=== PATIENT | female | born 1950 | race Caucasian/White ===

== ENCOUNTER 2022-02-21 13:25 | Emergency (ER) | payer MEDICARE, SELFPAY ==
--- NOTE | 2022-02-21 13:37 | ED.FEMALEGU ---
HPI - Female Genitourinary General Chief complaint: Urogenital-Female Stated complaint: poss uti Time Seen by Provider: 02/21/22 13:37 Source: patient and RN notes reviewed History of Present Illness HPI Narrative: Patient is 71-year-old female presents to urgent care with complaints of possible UTI. Patient states that last night she noticed her urine was dark and had some urinary frequency. Patient did just stop amoxicillin from the sinus infection on Wednesday. Patient denies any nausea, vomiting, fever or abdominal pain. No other acute complaints. No acute distress noted. Patient aware of the plan of care. Some parts of this dictation were generated by voice recognition software and may contain typographical and/or grammatical inaccuracies. Related Data Home Medications Medication Instructions Recorded Confirmed Fish Oil 02/21/22 allopurinol 300 mg tablet 300 mg PO DAILY 02/21/22 02/21/22 apixaban 5 mg tablet (Eliquis) 5 mg PO BID 02/21/22 02/21/22 atorvastatin 40 mg tablet 40 mg PO DAILY 02/21/22 02/21/22 budesonide-formoterol HFA 160 2 puff inhalation Q12H 02/21/22 02/21/22 mcg-4.5 mcg/actuation aerosol inhaler (Symbicort) famotidine 40 mg tablet 40 mg PO DAILY 02/21/22 02/21/22 fexofenadine 180 mg tablet 180 mg PO DAILY 02/21/22 02/21/22 montelukast 10 mg tablet 10 mg PO DAILY 02/21/22 02/21/22 niacin 02/21/22 sotalol 160 mg tablet 160 mg PO BID 02/21/22 02/21/22 valsartan 320 1 tablet PO DAILY 02/21/22 02/21/22 mg-hydrochlorothiazide 12.5 mg tablet Allergies Allergy/AdvReac Type Severity Reaction Status Date / Time fentanyl Allergy Other Verified 02/21/22 13:56 Sulfa (Sulfonamide Allergy Other Verified 02/21/22 13:55 Antibiotics) Review of Systems Review of Systems: CONSTITUTIONAL: Denies fever, chills, or sweats. EYES: Denies visual changes, redness, or discharge. ENT: Denies rhinorrhea, congestion, sore throat, or otalgia. CARDIOVASCULAR: Denies chest pain, palpitations, or edema. RESPIRATORY: Denies cough or dyspnea. GASTROINTESTINAL: Denies abdominal pain, nausea, vomiting, or diarrhea. GENITOURINARY: Reports of dark urine frequency SKIN: Denies rash or itching. MUSCULOSKELETAL: Denies back pain, joint pain, or myalgia. NEUROLOGIC: Denies headache, numbness, or weakness. All other systems reviewed are negative, except as documented in HPI. PMFSH Comments At the time of my signature, I reviewed and agree with the nursing past medical, surgical, social, and family history. There is no relevant family history pertinent to the patient complaint. Exam Narrative: GENERAL: This is a well-nourished, well-developed patient, in no apparent distress. HEAD: normocephalic, atraumatic. EYES: PERRL. Sclera clear/white. Vision is grossly intact. EARS: External ears normal NOSE: External nose normal with no obvious nasal discharge, nares without redness, no rhinorrhea. THROAT: Mucous membranes moist NECK: Neck supple RESPIRATORY: Clear to auscultation. Breath sounds equal bilaterally. No wheezes, rales, or rhonchi. GASTROINTESTINAL: Abdomen soft, non-tender, nondistended. Bowel sounds are active. SKIN: warm, intact with no suspicious lesions or rash, good texture and turgor. NEURO: awake, alert, and oriented to person, place and time. There were no obvious focal neurologic abnormalities. EXTREMITIES: No clubbing, cyanosis, or edema. BACK:No flank tenderness. Course Course Level of Care: Express Care Visit Vital Signs Vital signs: Vital Signs Temperature 98.1 F 02/21/22 13:38 Pulse Rate 71 02/21/22 13:38 Respiratory Rate 16 02/21/22 13:38 Blood Pressure 131/79 02/21/22 13:38 Pulse Oximetry 99 02/21/22 13:38 Oxygen Delivery Room Air 02/21/22 13:38 Temperature 98.1 F 02/21/22 13:38 Pulse Rate 71 02/21/22 13:38 Respiratory Rate 16 02/21/22 13:38 Blood Pressure 131/79 02/21/22 13:38 Pulse Oximetry 99 02/21/22 13:38 Oxygen Delivery Room
[2022-02-21 13:38] VITALS: BP 131/79; PULSE 71; RESP 16; TEMP 36.7; O2SAT 99
== END 2022-02-21 14:02 | disposition home or self-care (01) ==
PROVIDERS: Emergency Provider Nurse Practitioner Family; PCP Internal Medicine
DX: N39.0 Urinary tract infection, site not specified (principal); Z79.01 Long term (current) use of anticoagulants
CPT/HCPCS: 81003; 87077; 87086; 87186; 99213; G0463

== ENCOUNTER 2023-04-24 13:35 | Emergency (ER) | payer MEDICARE, SELFPAY ==
[2023-04-24 13:42] VITALS: BP 135/75; PULSE 88; RESP 20; TEMP 36.6; O2SAT 100
--- NOTE | 2023-04-24 14:01 | ED.URI ---
HPI - URI/Sore Throat General Chief Complaint: Upper Respiratory Infection Stated Complaint: cough/right side face congestion Time Seen by Provider: 04/24/23 14:00 Source: patient, RN notes reviewed and old records reviewed Mode of arrival: ambulatory Limitations: no limitations History of Present Illness HPI Narrative: 2 week duration of right sided facial pressure with drainage,some headache discomfort AND COUGH. Patient reports that she saw her ENT doctor at the start of her symptom and was started on Azelastine nasal spray and did seemed to get a little better till about 3 days ago. Patient reports that she has had some sore throat starting last night and she has had increased fatigue for the past 48 hours along with cough. Patient reports that she has had COVID vaccination,Flu shot and also RSV immunization this year. Patient reports no recent fevers. MD elicited complaint: cough and sore throat Pertinent past history: other (SINUS PROBLEMS) Onset (ago): week(s) (2) Severity: mild Description of mucous: other (white thick mucous) Able to tolerate fluids by mouth: Yes Treatments prior to arrival: other (nasal spray) Related Data Home Medications Medication Instructions Recorded Confirmed allopurinol 300 mg tablet 300 mg PO DAILY 02/21/22 04/24/23 apixaban 5 mg tablet (Eliquis) 5 mg PO BID 02/21/22 04/24/23 atorvastatin 40 mg tablet 40 mg PO DAILY 02/21/22 04/24/23 budesonide-formoterol HFA 160 2 puff inhalation Q12H 02/21/22 04/24/23 mcg-4.5 mcg/actuation aerosol inhaler (Symbicort) famotidine 40 mg tablet 40 mg PO DAILY 02/21/22 04/24/23 fexofenadine 180 mg tablet 180 mg PO DAILY 02/21/22 04/24/23 montelukast 10 mg tablet 10 mg PO DAILY 02/21/22 04/24/23 sotalol 160 mg tablet 160 mg PO BID 02/21/22 04/24/23 valsartan 320 1 tablet PO DAILY 02/21/22 04/24/23 mg-hydrochlorothiazide 12.5 mg tablet azelastine 137 mcg (0.1 %) nasal See Rx Instructions .Route .COMPLEX 04/24/23 04/24/23 spray aerosol docosahexaenoic acid (dha)-epa 120 1 cap PO DAILY 04/24/23 04/24/23 mg-180 mg capsule (Fish Oil) niacin 50 mg tablet 50 mg PO DAILY 04/24/23 04/24/23 Allergies Allergy/AdvReac Type Severity Reaction Status Date / Time fentanyl Allergy Other Verified 04/24/23 13:40 Sulfa (Sulfonamide Allergy Other Verified 04/24/23 13:40 Antibiotics) Review of Systems Review of Systems: CONSTITUTIONAL: Denies malaise, chills, sweats, or fever. EYES: Denies visual changes, redness, or discharge. ENT: Reports rhinorrhea, congestion,right sided sinus pain, no otalgia and positive for some sore throat. CARDIOVASCULAR: Denies chest pain, palpitations, or edema. RESPIRATORY: Reports cough.? Denies dyspnea. GASTROINTESTINAL: Denies abdominal pain, nausea, vomiting, diarrhea SKIN: Denies rash or itching. MUSCULOSKELETAL: Denies myalgia. NEUROLOGIC: frontal headache . 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 at [facility] Breast cancer, left lumpectomy and radiation Elevated cholesterol History of sinus problem Pacemaker SVT (supraventricular tachycardia) Surgical History Surgical History (Updated 04/24/23 @ 14:57 by Rosalia Melendrez NP) H/O hernia repair History of appendectomy History of cardiac radiofrequency ablation History of hysterectomy History of left hip replacement Total knee replacement status Social History Social History (Updated 04/24/23 @ 14:51 by Rosalia Melendrez NP) Smoking status: Former smoker Additional smoking assessment comments: QUIT OVER 25 YEARS AGO PRIOR TO THAT WAS OCCASIONAL SMOKER Alcohol intake: current Alcohol use details: RARE Substance use type: does not use Living arrangements: alone Occupation/Education: retired Gender identity (if verbalized by the p
== END 2023-04-24 14:30 | disposition home or self-care (01) ==
PROVIDERS: Emergency Provider Registered Nurse; PCP Internal Medicine
DX: J01.40 Acute pansinusitis, unspecified (principal); Z20.822 Contact with and (suspected) exposure to COVID-19; Z87.891 Personal history of nicotine dependence; I48.91 Unspecified atrial fibrillation; E78.00 Pure hypercholesterolemia, unspecified; Z95.0 Presence of cardiac pacemaker; Z96.642 Presence of left artificial hip joint; Z85.3 Personal history of malignant neoplasm of breast; Z90.12 Acquired absence of left breast and nipple; Z79.01 Long term (current) use of anticoagulants
CPT/HCPCS: 87081; 87426; 87804; 87880; 99213; G0463

== ENCOUNTER 2023-05-13 14:05 | Emergency (ER) | payer MEDICARE, SELFPAY ==
--- NOTE | 2023-05-13 14:09 | ED.GENADULT ---
HPI - General Adult General Chief complaint: Urogenital-Female Stated complaint: Poss UTI Source: patient, RN notes reviewed and old records reviewed Mode of arrival: ambulatory Limitations: no limitations History of Present Illness HPI narrative: 73-year-old female presents to [facility] with complaints of burning with urination, urinary frequency, and constant urge to pee then barely going when she goes to the bathroom. Patient states symptoms started over the weekend but has worsened yesterday. Related Data Home Medications Medication Instructions Recorded Confirmed allopurinol 300 mg tablet 300 mg PO DAILY 02/21/22 05/13/23 apixaban 5 mg tablet (Eliquis) 5 mg PO BID 02/21/22 05/13/23 famotidine 40 mg tablet 40 mg PO DAILY 02/21/22 05/13/23 sotalol 160 mg tablet 160 mg PO BID 02/21/22 05/13/23 valsartan 320 1 tablet PO DAILY 02/21/22 05/13/23 mg-hydrochlorothiazide 12.5 mg tablet azelastine 137 mcg (0.1 %) nasal See Rx Instructions .Route .COMPLEX 04/24/23 05/13/23 spray aerosol atorvastatin 80 mg tablet 80 mg PO DAILY 05/13/23 05/13/23 Allergies Allergy/AdvReac Type Severity Reaction Status Date / Time fentanyl AdvReac Unknown Nausea and Verified 05/13/23 14:26 Vomiting Sulfa (Sulfonamide AdvReac Unknown Nausea and Verified 05/13/23 14:26 Antibiotics) Vomiting Review of Systems Constitutional: Constitutional: Reports no additional constitutional complaints, Denies body ache(s), Denies chills, Denies fatigue, Denies fever(s) and Denies headache(s) Eyes: Eyes: Reports no additional eye complaints and Denies blurry vision ENT: Reports system reviewed and no additional complaints, except as documented, Denies vertigo, Denies dizziness, Denies ear discharge, Denies otalgia, Denies facial pain, Denies headache(s), Denies nasal congestion, Denies nasal discharge, Denies sinus pain, Denies sinus pressure and Denies sore throat Cardiovascular: Cardiovascular: Reports no additional cardiovascular complaints, Denies chest pain, Denies chest pain at rest, Denies rapid heart rate and Denies dyspnea Respiratory: Respiratory: Reports no additional respiratory complaints, Denies chest congestion, Denies cough, Denies pain on inspiration, Denies pain with cough and Denies dyspnea Gastrointestinal: Gastrointestinal: Denies abdominal pain, Denies diarrhea, Denies nausea and Denies vomiting Genitourinary: Genitourinary: Reports nocturia, Reports dysuria and Reports urinary urgency Integumentary/Breasts: Skin/Breast: Denies rash Neurologic: Reports system reviewed and no additional complaints, except as documented, Denies vertigo, Denies dizziness and Denies headache(s) Endocrine: Endocrine: Denies fatigue [facility] Past Medical History Medical History Atrial fibrillation Brain tumor 40 years ago removed at [facility] Breast cancer, left lumpectomy and radiation Elevated cholesterol History of sinus problem Pacemaker SVT (supraventricular tachycardia) Surgical History Surgical History H/O hernia repair History of appendectomy History of cardiac radiofrequency ablation History of hysterectomy History of left hip replacement Total knee replacement status Social History Social History Smoking status: Former smoker Additional smoking assessment comments: QUIT OVER 25 YEARS AGO PRIOR TO THAT WAS OCCASIONAL SMOKER Alcohol intake: current Alcohol use details: RARE Substance use type: does not use Living arrangements: alone Occupation/Education: retired Gender identity (if verbalized by the patient): Female Comments At the time of my signature, I reviewed and agree with the nursing past medical, surgical, social, and family history. There is no relevant family history pertinent to the patient complaint. Exam Const:
[2023-05-13 14:12] VITALS: BP 149/80; PULSE 66; RESP 20; TEMP 36.6; O2SAT 99
== END 2023-05-13 14:37 | disposition home or self-care (01) ==
PROVIDERS: Emergency Provider Registered Nurse; PCP Internal Medicine
DX: N30.01 Acute cystitis with hematuria (principal); B96.20 Unspecified Escherichia coli [E. coli] as the cause of diseases classified elsewhere; Z87.891 Personal history of nicotine dependence; I48.91 Unspecified atrial fibrillation; E78.00 Pure hypercholesterolemia, unspecified; Z85.3 Personal history of malignant neoplasm of breast; Z90.12 Acquired absence of left breast and nipple; Z96.642 Presence of left artificial hip joint; Z95.0 Presence of cardiac pacemaker; Z79.01 Long term (current) use of anticoagulants
CPT/HCPCS: 81003; 87077; 87086; 87088; 87186; 99213; G0463

== ENCOUNTER 2024-03-04 10:03 | Emergency (ER) | payer MEDICARE, SELFPAY ==
[2024-03-04 10:12] VITALS: BP 128/64; PULSE 69; RESP 20; TEMP 37.2; O2SAT 99
--- NOTE | 2024-03-04 10:13 | ED.URI ---
HPI - URI/Sore Throat General Chief Complaint: Upper Respiratory Infection Stated Complaint: SINUS CONGESTION/SCRATCHY THROAT Time Seen by Provider: 03/04/24 10:16 Source: patient, RN notes reviewed and old records reviewed Mode of arrival: ambulatory Limitations: no limitations History of Present Illness HPI Narrative: 73-year-old female presents to the [facility] with a 4-5 day history of sinus congestion, sore throat, rhinorrhea, postnasal drainage. Has taken Flonase, Delsyn and Coricidin Onset (ago): day(s) (4-5) Related Data Home Medications ?Medication ?Instructions ?Recorded ?Confirmed ?Last Taken ?Type allopurinol 300 mg tablet 300 mg PO DAILY 02/21/22 03/04/24 Unknown History apixaban 5 mg tablet (Eliquis) 5 mg PO BID 02/21/22 03/04/24 Unknown History famotidine 40 mg tablet 40 mg PO DAILY 02/21/22 03/04/24 Unknown History sotalol 160 mg tablet 160 mg PO BID 02/21/22 03/04/24 Unknown History valsartan 320 1 tablet PO DAILY 02/21/22 03/04/24 Unknown History mg-hydrochlorothiazide 12.5 mg tablet azelastine 137 mcg (0.1 %) nasal See Rx Instructions .Route .COMPLEX 04/24/23 03/04/24 Unknown History spray atorvastatin 80 mg tablet 80 mg PO DAILY 05/13/23 03/04/24 Unknown History Jo Ann 03/04/24 Unknown History Fish Oil 03/04/24 Unknown History Vitamin C 03/04/24 Unknown History albuterol sulfate 90 mcg/actuation inhalation 03/04/24 Unknown History aerosol inhaler amlodipine 2.5 mg tablet mg 03/04/24 Unknown History budesonide-formoterol HFA 160 inhalation 03/04/24 Unknown History mcg-4.5 mcg/actuation aerosol inhaler (Breyna) calcium 03/04/24 Unknown History ezetimibe 10 mg tablet mg 03/04/24 Unknown History montelukast 10 mg tablet mg 03/04/24 Unknown History multivitamin 03/04/24 Unknown History niacin 100 mg tablet See Rx Instructions PO DAILY 03/04/24 03/04/24 Unknown History vitamin d3 03/04/24 Unknown History zinc 03/04/24 Unknown History Allergies Allergy/AdvReac Type Severity Reaction Status Date / Time fentanyl AdvReac Unknown Nausea and Verified 03/04/24 10:07 Vomiting Sulfa (Sulfonamide AdvReac Unknown Nausea and Verified 03/04/24 10:07 Antibiotics) Vomiting Review of Systems Review of Systems: All systems reviewed & are unremarkable except as noted in HPI and below Constitutional: Constitutional: Reports no additional constitutional complaints ENT: Reports as per HPI, Reports sinus pressure and Reports sore throat Cardiovascular: Cardiovascular: Reports no additional cardiovascular complaints, Denies chest pain and Denies dyspnea Respiratory: Respiratory: Reports no additional respiratory complaints, Denies chest congestion, Denies cough and Denies dyspnea Musculoskeletal: Musculoskeletal: Reports no additional musculoskeletal complaints Integumentary/Breasts: Skin/Breast: Reports system reviewed and no additional complaints, except as docu PMFSH Past Medical History Medical History Elevated cholesterol Pacemaker Atrial fibrillation SVT (supraventricular tachycardia) History of sinus problem Brain tumor 40 years ago removed at [facility] Breast cancer, left lumpectomy and radiation Surgical History Surgical History H/O hernia repair History of cardiac radiofrequency ablation History of appendectomy History of hysterectomy History of left hip replacement Total knee replacement status Social History Social History Smoking status: Former smoker Additional smoking assessment comments: QUIT OVER 25 YEARS AGO PRIOR TO THAT WAS OCCASIONAL SMOKER Alcohol intake: current Alcohol use details: RARE Substance use type: does not use Living arrangements: alone Occupation/Education: retired Gender identity (if verbalized by the patient): Female Comments At the time of my signature, I reviewed and agree with the nursing past medical, surgical, social, and family history. There is no relevant family history pertinent to the patient complaint. Exam Const: General: cooperative, healthy appearing, comfortable, no acute distress, well developed, alert and well nourished Nutritional Appearance: well nourished and obese Orientation/consciousness: patient oriented x3 Limitations: no limitations HENMT: Head: normal to inspection Ears: hearing grossly normal bilaterally, external ears normal and TM abnormal with fluid behind the TM bilateral Throat: posterior oropharynx normal, uvula midline, postnasal drainage and no uvular edema Eyes: General: appearance normal, both eyes and all related structures Alignment and Position: alignment normal Neck: Neck: normal visual inspection, full ROM, no lymphadenopathy and no meningeal signs Chest: Chest palpation & inspection: normal inspection of the chest Resp: Effort & Inspection: normal respiratory effort and able to speak in complete sentences Auscultation: clear to auscultation bilaterally, no crackles, no rales, no rhonchi and no wheezes Cardio: Rate: regular rate Skin: General skin exam: normal color and no rashes or lesions noted Neuro: General: patient oriented x3, gait normal, moves all extremities and no meningeal signs Cognition (Neuro): normal cognition Speech: normal speech Gait exam (Neuro): Normal gait present Extrem: General: normal to inspection, full ROM, capillary refill normal and normal gait Psych: Appearance: grossly normal and well kempt Mental Status: mental status grossly normal Speech and movement: Normal speech and movement present and Clear speech present Affect: normal affect Attitude: cooperative Course Course Level of Care: Express Care Visit Vital Signs Vital signs: Vital Signs Temperature 98.9 F 03/04/24 10:12 Pulse Rate 69 03/04/24 10:12 Respiratory Rate 20 03/04/24 10:12 Blood Pressure 128/64 03/04/24 10:12 Pulse Oximetry 99 03/04/24 10:12 Oxygen Delivery Room Air 03/04/24 10:12 Temperature 98.9 F 03/04/24 10:12 Pulse Rate 69 03/04/24 10:12 Respiratory Rate 20 03/04/24 10:12 Blood Pressure 128/64 03/04/24 10:12 Pulse Oximetry 99 03/04/24 10:12 Oxygen Delivery Room Air 03/04/24 10:12 Reviewed MDM - URI/Sore Throat MDM Narrative Medical decision making narrative: Patient sitting in exam. Nontoxic vitals stable. Patient in no acute distress. Patient presents with 4 day history of sinus congestion, sore throat, postnasal drainage. Patient has been using [id number] products. Flu and COVID negative. Patient appropriate outpatient treatment of sinusitis with close follow-up Discharge instructions reviewed with patient, as well as provided in writing per nursing staff. The instructions also include specific and strict return/GO TO THE ER as well as f/u information. All questions have been answered, and the patient deny any further questions with discharge and discharge plan. Some parts of this dictation were generated by voice recognition software and may contain typographical and/or grammatical inaccuracies. Differential Diagnosis Differential diagnosis: Likely upper respiratory infection, otitis media, sinusitis, viral infection and influenza Lab Data Labs: Lab Results 03/04/24 Range/Units 10:41 POC Influenza A Ag Negative (Negative) POC Influenza B Ag Negative (Negative) POC SARS CoV-2 Ag Negative (Negative) Reviewed Critical Care Time Critical Care Time Critical Care Time: No Discharge Plan Discharge Clinical Impression: PND (post-nasal drip) Sinusitis Qualifiers: Sinusitis location: unspecified location Chronicity: acute Recurrence: not specified as recurrent Qualified Code(s): J01.90 - Acute sinusitis, unspecified Patient Disposition: Home, Self-Care Condition: Stable Instructions: Antibiotic Form, Sinusitis (ED), Postnasal Drip (DC) Additional Instructions: Your rapid COVID test were negative Your rapid flu test was negative Your symptoms are likely due to a viral illness, which is not treated with antibiotics. Typically viral infections last 7-10 days, can linger for couple of weeks. It is very important to treat your symptoms. Drink plenty of water, Gatorade, Pedialyte, ice pops or Jell-O. -Alternate Tylenol and Motrin per package directions for fever or pain. You can alternate every 4 hours -Antihistamine medication such as Zyrtec/Claritin/Jo Ann during the day can help improve symptoms. -doing daily nasal irrigations can help relieve pressure your sinuses. Things like a Neti pot -Use Flonase twice a day for 5 days then daily to help reduce the inflammation and dry up your sinuses. -You can also use Coricidin HBP, Mucinex. Be sure to drink plenty of water with this medication at least 8 ounces with every dose and it is important to drink 8 to 10 glasses of water per day. Water is a natural decongestant -Eat and drink things that are easy to swallow, like tea or soup, or popsicles. -Oral rinses such as: Salt water gargles and/or may use topical anesthetic (eg. Chloraseptic spray) or lozenges to relieve dryness or throat pain). -Frequent hand washing or hand preparation department supervisor is one of the best ways to prevent spread of infection. -Using a vaporizer or humidifier at night will also help thin secretions and help with coughing up phlegm. -Follow up with primary care provider in 7-10 days if condition is not improving - For new or worsening symptoms go directly to the nearest ER Patient Language: Eritrean Prescriptions: New methylprednisolone [Medrol (Oziel)] 4 mg tablets,dose pack See Rx Instructions PO .COMPLEX Qty: 21 0RF Rx Instructions: orally per package directions No Action sotalol 160 mg Tablet 160 mg PO BID famotidine 40 mg Tablet 40 mg PO DAILY allopurinol 300 mg Tablet 300 mg PO DAILY valsartan-hydrochlorothiazide 320-12.5 mg Tablet 1 tablet PO DAILY Eliquis 5 mg Tablet 5 mg PO BID azelastine 137 mcg (0.1 %) aerosol,spray See Rx Instructions .ROUTE .COMPLEX Rx Instructions: as prescribed atorvastatin 80 mg tablet 80 mg PO DAILY nitrofurantoin monohyd/m-cryst [Macrobid] 100 mg capsule 100 mg PO Q12H 7 Days Qty: 14 0RF Rx Instructions: must administer with a meal/food amlodipine 2.5 mg tablet montelukast 10 mg tablet ezetimibe 10 mg tablet budesonide-formoterol [Breyna] 160-4.5 mcg/actuation HFA aerosol inhaler INHALATION albuterol sulfate 90 mcg/actuation HFA aerosol inhaler INHALATION Jo Ann Vitamin C multivitamin niacin 100 mg tablet See Rx Instructions PO DAILY Rx Instructions: orally daily; Fish Oil vitamin d3 zinc calcium Follow-up/Referrals: Kunal,Moo Slater MD [Primary Care Provider] - 1 Week (express care follow up ) Time of Disposition: 10:50
[2024-03-04 10:42] LABS: EDCOVIDSCREEN Negative (Negative); EDINFLUASCREEN Negative (Negative); EDINFLUBSCREEN Negative (Negative)
--- OUTSIDE RECORDS SUMMARY | 2024-03-11 12:45 | XMS_ITS ---
Author Organization Unknown ALLERGIES AND ADVERSE REACTIONS No information ASSESSMENT No information CHIEF COMPLAINT No information MEDICATIONS No information OBJECTIVE DATA No information PHYSICAL EXAMINATION No information TREATMENT PLAN Planned Care Start Date Provider Encounter for Check-up [id number] [facility] - Dr. Enrique Syed PROBLEMS No information RESULTS No information REVIEW OF SYSTEMS No information SUBJECTIVE DATA No information VITAL SIGNS No information
--- OUTSIDE RECORDS SUMMARY | 2024-03-11 12:45 | XMS_ITS | Clinical Summary ---
Author Organization Unknown Care Team Providers Care Planting Material Carrier Name Role Phone ZITA MALIN, DELMA Unavailable Unavailable ALYSSA PT, GUSTAVO Unavailable Unavailabl e Payers Payer Name Policy Type Policy Number Effective Date Expira tion Date MEDICARE - [place] - PDGM [id number] Problems Condition Name Condition Details Condition Category Status Onset Date Resolution Date Last Treatment Date Treating Clinician Comments AFTERCARE FOLLOWING JOINT REPLACEMENT SURGERY Active 03-01 00:00: 00 UNSPECIFIED ATRIAL FIBRILLATION Active 03-01 00:00: 00 ATHSCL HEART DISEASE OF [place] CORONARY ARTERY W/O ANG PCTRS Active 03-01 00:00: 00 GASTRO-ESOPH AGEAL REFLUX DISEASE WITHOUT ESOPHAGITIS Active 03-01 00:00: 00 ESSENTIAL (PRIMARY) HYPERTENSION Active 03-01 00:00: 00 UNILATERAL PRIMARY OSTEOARTHRIT IS, RIGHT KNEE Active 03-01 00:00: 00 PRESENCE OF LEFT ARTIFICIAL HIP JOINT Active 03-01 00:00: 00 HISTORY OF FALLING Active 03-01 00:00: 00 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 Ordering Clinician Indication Dosage Frequency Signature (SIG) Comments Components ondansetron 4 mg disintegrat ing tablet 2022-03 00:00: 00 Yes [id number] 1 tablet DAILY 1 tablet DAILY (route: oral) Med Classific ation: Gastroint estinal Therapy Agents oxycodone-a cetaminophe n 5 mg-325 mg tablet 2022-03 00:00: 00 Yes [id number] 2 tablet EVERY 4 HOURS 2 tablet EVERY 4 HOURS (route: oral) Med Classific ation: Analgesic , Anti-infl ammatory or Antipyret ic valsartan 320 mg-hydrochl orothiazide 12.5 mg tablet 2022-03 00:00: 00 Yes [id number] 1 tablet DAILY 1 tablet DAILY (route: oral) Med Classific ation: Cardiovas cular Therapy Agents allopurinol 300 mg tablet 2022-03 00:00: 00 Yes [id number] 1 tablet DAILY 1 tablet DAILY (route: oral) Med Classific ation: Gout and Hyperuric emia Therapy atorvastati n 80 mg tablet 2022-03 00:00: 00 Yes [id number] 1 tablet BEDTIME 1 tablet BEDTIME (route: oral) Med Classific ation: Cardiovas cular Therapy Agents sotalol 160 mg tablet 2022-03 00:00: 00 Yes [id number] 1 tablet 2 TIMES DAILY 1 tablet 2 TIMES DAILY (route: oral) Med Classific ation: Cardiovas cular Therapy Agents montelukast 10 mg tablet 2022-03 00:00: 00 Yes [id number] 1 tablet BEDTIME 1 tablet BEDTIME (route: oral) Med Classific ation: Respirato ry Therapy Agents Acetaminoph en Extra Strength 500 mg tablet 2022-03 00:00: 00 Yes [id number] 2 tablet EVERY 8 HOURS 2 tablet EVERY 8 HOURS (route: oral) Med Classific ation: Analgesic , Anti-infl ammatory or Antipyret ic albuterol sulfate HFA 90 mcg/actuati on aerosol inhaler 2022-03 00:00: 00 Yes [id number] 2 puff EVERY 6 HOURS 2 puff EVERY 6 HOURS (route: inhalation ) Med Classific ation: Respirato ry Therapy Agents azelastine 137 mcg (0.1 %) nasal spray aerosol 2022-03 00:00: 00 Yes [id number] 2 spray 2 TIMES DAILY 2 spray 2 TIMES DAILY (route: nasal) Med Classific ation: Respirato ry Therapy Agents Eliquis 5 mg tablet 2022-03 00:00: 00 Yes [id number] 1 tablet 2 TIMES DAILY 1 tablet 2 TIMES DAILY (route: oral) Med Classific ation: Hematolog ical Agents famotidine 40 mg tablet 2022-03 00:00: 00 Yes [id number] 1 tablet BEDTIME 1 tablet BEDTIME (route: oral) Med Classific ation: Gastroint estinal Therapy Agents ferrous sulfate 325 mg (65 mg iron) tablet 2022-03 00:00: 00 Yes [id number] 1 tablet DAILY 1 tablet DAILY (route: oral) Med Classific ation: Electroly te Balance-N utritiona l Products Narcan 4 mg/actuatio n nasal spray 2022-03 00:00: 00 Yes [id number] 1 spray NEEDED 1 spray A S NEEDED (route: nasal) Med Classific ation: Antidotes and other Reversal Agents Senna-S 8.6 mg-50 mg tablet 2022-03 00:00: 00 Yes [id number] 2 tablet 2 TIMES DAILY 2 tablet 2 TIMES DAILY (route: oral) Med Classific ation: Gastroint estinal Therapy Agents Vital Signs Vital Name Observation Time Observation Value Commen ts Temperature 2023-03-02 10:39:00.000 98.1 [degF] Temperature 2023-02-24 09:24:00.000 97.5 [degF] Temperature 2023-02-15 09:23:00.000 98.1 [degF] Temperature 2023-02-10 08:35:00.000 96.7 [degF] Temperature 2023-02-01 10:16:00.000 97.3 [degF] Temperature 2023-01-27 12:03:00.000 99.1 [degF] Temperature 2023-01-20 12:28:00.000 98.2 [degF] Temperature 2023-01-18 11:58:00.000 97.6 [degF] BMI (%) 2023-01-18 11:58:00.000 41 kg/m2 Height 2023-01-18 11:58:00.000 59 [in_us] Pulse 2023-03-02 10:39:00.000 88 /min Pulse 2023-02-24 09:24:00.000 88 /min Pulse 2023-02-15 09:23:00.000 76 /min Pulse 2023-02-10 08:35:00.000 66 /min Pulse 2023-02-01 10:16:00.000 80 /min Pulse 2023-01-27 12:03:00.000 72 /min Pulse 2023-01-20 12:28:00.000 77 /min Pulse 2023-01-18 11:58:00.000 68 /min O2 Saturation (%) 2023-03-02 10:39:00.000 99 % O2 Saturation (%) 2023-02-24 09:24:00.000 99 % O2 Saturation (%) 2023-02-15 09:23:00.000 100 % O2 Saturation (%) 2023-02-10 08:39:00.000 98 % O2 Saturation (%) 2023-02-01 10:16:00.000 99 % O2 Saturation (%) 2023-01-27 12:03:00.000 97 % Respirations 2023-03-02 10:39:00.000 18 /min Respirations 2023-02-24 09:24:00.000 18 /min Respirations 2023-02-15 09:23:00.000 18 /min Respirations 2023-02-10 08:35:00.000 18 /min Respirations 2023-02-01 10:16:00.000 18 /min Respirations 2023-01-27 12:03:00.000 18 /min Respirations 2023-01-20 12:28:00.000 18 /min Respirations 2023-01-18 11:58:00.000 18 /min Weight (lbs) 2023-01-18 11:58:00.000 206 [lb_av] Systolic Blood Pressure 2023-03-02 10:39:00.000 138 mm [Hg] Systolic Blood Pressure 2023-02-24 09:24:00.000 138 mm [Hg] Systolic Blood Pressure 2023-02-15 09:23:00.000 132 mm [Hg] Systolic Blood Pressure 2023-02-10 08:35:00.000 144 mm [Hg] Systolic Blood Pressure 2023-02-01 10:16:00.000 142 mm [Hg] Systolic Blood Pressure 2023-01-27 12:03:00.000 138 mm [Hg] Systolic Blood Pressure 2023-01-20 12:28:00.000 132 mm [Hg] Systolic Blood Pressure 2023-01-18 11:58:00.000 100 mm [Hg] Diastolic Blood Pressure 2023-03-02 10:39:00.000 80 mm [Hg] Diastolic Blood Pressure 2023-02-24 09:24:00.000 82 mm [Hg] Diastolic Blood Pressure 2023-02-15 09:23:00.000 70 mm [Hg] Diastolic Blood Pressure 2023-02-10 08:35:00.000 86 mm [Hg] Diastolic Blood Pressure 2023-02-01 10:16:00.000 83 mm [Hg] Diastolic Blood Pressure 2023-01-27 12:03:00.000 52 mm [Hg] Diastolic Blood Pressure 2023-01-20 12:28:00.000 68 mm [Hg] Diastolic Blood Pressure 2023-01-18 11:58:00.000 60 mm [Hg] Plan of Treatment Planned Activity Planned Date Details Comments Future Scheduled Test PHYSICAL T HERAPIST TO EVALUATE PATIENT SECONDARY TO FUNCTIONAL DEFICITS/SAFETY CONCERNS. [code = PHYSICAL THERAPIST TO EVALUATE PATIENT SECONDARY TO FUNCTIONAL DEFICITS/SAFETY CONCERNS.] Future Scheduled Test OCCUPATION AL THERAPIST TO EVALUATE PATIENT SECONDARY TO DEFICITS/CONCERNS FOUND DURING EVALUATION INCLUDING DIFFICULTY WITH SELF CARE [code = OCCUPATIONAL THERAPIST TO EVALUATE PATIENT SECONDARY TO DEFICITS/CONCERNS FOUND DURING EVALUATION INCLUDING DIFFICULTY WITH SELF CARE] Future Scheduled Test PHYSICAL T HERAPIST TO ASSESS BEST PRACTICE INTERVENTIONS TO ASSIST PATIENTS TO IMPROVE OR STABILIZE MEDICAL STATUS AND PREVENT RE-HOSPITALIZATION. MEASURES INCLUDING REVIEW AND IDENTIFICATION OF CONCERNS FOR THE FOLLOWING AREAS: DRUG REGIMEN, ENVIRONMENTAL SAFETY ISSUES AND FALLS, PRESSURE ULCERS, PAIN, AND DISEASE MANAGEMENT. [code = PHYSICAL THERAPIST TO ASSESS BEST PRACTICE INTERVENTIONS TO ASSIST PATIENTS TO IMPROVE OR STABILIZE MEDICAL STATUS AND PREVENT RE-HOSPITALIZATION. MEASURES INCLUDING REVIEW AND IDENTIFICATION OF CONCERNS FOR THE FOLLOWING AREAS: DRUG REGIMEN, ENVIRONMENTAL SAFETY ISSUES AND FALLS, PRESSURE ULCERS, PAIN, AND DISEASE MANAGEMENT.] Future Scheduled Test PHYSICAL T HERAPY TO ESTABLISH /UPGRADE/DOWNGRADE THERAPEUTIC EXERCISE PROGRAM AND INSTRUCT PATIENT/CAREGIVER ON EXERCISE PRECAUTIONS WITH WRITTEN HOME PROGRAM. MAY INCLUDE PROM, AAROM, AROM, RROM APPROPRIATE TO IMPROVE FUNCTIONAL STRENGTH AND RANGE OF MOTION. [code = PHYSICAL THERAPY TO ESTABLISH /UPGRADE/DOWNGRADE THERAPEUTIC EXERCISE PROGRAM AND INSTRUCT PATIENT/CAREGIVER ON EXERCISE PRECAUTIONS WITH WRITTEN HOME PROGRAM. MAY INCLUDE PROM, AAROM, AROM, RROM APPROPRIATE TO IMPROVE FUNCTIONAL STRENGTH AND RANGE OF MOTION.] Future Scheduled Test PHYSICAL T HERAPY TO INSTRUCT PATIENT/CAREGIVER ON BED MOBILITY TECHNIQUES TO IMPROVE PATIENT MOBILITY AND POSITIONING TECHNIQUES IN ORDER TO INCREASE PATIENTS COMFORT AND DECREASE RISK OF SKIN BREAKDOWN. [code = PHYSICAL THERAPY TO INSTRUCT PATIENT/CAREGIVER ON BED MOBILITY TECHNIQUES TO IMPROVE PATIENT MOBILITY AND POSITIONING TECHNIQUES IN ORDER TO INCREASE PATIENTS COMFORT AND DECREASE RISK OF SKIN BREAKDOWN.] Future Scheduled Test PHYSICAL T HERAPY TO ASSESS AND RECOMMEND HOME SAFETY ADAPTATIONS AND EDUCATE PATIENT /CAREGIVER ON FALL PREVENTION STRATEGIES. [code = PHYSICAL THERAPY TO ASSESS AND RECOMMEND HOME SAFETY ADAPTATIONS AND EDUCATE PATIENT /CAREGIVER ON FALL PREVENTION STRATEGIES.] Future Scheduled Test PHYSICAL T HERAPY TO INSTRUCT PATIENT/CAREGIVER ON BALANCE AND BALANCE STRATEGIES TO IMPROVE SAFE MOBILITY AND REDUCE RISK FOR FALL AND INJURY. [code = PHYSICAL THERAPY TO INSTRUCT PATIENT/CAREGIVER ON BALANCE AND BALANCE STRATEGIES TO IMPROVE SAFE MOBILITY AND REDUCE RISK FOR FALL AND INJURY.] Future Scheduled Test OCCUPATION AL THERAPY TO EVALUATE AND TREAT. OCCUPATIONAL THERAPY EVALUATION COMPLETED. NO ADDITIONAL VISITS RECOMMENDED AT THIS TIME. [code = OCCUPATIONAL THERAPY TO EVALUATE AND TREAT. OCCUPATIONAL THERAPY EVALUATION COMPLETED. NO ADDITIONAL VISITS RECOMMENDED AT THIS TIME.] Goal 2023-03-02 Patient Goal - P ATIENT WANTS TO GET BACK TO DAILY ROUTINE Goal Provider Goal - PHYSICAL THERAPY EVALUATION TO BE COMPLETED WITH RECOMMENDATIONS AND/OR WRITTEN TREATMENT PLAN OF CARE ESTABLISHED FOR THE PHYSICIANS SIGNATURE Goal Provider Goal - OCCUPATIONAL THERAPY EVALUATION TO BE COMPLETED WITH RECOMMENDATIONS AND/OR WRITTEN TREATMENT PLAN OF CARE ESTABLISHED FOR THE PHYSICIANS SIGNATURE. Goal Provider Goal - PATIENT/CAREGIVER VERBALIZES UNDERSTANDING OF THE INITIAL BEST PRACTICE RECOMMENDATIONS. PHYSICIAN TO BE NOTIFIED APPROPRIATE FOR ANY CHANGES OR COMPLICATIONS THROUGHOUT THE CERTIFICATION PERIOD. Goal Provider Goal - PATIENT/CAREGIVER WILL PERFORM THERAPEUTIC EXERCISE/S AND DEMONSTRATE PARTICIPATION IN A HOME PROGRAM TO IMPROVE FUNCTION OF TRANSFERS. Goal Provider Goal - PATIENT/CAREGIVER WILL DEMONSTRATE IMPROVED BED MOBILITY TECHNIQUES TO IMPROVE FUNCTION OF BED MOBILITY. Goal Provider Goal - PATIENT/CAREGIVER WILL DEMONSTRATE/VERBALIZE UNDERSTANDING OF RECOMMENDATIONS TO INCREASE SAFETY IN THE HOME AND FALL PREVENTION TO IMPROVE FUNCTION OF AMBULATION USING ROLLING WALKER. Goal Provider Goal - PATIENT/CAREGIVER WILL DEMONSTRATE IMPROVED BALANCE AND REDUCE THE RISK OF FALLS AND INJURY TO IMPROVE FUNCTION OF TRANSFERS AND AMBULATION USING ROLLING WALKER. Goal Provider Goal - NONE Reason for Visit INDEPENDENT IN THE HOME Encounters Start Date/Time End Date/Time Encounter Type Admission Type Attending Clinicians Care Facility Care Department Encounter ID Discharge Date Discharge Status Discharge Condition Discharge Reason Percent Goals Met 2023-01-18 00:00:00 2023-03-02 00:00:00 Outpatient NEW ADMISSION GUSTAVO SHAH [facility] [id number] 2023-03-02 00:00:00 DISCHARGE TO HOME OR SELF CARE INDEPENDEN T IN THE HOME GOALS MET ( ONLY) 100.00
--- OUTSIDE RECORDS SUMMARY | 2024-03-11 12:46 | XMS_ITS | Encounter Summary ---
Author Organization [facility] Address [address] [place] [address] Phone Care Team Providers Care Mold Maker Apprentice Name Role Phone Enrique Syed MD Primary Care Provider [phone] Clementina Logan MD Unavailable [phone] Reason for Referral * Radiology Services (Routine) - Closed Specialty Diagnoses / Procedures Referred By Rosalind estevez Referred To Contact Radiology Diagnoses Kidney stone Procedures US RENAL COMPLETE Clementina Logan MD [address], [address] [address] Phone: tel: fax: Referral ID Status Reason Start Date Expiration Date Visits Re quested Visits Authorized [id number] Closed 10/01/2023 1 1 Reason for Visit * Radiology Services (Routine) - Closed Specialty Diagnoses / Procedures Referred By Rosalind estevez Referred To Contact Radiology Diagnoses Kidney stone Procedures US RENAL COMPLETE Clementina Logan MD [address] [facility] [address] [place] [address] Phone: tel: fax: Referral ID Status Reason Start Date Expiration Date Visits Re quested Visits Authorized [id number] Closed 10/01/2023 1 1 Encounter Details Date Type Department Care Team (Latest Contact Info) Description 11/15/2023 8:59 AM CDT - 11/15/2023 11:59 PM CDT Hospital Encounter [facility] Ultrasound [address] [place] [address] Clementina Logan MD [address], [place] [address] [place] [address] Discharge Disposition: Discharged to home or Selfcare Social History Tobacco Use Types Packs/Day Years Used Date Smoking Tobacco: Former Cigarettes Q uit: 1999 Smokeless Tobacco: Never Alcohol Use Standard Drinks/Week Comments Not Currently 0 (1 standard drink = 0.6 oz pur e alcohol) [facility] Utilities Answer Date Recorded In the past 12 months has e electric, gas, oil, or water company threatened to shut off services in your home? Patient declined 09/18/2023 Social Connection and Isolation Panel [NHANES] A nswer Date Recorded In a typical week, how many times do you talk on the phone with family, friends, or neighbors? Patient declined 09/18/2023 How often do you get togethe r with friends or relatives? Patient declined 09/18/2023 How often do you attend adventism or adventist serv ices? Patient declined 09/18/2023 Do you belong to any clubs o r organizations such as adventism groups, unions, fraternal or athletic groups, or school groups? Patient declined 09/18/2023 How often do you attend meet ings of the clubs or organizations you belong to? Patient declined 09/18/2023 Are you , , di vorced, , never , or living with a partner? Patient declined 09/18/2023 AUDIT-C Answer Date Recorded Q1: How often do you have a drink containing alc ohol? Patient declined 09/18/2023 Q2: How many drinks containi ng alcohol do you have on a typical day when you are drinking? Patient declined 09/18/2023 Q3: How often do you have si x or more drinks on one occasion? Patient declined 09/18/2023 Overall Financial Resource Strain (CARDIA) Answe r Date Recorded How hard is it for you to pa y for the very basics like food, housing, medical care, and heating? Patient declined 09/18/2023 [facility] Occupat ional Health - Occupational Stress Questionnaire Answer Date Recorded Do you feel stress - tense, restless, nervous, or anxious, or unable to sleep at night because your mind is troubled all the time - these days? Patient declined 09/18/2023 Exercise Vital Sign Answer Date Recorde d On average, how many days pe r week do you engage in moderate to strenuous exercise (like a brisk walk)? Patient declined On average, how many minutes do you engage in exercise at this level? Patient declined 09/18/2023 Hunger Vital Sign Answer Date Recorded Within the past 12 months, y ou worried that your food would run out before you got the money to buy more. Patient declined Within the past 12 months, t he food you bought just didn't last and you didn't have money to get more. Patient declined PRAPARE - Transportation Answer Date Re corded In the past 12 months, has l ack of transportation kept you from medical appointments or from getting medications? Patient declined 09/18/2023 In the past 12 months, has l ack of transportation kept you from meetings, work, or from getting things needed for daily living? Patient declined 09/18/2023 Housing Stability Vital Sign Answer Chay e Recorded In the last 12 months, was t here a time when you were not able to pay the mortgage or rent on time? Patient declined 09/18/19 24 In the past 12 months, how m any times have you moved where you were living? 1 09/18/2023 At [facility] time in the [facility] were you homeless or living in a care home (including now)? Patient declined 09/18/2023 Sexually Active Control Partners Comments Not Currently Comments No Sex and Gender Information Value Date Recorded Sex Assigned at Not on file Legal Sex Female 10:10 PM CDT Gender Identity Not on file Sexual Orientation Not on file documented as of this encounter Medications at Time of Discharge albuterol 108 (90 Base) MCG/ACT Aerosol Solution take 2 Puffs by inhalation every 4 hours as needed. 06/11/2021 allopurinol (ZYLOPRIM) 300 MG Tablet 300 mg. 06/09/2010 apixaban (ELIQUIS) 5 MG Tablet Take 5 mg by mouth 2 times daily. 08/02/2013 Ascorbic Acid 500 MG Capsule CR 500 mg. 06/18/2015 atorvastatin (LIPITOR) 40 MG Tablet 80 mg every evening. 12/25/2015 azelastine (ASTELIN) 0.1 % Solution 08/19/2016 budesonide-formo terol fumarate (SYMBICORT) 160-4.5 MCG/ACT Aerosol inhale 2 puff by inhalation route 2 times every day in the morning and evening 05/16/2013 docusate sodium (Colace) 100 MG Capsule Take 1 Capsule by mouth 2 times daily. 60 Capsule 05/26/2022 famotidine (PEPCID) 10 MG Tablet Take 10 mg by mouth. fexofenadine (SOMMER) 60 MG Tablet Take by mouth. 08/19/2016 fluticasone (FLONASE) 50 MCG/ACT Suspension 02/18/2010 HYDROcodone-acet aminophen (NORCO) 5-325 MG TabletIndication s:Kidney stone Take 1 Tablet by mouth every 6 hours as needed for Severe pain. 15 Tablet 09/17/2023 montelukast (SINGULAIR) 10 MG Tablet 10 mg. 07/30/2016 Multiple Vitamin (MULTIVITAMIN ADULT PO) 09/17/2014 niacin CR 250 MG Capsule CR Take 800 mg by mouth nightly. 08/19/2016 [place]-3 1400 MG Capsule Take by mouth. oxybutynin (DITROPAN-XL) 10 MG TABLET SR 24 HR Take 1 Tablet by mouth daily. 30 Tablet 3 05/26/2022 Semaglutide-Weig ht Management (CAITY [place]) by Subcutaneous route. sotalol (BETAPACE) 160 MG Tablet Take 160 mg by mouth 2 times daily. 01/09/2022 traMADol (ULTRAM) 50 MG TabletIndication s:Left ureteral stone,Urinary tract infection Take 1 Tablet by mouth every 8 hours as needed for Moderate or more severe pain. 20 Tablet 09/04/2023 valsartan-hydroC HLOROthiazide (DIOVAN-HCT) 320-12.5 MG Tablet Take 1 Tablet by mouth daily. 02/19/2022 Zinc 50 MG Capsule Take by mouth. documented as of this encounter Progress Notes * Clementina Logan MD - 11/15/2023 9:00 AM CDT Can you please let the patient know the degree of swelling in her left kidney has a improve which is good news however, given that there still is some persistence I do recommend proceeding with a CT scan with contrast. If she was amenable I can go ahead and order.. Thank you, Clementina Logan * Maritza Schneider - 11/15/2023 9:00 AM CDT Pt made aware of results and agrees to Ct scan. She has appointment on 11-26-23; Should we r/s office until after ct scan? documented in this encounter Plan of Treatment Upcoming Encounters Date Type Department Care Team (Late st Contact Info) Description 12/29/2024 9:00 AM CDT Office Visit [facility] [address] [place] [address] Clementina Logan MD [address] [address] documented as of this encounter Procedures Procedure Name Priority Date/Time Associated Diagnosis Comments US RENAL COMPLETE Routine 11/15/2023 9:4 7 AM CDT Kidney stone documented in this encounter Results * US RENAL COMPLETE (11/15/2023 9:47 AM CDT) Anatomical Region Laterality Modality , Abdomen N/A Ultrasound 11/16/2023 12:1 1 PM CDT Impressions 11/16/2023 12:13 PM CDT IMPRESSION: 1. ?? Left hydronephrosis, decreased compared to the most recent CT study. 2. ?? Fullness of the right renal pelvis, similar to the prior ultrasound from May 2023. Narrative 11/16/2023 12:13 PM CDT EXAM DESCRIPTION: US RENAL COMPLETE REASON FOR STUDY: Evaluation for hydronephrosis. ??Left stent placed 09/17/2023 and removed on 10/01/2023. ??Follow-up. TECHNIQUE: Ultrasound of the kidneys and urinary bladder was performed with grayscale imaging. COMPARISON: CT examinations dated 09/04/2023, 08/10/2023 and ultrasound 06/26/2023. FINDINGS: RIGHT KIDNEY: The right kidney measures 13.0 x 6.0 x 6.1 cm. ?? Corticomedullary differentiation is maintained. ??There is mild dilation of the right renal pelvis, measuring 1.2 cm on transverse image, similar in appearance compared to the prior ultrasound. ?? There is no focal mass. ??There are a few echogenic foci noted, presumably representing the nonobstructing calculi demonstrated on prior CT. LEFT KIDNEY: The left kidney measures ??11.6 x 5.3 x 5.8 cm. ?? There is left-sided hydronephrosis. ??This appears slightly diminished compared to the prior CT study on 09/04/2023. ??There is a tiny cyst along the inferior pole of the left kidney measuring 8 x 7 x 7 mm. URINARY BLADDER: ?? The urinary bladder is incompletely distended. ?? Both ureteral jets are demonstrated. ??No appreciable mass. OTHER: ?? No other additional findings. THIS IS AN ELECTRONICALLY VERIFIED FINAL REPORT 11/16/2023 12:11 PM - Electronically signed by ??Shae Gerardo M.D. TW: PATRICK D: ??11/16/2023 12:11 PM T: ??11/16/2023 12:11 PM Report ID: [id number] Reading Location: ??[id number] Procedure Note Shae Gerardo MD - 11/16/2023 EXAM DESCRIPTION: US RENAL COMPLETE REASON FOR STUDY: Evaluation for hydronephrosis. Left stent placed 09/17/2023 and removed on 10/01/2023. Follow-up. TECHNIQUE: Ultrasound of the kidneys and urinary bladder was performed with grayscale imaging. COMPARISON: CT examinations dated 09/04/2023, 08/10/2023 and ultrasound 06/26/2023. FINDINGS: RIGHT KIDNEY: The right kidney measures 13.0 x 6.0 x 6.1 cm. Corticomedullary differentiation is maintained. There is mild dilation of the right renal pelvis, measuring 1.2 cm on transverse image, similar in appearance compared to the prior ultrasound. There is no focal mass. There are a few echogenic foci noted, presumably representing the nonobstructing calculi demonstrated on prior CT. LEFT KIDNEY: The left kidney measures 11.6 x 5.3 x 5.8 cm. There is left-sided hydronephrosis. This appears slightly diminished compared to the prior CT study on 09/04/2023. There is a tiny cyst along the inferior pole of the left kidney measuring 8 x 7 x 7 mm. URINARY BLADDER: The urinary bladder is incompletely distended. Both ureteral jets are demonstrated. No appreciable mass. OTHER: No other additional findings. THIS IS AN ELECTRONICALLY VERIFIED FINAL REPORT 11/16/2023 12:11 PM - Electronically signed by Shae Gerardo M.D. TW: TW Report ID: [id number] Reading Location: [place] [address] IMPRESSION: 1. Left hydronephrosis, decreased compared to the most recent CT study. 2. Fullness of the right renal pelvis, similar to the prior ultrasound from May 2023. Celmentina Mauricio MD [facility] US ORDERABLES Final Result documented in this encounter Visit Diagnoses Diagnosis Kidney stone Calculus of kidney documented in this encounter Care Teams Mold Maker Apprentice Relationship Specialty Start Date End Date Enrique Syed MD [facility] [place] [address] PCP - General Internal Medicine 08/11/22 Clementina Logan MD [address] [address] Consulting Physician Urology 03/17/22 documented as of this encounter
--- OUTSIDE RECORDS SUMMARY | 2024-03-11 12:46 | XMS_ITS | Encounter Summary ---
Author Organization [facility] Address [address] [place] [address] Phone Care Team Providers Care Employee Communications Manager Name Role Phone Enrique Syed MD Primary Care Provider [phone] Clementina Logan MD Unavailable [phone] Reason for Visit * Reason Comments Urinary Frequency Encounter Details Date Type Department Care Team (Latest Contact Info) Description 12/31/2023 1:00 PM CDT Clinical Support [facility] [address] [place] [id number] NurseReginaldo Urology UTI symptoms (Primary Dx) Discharge Disposition: Discharged to home or Selfcare Social History Tobacco Use Types Packs/Day Years Used Date Smoking Tobacco: Former Cigarettes Q uit: 2000 Smokeless Tobacco: Never Alcohol Use Standard Drinks/Week Comments Not Currently 0 (1 standard drink = 0.6 oz pur e alcohol) [facility] Utilities Answer Date Recorded In the past 12 months has [employer], gas, oil, or water [employer] threatened to shut off services in your home? Patient declined 09/18/2023 Social Connection and Isolation Panel [NHANES] A nswer Date Recorded In a typical week, how many times do you talk on the phone with family, friends, or neighbors? Patient declined 09/18/2023 How often do you get togethe r with friends or relatives? Patient declined 09/18/2023 How often do you attend sikh or druze serv ices? Patient declined 09/18/2023 Do you belong to any clubs o r organizations such as sikh groups, unions, fraternal or athletic groups, or [...] medical care, and heating? Patient declined 09/18/2023 [facility] - Occupational Stress Questionnaire Answer Date Recorded [...] any time in the past 12 m [facility], were you homeless or living in a care home (including now)? Patient declined 09/18/2023 Sexually Active Control Partners Comments Not Currently Comments No Sex and Gender Information Value Date Recorded Sex Assigned at Not on file Legal Sex Female 10:10 PM CDT Gender Identity Not on file Sexual Orientation Not on file documented as of this encounter Progress Notes * Kahlil Dyer RN - 12/31/2023 1:00 PM CDT Adri presents today with complaints of burning with urination, hesitancy for 2 days. Notify provider of any positive findings: Fever > 101 F: No Taking antibiotic > 24 hours for UTI and fever persists: No Taking antibiotic > 3 days for UTI and painful urination not improved: No Side (flank) or lower back pain: No Greater than 2 UTIs in the last year: No Unable to urinate (or a few drops) and bladder feels full: No Severe pain with urination: No Change in vaginal discharge: No Possible exposure to sexually transmitted disease (STD): No Gross hematuria: No History of renal disease, pyelonephritis, kidney stones: No History of weak immune system: No Artificial heart valve or joint: No Is patient currently being managed by urologist? No Exam: There were no vitals taken for this visit. No LMP recorded. Patient has had a hysterectomy. Notify the provider if the patient is or . 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 documented in this encounter Miscellaneous Notes * Addendum Note - Kahlil Dyer RN - 12/31/2023 1:00 PM CDTAddended by: KAHLIL DYER on: 01/04/2024 09:13 AM Modules accepted: Orders CELL BATTERY ASSEMBLER documented in this encounter Plan of Treatment Upcoming Encounters Date Type Department Care Team (Late st Contact Info) Description 12/29/2024 9:00 AM CDT Office Visit [facility] [address] [place] [id number] Clementina Logan MD [address], [facility] [address] [place] [address] documented as of this encounter Procedures Procedure Name Priority Date/Time Associated Diagnosis Comments CULTURE, URINE Routine 12/31/2023 1:08 PM CDT UTI symptoms POCT UA AUTOMATED W/O MICRO Routine 12/31/2023 1:07 PM CDT UTI symptoms documented in this encounter Results * CULTURE, URINE (12/31/2023 1:08 PM CDT) CULTURE RESULTS ESCHERICHIA COLI 01/02/2024 4:41 PM DRY CELL BATTERY ASSEMBLER [facility] Culture URINE SPECIMEN COLLECTION, CLEAN CATCH / Unknown Non-Phlebotomy Collection / Unknown 12/31/2023 1:08 PM CDT 12/31/2023 1:08 PM CDT Narrative Organism Antibiotic Method Susceptibility Escherichia coli Ampicillin [facility] VITEK IIB >=32 mcg/ml: Resistant Escherichia coli Ampicillin/sulbactam [facility] IIB >=32 mcg/ml: Resistant Escherichia coli Cefazolin [facility] IIB <=4 mcg/ml: Susceptible Escherichia coli Cefepime [facility] IIB <=1 mcg/ml: Susceptible Escherichia coli Ceftriaxone [facility] IIB <=1 mcg/ml: Susceptible Escherichia coli Gentamicin [facility] IIB <=1 mcg/ml: Susceptible Escherichia coli Levofloxacin [facility] IIB >=8 mcg/ml: Resistant Escherichia coli Meropenem [facility] IIB <=0.25 mcg/ml: Susceptible Escherichia coli Nitrofurantoin [facility] IIB <=16 mcg/ml: Susceptible Escherichia coli Piperacillin/Tazobactam [facility] II B 16 mcg/ml: Intermediate Escherichia coli Tobramycin [facility] IIB >=16 mcg/ml: Resistant Escherichia coli Trimeth/Sulfamethoxazole [facility] VITEK I IB <=20 mcg/ml: Susceptible Clementina Mauricio MD MICROBIOLOGY - GENERAL ORDERAB LES Final Result [facility] [address] [place] [address], [place] * (ABNORMAL) POCT UA AUTOMATED W/O MICRO (12/31/2023 1:07 PM CDT) POC UA SPECIFIC GRAVITY 1.020 URINE PH 5.0 5.0 - 9.0 POC URINE LEUKOCYTES 500 /uL(A) Negative Kalie/uL POC URINE NITRITE Negative Negative POC URINE PROTEIN Negative Negative mg/dL POC URINE GLUCOSE Norm Negative, Norm mg/dL POC URINE KETONE Negative Negative mg/dL POC URINE UROBILINOGEN Norm Norm, 0.2 E.U./dL (mg/dL), 1 E.U./dL (mg/dL) POC URINE BILIRUBIN Negative Negative mg/dL POC URINE BLOOD INSTRUMENT 50 Homer/uL(A) Negative Homer/uL POC URINE COLOR Yellow POC URINE CLARITY Slightly Cloudy Urine 12/31/2023 1:07 PM CDT Clementina Mauricio MD POINT OF CARE TESTING (MANUAL) Final Result documented in this encounter Visit Diagnoses Diagnosis UTI symptoms- Primary documented in this encounter Care Teams Employee Communications Manager Relationship Specialty Start Date End Date Enrique Syed MD [address] [place] [address] PCP - General Internal Medicine 08/11/22 Clementina Logan MD [address] [address] Consulting Physician Urology 03/17/22 documented as of this encounter
--- OUTSIDE RECORDS SUMMARY | 2024-03-11 12:46 | XMS_ITS | Encounter Summary ---
Author Organization [facility] Address [address] [place] [address] Phone Care Team Providers Care Grounds Crew Supervisor Name Role Phone Enrique Syed MD Primary Care Provider [phone] Clementina Logan MD Unavailable [phone] Reason for Referral * Radiology Services (Routine) - Closed Specialty Diagnoses / Procedures Referred By Rosalind estevez Referred To Contact Radiology Diagnoses Hydronephrosis with ureteropelvic junction (UPJ) obstruction Procedures CT UROGRAPHY WO/W CONTRAST Clementina Logan MD [address] [address] Phone: tel: fax: Referral ID Status Reason Start Date Expiration Date Visits Re quested Visits Authorized [id number] Closed 11/21/2023 1 1 Encounter Details Date Type Department Care Team (Late st Contact Info) Description 11/21/2023 Telephone [facility] [address] [place] [address] Clementina Logan MD [address] [address] Social History Tobacco Use Types Packs/Day Years Used Date Smoking Tobacco: Former Cigarettes Q uit: 1999 Smokeless Tobacco: Never Alcohol Use Standard Drinks/Week Comments Not Currently 0 (1 standard drink = 0.6 oz pur e alcohol) [facility] Utilities Answer Date Recorded In the past 12 months has th e electric, gas, oil, or water company [...] declined 09/18/2023 How often do you attend lutheran or taoist serv ices? Patient declined 09/18/2023 Do you belong to any clubs o r organizations such as lutheran groups, unions, fraternal or athletic groups, or [...] medical care, and heating? Patient declined 09/18/2023 [facility] - Occupational Stress [...] any time in the past 12 m [facility], were you homeless or living in a penitentiary (including now)? Patient declined 09/18/2023 Sexually Active Control Partners Comments Not Currently Comments No Sex and Gender Information Value Date Recorded Sex Assigned at Not on file Legal Sex Female 10:10 PM CDT Gender Identity Not on file Sexual Orientation Not on file documented as of this encounter Miscellaneous Notes * Telephone Encounter - Maritza Schneider - 11/25/2023 11:07 AM CDT Pt made aware * Telephone Encounter - Maritza Schneider - 11/22/2023 2:42 PM CDT Pt requesting something to take for her CT; She states she gets sick to her stomach with the contrast. Please advise. documented in this encounter Plan of Treatment Upcoming Encounters Date Type Department Care Team (Late st Contact Info) Description 12/29/2024 9:00 AM CDT Office Visit [facility] [address] [place] [address] Clementina Logan MD [address], [facility] [address] [place] [address] documented as of this encounter Results * CT UROGRAPHY WO/W CONTRAST (12/16/2023 10:11 AM CDT) Anatomical Region Laterality Modality , Abdomen N/A Computed Tomogra phy 12/20/2023 9:40 AM CDT Impressions 12/20/2023 9:42 AM CDT IMPRESSION: No evidence of an acute abnormality of the abdomen and pelvis. Small right renal calculi. Postsurgical changes of the anterior abdominal wall with mesh. Recurrent fat containing periumbilical hernia. Postsurgical changes of bilateral hip arthroplasties. Small sliding hiatal hernia. Mild colonic diverticulosis. Low-density splenic lesion 1.4 cm nonspecific but commonly related to a benign etiology such as a cyst. Narrative 12/20/2023 9:42 AM CDT EXAM DESCRIPTION: ?? CT UROGRAPHY WO/W CONTRAST REASON FOR STUDY: ?? Hydronephrosis noted on renal US 11/15/23. Hx of left stent, HTN, and gout ?? TECHNIQUE: Precontrast images of the abdomen. ??Abdomen and pelvis images with intravenous and ?? without ??oral contrast using helical scanning technique with dynamic intravenous contrast injection. Corticomedullary, nephrographic, excretory phase images were acquired. Reconstructed coronal and sagittal MPR images reviewed. All images stored on PACS. ?? Automated exposure control was used as a dose optimization technique for this examination. CONTRAST TYPE/DOSE: ?? 100mL of IOPAMIDOL 76 % IV SOLN ??injected via ?? Intravenous COMPARISON: 09/04/2023. REFERENCE: Per ACR white paper recommendations, unless otherwise specified no follow-up imaging is recommended for incidental renal and adrenal lesions per consensus recommendations based on imaging criteria. Further lab evaluation could be pursued based on clinical findings. FINDINGS: LOWER CHEST: ?? Lung bases are predominantly clear. ??There is no pleural effusion. LIVER: ?? Liver size and contour normal. ??No focal hepatic lesion. GALLBLADDER: ?? No gallstones or overt inflammatory change. BILE DUCTS: ?? No biliary ductal dilation. SPLEEN: ?? Spleen size normal. ??There is a low-density lesion in the spleen, this is 1.4 this is nonspecific but commonly related to a benign etiology such as a cyst. PANCREAS: ?? No pancreatic mass or inflammatory change. ADRENALS: ?? Normal KIDNEYS/URETERS/URINARY BLADDER: ??Small right renal calculi 0.3 and 0.2 cm. ??Tiny renal hypodensities likely cysts. ??Excretion of contrast from the kidneys bilaterally. ??The distal half of the right ureter not fully opacified. ??Short-segment nonopacification left ureter. ??There is contrast in the urinary bladder. ??No urinary bladder mass or calculus is seen. ??There is some limited assessment of the bladder due to streak artifact from hip arthroplasties. GI: ?? No evidence of bowel obstruction. ??Mild colonic diverticulosis. ??The terminal ileum is normal. ??The appendix is not specifically seen. ??Small sliding hiatal hernia. ??Stomach and duodenal normal. ??No pneumatosis. PERITONEUM: ?? No ascites or free air. ??No mesenteric mass or lymphadenopathy. ?? Postsurgical changes of the anterior abdominal wall with mesh. ??There is fat containing hernia along the left aspect of the hernia mesh evidence of recurrent hernia. ??This appears to be periumbilical. RETROPERITONEUM: ?? No retroperitoneal mass or lymphadenopathy. REPRODUCTIVE: ?? No significant abnormalities. VASCULATURE: ??Abdominal aorta is nonaneurysmal. MUSCULOSKELETAL: ?? Bone windows demonstrate no acute or aggressive osseous abnormality. ?? Postsurgical changes of bilateral hip arthroplasties. OTHER: ?? There is vacuum disc phenomena in the lumbar spine. ?? Degenerative changes with moderate osseous spinal and neuroforaminal stenosis. THIS IS AN ELECTRONICALLY VERIFIED FINAL REPORT 12/20/2023 9:40 AM - Electronically signed by ??Yg Downs M.D. CH: YESSENIA D: ??12/20/2023 9:40 AM T: ??12/20/2023 9:40 AM Report ID: [id number] Reading Location: ??[id number] Procedure Note Yg Downs Jr., MD - 12/20/2023 EXAM DESCRIPTION: CT UROGRAPHY WO/W CONTRAST REASON FOR STUDY: Hydronephrosis noted on renal US 11/15/23. Hx of left stent, HTN, and gout TECHNIQUE: Precontrast images of the abdomen. Abdomen and pelvis images with intravenous and without oral contrast using helical scanning technique with dynamic intravenous contrast injection. Corticomedullary, nephrographic, excretory phase images were acquired. Reconstructed coronal and sagittal MPR images reviewed. All images stored on PACS. Automated exposure control was used as a dose optimization technique for this examination. CONTRAST TYPE/DOSE: 100mL of IOPAMIDOL 76 % IV SOLN injected via Intravenous COMPARISON: 09/04/2023. REFERENCE: Per ACR white paper recommendations, unless otherwise specified no follow-up imaging is recommended for incidental renal and adrenal lesions per consensus recommendations based on imaging criteria. Further lab evaluation could be pursued based on clinical findings. FINDINGS: LOWER CHEST: Lung bases are predominantly clear. There is no pleural effusion. LIVER: Liver size and contour normal. No focal hepatic lesion. GALLBLADDER: No gallstones or overt inflammatory change. BILE DUCTS: No biliary ductal dilation. SPLEEN: Spleen size normal. There is a low-density lesion in the spleen, this is 1.4 this is nonspecific but commonly related to a benign etiology such as a cyst. PANCREAS: No pancreatic mass or inflammatory change. ADRENALS: Normal KIDNEYS/URETERS/URINARY BLADDER: Small right renal calculi 0.3 and 0.2 cm. Tiny renal hypodensities likely cysts. Excretion of contrast from the kidneys bilaterally. The distal half of the right ureter not fully opacified. Short-segment nonopacification left ureter. There is contrast in the urinary bladder. No urinary bladder mass or calculus is seen. There is some limited assessment of the bladder due to streak artifact from hip arthroplasties. GI: No evidence of bowel obstruction. Mild colonic diverticulosis. The terminal ileum is normal. The appendix is not specifically seen. Small sliding hiatal hernia. Stomach and duodenal normal. No pneumatosis. PERITONEUM: No ascites or free air. No mesenteric mass or lymphadenopathy. Postsurgical changes of the anterior abdominal wall with mesh. There is fat containing hernia along the left aspect of the hernia mesh evidence of recurrent hernia. This appears to be periumbilical. RETROPERITONEUM: No retroperitoneal mass or lymphadenopathy. REPRODUCTIVE: No significant abnormalities. VASCULATURE: Abdominal aorta is nonaneurysmal. MUSCULOSKELETAL: Bone windows demonstrate no acute or aggressive osseous abnormality. Postsurgical changes of bilateral hip arthroplasties. OTHER: There is vacuum disc phenomena in the lumbar spine. Degenerative changes with moderate osseous spinal and neuroforaminal stenosis. THIS IS AN ELECTRONICALLY VERIFIED FINAL REPORT 12/20/2023 9:40 AM - Electronically signed by Yg Downs M.D. CH: YESSENIA Report ID: [id number] Reading Location: [id number] IMPRESSION: No evidence of an acute abnormality of the abdomen and pelvis. Small right renal calculi. Postsurgical changes of the anterior abdominal wall with mesh. Recurrent fat containing periumbilical hernia. Postsurgical changes of bilateral hip arthroplasties. Small sliding hiatal hernia. Mild colonic diverticulosis. Low-density splenic lesion 1.4 cm nonspecific but commonly related to a benign etiology such as a cyst. Clementina Mauricio MD IMG CT ORDERABLES Final Result documented in this encounter Visit Diagnoses Diagnosis Hydronephrosis with ureteropelvic junction (UPJ) obstruction- Primary Hydronephrosis with ureteropelvic junction (UPJ) obstruction documented in this encounter Care Teams Grounds Crew Supervisor Relationship Specialty Start Date End Date Enrique Syed MD [address] [place] [address] PCP - General Internal Medicine 08/11/22 Clementina Logan MD [address] [facility] [address] [place] [address] Consulting Physician Urology 03/17/22 documented as of this encounter
--- OUTSIDE RECORDS SUMMARY | 2024-03-11 12:46 | XMS_ITS | Encounter Summary ---
Author Organization [facility] Care Team Providers Care Drier Operator Helper Name Role Phone Enrique Syed MD Primary Care Provider [phone] Clementina Logan MD Unavailable [phone] Encounter Details Date Type Department Care Team (Latest Contact Info) Description 12/31/2023 Travel Social History Tobacco Use Types Packs/Day Years Used Date Smoking Tobacco: Former Cigarettes Q uit: 1999 Smokeless Tobacco: Never Alcohol Use Standard Drinks/Week Comments Not Currently 0 (1 standard drink = 0.6 oz pur e alcohol) [facility] Utilities Answer Date Recorded In the past 12 months has [employer] electric, gas, oil, or water company threatened [...] declined 09/18/2023 How often do you attend tenriism or adventism serv ices? Patient declined 09/18/2023 Do you belong to any clubs o r organizations such as tenriism groups, unions, fraternal or athletic groups, or [...] medical care, and heating? Patient declined 09/18/2023 [facility] - [facility]ational Stress Questionnaire Answer Date Recorded [...] any time in the past 12 m [facility], were you homeless or living in a fpc (including now)? Patient declined 09/18/2023 Sexually Active Control Partners Comments Not Currently Comments No Sex and Gender Information Value Date Recorded Sex Assigned at Not on file Legal Sex Female 10:10 PM CDT Gender Identity Not on file Sexual Orientation Not on file documented as of this encounter Plan of Treatment Upcoming Encounters Date Type Department Care Team (Late st Contact Info) Description 12/29/2024 9:00 AM CDT [facility] [address] [place] [address] Clementina Logan MD [address] [address] documented as of this encounter Visit Diagnoses Not on filedocumented in this encounter Care Teams Drier Operator Helper Relationship Specialty Start Date End Date Enrique Syed MD [address] [place] [address] PCP - General Internal Medicine 08/11/22 Clementina Logan MD [address] [address] Consulting Physician Urology 03/17/22 documented as of this encounter
--- OUTSIDE RECORDS SUMMARY | 2024-03-11 12:46 | XMS_ITS | Encounter Summary ---
Author Organization [facility] Care Team Providers Care Electronic Tester Name Role Phone Enrique Syed MD Primary Care Provider [phone] Clementina Logan MD Unavailable [phone] Encounter Details Date Type Department Care Team (Latest Contact Info) Description 12/16/2023 Travel Social History Tobacco Use Types Packs/Day Years Used Date Smoking Tobacco: Former Cigarettes Q uit: 1999 Smokeless Tobacco: Never Alcohol Use Standard Drinks/Week Comments Not Currently 0 (1 standard drink = 0.6 oz pur e alcohol) [facility] Utilities Answer Date Recorded In the past 12 months has [employer] electric, gas, oil, or water company threatened [...] declined 09/18/2023 How often do you attend gnosticism or anabaptism serv ices? Patient declined 09/18/2023 Do you belong to any clubs o r organizations such as gnosticism groups, unions, fraternal or athletic groups, or [...] medical care, and heating? Patient declined 09/18/2023 [facility] - Occupational Stress Questionnaire Answer Date Recorded [...] any time in the past 12 m [facility], were you homeless or living in a usp (including now)? Patient declined 09/18/2023 Sexually Active [...] [facility] [address] [place] [address] Clementina Logan MD [address] [address] documented as of this encounter Visit Diagnoses Not on filedocumented in this encounter Care Teams Electronic Tester Relationship Specialty Start Date End Date Enrique Syed MD [address] [place] [address] PCP - General Internal Medicine 08/11/22 Clementina Logan MD [address] [address] Consulting Physician Urology 03/17/22 documented as of this encounter
--- OUTSIDE RECORDS SUMMARY | 2024-03-11 12:46 | XMS_ITS | Encounter Summary ---
Author Organization [facility] Address [address] [place] [address] Care Team Providers Care Case Packer Name Role Phone Enrique Syed MD Primary Care Provider [phone] Encounter Details Date Type Department Care Team (Late st Contact Info) Description 03/31/2022 Lab Requisition [facility] Care DermPath Lab [address] [facility] [place] [id number] Lux Navarro MD [address] [place] [address] Social History Tobacco Use Types Packs/Day Years Used Date Smoking Tobacco: Former Smokeless Tobacco: Never Alcohol Use Standard Drinks/Week Comments No 0 (1 standard drink = 0.6 oz pur e alcohol) Sex and Gender Information Value Date Recorded Sex Assigned at Not on file Gender Identity Not on file Sexual Orientation Not on file documented as of this encounter Plan of Treatment Not on file documented as of this encounter Procedures Procedure Name Priority Date/Time Associated Diagnosis Comments DERMATOPATHOLOGY Routine 03/30/2022 12:0 0 AM MAIL CARRIERS SUPERVISOR documented in this encounter Results * DERMATOPATHOLOGY (03/30/2022 12:00 AM MAIL CARRIERS SUPERVISOR) Case Report Dermatopathology Report ? Case: [id number] ? Authorizing Provider: ??Lux Navarro MD ?Collected: ? 03/30/2022 12:00 AM ? Ordering Location: ? [facility] DermPath Lab ?Received: ?03/31/2022 01:20 PM ? Pathologist: ? Amparo Peralta MD ? Specimens: ?? A) - Skin, right foehead ? B) - Skin, right superior forehead ? 3 1:37 PM [facility] DERMATOPATHOLOGY LABORATORY Final Diagnosis Specimen A. SKIN, right foehead: ACTINIC KERATOSIS (L57.0) ROSACEACHANGES (L71.9) (see microscopic description) Specimen B. 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 The specimen consists of a shave biopsy measuring 7x6x1 mm. Jar 0. Specimen B: Received is one formalin filled container labeled with the patient's name and designated right superior forehead. The specimen consists of a shave biopsy measuring 7x5x1 mm. Jar 0. 3 1:37 PM [facility] DERMATOPATHOLOGY LABORATORY Microscopic Description Specimen A. SKIN, right foehead: There is focal parakeratosis. The lower half of the epidermis shows disorderly maturation of keratinocytes with nuclear pleomorphism. A mild perivascular and perifollicular inflammatory infiltrate composed predominantly of lymphocytes is noted in the upper and mid dermis. Demodex mites are seen within follicular infundibula. Dilated thin-walled superficial dermal blood vessels are observed. Solar elastosis is present. Specimen B. SKIN, right superior forehead: Neutrophils, histiocytes, and multinucleated giant cells are present within the dermis. A mild perivascular and perifollicular inflammatory infiltrate composed predominantly of lymphocytes is noted in the upper and mid dermis. Demodex mites are seen within follicular infundibula. Dilated thin-walled superficial dermal blood vessels are observed. Solar elastosis is present. 3 1:37 PM [facility] DERMATOPATHOLOGY LABORATORY Disclaimer An external and internal positive and negative controls are appropriate for the histochemical, immunohistochemical and immunofluorescence stain(s) in this case (if any), except where stated explicitly. The performance characteristics of the stain(s) cited in this report were developed and its performance characteristic determined by the Dermatopathology Laboratory at [facility], directed by Dr. Denny Barrientos. These tests need not be, and therefore are not, approved by the [place] Food and Drug Administration. The tests are used for clinical purposes. Billing Codes Specimen Charges Stain Charges 27756 66780 1 1 3 1:37 PM [facility] DERMATOPATHOLOGY LABORATORY Embedded Images 3 1:37 PM [facility] DERMATOPATHOLOGY LABORATORY Pathology/Cytology TISSUE SPECIMEN FROM SKIN / Unknown 03/30/2022 03/31/2022 1:20 PM MAIL CARRIERS SUPERVISOR Miscellaneous samples (specimen) TISSUE SPECIMEN FROM SKIN / Unknown 03/30/2022 03/31/2022 1:20 PM MAIL CARRIERS SUPERVISOR Lux Navarro MD LAB - PATHOLOGY/CYTO LOGY ORDERABLES DERMATOPATHOLOGY LABORATORY [facility] - Department of Dermatology [facility] Specialized Medicine [address] [place] [address], [address] [phone] documented in this encounter Visit Diagnoses Not on filedocumented in this encounter Care Teams Case Packer Relationship Specialty Start Date End Date Enrique Syed MD PCP - General 07/29/16 documented as of this encounter
--- OUTSIDE RECORDS SUMMARY | 2024-03-11 12:46 | XMS_ITS | Encounter Summary ---
Author Organization [facility] Address [address] [place] [address] Phone Care Team Providers Care Bow Machine Operator Name Role Phone Enrique Syed MD Primary Care Provider [phone] Clementina Logan MD Unavailable [phone] Reason for Referral * Consult, Test & Initiate Treatment (Routine) - Closed Specialty Diagnoses / Procedures Referred By Contmattie t Referred To Contact Diagnoses Other specified abdominal hernia without obstruction or gangrene Clementina Logan MD #2 [facility] [address] [place] [address] Phone: tel: fax: Josue Howard MD #4 [facility] [place] [place] [address] Phone: tel: fax: Referral ID Status Reason Start Date Expiration Date Visits Re quested Visits Authorized [id number] Closed 12/31/2023 1 1 Scheduling Instructions Adri is being referred to Dr. Sagastume at [facility] or other specialist in patient's insurance network for hernia. See below for Adri's current medications, allergies and problem list. CURRENT MEDS: Current Outpatient Medications: albuterol 108 (90 Base) MCG/ACT Aerosol Solution, take 2 Puffs by inhalation every 4 hours as needed., Disp: , Rfl: allopurinol (ZYLOPRIM) 300 MG Tablet, 300 mg., Disp: , Rfl: apixaban (ELIQUIS) 5 MG Tablet, Take 5 mg by mouth 2 times daily., Disp: , Rfl: Ascorbic Acid 500 MG Capsule CR, 500 mg., Disp: , Rfl: atorvastatin (LIPITOR) 40 MG Tablet, 80 mg every evening., Disp: , Rfl: azelastine (ASTELIN) 0.1 % Solution, , Disp: , Rfl: budesonide-formoterol fumarate (SYMBICORT) 160-4.5 MCG/ACT Aerosol, inhale 2 puff by inhalation route 2 times every day in the morning and evening, Disp: , Rfl: docusate sodium (Colace) 100 MG Capsule, Take 1 Capsule by mouth 2 times daily. (Patient taking differently: Take 100 mg by mouth 2 times daily as needed.), Disp: 60 Capsule, Rfl: 0 famotidine (PEPCID) 10 MG Tablet, Take 10 mg by mouth., Disp: , Rfl: fexofenadine (SOMMER) 60 MG Tablet, Take by mouth., Disp: , Rfl: fluticasone (FLONASE) 50 MCG/ACT Suspension, , Disp: , Rfl: HYDROcodone-acetaminophen (NORCO) 5-325 MG Tablet, Take 1 Tablet by mouth every 6 hours as needed for Severe pain., Disp: 15 Tablet, Rfl: 0 montelukast (SINGULAIR) 10 MG Tablet, 10 mg., Disp: , Rfl: Multiple Vitamin (MULTIVITAMIN ADULT PO), , Disp: , Rfl: niacin CR 250 MG Capsule CR, Take 800 mg by mouth nightly., Disp: , Rfl: Brandon-3 1400 MG Capsule, Take by mouth., Disp: , Rfl: oxybutynin (DITROPAN-XL) 10 MG TABLET SR 24 HR, Take 1 Tablet by mouth daily., Disp: 30 Tablet, Rfl: 3 Semaglutide-Weight Management (WEGOVY SC), by Subcutaneous route., Disp: , Rfl: sotalol (BETAPACE) 160 MG Tablet, Take 160 mg by mouth 2 times daily., Disp: , Rfl: traMADol (ULTRAM) 50 MG Tablet, Take 1 Tablet by mouth every 8 hours as needed for Moderate or more severe pain., Disp: 20 Tablet, Rfl: 0 valsartan-hydroCHLOROthiazide (DIOVAN-HCT) 320-12.5 MG Tablet, Take 1 Tablet by mouth daily., Disp: , Rfl: Zinc 50 MG Capsule, Take by mouth., Disp: , Rfl: No current facility-administered medications for this visit. ALLERGIES: -- Nitrofurantoin -- Diarrhea and Nausea -- Christopher Inhibitors -- Other (see Comments) and Unknown -- Erythromycin -- Unknown -- unsure what type of reaction -- Sulfa Antibiotics -- Vomiting PROBLEM LIST: Patient Active Problem List: Pacemaker GUY on CPAP Hypertension High cholesterol Gout Carcinoma (HCC) Asthma Arthritis Acid reflux A-fib (HCC) A-fib (HCC) Arrhythmia * Radiology Services (Routine) - Authorized Specialty Diagnoses / Procedures Referred By Contac t Referred To Contact Radiology Diagnoses Kidney stone Procedures XR ABDOMEN KUB FLAT PLATE Clementina Logan MD #[address] [address] Phone: tel: fax: Referral ID Status Reason Start Date Expiration Date V isits Requested Visits Authorized [id number] Authorized 12/24/2023 1 1 Reason for Visit * Reason Comments Follow-up Encounter Details Date Type Department Care Team ([facility] Contact Info) Description 12/24/2023 10:00 AM CDT Office Visit [facility] [address] [place] [address] Clementina Logan MD #[address] [address] UTI symptoms (Primary Dx); Kidney stone; Other specified abdominal hernia without obstruction or gangrene Discharge Disposition: Discharged to home or Selfcare Social History Tobacco Use Types Packs/Day Years Used Date Smoking Tobacco: Former Cigarettes Q uit: 1999 Smokeless Tobacco: Never Tobacco Cessation:Counseling Given: Not Answered Alcohol Use Standard Drinks/Week Comments Not Currently 0 (1 standard drink = 0.6 oz pur e alcohol) [facility] Utilities Answer Date Recorded In the past 12 months has [employer] gas, oil, or water company threatened to [...] declined 09/18/2023 How often do you attend sabianist or yarsanism serv ices? Patient declined 09/18/2023 Do you belong to any clubs o r organizations such as sabianist groups, unions, fraternal or athletic groups, or [...] medical care, and heating? Patient declined [facility] - Occupational Stress Questionnaire Answer Date [...] any time in the past 12 m [place], were you homeless or living in a group home (including now)? Patient declined 09/18/2023 Sexually Active Control Partners Comments Not Currently Comments No Sex and Gender Information Value Date Recorded Sex Assigned at Not on file Legal Sex Female 10:10 PM CDT Gender Identity Not on file Sexual Orientation Not on file documented as of this encounter Last Filed Vital Signs Vital Sign Reading Time Taken Comments Blood Pressure 125/80 12/24/2023 9:52 AM CDT Pulse 106 12/24/2023 9:52 AM CDT Temperature - - Respiratory Rate 18 12/24/2023 9:52 AM CDT Oxygen Saturation 100% 12/24/2023 9:52 AM CDT Inhaled Oxygen Concentration - - Weight 104.3 kg (230 lb) 12/24/2023 9:52 AM CDT Height 149.9 cm (4' 11 ) 12/24/2023 9:52 AM CDT Body Mass Index 46.45 12/24/2023 9:52 AM CDT documented in this encounter Progress Notes * Clementina Logan MD - 12/24/2023 10:00 AM CDT Reason for Visit: Nephrolithiasis, hernia Assessment/Plan: This is a 73 y.o. female with several issues. We did extensively discuss kidney stone prevention. We discussed risk factors for developing kidney stones. These include dehydration and dietary aspects. Additionally, medical comorbidities such as GI illnesses, the metabolic syndrome,and family history also play a role. We discussed dietary interventions due diminish the risk of stone formation. This includes: -increasing fluid intake to titrate urine volume to about 2-2.5L/day. I usually recommentd at least1.5-2.5L of fluid intake. Drinks with citric acid (lemonade or Squirt) may be beneficial to decrease the risk of stone formation -moderating dietary sodium intake to less than 2300 mg/day (both with added salt and food rich in salt) -moderating foods with oxalate intake -moderating and spacing out animal protein -continue to consume the recommended amount of calcium - 1200mg/day Per imaging overall looks reassuring. We will plan for a follow up with a KUB in about [address] a referral to nutrition to help her with dietary modifications both for stones and weightloss. Finally I will place a referral to her general surgeon to discuss her hernia findings. Interval History: Adri Tristan is a 73 y.o. female is here today for the ongoing management of nephrolithiasis and hernia. The patient was doing well after her surgery. She has no significant pain, nohematuria. She did have a CT scan done which basically shows no hydronephrosis. There are concerns for a recurrent umbilical hernia. She also has a sliding hiatal hernia.. The complete REVIEW OF SYSTEMS, MEDICATION LIST and DRUG ALLERGIES, PAST MEDICAL HISTORY, FAMILY MEDICAL HISTORY and SOCIAL HISTORY are documented in detail were reviewed. The patient was asked to review all abnormal responses not pertinent to today's visit with their primary care physician. Physical Exam: Constitutional: General appearance: Well nourished, well developed, in no acute distress. Appears stated age, conversant Eyes: EOMI, no scleral icterus, no lid lag or proptosis Neurologic: Normal mood and affect, cranial nerves II-XII grossly intact. Respiratory: Normal respiratory effort. No use of accessory muscles Cardiovascular: No lower extremity edema or cyanosis. Ears, Nose, Throat, Mouth: midline trachea, no thryomegaly. Soft, supple appearing. Skin: Warm and dry. Gastrointestinal: Non-protrubrant Musculoskeletal: Moving all extremities, no distal cyanosis Psychiatry: Normal mood, alert and oriented. A&O x3. Interactive affect Total time spent on this encounter on this date of service, including pre-visit review of separately obtained history, [id number] interaction performing medically appropriate physical exam, patientcounseling/education, interpretation of diagnostic results, care coordination and documentation was31 minutes. documented in this encounter Plan of Treatment Upcoming Encounters Date Type Department Care Team (Late st Contact Info) Description 12/29/2024 9:00 AM CDT Office Visit [facility] [place] [address] Clementina Logan MD #[address] [address] Scheduled Orders Name Type Priority Associated Diagnoses Orde r Schedule XR ABDOMEN KUB FLAT PLATE Imaging Routine Kidney stone Expected: 12/23/2024, Expires: 06/23/2025 Scheduled Referrals Name Type Priority Associated Diagnoses Orde r Schedule EXTERNAL GEN SURGICAL REFERRAL Outpatient Referral Routine Other specified abdominal hernia without obstruction or gangrene Expected: 12/31/2023, Expires: 12/30/2024 documented as of this encounter Procedures Procedure Name Priority Date/Time Associated Diagnosis Comments POCT UA AUTOMATED W/O MICRO Routine 12/24/2023 9:58 AM CDT UTI symptoms documented in this encounter Results * (ABNORMAL) POCT UA AUTOMATED W/O MICRO (12/24/2023 9:58 AM CDT) POC UA SPECIFIC GRAVITY 1.025 URINE PH 5.0 5.0 - 9.0 POC URINE LEUKOCYTES 500 /uL(A) Negative Kalie/uL POC URINE NITRITE Negative Negative POC URINE PROTEIN Negative Negative mg/dL POC URINE GLUCOSE Norm Negative, Norm mg/dL POC URINE KETONE Negative Negative mg/dL POC URINE UROBILINOGEN Norm Norm, 0.2 E.U./dL (mg/dL), 1 E.U./dL (mg/dL) POC URINE BILIRUBIN Negative Negative mg/dL POC URINE BLOOD INSTRUMENT Negative Negative Homer/uL POC URINE COLOR Yellow POC URINE CLARITY Clear Urine 12/24/2023 9:58 AM CDT Clementina Mauricio MD POINT OF CARE TESTING (MANUAL) Final Result documented in this encounter Visit Diagnoses Diagnosis UTI symptoms- Primary Kidney stone Calculus of kidney Other specified abdominal hernia without obstruction or gangrene documented in this encounter Care Teams Bow Machine Operator Relationship Specialty Start Date End Date Enrique Syed MD [address] [place] [address] PCP - General Internal Medicine 08/11/22 Clementina Logan MD #[address] [address] Consulting Physician Urology 03/17/22 documented as of this encounter
--- OUTSIDE RECORDS SUMMARY | 2024-03-11 12:46 | XMS_ITS | Encounter Summary ---
Author Organization [employer] Care Team Providers Care Dietary Services Manager Name Role Phone Enrique Syed MD Primary Care Provider [phone] Clementina Logan MD Unavailable [phone] Encounter Details Date Type Department Care Team (Latest Contact Info) Description 10/01/2023 Travel Social History Tobacco Use Types Packs/Day Years Used Date Smoking Tobacco: Former Cigarettes Q uit: 1999 Smokeless Tobacco: Never Alcohol Use Standard Drinks/Week Comments Not Currently 0 (1 standard drink = 0.6 oz pur e alcohol) [facility] Utilities Answer Date Recorded In the past 12 months has [employer], gas, oil, or water company threatened [...] declined 09/18/2023 How often do you attend anglican or mosque serv ices? Patient declined 09/18/2023 Do you belong to any clubs o r organizations such as anglican groups, unions, fraternal or athletic groups, or [...] medical care, and heating? Patient declined 09/18/2023 [facility] - Occupational Stress Questionnaire Answer Date [...] any time in the past 12 m [facility], were you homeless or living in a senior care (including now)? Patient declined 09/18/2023 Sexually Active [...] [facility] [place] [address] Clementina Logan MD [address] [address] documented as of this encounter Visit Diagnoses Not on filedocumented in this encounter Care Teams Dietary Services Manager Relationship Specialty Start Date End Date Enrique Syed MD [address] [place] [address] PCP - General Internal Medicine 08/11/22 Clementina Logan MD [address] [address] Consulting Physician Urology 03/17/22 documented as of this encounter
--- OUTSIDE RECORDS SUMMARY | 2024-03-11 12:46 | XMS_ITS | Encounter Summary ---
Author Organization [facility] Address [address] [place] [address] Phone Care Team Providers Care Machinist Bench Name Role Phone Enrique Syed MD Primary Care Provider [phone] Clementina Logan MD Unavailable [phone] Reason for Referral * Consult, Test & Initiate Treatment (Less Than 2 Weeks) - Closed Specialty Diagnoses / Procedures Referred By Rosalind t Referred To Contact Diagnoses Umbilical hernia without obstruction and without gangrene Clementina Logan MD #2 [facility] [address] [place] [address] Phone: tel: fax: [facility] GENERAL SURGERY [address] [place] [address] Phone: tel: fax: Referral ID Status Reason Start Date Expiration Date Visits Re quested Visits Authorized [id number] Closed 12/30/2023 1 1 Scheduling Instructions Adri is being referred to Dr. Howard or other specialist in patient's insurance network for Diagnosis: Umbilical hernia without obstruction and without gangrene . See below for Adri's current medications, allergies [...] mg by mouth nightly., Disp: , Rfl: [place]-3 1400 MG Capsule, Take by mouth., Disp: [...] reflux A-fib (HCC) A-fib (HCC) Arrhythmia * Consult, Test & Initiate Treatment (Routine) - Closed Specialty Diagnoses / Procedures Referred By Rosalind estevez Referred To Contact Diagnoses Umbilical hernia without obstruction and without gangrene Clementina Logan MD #2 [facility] [address] [place] [address] Phone: tel: fax: [place] [address] Phone: tel: fax: Referral ID Status Reason Start Date Expiration Date Visits Re quested Visits Authorized [id number] Closed 12/28/2023 1 1 Scheduling Instructions Adri is being referred to nutrition or other specialist in patient's insurance network for dietary teaching for weight loss. See below for Adri's current medications, allergies [...] mg by mouth nightly., Disp: , Rfl: [place]-3 1400 MG Capsule, Take by mouth., Disp: [...] reflux A-fib (HCC) A-fib (HCC) Arrhythmia * Consult, Test & Initiate Treatment (Routine) - Canceled Specialty Diagnoses / Procedures Referred By Contmattie t Referred To Contact General Surgery Diagnoses Umbilical hernia without obstruction and without gangrene Clementina Logan MD #2 [facility] [address] [place] [address] Phone: tel: fax: [facility] - General Surgery - [place] #2 [facility] [address] [place] [address] Phone: tel: fax: Referral ID Status Reason Start Date Expiration Date V isits Requested Visits Authorized [id number] Canceled 12/28/2023 1 1 Scheduling Instructions Adri is being referred for surgery for ventral hernia. Please contact patient for scheduling questions or concerns. Encounter Details Date Type Department Care Team (Late Contact Info) Description 12/28/[address] [facility] UR[facility]Y #[address] [place] [address] Clementina Logan MD #2 [facility] [address] [place] [address] Social History Tobacco Use Types Packs/Day Years Used Date Smoking Tobacco: Former Cigarettes Q uit: 1999 Smokeless Tobacco: Never Alcohol Use Standard Drinks/Week Comments Not Currently 0 (1 standard drink = 0.6 oz pur e alcohol) [facility] Utilities Answer Date Recorded In the past 12 months has e [employer], gas, oil, or water makerSQR threatened to shut off services in your home? Patient declined 09/18/2023 Social Connection and Isolation Panel [NHANES] A nswer Date Recorded In a typical week, how many times do you talk on the phone with family, friends, or neighbors? Patient declined 09/18/2023 How often do you get togethe r with friends or relatives? Patient declined 09/18/2023 How often do you attend jainism or jewish serv ices? Patient declined 09/18/2023 Do you belong to any clubs o r organizations such as jainism groups, unions, fraternal or athletic groups, or [...] medical care, and heating? Patient declined 09/18/2023 [facility] - Occupational Stress [...] any time in the past 12 m [facility], were you homeless or living in a alf (including now)? Patient declined 09/18/2023 Sexually Active Control Partners Comments Not Currently Comments No Sex and Gender Information Value Date Recorded Sex Assigned at Not on file Legal Sex Female 10:10 PM CDT Gender Identity Not on file Sexual Orientation Not on file documented as of this encounter Miscellaneous Notes * Telephone Encounter - Maritza Schneider - 01/04/2024 8:57 AM CST Pt made aware and was giving the number to external referral. RIVETER * Telephone Encounter - Maritza Schneider - 12/31/2023 2:04 PM CDT Left message for pt to call back. * Telephone Encounter - Maritza Schneider - 12/30/2023 1:00 PM CDT Pt requesting external gen surg referral to [facility] gen surg for Dr. Roldan. She states you talked about this during her OV * Telephone Encounter - Maritza Schneider - 12/28/2023 10:55 AM CDT Pt calling to ask if you can place a referral for her hernia. She states she hasn't been to her pcpin a while so they will not put a referral in. Please advise. documented in this encounter Plan of Treatment Upcoming Encounters Date Type Department Care Team (Late st Contact Info) Description 12/29/2024 9:00 AM CDT Office Visit [facility] [address] [place] [address] Clementina Logan MD [address] [address] Scheduled Referrals Name Type Priority Associated Diagnoses Order Schedule GEN SURGICAL REFERRAL Outpatient Referral Routine Umbilical hernia without obstruction and without gangrene Expected: 12/28/2023, Expires: 02/26/2024 EXTERNAL CLINICAL NUTRITION REFERRAL Outpatient Referral Routine Umbilical hernia without obstruction and without gangrene Expected: 12/28/2023, Expires: 03/29/2024 EXTERNAL GEN SURGICAL REFERRAL Outpatient Referral Less Than 2 weeks Umbilical hernia without obstruction and without gangrene Expected: 12/30/2023, Expires: 12/29/2024 documented as of this encounter Visit Diagnoses Diagnosis Umbilical hernia without obstruction and without gangrene- Primary documented in this encounter Care Teams Machinist Bench Relationship Specialty Start Date End Date Enrique Syed MD [address] [place] [address] PCP - General Internal Medicine 08/11/22 Clementina Logan MD #[address] [address] [address] Consulting Physician Urology 03/17/22 documented as of this encounter
--- OUTSIDE RECORDS SUMMARY | 2024-03-11 12:46 | XMS_ITS | Encounter Summary ---
Author Organization [facility] Address [address] [place] [address] Care Team Providers Care Executive Business Coach Name Role Phone Enrique Syed MD Primary Care Provider [phone] Encounter Details Date Type Department Care Team (Late st Contact Info) Description 01/08/2021 Lab Requisition [facility] Care DermPath Lab [address] [facility] [address] [facility] [place] [id number] Lux Navarro MD [address] [place] [address] Social History Tobacco Use Types Packs/Day Years [...] Priority Date/Time Associated Diagnosis Comments DERMATOPATHOLOGY Routine 01/07/2021 12:0 0 AM C[facility] HAND documented in this encounter Results * DERMATOPATHOLOGY (01/07/2021 12:00 AM CRAY FISHING HAND) Case Report Dermatopathology Report ? Case: [id number] ? Authorizing Provider: ??Lux Navarro MD ?Collected: ? 01/07/2021 12:00 AM ? Ordering Location: ? [facility] DermPath Lab ?Received: ?01/08/2021 11:53 AM ? Pathologist: ? Ana Baltazar MD ? Specimen: ?Skin, left med post mid calf ? 12:22 PM [facility] DERMATOPATHOLOGY LABORATORY Final Diagnosis Specimen A. SKIN, left med post mid calf: EPIDERMAL NECROSIS SUGGESTIVE OF EXCORIATION IN ASSOCIATION WITH HEALING SKIN CHANGES (L90.5) STASIS DERMATITIS (L30.8) (see microscopic description and comment) 12:22 PM [facility] DERMATOPATHOLOGY LABORATORY Clinical History R/O ISK, BCC, SCC. 12:22 PM [facility] DERMATOPATHOLOGY LABORATORY Gross Description Specimen A: Received is one formalin filled container labeled with the patient's name and designated left med post mid calf. The specimen consists of a shave biopsy measuring [id number]. Jar 0. 12:22 PM [facility] DERMATOPATHOLOGY LABORATORY Microscopic Description Specimen A. SKIN, left med post mid calf: The epidermis is focally necrotic and covered with a scale-crust. There is fibrin at the base. There is epidermal hyperplasia beneath which there are vascular proliferation, fibroblasts, and an edematous stroma. There is focal spongiosis. The dermis shows a sparse, perivascular lymphocytic infiltrate surrounding dilated, thick-walled vessels, which are increased in number. There is no evidence of definitive epithelial dysplasia or malignancy in the sections examined. COMMENT: The overall histologic features are nonspecific. Clinical correlation is recommended. 1 12:22 PM [facility] DERMATOPATHOLOGY LABORATORY Disclaimer An external and internal positive and negative controls are appropriate for the histochemical, immunohistochemical and immunofluorescence stain(s) in this case (if any), except where stated explicitly. The performance characteristics of the stain(s) cited in this report were developed and its performance characteristic determined by the Dermatopathology Laboratory at [facility], directed by Dr. Denny Barrientos. These tests need not be, and therefore are not, approved by the [place] Food and Drug Administration. The tests are used for clinical purposes. Billing Codes Specimen Charges Stain Charges 53065 1 1 12:22 PM [facility] DERMATOPATHOLOGY LABORATORY Embedded Images 12:22 PM [facility] DERMATOPATHOLOGY LABORATORY Pathology/Cytolog y TISSUE SPECIMEN FROM SKIN / Unknown 01/07/2021 01/08/2021 11:53 AM [facility] Lux Navarro MD LAB - PATHOLOGY/CYTO LOGY ORDERABLES DERMATOPATHOLOGY LABORATORY [facility] - Department of Dermatology [address], [address] [phone] documented in this encounter Visit Diagnoses Not on filedocumented in this encounter Care Teams Executive Business Coach Relationship Specialty Start Date End Date Enrique Syed MD PCP - General 07/29/16 documented as of this encounter
--- OUTSIDE RECORDS SUMMARY | 2024-03-11 12:46 | XMS_ITS | Clinical Summary ---
Author Organization [facility] Address [address] [place] [address] Care Team Providers Care Forest Pathology Associate Professor Name Role Phone Enrique Syed MD Primary Care Provider [phone] Source Comments [facility],non-owned Affiliates and Associated Physician Practices is amultiple site organization consisting of ambulatory clinics and hospital sitesin [place], [place], [place] and [place]. This disclosure is being madepursuant to the Care Everywhere program and may not contain all information available regarding this patient. Last updated 17.[facility] Allergies Active Allergy Reactions Criticality Noted Date Comments Fentanyl Nausea and/or Vomiting Low 08/19/2016 Sulfa Drugs Nausea and/or Vomiting Low 08/19/2016 Medications * Be aware that medications may not be up to date on this document. Alwaysverify current medications with the patient. Medication Sig Dispensed Refills Start Date End Date Status cefUROXime (CEFTIN) 500 MG tablet Take 500 mg by mouth BID. 09/23/2016 Active allopurinol (ZYLOPRIM) 300 MG tablet 300 mg. 06/09/2010 Active atorvastatin (LIPITOR) 40 MG tablet 40 mg. 12/25/2015 Active irbesartan-hydroCHLOR Othiazide (AVALIDE) 150-12.5 MG tablet Take 1 tablet by mouth DAILY. 08/19/2016 Active cephalexin (KEFLEX) 500 MG capsule 4 capsule 0 08/19/2016 Active apixaban (ELIQUIS) 5 MG tablet 5 mg. 08/02/2013 Active azelastine (ASTELIN) 0.1 % nasal spray 08/19/2016 Active sotalol, AF, 160 MG tablet 160 mg. 08/02/2013 Active omeprazole (PRILOSEC) 10 MG capsule 10 mg. 09/17/2014 Active fluticasone propionate (FLONASE) 50 MCG/ACT nasal spray 02/18/2010 Active niacin CR 250 MG capsule Take by mouth. 08/19/2016 Active [place]-3 Fatty Acids (FISH OIL) 500 MG capsule Take by mouth. 08/19/2016 Active fexofenadine (SOMMER) 60 MG tablet Take by mouth. 08/19/2016 Active montelukast (SINGULAIR) 10 MG tablet 10 mg. 07/30/2016 Active calcium carbonate - vitamin D (CALTRATE 600+D) 600-800 MG-UNIT tablet 11/15/2013 Active Family History Medical History Relation Name Comments Cancer - Skin, Non Melanoma Father Cancer - Skin, Non Melanoma Mother Relation Name Status Comments Father Mother Social History Tobacco Use Types Packs/Day Years Used Date Smoking Tobacco: Former Smokeless Tobacco: Never Alcohol Use Standard Drinks/Week Comments No 0 (1 standard drink = 0.6 oz pur e alcohol) Sex and Gender Information Value Date Recorded Sex Assigned at Not on file Gender Identity Not on file Sexual Orientation Not on file Last Filed Vital Signs Vital Sign Reading Time Taken Comments Blood Pressure 137/90 09/02/2016 9:41 AM CDT Pulse 60 09/02/2016 9:41 AM CDT Temperature - - Respiratory Rate - - Oxygen Saturation 97% 09/02/2016 9:41 AM CDT Inhaled Oxygen Concentration - - Weight 98 kg (216 lb) 09/02/2016 7:12 AM CDT Height 152.4 cm (5') 09/02/2016 7:12 AM CDT Body Mass Index 42.18 09/02/2016 7:12 AM CDT Plan of Treatment Health Maintenance Due Date Last Done Comments BONE DENSITY TESTING 1950 COLOGUARD (AGES 45-75) - COL ON CA SCREENING 1950 COLON MONITORING 1952 COLONOSCOPY - COLON CA SCREENING 1952 CT COLONOGRAPHY - COLON CA SCREENING 1950 Colorectal Cancer Screening 1950 FIT - COLON CA SCREENING 1952 FLEX SIG - COLON CA SCREENING 1950 MAMMOGRAM 1950 MEDICARE AWV ? 12 MONTHS 1950 HEPATITIS C SCREENING 03/21/1970 DTAP/TDAP/TD VACCINES (1 - Tdap) 1971 ZOSTER VACCINE (1 of 2) 2002 Respiratory Syncytial Virus (RSV) Vaccine Pt: or over 60 yrs (1 - Risk 60-74 years 1-dose series) 2012 PNEUMOCOCCAL VACCINE 50+ (1 of 1 - PCV) 2017 DEPRESSION SCREENING 03/01/2023 COVID-19 VACCINE (1 - 2023-2 5 season) 2023 INFLUENZA VACCINE (#1) 2023 HEPATITIS B VACCINE Aged Out No longe r eligible based on patient's age to complete this topic HIB VACCINE Aged Out No longer eligi ble based on patient's age to complete this topic HPV VACCINE Aged Out No longer eligi ble based on patient's age to complete this topic MENINGOCOCCAL VACCINE Aged Out No radha kathleen eligible based on patient's age to complete this topic Care Teams Forest Pathology Associate Professor Relationship Specialty Start Date End Date Enrique Syed MD PCP - General 07/29/16
--- OUTSIDE RECORDS SUMMARY | 2024-03-11 12:46 | XMS_ITS | Encounter Summary ---
Author Organization [facility] Care Team Providers Care Auxiliary Plant Operator Name Role Phone Enrique Syed MD Primary Care Provider [phone] Clementina Logan MD Unavailable [phone] Encounter Details Date Type Department Care Team (Latest Contact Info) Description 12/24/2023 Travel Social History Tobacco Use Types Packs/Day Years Used Date Smoking Tobacco: Former Cigarettes Q uit: 1999 Smokeless Tobacco: Never Alcohol Use Standard Drinks/Week Comments Not Currently 0 (1 standard drink = 0.6 oz pur e alcohol) [facility] Utilities Answer Date Recorded In the past 12 months has [employer], gas, oil, or water company threatened [...] declined 09/18/2023 How often do you attend islam or orthodoxy serv ices? Patient declined 09/18/2023 Do you belong to any clubs o r organizations such as islam groups, unions, fraternal or athletic groups, or [...] medical care, and heating? Patient declined 09/18/2023 [facility] - Occupational Stress Questionnaire Answer Date [...] any time in the past 12 m [facility], were you homeless or living in a [...] [facility] #[address] [place] [address] Clementina Logan MD [address] [address] documented as of this encounter Visit Diagnoses Not on filedocumented in this encounter Care Teams Auxiliary Plant Operator Relationship Specialty Start Date End Date Enrique Syed MD [address] [place] [address] PCP - General Internal Medicine 08/11/22 Clementina Logan MD [address] [address] Consulting Physician Urology 03/17/22 documented as of this encounter
--- OUTSIDE RECORDS SUMMARY | 2024-03-11 12:46 | XMS_ITS | Patient Health Summary ---
Author Organization [facility] Address [address] [place] [address] Care Team Providers Care Private Detective Name Role Phone Enrique Syed MD Primary Care Provider [phone] Note from [facility],non-owned Affiliates and Associated Physician Practices is amultiple site organization consisting of ambulatory clinics and hospital sitesin [place], [place] and [place]. This disclosure is being madepursuant to the Care Everywhere program and may not contain all information available regarding this patient. Last updated 17.[facility] Allergies * Fentanyl(Nausea and/or Vomiting) -Low Criticality * Sulfa Drugs(Nausea and/or Vomiting) -Low Criticality Medications * Be aware that medications may not be up to date on this document. Alwaysverify current medications with the patient. * cefUROXime (CEFTIN) 500 MG tablet(Started 09/23/2016) Take 500 mg by mouth BID. * allopurinol (ZYLOPRIM) 300 MG tablet(Started 06/09/2010) 300 mg. * atorvastatin (LIPITOR) 40 MG tablet(Started 12/25/2015) 40 mg. * irbesartan-hydroCHLOROthiazide (AVALIDE) 150-12.5 MG tablet(Started 08/19/2016) Take 1 tablet by mouth DAILY. * cephalexin (KEFLEX) 500 MG capsule(Started 08/19/2016) * apixaban (ELIQUIS) 5 MG tablet(Started 08/02/2013) 5 mg. * azelastine (ASTELIN) 0.1 % nasal spray(Started 08/19/2016) * sotalol, AF, 160 MG tablet(Started 08/02/2013) 160 mg. * omeprazole (PRILOSEC) 10 MG capsule(Started 09/17/2014) 10 mg. * fluticasone propionate (FLONASE) 50 MCG/ACT nasal spray(Started 02/18/2010) * niacin CR 250 MG capsule(Started 08/19/2016) Take by mouth. * [place]-3 Fatty Acids (FISH OIL) 500 MG capsule(Started 08/19/2016) Take by mouth. * fexofenadine (SOMMER) 60 MG tablet(Started 08/19/2016) Take by mouth. * montelukast (SINGULAIR) 10 MG tablet(Started 07/30/2016) 10 mg. * calcium carbonate - vitamin D (CALTRATE 600+D) 600-800 MG-UNIT tablet(Started 11/15/2013) Social History Tobacco Use Types Packs/Day Years [...] Mass Index 42.18 09/02/2016 7:12 AM CDT Procedures * DERMATOPATHOLOGY(Performed 03/30/2022) * DERMATOPATHOLOGY(Performed 01/07/2021) * DERMATOPATHOLOGY(Performed 11/21/2019) * DERMATOPATHOLOGY(Performed 07/21/2016) * DERMATOPATHOLOGY(Performed 06/07/2013) Results * DERMATOPATHOLOGY (03/30/2022 12:00 AM FUNDING ANALYST) Only the most recent of5 resultswithin the time period is included. Case Report Dermatopathology Report ? Case: [id number] ? Authorizing Provider: ??Lux Navarro MD ?Collected: ? 03/30/2022 12:00 AM ? Ordering Location: ? [facility] DermPath Lab ?Received: ?03/31/2022 01:20 PM ? Pathologist: ? Amparo Peralta MD ? Specimens: ?? A) - Skin, right foehead ? B) - Skin, right superior forehead ? 3 1:37 PM [facility] DERMATOPATHOLOGY LABORATORY Final Diagnosis Specimen A. SKIN, right foehead: ACTINIC KERATOSIS (L57.0) ROSACEACHANGES (L71.9) (see microscopic description) Specimen B. 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 Jar 0. 3 1:37 PM [facility] DERMATOPATHOLOGY LABORATORY Microscopic Description Specimen A. SKIN, [...] Solar elastosis is present. 3 1:37 PM [facility] DERMATOPATHOLOGY LABORATORY Disclaimer An external and internal positive and negative controls are appropriate for the histochemical, immunohistochemical and immunofluorescence stain(s) in this case (if any), except where stated explicitly. The performance characteristics of the stain(s) cited in this report were developed and its performance characteristic determined by the Dermatopathology Laboratory at [facility], directed by Dr. Denny Barrientos. These tests need not be, and therefore are not, approved by the [place] Food and Drug Administration. The tests are used for clinical purposes. Billing Codes Specimen Charges Stain Charges 14143 69164 1 1 3 1:37 PM [facility] DERMATOPATHOLOGY LABORATORY Embedded Images 3 1:37 PM [facility] DERMATOPATHOLOGY LABORATORY Pathology/Cytology TISSUE SPECIMEN FROM SKIN / Unknown 03/30/2022 03/31/2022 1:20 PM FUNDING ANALYST Miscellaneous samples (specimen) TISSUE SPECIMEN FROM SKIN / Unknown 03/30/2022 03/31/2022 1:20 PM FUNDING ANALYST Lux Navarro MD LAB - PATHOLOGY/CYTO LOGY ORDERABLES DERMATOPATHOLOGY LABORATORY [facility] - Department of Dermatology [facility] [address] [place] [address], [address] [phone] Care Teams Private Detective Relationship Specialty Start Date End Date Enrique Syed MD PCP - General 07/29/16
--- OUTSIDE RECORDS SUMMARY | 2024-03-11 12:46 | XMS_ITS | Clinical Summary ---
Author Organization [facility] Address [address] [address] Phone Care Team Providers Care Star Route Mail Driver Name Role Phone Enrique Syed MD Primary Care Provider [phone] Clementina Logan MD Unavailable [phone] Allergies Active Allergy Reactions Criticality Noted Date Comments Christopher Inhibitors Other (see Comments),Unknown Low 03/17/2022 Erythromycin Unknown Low 03/17/2022 unsure what type of reaction Nitrofurantoin Diarrhea,Nausea Medium 03/17/2022 Sulfa Antibiotics Vomiting Low 08/19/2016 Medications Multiple Vitamin (MULTIVITAMIN ADULT PO) 5 Active albuterol 108 (90 Base) MCG/ACT Aerosol Solution take 2 Puffs by inhalation every 4 hours as needed. 2 Active allopurinol (ZYLOPRIM) 300 MG Tablet 300 mg. 1 Active apixaban (ELIQUIS) 5 MG Tablet Take 5 mg by mouth 2 times daily. 4 Active Ascorbic Acid 500 MG Capsule CR 500 mg. 6 Active atorvastatin (LIPITOR) 40 MG Tablet 80 mg every evening. 6 Active budesonide-form oterol fumarate (SYMBICORT) 160-4.5 MCG/ACT Aerosol inhale 2 puff by inhalation route 2 times every day in the morning and evening 4 Active azelastine (ASTELIN) 0.1 % Solution 7 Active famotidine (PEPCID) 10 MG Tablet Take 10 mg by mouth. Active fexofenadine (SOMMER) 60 MG Tablet Take by mouth. 7 Active fluticasone (FLONASE) 50 MCG/ACT Suspension 0 Active montelukast (SINGULAIR) 10 MG Tablet 10 mg. 7 Active niacin CR 250 MG Capsule CR Take 800 mg by mouth nightly. 7 Active [place]-3 1400 MG Capsule Take by mouth. Activ e sotalol (BETAPACE) 160 MG Tablet Take 160 mg by mouth 2 times daily. 2 Active valsartan-hydro CHLOROthiazide (DIOVAN-HCT) 320-12.5 MG Tablet Take 1 Tablet by mouth daily. 2 Active Zinc 50 MG Capsule Take by mouth. Activ e docusate sodium (Colace) 100 MG Capsule Take 1 Capsule by mouth 2 times daily. 60 Capsule 3 Active Additional Information Patient taking differently:100 mg Oral2 TIMES DAILY PRN, Reported on 09/08/2023 oxybutynin (DITROPAN-XL) 10 MG TABLET SR 24 HR Take 1 Tablet by mouth daily. 30 Tablet 3 3 Active Semaglutide-Ulises ght Management (CAITY ME) by Subcutaneous route. Active traMADol (ULTRAM) 50 MG TabletIndicatio ns:Left ureteral stone,Urinary tract infection Take 1 Tablet by mouth every 8 hours as needed for Moderate or more severe pain. 20 Tablet 4 Active HYDROcodone-christopher taminophen (NORCO) 5-325 MG TabletIndicatio ns:Kidney stone Take 1 Tablet by mouth every 6 hours as needed for Severe pain. 15 Tablet 4 Active Active Problems Problem Noted Date Diagnosed Date Arrhythmia 09/17/2023 Pacemaker Overview (09/17/2023): right chest GUY on CPAP Hypertension High cholesterol Gout Carcinoma Overview (09/17/2023): LEFT BREAST AND UTERUS Asthma Arthritis Overview (09/17/2023): GENERALIZED Acid reflux A-fib A-fib Overview (09/17/2023): hx ablation in 2011 Encounters Date Type Department Care Team Description 12/31/2023 1:00 PM CDT Clinical Support [facility] [address] [place] [address] NurseRgeinaldo Urology UTI symptoms (Primary Dx) Discharge Disposition: Discharged to home or Selfcare 12/31/2023 Travel 12/28/2023 Telephone [facility] [address] [place] [address] Clementina Logan MD 12/24/2023 10:00 AM CDT Office Visit [facility] [address] [place] [address] Clementina Logan MD UTI symptoms (Primary Dx); Kidney stone; Other specified abdominal hernia without obstruction or gangrene Discharge Disposition: Discharged to home or Selfcare 12/24/2023 Travel 12/16/2023 9:37 AM CDT - 12/16/2023 11:59 PM CDT Hospital Encounter [facility] [address] [place] [address] Clementina Logan MD Discharge Disposition: Discharged to home or Selfcare 12/16/2023 Travel from Last 3 Months Immunizations Immunization Administration Dates Next Due Influenza Vaccine 12/26/2012, 2,12/23/2010,2009 Influenza Vaccine, Quadrivalent, PF 11/27/2016 Influenza Vaccine,unspecifie d Formulation 11/27/2016 Influenza, High-dose, Quadrivalent 12/08/2022, Influenza, Intradermal, Quad rivalent, Preservative Free 12/25/2015,12/11/2014 Influenza, Quadrivalent, Adjuvanted 12/06/2021 Influenza, Seasonal, Injecta ble, Undefined 11/25/2013,12/26/2012,11/13/2008,2007 Influenza, high-dose, trivalent, PF 12/22/2018,0 11/22/2017 Novel [id number], Injectable 01/05/2009 Pneumococcal Vaccine - 13 Valent 11/22/2017 Pneumococcal Vaccine Adult - 23 Valent 12/22/2018 RSV, Recombinant, Protein Lundy bunit Rsvpref, Adjuvant Recon (Arexvy) 2023 TDAP Vaccine 06/09/2010 Zoster Vaccine Recombinant 11/09/2021,09/02/2021 Zoster Vaccine, live 12/20/2013 Family History Medical History Relation Name Comments Cancer Father PROSTATE Heart Disease Father Heart Surgery Father Cancer Mother BREAST Relation Name Status Comments Father Mother Alive Social History Tobacco Use Types Packs/Day Years Used Date Smoking Tobacco: Former Cigarettes Q uit: 1999 Smokeless Tobacco: Never Tobacco Cessation:Counseling Given: Not Answered Alcohol Use Standard Drinks/Week Comments Not Currently 0 (1 standard drink = 0.6 oz pur e alcohol) [facility] Daqiities Answer Date Recorded In the past 12 months has Tweet Category, gas, oil, or water [employer] threatened to shut off services in your home? Patient declined 09/18/2023 Social Connection and Isolation Panel [NHANES] A nswer Date Recorded In a typical week, how many times do you talk on the phone with family, friends, or neighbors? Patient declined 09/18/2023 How often do you get togethe r with friends or relatives? Patient declined 09/18/2023 How often do you attend gnosticist or latter-day serv ices? Patient declined 09/18/2023 Do you belong to any clubs o r organizations such as gnosticist groups, unions, fraternal or athletic groups, or [...] medical care, and heating? Patient declined 09/18/2023 [facility] - Occupational Stress Questionnaire Answer Date [...] any time in the past 12 m [facility], were you homeless or living in a chcf (including now)? Patient declined 09/18/2023 Sexually Active [...] Pulse 106 12/24/2023 9:52 AM CDT Temperature 36.7 ??C (98.1 ??F) 09/18/2023 8:00 AM CD T Respiratory Rate 18 12/24/2023 9:52 AM CDT Oxygen Saturation 100% 12/24/2023 9:52 AM CDT Inhaled Oxygen Concentration - - Weight 104.3 kg (230 lb) 12/24/2023 9:52 AM CDT Height 149.9 cm (4' 11 ) 12/24/2023 9:52 AM CDT Body Mass Index 46.45 12/24/2023 9:52 AM CDT Plan of Treatment Upcoming Encounters Date Type Department Care Team (Late st Contact Info) Description 12/29/2024 9:00 AM CDT Office Visit [facility] [address] [place] [address] Clementina Logan MD [address] [address] Health Maintenance Due Date Last Done Comments DEXA Bone Density 1950 Hepatitis C Virus (HCV) Screening 1950 Cologuard 2002 Immunochemical Fecal Occult Blood 2002 Td Immunization Every 10 Years (Adults With 1 Tdap) 06/09/2020 06/09/2010 SARS-COV-2 Immunization ( season) 2024 12/30/2023, 12/08/2022, 12/06/2021, Additional history exists Mammogram 04/07/2025 04/07/2023, 02/0 03/2022, 02/17/2021, Additional history exists Colonoscopy 07/03/2031 07/02/2021 Colorectal Cancer Screening 07/03/2031 07/02/2021 DTaP/Tdap/Td Immunization Discontinued 06/09/2010 Pneumococcal Immunization (50+ years) Completed 12/22/2018, 11/22/2017 Pneumococcal Immunization Combined Discontinued 12/22/2018, 11/22/2017 Zoster Immunization Completed 11/09/2021, 09/02/2021, 12/20/2013 Respiratory Syncytial Virus (RSV) Immunization (Adult) Completed 2023 Influenza Immunization Completed , 12/08/2022, 12/06/2021, Additional history exists Hepatitis B Immunization Aged Out No longer eligible based on patient's age to complete this topic Meningococcal Immunization (ACWY) Aged Out No longer eligible based on patient's age to complete this topic Rotavirus Immunization Aged Out No lo nger eligible based on patient's age to complete this topic Medical Devices Implanted Type Area Fox Farmer Device Identifier Shelf Expiration Date Model / Serial / Lot Stent Ureteral 5fr 2.1fr 24cm 2 Pigtail Curve 2 Durometer Taper Tip Loprfl Graduated Polaris Ultra - [id number] Implanted:Qty : 1 on 05/26/2022 by Clementina Logan MD at [facility] IMPLANT Right: Ureter [employer] 09/04/2024 [id number] / [id number] / [id number] Stent Ureteral 6fr 2.1fr 24cm 2 Pigtail Curve 2 Durometer Taper Tip Loprfl Graduated Polaris Ultra - [id number] Implanted:Qty : 1 on 09/17/2023 by Clementina Logan MD at [facility] IMPLANT Left: Ureter [employer] 03/18/2026 [id number] 0 / [id number] / [id number] Procedures Procedure Name Priority Date/Time Associated Diagnosis Comments CULTURE, URINE Routine 12/31/2023 1:08 PM CDT UTI symptoms POCT UA AUTOMATED W/O MICRO Routine 12/31/2023 1:07 PM CDT UTI symptoms POCT UA AUTOMATED W/O MICRO Routine 12/24/2023 9:58 AM CDT UTI symptoms CT UROGRAPHY WO/W CONTRAST Routine 12/16/2023 10:11 AM CDT Hydronephrosis with ureteropelvic junction (UPJ) obstruction POCT CREATININE Routine 12/16/2023 9:52 AM CDT from Last 3 Months Results * CULTURE, URINE (12/31/2023 1:08 PM CDT) Pathologist [facility] CULTURE RESULTS ESCHERICHIA COLI 01/02/2024 4:41 PM TRUCK STRIKER [facility] Culture URINE SPECIMEN COLLECTION, CLEAN CATCH / [...] IIB >=16 mcg/ml: Resistant Escherichia coli Trimeth/Sulfamethoxazole [facility]K I IB <=20 mcg/ml: Susceptible us [facility] Yrn Logan MD MICROBIOLOGY - GENERAL ORDERAB LES Final Result Performing Organization Address City/State/[facility] Co de Phone Number [facility] [address] [place] [address], * (ABNORMAL) POCT UA AUTOMATED W/O MICRO (12/31/2023 1:07 PM CDT) Only the most recent of2 resultswithin the time period is included. POC UA SPECIFIC GRAVITY 1.020 URINE PH [...] Slightly Cloudy Urine 12/31/2023 1:07 PM CDT [facility] Yrn Logan MD POINT OF CARE TESTING (MANUAL) Final Result * CT UROGRAPHY WO/W CONTRAST (12/16/2023 10:11 [...] Electronically signed by ??Yg Downs M.D. CH: D: ??12/20/2023 9:40 AM T: ??12/20/2023 9:40 AM Report ID: [id number] Reading Location: ??[id number] Procedure Note Yg Downs Jr., MD - [...] Yg Downs M.D. CH: YESSENIA Report ID: [id number] Reading Location: [id number] IMPRESSION: No evidence of an acute abnormality of the abdomen and pelvis. Small right renal calculi. Postsurgical changes of the anterior abdominal wall with mesh. Recurrent fat containing periumbilical hernia. Postsurgical changes of bilateral hip arthroplasties. Small sliding hiatal hernia. Mild colonic diverticulosis. Low-density splenic lesion 1.4 cm nonspecific but commonly related to a benign etiology such as a cyst. us Clementina Mauricio MD IMG CT ORDERABLES Final Result * POCT Creatinine (12/16/2023 9:52 AM CDT) CREATININE - POCT 0.6 0.6 - 1.3 mg/dL 12/16/2023 9:53 AM CDT [facility] Blood 12/16/2023 9:52 AM CDT 12/16/2023 9:53 AM CDT us None Provider POINT OF CARE TESTING Final Resu lt [facility] [address] [place] [address] from Last 3 Months Insurance MEDICARE AET SENIOR SUPPLEMENTAL Advance Directives * Full Code (Latest Code Status on File) Date Activated Date Inactivated Comments 09/17/2023 5:10 PM 09/18/2023 4:09 PM CPR-Full Kuldip atment: FULL ARREST: Attempt Resuscitation/CPR wit intubation and mechanical ventilation. PRE-ARREST: Use entire range of life support measures to stabilize the patient. Care Teams Star Route Mail Driver Relationship Specialty Start Date End Date Enrique Syed MD [facility] [place] [address] PCP - General Internal Medicine 08/11/22 Clementina Logan MD [address] [facility] [address] [place] [address] Consulting Physician Urology 03/17/22
--- OUTSIDE RECORDS SUMMARY | 2024-03-11 12:46 | XMS_ITS | Encounter Summary ---
Author Organization [facility] Address [address] [place] [address] Phone Care Team Providers Care Gis Analyst Name Role Phone Enrique Syed MD Primary Care Provider [phone] Clementina Logan MD Unavailable [phone] Reason for Referral * Radiology Services (Routine) - Closed Specialty Diagnoses / Procedures Referred By Rosalind estevez Referred To Contact Radiology Diagnoses Hydronephrosis with ureteropelvic junction (UPJ) obstruction Procedures CT UROGRAPHY WO/W CONTRAST Clementina Logan MD [address] [address] Phone: tel: fax: Referral ID Status Reason Start Date Expiration Date Visits Re quested Visits Authorized [id number] Closed 11/21/2023 1 1 Reason for Visit * Radiology Services (Routine) - Closed Specialty Diagnoses / Procedures Referred By Rosalind estevez Referred To Contact Radiology Diagnoses Hydronephrosis with ureteropelvic junction (UPJ) obstruction Procedures CT UROGRAPHY WO/W CONTRAST Clementina Logan MD [address] [address] Phone: tel: fax: Referral ID Status Reason Start Date Expiration Date Visits Re quested Visits Authorized [id number] Closed 11/21/2023 1 1 Encounter Details Date Type Department Care Team (Latest Contact Info) Description 12/16/2023 9:37 AM CDT - 12/16/2023 11:59 PM CDT Hospital Encounter [facility] [address] [place] [address] Clementina Logan MD [address], [facility] [address] [place] [address] Discharge Disposition: Discharged to home or Selfcare Social History Tobacco Use Types Packs/Day Years Used Date Smoking Tobacco: Former Cigarettes Q uit: 1999 Smokeless Tobacco: Never Alcohol Use Standard Drinks/Week Comments Not Currently 0 (1 standard drink = 0.6 oz pur e alcohol) [facility] Utilities Answer Date Recorded In the [...] declined 09/18/2023 How often do you attend rastafari or mandaen serv ices? Patient declined 09/18/2023 Do you belong to any clubs o r organizations such as rastafari groups, unions, fraternal or athletic groups, or [...] medical care, and heating? Patient declined 09/18/2023 [facility] [place] of Occupat ional Health - Occupational Stress [...] any time in the past 12 m [facility], were you homeless or living in a mcc (including now)? Patient declined 09/18/2023 Sexually Active [...] Take 800 mg by mouth nightly. 08/19/2016 [place]-3 1400 MG Capsule Take by mouth. oxybutynin (DITROPAN-XL) 10 MG TABLET SR 24 HR Take 1 Tablet by mouth daily. 30 Tablet 3 05/26/2022 Semaglutide-Weig ht Management (CAITY LA) by Subcutaneous route. sotalol (BETAPACE) 160 MG [...] Progress Notes * Clementina Logan MD - 12/16/2023 10:00 AM CDT Can you please let the patient know CT scan shows no significant kidney swelling which is great news. There is a small nonobstructing stone. She does have a recurrent belly button hernia. Please make sure I can review with her in-person.. Thank you, Clementina Logan documented in this encounter Plan of Treatment Upcoming Encounters Date Type Department Care Team (Late st Contact Info) Description 12/29/2024 9:00 AM CDT Office Visit [facility] [address] [place] [address] Clementina Logan MD [address] [address] documented as of this encounter Procedures Procedure Name Priority Date/Time Associated Diagnosis Comments CT UROGRAPHY WO/W CONTRAST Routine 12/16/2023 10:11 AM CDT Hydronephrosis with ureteropelvic junction (UPJ) obstruction POCT CREATININE Routine 12/16/2023 9:52 AM CDT documented in this encounter Results * CT UROGRAPHY WO/W [...] AM T: ??12/20/2023 9:40 AM Report ID: [id number] Reading Location: ??[id number] Procedure Note Yg Downs Jr., MD - [...] Yg Downs M.D. CH: YESSENIA Report ID: [id number] Reading Location: [id number] IMPRESSION: No evidence of an acute abnormality [...] 1.3 mg/dL 12/16/2023 9:53 AM CDT [facility] Blood 12/16/2023 9:52 AM CDT 12/16/2023 9:53 AM CDT us None Provider POINT OF CARE TESTING Final Resu lt [facility] [address] [place] [address] documented in this encounter Visit Diagnoses Diagnosis Hydronephrosis with ureteropelvic junction (UPJ) obstruction documented in this encounter Administered Medications Inactive Administered Medications - up to 3 most recent administrations Medication Order MAR Action Action Date Dose Rate Site iopamidol (ISOVUE-370) 76 % injection 100 mL 100 mL, Intravenous, ONCE, 1 dose, On Millie 12/16/23 at 1000 Given 12/16/2023 10:01 AM CDT 100 mL documented in this encounter Care Teams Gis Analyst Relationship Specialty Start Date End Date Enrique Syed MD [address] [place] [address] PCP - General Internal Medicine 08/11/22 Clementina Logan MD [address] [facility] [address] [place] [address] Consulting Physician Urology 03/17/22 documented as of this encounter
--- OUTSIDE RECORDS SUMMARY | 2024-03-11 12:46 | XMS_ITS | Encounter Summary ---
Author Organization [employer] Care Team Providers Care Director [employer] Name Role Phone Enrique Syed MD Primary Care Provider [phone] Clementina Logan MD Unavailable [phone] Encounter Details Date Type Department Care Team (Latest Contact Info) Description 11/15/2023 Travel Social History Tobacco Use Types Packs/Day Years Used Date Smoking Tobacco: Former Cigarettes Q uit: 1999 Smokeless Tobacco: Never Alcohol Use Standard Drinks/Week Comments Not Currently 0 (1 standard drink = 0.6 oz pur e alcohol) [facility] Utilities Answer Date Recorded In the past 12 months has [employer] electric, gas, oil, or water company threatened [...] declined 09/18/2023 How often do you attend denominational or oriental orthodox serv ices? Patient declined 09/18/2023 Do you belong to any clubs o r organizations such as denominational groups, unions, fraternal or athletic groups, or [...] 09/18/2023 [facility] - Occupational Stress Questionnaire Answer [...] any time in the past 12 m [facility], were you homeless or living in a long term (including now)? Patient declined 09/18/2023 Sexually Active [...] [facility] [place] [address] Clementina Logan MD [address] [address] documented as of this encounter Visit Diagnoses Not on filedocumented in this encounter Care Teams Director [employer] Relationship Specialty Start Date End Date Enrique Syed MD [address] [place] [address] PCP - General Internal Medicine 08/11/22 Clementina Logan MD [address] [address] Consulting Physician Urology 03/17/22 documented as of this encounter
--- OUTSIDE RECORDS SUMMARY | 2024-03-11 12:46 | XMS_ITS | Encounter Summary ---
Author Organization [facility] Address [address] [place] [address] Care Team Providers Care Manager Transplant Name Role Phone Enrique Syed MD Primary Care Provider [phone] Encounter Details Date Type Department Care Team (Late st Contact Info) Description 11/22/2019 Lab Requisition [facility] D[facility] [address] [place] [address] Lux Navarro MD [address] [address] Social History Tobacco Use Types Packs/Day Years [...] Priority Date/Time Associated Diagnosis Comments DERMATOPATHOLOGY Routine 11/21/2019 12:0 0 AM CDT documented in this encounter Results * DERMATOPATHOLOGY (11/21/2019 12:00 AM CDT) Case Report Dermatopathology Report ? Case: [id number] ? Authorizing Provider: ??Lux Navarro MD ?Collected: ? 11/21/2019 12:00 AM ? Ordering Location: ? [facility] ?Received: ?11/22/2019 02:22 PM ? Pathologist: ? Ana Baltazar MD ? Specimen: ?Skin, superior forhead left of midline ? 0 3:54 PM T DERMATOPATHOLOGY LABORATORY Final Diagnosis Specimen A. SKIN, superior forehead left of midline: HYPERPLASTIC (HYPERTROPHIC) ACTINIC KERATOSIS; EXTENDING TO THE BASE OF THE SPECIMEN (L57.0) (see microscopic description and comment) 0 3:54 PM T DERMATOPATHOLOGY LABORATORY Clinical History R/O BCC 0 3:54 PM [facility] DERMATOPATH[facility]Y [facility]ORATORY Gross Description Specimen A: Received is one formalin filled container labeled with the patient's name and designated superior forehead left of midline. The specimen consists of a shave biopsy measuring 5x4x1 mm. Jar 0. 0 3:54 PM CDT DERMATOPATHOLOGY LABORATORY Microscopic Description Specimen A. SKIN, superior forehead left of midline: There is hyperkeratosis alternating with parakeratosis. There is epidermal hyperplasia with disorderly maturation of keratinocytes with nuclear pleomorphism confined to the lower half of the epidermis. This process extends to the base of the specimen. COMMENT: A squamous cell carcinoma cannot be ruled out. 0 3:54 PM T DERMATOPATHOLOGY LABORATORY Disclaimer An external and internal positive and negative controls are appropriate for the histochemical, immunohistochemical and immunofluorescence stain(s) in this case (if any), except where stated explicitly. The performance characteristics of the stain(s) cited in this report were developed and its performance characteristic determined by the Dermatopathology Laboratory at [facility], directed by Dr. Denny Barrientos. These tests need not be, and therefore are not, approved by the [place] Food and Drug Administration. The tests are used for clinical purposes. Billing Codes Specimen Charges Stain Charges 08280 1 0 3:54 PM CDT DERMATOPATHOLOGY LABORATORY Embedded Images 0 3:54 PM CDT DERMATOPATHOLOGY LABORATORY Pathology/Cytolog y TISSUE SPECIMEN FROM SKIN / Unknown 11/21/2019 11/22/2019 2:22 PM CDT Lux Navarro MD LAB - PATHOLOGY/CYTO LOGY ORDERABLES DERMATOPATHOLOGY LABORATORY [facility] - Department of Dermatology [facility] Medicine [address] [place] [address], [address] [phone] documented in this encounter Visit Diagnoses Not on filedocumented in this encounter Care Teams Manager Transplant Relationship Specialty Start Date End Date Enrique Syed MD PCP - General 07/29/16 documented as of this encounter
--- OUTSIDE RECORDS SUMMARY | 2024-03-11 12:46 | XMS_ITS | Referral Summary ---
Author Organization [facility] Address [address] [place] [address] Care Team Providers Care Claim Examiner Name Role Phone Enrique Syed MD Primary Care Provider [phone] Source Comments [facility],non-owned Affiliates and Associated Physician Practices is amultiple site organization consisting of ambulatory clinics and hospital sitesin [place], [place], [place] and [place]. This disclosure is being madepursuant to the Care Everywhere program and may not contain all information available regarding this patient. Last updated 17.[facility] Allergies Active Allergy Reactions Criticality Noted Date [...] MG capsule Take by mouth. 08/19/2016 Active [place]-3 Fatty Acids (FISH OIL) 500 MG capsule Take by mouth. 08/19/2016 Active fexofenadine (SOMMER) 60 MG tablet Take by mouth. 08/19/2016 Active montelukast (SINGULAIR) 10 MG tablet 10 mg. 07/30/2016 Active calcium carbonate - vitamin D (CALTRATE 600+D) 600-800 MG-UNIT tablet 11/15/2013 Active Social History Tobacco Use Types Packs/Day Years [...] 09/02/2016 7:12 AM CDT Plan of Treatment Not on file Care Teams Claim Examiner Relationship Specialty Start Date End Date Enrique Syed MD PCP - General 07/29/16
--- OUTSIDE RECORDS SUMMARY | 2024-03-11 12:47 | XMS_ITS | Encounter Summary ---
Author Organization [facility] Address [address] [place] [address] Phone Care Team Providers Care Wash Oil Pump Operator Name Role Phone Enrique Syed MD Primary Care Provider [phone] Clementina Logan MD Unavailable [phone] Reason for Referral * Radiology Services (Routine) - Closed Specialty Diagnoses / Procedures Referred By Rosalind estevez Referred To Contact Radiology Diagnoses Kidney stone Procedures US RENAL COMPLETE Clementina Logan MD [address] [address] Phone: tel: fax: Referral ID Status Reason Start Date Expiration Date Visits Re quested Visits Authorized [id number] Closed 10/01/2023 1 1 Reason for Visit * Reason Comments Cystoscopy Stent removal Encounter Details Date Type Department Care Team (Late st Contact Info) Description 10/01/2023 11:15 AM CDT Procedure [facility] [address] [place] [id number] Clementina Logan MD [address] [address] Kidney stone (Primary Dx) Discharge Disposition: Discharged to home or Selfcare Social History Tobacco Use Types Packs/Day Years Used Date Smoking Tobacco: Former Cigarettes Q uit: 1999 Smokeless Tobacco: Never Alcohol Use Standard Drinks/Week Comments Not Currently 0 (1 standard drink = 0.6 oz pur e alcohol) [facility] Utilities Answer Date Recorded In the [...] declined 09/18/2023 How often do you attend mormon or scientology serv ices? Patient declined 09/18/2023 Do you belong to any clubs o r organizations such as mormon groups, unions, fraternal or athletic groups, or [...] medical care, and heating? Patient declined 09/18/2023 [facility] - Occupational Stress [...] any time in the past 12 m [facility], were you homeless or living in a nursing home (including now)? Patient declined 09/18/2023 Sexually Active Control Partners Comments Not Currently Comments No Sex and Gender Information Value Date Recorded Sex Assigned at Not on file Legal Sex Female 10:10 PM CDT Gender Identity Not on file Sexual Orientation Not on file documented as of this encounter Last Filed Vital Signs Vital Sign Reading Time Taken Comments Blood Pressure 129/81 10/01/2023 11:10 AM CDT Pulse 92 10/01/2023 11:10 AM CDT Temperature - - Respiratory Rate 14 10/01/2023 11:10 AM CDT Oxygen Saturation 98% 10/01/2023 11:10 AM CDT Inhaled Oxygen Concentration - - Weight 99.3 kg (219 lb) 10/01/2023 11:10 AM CDT Height 149.9 cm (4' 11 ) 10/01/2023 11:10 AM CDT Body Mass Index 44.23 10/01/2023 11:10 AM CDT documented in this encounter Progress Notes * Clementina Logan MD - 10/01/2023 11:15 AM CDT Reason for Visit: Nephrolithiasis Interval History: Adri Tristan is a 73 y.o. female is here today for the ongoing management of nephrolithaisis. The patient underwent ureteroscopy on the lft side. The patient is here today for stent removal. Admitted afterwards due to concerns about arrhythmia. REVIEW OF SYSTEMS: As per the HPI. Otherwise, negative x14 systems. The complete REVIEW OF SYSTEMS, MEDICATION LIST and DRUG ALLERGIES, PAST MEDICAL HISTORY, FAMILY MEDICAL HISTORY and SOCIAL HISTORY are documented in detail were reviewed. The patient was asked to review all abnormal responses not pertinent to today's visit with their primary care physician. PHYSICAL EXAMINATION: Constitutional: General appearance: Well nourished, well developed female in no acute distress. Neuro: Normal mood and affect. Neck: Supple, normal appearance. Respiratory: Normal respiratory effort. Cardiovascular: No lower extremity edema. Skin: Warm and dry. Lymphatic: No inguinal lymphadenopathy. Gastrointestinal: No masses. No abdominal tenderness. No hernias. No hepatosplenomegaly. Procedure: See procedure note ASSESSMENT AND PLAN: This is a 73 y.o. female with left ureteral stone. Today we removed the JJ stent. We had an extensive discussion about stone disease, our operative findings, and stone type. 1. Will plan for follow up in 6 weeks with renal US to ensure no interval development of hydronephrosis. Expressed importance for follow up visit. 2. Encouraged patient to follow up with her maintenance team member given her arrhythmia during PACU stay. 3. Metabolic workup once the patient has recovered. Including 24 hour urine study. documented in this encounter Procedure Notes * Clementina Logan MD - 10/01/2023 11:15 AM CDTAssociated Order(s): CYSTOSCOPY,REMV CALCULUS,SIMPLE Cystoscopy Procedure Note Date of Visit: 10/01/2023 Cystourethroscopy and stent removal Adri Tristan is a 73 y.o. female who presents for cystoscopy and removal of an indwelling JJ stenton the left side that was placed following ureteroscopy. Indication(s): Indwelling ureteral stent. Verbal and written consent was obtained and a Time Out was performed. Urinalysis: Urine dipstick shows negative nitrites. Procedure: The patient was positioned in the supine position. The patient was then placed in the dorsal lithotomy position with all pressure points padded again. The urethra and genitals were preppedin the usual fashion. Local anesthesia with 1% lidocaine jelly was administered transurethrally. A well lubricated 16 [place] flexible cystoscope was introduced transurethrally. Findings listed below.Through this, flexible stent graspers were advanced through the scope. The distal curl of the stentwas visualized. It was pulled and removed without resistance. It was removed intact. Both curls were visualized. There was no debris on the stent noted. Findings: Urethra: No strictures, lesions, or stones Bladder: No stones, tumors, lesions. No trabeculations, diverticuli. Bilateral UO in orthotopic position with clear efflux ent: Removed intact with both curls visualized outside the body. Stent discarded The patient tolerated the procedure well. Specimen sent: None Plan: See progress note documented in this encounter Plan of Treatment Upcoming Encounters Date Type Department Care Team (Late st Contact Info) Description 12/29/2024 9:00 AM CDT Office Visit [facility] [address] [place] [address] Clementina Logan MD [address] [address] documented as of this encounter Procedures Procedure Name Priority Date/Time Associated Diagnosis Comments CYSTOSCOPY,REMV CALCULUS,SIMPLE Routine 10/01/2023 11:15 AM CDT Kidney stone POCT UA AUTOMATED W/O MICRO Routine 10/01/2023 10:56 AM CDT Kidney stone documented in this [...] Electronically signed by ??Shae Gerardo M.D. TW: TW D: ??11/16/2023 12:11 PM T: ??11/16/2023 12:11 PM Report ID: [id number] Reading Location: ??[id number] Procedure Note Shae Gerardo MD - 11/16/2023 [...] Shae Gerardo M.D. TW: TW Report ID: [id number] Reading Location: [place] [address] IMPRESSION: 1. Left hydronephrosis, decreased compared to the most recent CT study. 2. Fullness of the right renal pelvis, similar to the prior ultrasound from May 2023. Clementina Mauricio MD [facility] US ORDERABLES Final Result * CYSTOSCOPY,REMV CALCULUS,SIMPLE (10/01/2023 11:15 AM CDT) Narrative Clementina Logan MD - 10/01/2023 11:15 AM CDT Clementina Logan MD ? 10/01/2023 ??1:12 PM Cystoscopy Procedure Note Date of Visit: 10/01/2023 Cystourethroscopy and stent removal Adri Tristan is a 73 y.o. female who presents for cystoscopy and removal of an indwelling JJ stent on the left side that was placed following ureteroscopy. Indication(s): ??Indwelling ureteral stent. ??Verbal and written consent was obtained and a Time Out was performed. Urinalysis: Urine dipstick shows negative nitrites. Procedure: ??The patient was positioned in the supine position. ?? The patient was then placed in the dorsal lithotomy position with all pressure points padded again. ??The urethra and genitals were prepped in the usual fashion. Local anesthesia with 1% lidocaine jelly was administered transurethrally. ??A well lubricated 16 [place] flexible cystoscope was introduced transurethrally. ?? Findings listed below. ??Through this, flexible stent graspers were advanced through the scope. ??The distal curl of the stent was visualized. ??It was pulled and removed without resistance. ?? It was removed intact. Both curls were visualized. ??There was no debris on the stent noted. ?? Findings: Urethra: No strictures, lesions, or stones Bladder: No stones, tumors, lesions. No trabeculations, diverticuli. Bilateral UO in orthotopic position with clear efflux ent: Removed intact with both curls visualized outside the body. Stent discarded The patient tolerated the procedure well. Specimen sent: None Plan: ??See progress note [facility] Yrn Logan MD [place] - SURGERY Final Result * (ABNORMAL) POCT UA AUTOMATED W/O MICRO (10/01/2023 10:56 AM CDT) POC UA SPECIFIC GRAVITY 1.015 URINE PH 7.0 5.0 - 9.0 POC URINE LEUKOCYTES 500 /uL(A) Negative Kalie/uL POC URINE NITRITE Negative Negative POC URINE PROTEIN 500 mg/dL(A) Negative mg/dL POC URINE GLUCOSE Norm Negative, Norm mg/dL POC URINE KETONE Negative Negative mg/dL POC URINE UROBILINOGEN Norm Norm, 0.2 E.U./dL (mg/dL), 1 E.U./dL (mg/dL) POC URINE BILIRUBIN Negative Negative mg/dL POC URINE BLOOD INSTRUMENT 250 Homer/uL(A) Negative Homer/uL POC URINE COLOR Light Red POC URINE CLARITY Clear Urine 10/01/2023 10:5 6 AM CDT Clementina Mauricio MD POINT OF CARE TESTING (MANUAL) Final Result documented in this encounter Visit Diagnoses Diagnosis Kidney stone- Primary Calculus of kidney Kidney stone Calculus of kidney documented in this encounter Care Teams Wash Oil Pump Operator Relationship Specialty Start Date End Date Enrique Syed MD [address] [place] [address] PCP - General Internal Medicine 08/11/22 Clementina Logan MD #[address] [address] Consulting Physician Urology 03/17/22 documented as of this encounter
--- OUTSIDE RECORDS SUMMARY | 2024-03-11 12:47 | XMS_ITS | Encounter Summary ---
Author Organization [employer] Care Team Providers Care Cuff Folder Name Role Phone Enrique Syed MD Primary Care Provider [phone] Clementina Logan MD Unavailable [phone] Encounter Details Date Type Department Care Team (Latest Contact Info) Description 08/10/2023 Travel Social History Tobacco Use Types Packs/Day Years Used Date Smoking Tobacco: Former Cigarettes Q uit: 1999 Smokeless Tobacco: Never Alcohol Use Standard Drinks/Week Comments Not Currently 0 (1 standard drink = 0.6 oz pur e alcohol) Sexually Active Control Partners Comments Not Currently [...] [facility] [address] [place] [address] Clementina Logan MD [address] [address] documented as of this encounter Visit Diagnoses Not on filedocumented in this encounter Care Teams Cuff Folder Relationship Specialty Start Date End Date Enrique Syed MD [address] [place] [address] PCP - General Internal Medicine 08/11/22 Clementina Logan MD [address] [place] [address] Consulting Physician Urology 03/17/22 documented as of this encounter
--- OUTSIDE RECORDS SUMMARY | 2024-03-11 12:47 | XMS_ITS | Encounter Summary ---
Author Organization [facility] Address [address] [place] [address] Phone Care Team Providers Care Coordinator Hotels Name Role Phone Enrique Syed MD Primary Care Provider [phone] Clementina Logan MD Unavailable [phone] Reason for Referral * Radiology Services (Routine) - Authorized Specialty Diagnoses / Procedures Referred By Contac t Referred To Contact Radiology Diagnoses Kidney stone Procedures CT RENAL STONE STUDY (ABDOMEN AND PELVIS W/O CONTRAST) Clementina Logan MD #[address] [address] Phone: tel: fax: Referral ID Status Reason Start Date Expiration Date V isits Requested Visits Authorized [id number] Authorized 09/07/2023 1 1 Reason for Visit * Reason Comments Follow-up 6 month follow up Encounter Details Date Type Department Care Team (Late st Contact Info) Description 09/07/2023 10:15 AM CDT Office Visit [facility] [address] [place] [address] Clementina Logan MD #[address] [address] UTI symptoms (Primary Dx); Kidney stone Discharge Disposition: Discharged to home or Selfcare Social History Tobacco Use Types Packs/Day Years Used Date Smoking Tobacco: Former Cigarettes Q uit: 2000 Smokeless Tobacco: Never Tobacco Cessation:Counseling Given: Not [...] Sign Reading Time Taken Comments Blood Pressure 126/72 09/07/2023 9:59 AM CDT Pulse 80 09/07/2023 9:59 AM CDT Temperature - - Respiratory Rate 18 09/07/2023 9:59 AM CDT Oxygen Saturation 98% 09/07/2023 9:59 AM CDT Inhaled Oxygen Concentration - - Weight 97.5 kg (215 lb) 09/07/2023 9:59 AM CDT Height 149.9 cm (4' 11 ) 09/07/2023 9:59 AM CDT Body Mass Index 43.42 09/07/2023 9:59 AM CDT documented in this encounter Progress Notes * Clementina Logan MD - 09/07/2023 10:15 AM CDT Reason for Visit: Left nephrolithiasis Assessment/Plan: This is a 73 y.o. female with 4 mm left UPJ stone, she has ongoing flank pain. We did discuss multitude of options which include ESWL versus ureteroscopic stone extraction. At this point, given ongoing pain and discomfort, I do think it is prudent to move forward with kidney stone surgery. She would also like a CT scan prior to any surgery which I think we can arrange for her. Wediscussed that the patient would need a stent for approximately 2 - 3 weeks following this. With regards ureteroscopy I discussed the risk of ureteral stricture, bladder injury, sepsis/, recurrence of stone, need for more than 1 procedure particularly if we cannot obtain adequate access or there is residual stone fragments left. We discussed the risk of nerve injury and positioning injuries.We discussed and discomfort and pain afterwards. Again, with each stone approach I stressed the risk of developing a ureteral stricture post operatively, risk of sepsis that could lead to or prolonged hospitalization (even in the setting of a negative urine culture), nerve injuries from positioning. I also stressed there is a risk of needing more than one procedure particularly if the stoneis large or we cannot gain safe access to the stone due to ureteral narrowing or anatomic variations. The patient expressed understanding. Plan: L URS/LL/stent Ucx today CT stone protocol (per pts request) Interval History: Adri Tristan is a 73 y.o. female is here today for the ongoing management of left-sided nephrolithiasis. The patient has a history of kidney stone disease. She unfortunately has had ongoing left-sided flank pain. At our past visit we had discussed options and she wanted to try to pass the stone but her pain has worsened. She was seen in the emergency department with a left ureteral stone, UA was positive for nitrites but no fevers, she is on antibiotics, today UA does not have any nitrites, she has had no fevers. She has ongoing pain. She has not seen the stone pass. She had like a repeat CT scan. She is also tentatively scheduled for cataract surgery. She is now on tamsulosin which was started in the emergency department. Previously was avoided due to her cataract surgeries.. The complete REVIEW OF SYSTEMS, MEDICATION LIST [...] alert and oriented. A&O x3. Interactive affect documented in this encounter Plan of Treatment Upcoming Encounters Date Type Department Care Team (Late st Contact Info) Description 12/29/2024 9:00 AM CDT Office Visit [facility] [address] [place] [address] Clementina Logan MD #2 [facility] [address] [place] [address] Scheduled Orders Name Type Priority Associated Diagnoses Orde r Schedule CT RENAL STONE STUDY (ABDOMEN AND PELVIS W/O CONTRAST) Imaging Routine Kidney stone Expected: 09/14/2023, Expires: 03/09/2025 documented as of this encounter Procedures Procedure Name Priority Date/Time Associated Diagnosis Comments CULTURE, URINE Routine 09/07/2023 10:23 AM CDT UTI symptoms Kidney stone POCT UA AUTOMATED W/O MICRO Routine 09/07/2023 10:10 AM CDT UTI symptoms documented in this encounter Results * CULTURE, URINE (09/07/2023 10:23 AM CDT) CULTURE RESULTS CORYNEBACTERIUM AMYCOLATUM 09/08/2023 11:26 PM CDT [facility] Comment:NO STANDARDIZED SENS ITIVITY AVAILABLE CULTURE RESULTS STAPHYLOCOCCUS HAEMOLYTICUS 09/08/2023 11:26 PM CDT [facility] Comment:NO FURTHER WORKUP PE RFORMED Culture (Pre-Op Catheter) Non-Phlebotomy Collection / Unknown 09/07/2023 10:23 AM CDT 09/07/2023 10:23 AM CDT Clementina Mauricio MD MICROBIOLOGY - GENERAL ORDERAB LES Final Result [facility] [address] [place] [address], * (ABNORMAL) POCT UA AUTOMATED W/O MICRO (09/07/2023 10:10 AM CDT) POC UA SPECIFIC GRAVITY 1.015 URINE PH 6.0 5.0 - 9.0 POC URINE LEUKOCYTES 500 [...] COLOR Yellow POC URINE CLARITY Clear Urine 09/07/2023 10:1 0 AM CDT Clementina Mauricio MD POINT OF CARE TESTING (MANUAL) Final Result documented in this encounter Visit Diagnoses Diagnosis UTI symptoms- Primary Kidney stone Calculus of kidney documented in this encounter Care Teams Coordinator Hotels Relationship Specialty Start Date End Date Enrique Syed MD [address] [place] [address] PCP - General Internal Medicine 08/11/22 Clementina Logan MD #2 [facility] [address] [place] [address] Consulting Physician Urology 03/17/22 documented as of this encounter
--- OUTSIDE RECORDS SUMMARY | 2024-03-11 12:47 | XMS_ITS | Encounter Summary ---
Author Organization [facility] Address [address] [place] [address] Phone Care Team Providers Care Flat Grinder Operator Name Role Phone Enrique Syed MD Primary Care Provider [phone] Clementina Logan MD Unavailable [phone] Encounter Details Date Type Department Care Team (Late st Contact Info) Description 09/17/2023 Telephone [facility] [place] [address] Clementina Logan MD [address] [address] Social History Tobacco Use Types Packs/Day Years Used Date Smoking Tobacco: Former Cigarettes Q uit: 2000 Smokeless Tobacco: Never Alcohol Use Standard Drinks/Week Comments Not Currently 0 (1 standard drink = 0.6 oz pur e alcohol) [facility] Utilities Answer Date Recorded In the past 12 months has [employer], gas, oil, or water [employer] threatened to shut off services in your home? Patient declined 09/18/2023 Social Connection and Isolation Panel [NHANES] A nswer Date Recorded In a typical week, how many times do you talk on the phone with family, friends, or neighbors? Patient declined 09/18/2023 How often do you get togethe r with friends or relatives? Patient declined 09/18/2023 How often do you attend congregational or orthodox serv ices? Patient declined 09/18/2023 Do you belong to any clubs o r organizations such as congregational groups, unions, fraternal or athletic groups, or [...] medical care, and heating? Patient declined 09/18/2023 [facility] - Occupational Stress Questionnaire Answer Date [...] any time in the past 12 m [facility], were you homeless or living in a correction (including now)? Patient declined 09/18/2023 Sexually Active Control Partners Comments Not Currently Comments No Sex and Gender Information Value Date Recorded Sex Assigned at Not on file Legal Sex Female 10:10 PM CDT Gender Identity Not on file Sexual Orientation Not on file documented as of this encounter Functional Status * Audit-C Score Answer Date of Assessment Author -1 09/18/2023 9:27 AM Zhang Cedeño RN * Within the last year, have you been humiliated or emotionally abused in other ways by your partner or ex-partner? Answer Date of Assessment Author Patient declined 09/18/2023 9:27 AM Flory Cedeño RN * Within the last year, have you been afraid of your partner or ex-partner? Answer Date of Assessment Author Patient declined 09/18/2023 9:27 AM Flory Cedeño RN * Within the last year, have you been raped or forced to have any kind of sexual activity by your partner or ex-partner? Answer Date of Assessment Author Patient declined 09/18/2023 9:27 AM Flory Cedeño RN * Within the last year, have you been kicked, hit, slapped, or otherwise physically hurt by your partner or ex-partner? Answer Date of Assessment Author Patient declined 09/18/2023 9:27 AM Flory Cedeño RN * Question Answer Date of Assessment Author Q1: How often do you have a drink containing alcohol? Patient declined 09/18/2023 9:27 AM Flory Cedeño RN Q2: How many drinks containing alcohol do you have on a typical day when you are drinking? Patient declined 09/18/2023 9:27 AM Flory Cedeño RN Q3: How often do you have six or more drinks on one occasion? Patient declined 09/18/2023 9:27 AM CDT Flory Jenkins RN documented as of this encounter Miscellaneous Notes * Telephone Encounter - Giovanny Flaherty RMA - 09/20/2023 1:33 PM CDT PT SCHEDULE FOR 10.01.2023 * Telephone Encounter - Clementina Logan MD - 09/17/2023 3:06 PM CDT Cysto/stent pull in 2 weeks documented in this encounter Plan of Treatment Upcoming Encounters Date Type Department Care Team (Late st Contact Info) Description 12/29/2024 9:00 AM CDT Office Visit [facility] [address] [place] [address] Clementina Logan MD #[address] [address] documented as of this encounter Visit Diagnoses Not on filedocumented in this encounter Care Teams Flat Grinder Operator Relationship Specialty Start Date End Date Enrique Syed MD [address] [place] [address] PCP - General Internal Medicine 08/11/22 Clementina Logan MD [address] [address] Consulting Physician Urology 03/17/22 documented as of this encounter
--- OUTSIDE RECORDS SUMMARY | 2024-03-11 12:47 | XMS_ITS | Encounter Summary ---
Author Organization [facility] Address [address] [place] [address] Phone Care Team Providers Care Mine Inspector Federal Name Role Phone Enrique Syed MD Primary Care Provider [phone] Clementina Logan MD Unavailable [phone] Reason for Visit * Reason Onset Date Comments Medication Management 08/11/2023 Encounter Details Date Type Department Care Team (Late st Contact Info) Description 08/11/2023 Telephone [facility] #[address] [place] [address] Clementina Logan MD #[address] [address] Medication Management Social History Tobacco Use Types Packs/Day Years [...] encounter Miscellaneous Notes * Telephone Encounter - Elizabeth Gonzalez RN - 08/11/2023 8:54 AM CDT Patient called and stated she was in the ER on 08/10/23 and was instructed by ERP to hold apixaban until she sees urology. Medication is prescribed by her PCP, Dr. Shan Syed. Patient was instructed to call Dr. Syed's office to inform of recent ER visit and instructions to hold medication. Patientverbalizes understanding and is scheduled with Dr. Logan on 08/12. documented in this encounter Plan of Treatment Upcoming Encounters Date Type Department Care Team (Late st Contact Info) Description 12/29/2024 9:00 AM CDT Office Visit [facility] #[address] [place] [address] Clementina Logan MD #[address] [address] documented as of this encounter Visit Diagnoses Not on filedocumented in this encounter Care Teams Mine Inspector Federal Relationship Specialty Start Date End Date Enrique Syed MD [address] [place] [address] PCP - General Internal Medicine 08/11/22 Clementina Logan MD #[address] [address] Consulting Physician Urology 03/17/22 documented as of this encounter
--- OUTSIDE RECORDS SUMMARY | 2024-03-11 12:47 | XMS_ITS | Encounter Summary ---
Author Organization [facility] Address [address] [place] [address] Phone Care Team Providers Care Residential Substance Abuse Counselor Name Role Phone Enrique Syed MD Primary Care Provider [phone] Clementina Logan MD Unavailable [phone] Reason for Visit * Auth/Cert (Routine) Specialty Diagnoses / Procedures Referred By Rosalind estevez Referred To Contact Diagnoses LEFT URETERAL STONE Procedures URETEROSCOPY WITH HOLMIUM LASER CYSTOSCOPY STENT INSERTION (SINGLE / BILATERAL) Clementina Logan MD #[address] [address] Phone: tel: fax: Referral ID Status Reason Start Date Expiration Date Visits Re quested Visits Authorized [id number] 1 1 Encounter Details Date Type Department Care Team (Late st Contact Info) Description 09/17/2023 1:58 PM CDT [facility]est[facility] Periop [address] [place] [address] Ezra Will APRN, CRNA #1 [place] [address] Anesthesia Record Procedure Summary Procedure Name Responsible Anesthesiologist Anesthesia Start Time Anesthesia Stop Time LEFT URETEROSCOPY WITH HOLMIUM LASER LITHOTRIPSY (Left: Ureter) Ezra Will APRN, CRNA 09/17/23 1358 09/17/23 1450 Events Date Time Event Comment 09/17/2023 1202 1358 An Start 1359 An Start Data 1359 ANASSESSCMPLT 1407 An Induction 1408 An LMA 1412 Anesthesia Ready 1442 Airway Removed 1442 Stop Data Collection 1445 Transort to Postop 1449 Handoff to RN I completed my SBAR handoff to the receiving nurse. Last vitals BP: (!) 134/91 Temp: (!) 35.7 ??C (96.3 ??F) Pulse: 82 Resp: 20 SpO2: 96 % 1450 An Stop Last vitals: BP : 140/82 Temp: 36.3 ??C (97.3 ??F) Pulse: 66 Resp: 22 SpO2: 99 % Meds Name Total propofol 10 mg/mL 200 mg fentaNYL 50 mcg/mL 50 mcg ondansetron 4 mg/2 mL 4 mg dexamethasone 10 mg/mL 10 mg ceFAZolin (ANCEF) injection 2 g 2 g diphenhydrAMINE 50 mg/mL 12.5 mg famotidine 20 mg/2 mL 20 mg acetaminophen (OFIRMEV) IV 1,000 mg 1,00 0 mg lidocaine 2 % 80 mg esmolol 10 mg/mL 60 mcg lactated ringers infusion 700 mL * Agents No agents on file. * Blood No blood administrations on file. Lines, Drains, and Airways Type Details Placement Removal PIV-Single Lumen Placement Date: 08/29 11/22; Placement Time: 1045; Catheter Size: 22 G; Orientation: Anterior, Proximal, Right; Location: Forearm; Site Prep: Chlorhexidine ; Technique: Anatomical landmarks; Inserted by: tami thacker; Insertion Attempts: 1; Difficult Venous Access? No; Patient Tolerance: Tolerated well; Removal Date: 09/18/23; Removal Time: 1322; Removal Reason: Per order 09/17/23 1045 by Krystle Trujillo RN 09/18/23 1322 by Flory Jenkins RN Stent 09/17/23; 1430; Peytont christiano left; 6 [place]an; 24 cm; 10/18/23; 1403 09/17/23 1430 by Patsy Longo RN 10/18/23 1403 by Auto-Discontinue, System documented in this encounter Social History Tobacco Use Types Packs/Day Years Used Date Smoking Tobacco: Former Cigarettes Q uit: 1999 Smokeless Tobacco: Never Alcohol Use Standard Drinks/Week Comments Not Currently 0 (1 standard drink = 0.6 oz pur e alcohol) [facility] Utilities Answer Date Recorded In the [...] How often do you attend islam or evangelical serv ices? Patient declined 09/18/2023 Do you [...] medical care, and heating? Patient declined 09/18/2023 [facility] [...] [facility] in the [facility], were you [facility] or living in a [facility] (including now)? Patient declined 09/18/2023 Sexually Active Control Partners Comments Not Currently Comments No Sex and Gender Information Value Date Recorded Sex Assigned at Not on file Legal Sex Female 10:10 PM CDT Gender Identity Not on file Sexual Orientation Not on file documented as of this encounter OR Notes * Anesthesia Postprocedure Evaluation - Ezra Will APRN, CRNA - 09/17/2023 2:50 PM CDT Patient: Adri Tristan Procedure Summary Date: 09/17/23 Room / Location: [facility] MAIN OR 05 / [facility] Anesthesia Start: 1358 Anesthesia Stop: 1450 Procedures: LEFT URETEROSCOPY WITH HOLMIUM LASER LITHOTRIPSY (Left: Ureter) CYSTOSCOPY WITH LEFT URETERAL STENT PLACEMENT (Left: Bladder) CYSTOSCOPY RETROGRADE PYELOGRAMS (Left: Bladder) Diagnosis: (LEFT URETERAL STONE) Surgeons: Clementina Logan MD Responsible Provider: Ezra Will APRN, CRNA Anesthesia Type: general ASA Status: 3 Anesthesia Type: general Last vitals Vitals Value Taken Time BP 140/82 09/17/23 1446 Temp 36.3 ??C (97.3 ??F) 09/17/23 1446 Pulse 66 09/17/23 1446 Resp 22 09/17/23 1446 SpO2 99 % 09/17/23 1446 Pain score: 0 Pain management: adequate Patient location during evaluation: PACU Patient participation: Fully recovered to participate Level of consciousness: awake Cardiovascular status: acceptable Respiratory status: acceptable Hydration status: acceptable Comments: VS per RN flow sheet Anesthetic complications: no Airway patency: patent Nausea and Vomiting: none * Anesthesia Procedure Notes - Tyra Carbajal APRN, CRNA - 09/17/2023 2:20 PM CDTAssociated Order(s): LMA LMA Staffing Performed: resident/TOP PRECIPITATOR OPERATOR HELPER Resident/TOP PRECIPITATOR OPERATOR HELPER: Tyra Carbajal APRN, CRNA Performed by: Tyra Carbajal APRN, CRNA Authorized by: Tyra Carbajal APRN, CRNA Airway Details Overall Difficulty: Easy Preoxygenated: Yes LMA Size: 4 Adequate seal established: Yes LMA placement confirmed by: CO2 detection * Anesthesia Preprocedure Evaluation - Tyra Carbajal APRN, CRNA - 09/17/2023 11:19 AM CDT Anesthesia Evaluation Procedure Information Date/Time: 09/17/23 1240 Procedures: LEFT URETEROSCOPY WITH HOLMIUM LASER LITHOTRIPSY (Left) CYSTOSCOPY WITH LEFT URETERAL STENT PLACEMENT (Left) Location: [facility] MAIN OR 05 / [facility] Surgeons: Clementina Logan MD Patient summary reviewed No history of anesthetic complications No family history of anesthesia reaction Allergies: -- Nitrofurantoin -- Diarrhea and Nausea -- Christopher Inhibitors -- Other (see Comments) and Unknown -- Erythromycin -- Unknown -- unsure what type of reaction -- Sulfa Antibiotics -- Vomiting Patient allergies reviewed. Medications: Current Facility-Administered Medications: [START ON 09/24/2023] ceFAZolin (ANCEF) injection 2 g, 2 g, Intravenous, Once, Rajat Ramirez APRN, CNP Iopamidol (ISOVUE-300) 61 % injection 30 mL, 30 mL, Other, Once, Clementina Logan MD [START ON 09/24/2023] lactated ringers infusion, 20 mL/hr, Intravenous, Continuous, Rajat Ramirez APRN, CNP, Last Rate: 20 mL/hr at 09/17/23 1046, 20 mL/hr at 09/17/23 1046 Medications Prior to Admission: albuterol 108 (90 Base) MCG/ACT Aerosol Solution, [...] the morning and evening, Disp: , Rfl: Calcium Carb-Cholecalciferol 600-20 MG-MCG Tablet, , Disp: , Rfl: cefUROXime (CEFTIN) 500 MG Tablet, Take 500 mg by mouth., Disp: , Rfl: docusate sodium (Colace) 100 MG Capsule, Take 1 Capsule by mouth 2 times daily. (Patient taking differently: Take 100 mg by mouth 2 times daily as needed.), Disp: 60 Capsule, Rfl: 0 ergocalciferol (VITAMIN D) 74221 UNIT Capsule, Take 50,000 Units by mouth., Disp: , Rfl: famotidine (PEPCID) 10 MG Tablet, Take 10 mg by mouth., Disp: , Rfl: fexofenadine (SOMMER) 60 MG Tablet, Take by mouth., Disp: , Rfl: fluocinonide (LIDEX) 0.05 % Solution, , Disp: , Rfl: fluticasone (FLONASE) 50 MCG/ACT Suspension, , Disp: , Rfl: HYDROcodone-acetaminophen (NORCO) 5-325 MG Tablet, Take 1-2 Tablets by mouth every 4 hours as needed for Moderate or more severe pain. (Patient not taking: Reported on 09/08/2023), Disp: 15 Tablet, Rfl: 0 HYDROcodone-acetaminophen ([place]) 5-325 MG Tablet, Take 1 Tablet by mouth every 6 hours as needed for Severe pain., Disp: 15 Tablet, Rfl: 0 irbesartan-hydroCHLOROthiazide (AVALIDE) 150-12.5 MG Tablet, Take 1 Tablet by mouth daily., Disp: ,Rfl: montelukast (SINGULAIR) 10 MG Tablet, 10 mg., Disp: , Rfl: Multiple Vitamin (MULTIVITAMIN ADULT PO), , Disp: , Rfl: niacin CR 250 MG Capsule CR, Take 800 mg by mouth nightly., Disp: , Rfl: Offerle-3 1400 MG Capsule, Take by mouth., Disp: , Rfl: omeprazole (PriLOSEC) 10 MG CAPSULE DELAYED RELEASE, 10 mg., Disp: , Rfl: oxybutynin (DITROPAN-XL) 10 MG [...] 8 hours as needed for Moderate or moresevere pain., Disp: 20 Tablet, Rfl: 0 valsartan-hydroCHLOROthiazide (DIOVAN-HCT) 320-12.5 MG Tablet, Take 1 Tablet by mouth daily., Disp:, Rfl: Zinc 50 MG Capsule, Take by mouth., Disp: , Rfl: Patient medications reviewed. Airway Mallampati: III TM distance: >3 FB Dental - normal exam Pulmonary - normal exam (+) asthma, sleep apnea Cardiovascular (+) pacemaker, hypertension, dysrhythmias ROS comment: Afib Neuro/Psych - negative ROS GI/Hepatic/Renal Endo/Other (+) arthritis Risks, benefits, alternatives discussed with:patient. Anesthesia Plan ASA 3 general Plan comments: Pt not taking Wegovy Last dose of Eliquis 09/14/23 intravenous induction Anesthetic plan and risks discussed with Patient. documented in this encounter Miscellaneous Notes * Addendum Note - Ezra Will APRN, CRNA - 09/17/2023 3:14 PM CDT Addendum created 09/17/23 1514 by Ezra Will APRN, CRNA Intraprocedure Meds edited * Addendum Note - Ezra Will APRN, CRNA - 09/17/2023 2:51 PM CDT Addendum created 09/17/23 1451 by Ezra Will APRN, CRNA Intraprocedure Meds edited documented in this encounter Plan of Treatment Upcoming Encounters Date Type Department Care Team (Late st Contact Info) Description 12/29/2024 9:00 AM CDT Office Visit [facility] [address] [place] [address] Clementina Logan MD [address], [address] [address] documented as of this encounter Procedures Procedure Name Priority Date/Time Associated Diagnosis Comments LMA Routine 09/17/2023 2:20 PM CDT documented in this encounter Results * LMA (09/17/2023 2:20 PM CDT) Narrative Tyra Carbajal APRN, CRNA - 09/17/2023 2:20 PM CDT Tyra Carbajal APRN, CRNA ? 09/17/2023 ??2:20 PM LMA Staffing Performed: resident/TOP PRECIPITATOR OPERATOR HELPER Resident/TOP PRECIPITATOR OPERATOR HELPER: Tyra Carbajal APRN, CRNA Performed by: Tyra Carbajal APRN, CRNA Authorized by: Tyra Carbajal APRN, CRNA ?? Airway Details Overall Difficulty: ??Easy Preoxygenated: ??Yes LMA Size: ??4 Adequate seal established: ??Yes LMA placement confirmed by: ?? CO2 detection us Tyra Carbajal APRN, CRNA ANESTHESIA ORDER ALEC Final Result documented in this encounter Visit Diagnoses Not on filedocumented in this encounter Administered Medications Inactive Administered Medications - up to 3 most recent administrations Medication Order MAR Action Action Date Dose Rate Site acetaminophen (OFIRMEV) IV 1,000 mg 1,000 mg, Intravenous, ONCE, 1 dose, On Wed09/17/23 at 1400, Administer over 15 Minutes, Maximum dose of acetaminophen is 75mg/kg/day up to 4000 mg from all sources in 24 hours. Given 09/17/2023 2:16 PM CDT 1,000 mg ceFAZolin (ANCEF) injection 2 g 2 g, Intravenous, ONCE, 1 dose, On Wed09/24/23 at 0000, INTRA-OP, Indications: Perioperative PharmacoprophylaxisIndications:Per ioperative Pharmacoprophylaxis Given 09/17/2023 2:14 PM CDT 2 g dexamethasone (DECADRON) Intravenous, ONCE (in OR), Starting on Wed09/17/23 at 1415, Until Wed09/17/23 at 1450 Given 09/17/2023 2:15 PM CDT 10 mg diphenhydrAMINE (BENADRYL) injection Intravenous, ONCE (in OR), Starting on Wed09/17/23 at 1416, Until Wed09/17/23 at 1450 Given 09/17/2023 2:16 PM CDT 12.5 mg esmolol injection SOLN Intravenous, ONCE (in OR), Starting on Wed09/17/23 at 1506, Until Wed09/17/23 at 1513 Given 09/17/2023 3:06 PM CDT 60 mcg famotidine (PF) (PEPCID) injection Intravenous, ONCE (in OR), Starting on Wed09/17/23 at 1416, Until Wed09/17/23 at 1450 Given 09/17/2023 2:16 PM CDT 20 mg fentaNYL (PF) (SUBLIMAZE) injection Intravenous, ONCE (in OR), Starting on Wed09/17/23 at 1415, Until Wed09/17/23 at 1450 Given 09/17/2023 2:20 PM CDT 25 mcg Given 09/17/2023 2:15 PM CDT 25 mcg lidocaine 2 % injection Intravenous, ONCE (in OR), Starting on Wed09/17/23 at 1407, Until Wed09/17/23 at 1450 Given 09/17/2023 2:07 PM CDT 8 0 mg ondansetron (ZOFRAN) injection Intravenous, ONCE (in OR), Starting on Wed09/17/23 at 1448, Until Wed09/17/23 at 1451 Given 09/17/2023 2:48 PM CDT 4 mg propofol (DIPRIVAN) injection Intravenous, ONCE (in OR), Starting on Wed09/17/23 at 1407, Until Wed09/17/23 at 1450 Given 09/17/2023 2:07 PM CDT 2 00 mg documented in this encounter Care Teams Residential Substance Abuse Counselor Relationship Specialty Start Date End Date Enrique Syed MD [address] [place] [address] PCP - General Internal Medicine 08/11/22 Clementina Logan MD #[address] [address] Consulting Physician Urology 03/17/22 documented as of this encounter
--- OUTSIDE RECORDS SUMMARY | 2024-03-11 12:47 | XMS_ITS | Encounter Summary ---
Author Organization [facility] Address [address] [place] [address] Phone Care Team Providers Care Precision Agronomist Name Role Phone Enrique Elise MD Primary Care Provider [phone] Clementina Jara MD Unavailable [phone] Encounter Details Date Type Department Care Team (Late st Contact Info) Description 09/07/2023 Telephone [facility] [address] [place] [address] Clementina Jara MD #[address] [address] Social History Tobacco Use Types [...] Miscellaneous Notes * Telephone Encounter - Giovanny Flaherty, A - 09/07/2023 1:28 PM CDT SPOKE TO STAFF/TELEVISION ANCHOR AT DR ELISE'S OFFICE AND MADE SURE PT'S APPT ON 09.13.[address]EN WILL BE FOR A SURGERY CLEARANCE/ PRE- OP VISIT PRIOR TO SURGERY. WITH DR JARA documented in this encounter Plan of Treatment Upcoming Encounters Date Type Department Care Team (Late st Contact Info) Description 12/29/2024 9:00 AM CDT Office Visit [facility] [address] [place] [address] Clementina Jara MD [address] [address] documented as of this encounter Visit Diagnoses Not on filedocumented in this encounter Care Teams Precision Agronomist Relationship Specialty Start Date End Date Enrique Elise MD [address] [place] [address] PCP - General Internal Medicine 08/11/22 Clementina Jara MD [address] [address] Consulting Physician Urology 03/17/22 documented as of this encounter
--- OUTSIDE RECORDS SUMMARY | 2024-03-11 12:47 | XMS_ITS | Encounter Summary ---
Author Organization [facility] Address [address] [place] [address] Phone Care Team Providers Care Account Strategist Name Role Phone Enrique Syed MD Primary Care Provider [phone] Clementina Logan MD Unavailable [phone] Reason for Referral * Radiology Services (Routine) - Authorized Specialty Diagnoses / Procedures Referred By Contac t Referred To Contact Radiology Diagnoses Hydronephrosis of left kidney Procedures US RENAL COMPLETE Clementina Logan MD [address] [address] Phone: tel: fax: Referral ID Status Reason Start Date Expiration Date V isits Requested Visits Authorized [id number] Authorized 08/13/2023 1 1 Reason for Visit * Reason Comments Follow-up hematuria Encounter Details Date Type Department Care Team (Late st Contact Info) Description 08/13/2023 8:00 AM CDT Office Visit [facility] [address] [place] [id number] Clementina Logan MD [facility] [address] Hematuria, unspecified type (Primary Dx); Hydronephrosis of left kidney Discharge Disposition: Discharged to home or Selfcare [...] Sign Reading Time Taken Comments Blood Pressure 127/79 08/13/2023 7:59 AM CDT Pulse 87 08/13/2023 7:59 AM CDT Temperature - - Respiratory Rate 20 08/13/2023 7:59 AM CDT Oxygen Saturation 97% 08/13/2023 7:59 AM CDT Inhaled Oxygen Concentration - - Weight 98.4 kg (217 lb) 08/13/2023 7:59 AM CDT Height 152.4 cm (5') 08/13/2023 7:59 AM CDT Body Mass Index 42.38 08/13/2023 7:59 AM CDT documented in this encounter Progress Notes * Clementina Logan MD - 08/13/2023 8:00 AM CDT Reason for Visit: left nephrolithiasis Assessment/Plan: This is a 73 y.o. female with 4 mm left UPJ stone. 1. Observation with Flomax. I discussed that with a 4 mm stone is an approximately 90% chance it will pass. The patient may continue to have pain until this passes and should strain urine while awaiting for this to pass. There is a risk the patient may develop an obstructive pyelonephritis while waiting which is a medical/surgical emergency and can lead to if care is delayed. This was relayed to the patient who expressed understanding. The patient was counseled if they have fevers with flank pain he must go to the emergency room immediately. 2. Extracorporeal shockwave lithotripsy: I feel this would be a fine option for the patient's stone because of its location and size. We discussed risks of steinstrausse, sepsis, renal hematoma, need for additional procedures should the stone not be fragmented by ESWL (most often we perform ureteroscopy). 3. Ureteroscopy: This would be a good option. We discussed that the patient would need a stent for approximately 2 - 3 weeks following this. With regards ureteroscopy I discussed the risk of ureteralstricture, bladder injury, sepsis/, recurrence of stone, need for more than 1 procedure particularly if we cannot obtain adequate access or there is residual stone fragments left. We discussed the risk of nerve injury and positioning injuries. We discussed and discomfort and pain afterwards. Again, with each stone approach I stressed the risk of developing a ureteral stricture post operatively, risk of sepsis that could lead to or prolonged hospitalization (even in the setting of anegative urine culture), nerve injuries from positioning. I also stressed there is a risk of needing more than one procedure particularly if the stone is large or we cannot gain safe access to the stone due to ureteral narrowing or anatomic variations. The patient expressed understanding. Plan: Trial of stone passage, we will avoid tamsulosin given her upcoming cataract surgery. Ideally wouldneed the stone treated or managed or past prior to cataract surgery. We will plan for a renal ultrasound in about 2-3 weeks to see if she is passed stone, we will strain urine in the meantime. Counseled if he has any flank pain Or fevers to go to the emergency room. Interval History: Adri Tristan is a 73 y.o. female is here today for the ongoing management of left-sided nephrolithiasis. Previous history of right-sided stone status post ureteroscopic stone extraction, known left stone, was observing per patient request. She developed hematuria on Wednesday, CT scan shows an obstructing 4 mm left UPJ stone. She has no fevers. No longer having pain, has not seen the stone pass. Of note, she is scheduled for cataract surgery on September 15. Given this, we are avoiding tamsulosin. The complete REVIEW OF SYSTEMS, MEDICATION LIST [...] [facility] [address] [place] [address] Clementina Logan MD [address], [address] [address] Scheduled Orders Name Type Priority Associated Diagnoses Orde r Schedule US RENAL COMPLETE Imaging Routine Hydronephrosis of left kidney Expected: 09/03/2023, Expires: 02/11/2025 documented as of this encounter Procedures Procedure Name Priority Date/Time Associated Diagnosis Comments POCT UA AUTOMATED W/O MICRO Routine 08/13/2023 8:02 AM CDT Hematuria, unspecified type documented in this encounter Results * (ABNORMAL) POCT UA AUTOMATED W/O MICRO (08/13/2023 8:02 AM CDT) POC UA SPECIFIC GRAVITY 1.020 URINE PH 5.0 5.0 - 9.0 POC URINE LEUKOCYTES 500 /uL(A) Negative Kalie/uL POC URINE NITRITE Negative Negative POC URINE PROTEIN Trace(A) Negative mg/dL POC URINE GLUCOSE Norm Negative, Norm mg/dL POC URINE KETONE 15 mg/dL(A) Negative mg/dL POC URINE UROBILINOGEN Norm Norm, 0.2 E.U./dL (mg/dL), 1 E.U./dL (mg/dL) POC URINE BILIRUBIN 1 mg/dL(A) Negative mg/dL POC URINE BLOOD INSTRUMENT 250 Homer/uL(A) Negative Homer/uL POC URINE COLOR Yellow POC URINE CLARITY Clear Urine 08/13/2023 8:02 AM CDT Clementina Mauricio MD POINT OF CARE TESTING (MANUAL) Final Result documented in this encounter Visit Diagnoses Diagnosis Hematuria, unspecified type- Primary Hydronephrosis of left kidney Hydronephrosis documented in this encounter Care Teams Account Strategist Relationship Specialty Start Date End Date Enrique Syed MD [address] [place] [address] PCP - General Internal Medicine 08/11/22 Clementina Logan MD #2 [facility] [address] [place] [address] Consulting Physician Urology 03/17/22 documented as of this encounter
--- OUTSIDE RECORDS SUMMARY | 2024-03-11 12:47 | XMS_ITS | Encounter Summary ---
Author Organization [facility] Address [address] [place] [address] Phone Care Team Providers Care Cottrell Operator Name Role Phone Enrique Syed MD Primary Care Provider [phone] Clementina Logan MD Unavailable [phone] Reason for Visit * Reason Comments Flank Pain Blood in Urine Encounter Details Date Type Department Care Team (Late st Contact Info) Description 08/10/2023 7:09 AM CDT - 08/10/2023 10:38 AM CDT Emergency [facility] Emergency [address] [place] [address] Carlos Oreilly MD [address] [place] [address] Gross hematuria Discharge Disposition: Discharged to home or Selfcare [...] Sign Reading Time Taken Comments Blood Pressure 134/59 08/10/2023 7:15 AM CDT Pulse 61 08/10/2023 7:15 AM CDT Temperature 36.2 ??C (97.2 ??F) 08/10/2023 7:10 AM CD T Respiratory Rate 20 08/10/2023 7:10 AM CDT Oxygen Saturation 98% 08/10/2023 7:15 AM CDT Inhaled Oxygen Concentration - - Weight 98.4 kg (217 lb) 08/10/2023 7:10 AM CDT Height 149.9 cm (4' 11 ) 08/10/2023 7:10 AM CDT Body Mass Index 43.83 08/10/2023 7:10 AM CDT documented in this encounter Discharge Instructions * Discharge Instructions* Carlos Oreilly MD - 08/10/2023 10:26 AM CDT Continue to hold your Eliquis until you have had an opportunity to confer with Dr. Galvez. Take pain and nausea medications as needed/prescribed. Return to the ER for uncontrollable pain, development of fever, nausea vomiting, or worsening condition. documented in this encounter Medications at Time of Discharge [...] 08/19/2016 fluticasone (FLONASE) 50 MCG/ACT Suspension 02/18/2010 montelukast (SINGULAIR) 10 MG Tablet 10 mg. 07/30/2016 Multiple Vitamin (MULTIVITAMIN ADULT PO) 09/17/2014 niacin CR 250 MG Capsule CR Take 800 mg by mouth nightly. 08/19/2016 Yosemite-3 1400 MG Capsule Take by mouth. oxybutynin (DITROPAN-XL) 10 MG TABLET SR 24 HR Take 1 Tablet by mouth daily. 30 Tablet 3 05/26/2022 Semaglutide-Weig ht Management (CAITY SC) by Subcutaneous route. sotalol (BETAPACE) 160 MG Tablet Take 160 mg by mouth 2 times daily. 01/09/2022 valsartan-hydroC HLOROthiazide (DIOVAN-HCT) 320-12.5 MG Tablet Take 1 Tablet by mouth daily. 02/19/2022 Zinc 50 MG Capsule Take by mouth. Calcium Carb-Cholecalcif jhon 600-20 MG-MCG Tablet 11/15/2013 4 cefUROXime (CEFTIN) 500 MG Tablet Take 500 mg by mouth. 09/23/2016 4 ergocalciferol (VITAMIN D) 82820 UNIT Capsule Take 50,000 Units by mouth. 06/10/2018 4 fluocinonide (LIDEX) 0.05 % Solution 12/09/2021 4 HYDROcodone-acet aminophen (NORCO) 5-325 MG TabletIndication s:Left ureteral calculus Take 1-2 Tablets by mouth every 4 hours as needed for Moderate or more severe pain. 15 Tablet 08/10/2023 4 HYDROcodone-acet aminophen (Beaumont) 5-325 MG TabletIndication s:Ureteral stone Take 1 Tablet by mouth every 6 hours as needed for Severe pain. 15 Tablet 05/26/2022 4 irbesartan-hydro CHLOROthiazide (AVALIDE) 150-12.5 MG Tablet Take 1 Tablet by mouth daily. 08/19/2016 4 omeprazole (PriLOSEC) 10 MG CAPSULE DELAYED RELEASE 10 mg. 09/17/2014 4 ondansetron (ZOFRAN) 4 MG Tablet Take 1-2 Tablets by mouth every 8 hours as needed for Nausea - 1st line for up to 5 days. 20 Tablet 08/10/2023 4 documented as of this encounter ED Notes * Demetrice Riojas RN - 08/10/2023 10:37 AM CDT Patient refused vitals and discharged. Discharge instructions and patient educational material reviewed with patient; questions and concerns addressed; patient verbalizes understanding, using teach back. Patient was given 2 prescriptions. Patient was informed no drinking alcohol, driving or operating heavy machinery while taking narcotics or muscle relaxants. Patient discharged per ambulatory mode with friend as responsible democrat. SL D/C'ed with Fran cath intact. * Clinton Taylor RN - 08/10/2023 9:09 AM CDT PT updated on plan of care. Denies any further needs or concerns. * Clinton Taylor RN - 08/10/2023 9:00 AM CDT Pt ambulatory to restroom. No s/s of distress. * Clinton Taylor RN - 08/10/2023 8:19 AM CDT Urine collected and sent to lab. * Clinton Taylor RN - 08/10/2023 8:11 AM CDT Pt to restroom to attempt to give urine sample. * Carlos Oreilly MD - 08/10/2023 7:24 AM CDT Chief Complaint Patient presents with Flank Pain Blood in Urine 73-year-old female presenting to the emergency department with left-sided abdominal pressure/discomfort along with hematuria. She has a history of prior ureteral calculi and follows with neurology here. She denies any fevers, she has had some nausea, no active vomiting. She has a history of pacemaker and atrial fibrillation is on Eliquis along with antihypertensives and rate control medications. She held her Eliquis this morning but took her other regular medications. She has had both ultrasonic and direct therapies in the past. She denies fever. She did not have antecedent dysuria, pain began overnight. Current Facility-Administered Medications Medication Dose Route Frequency Provider Last Rate Last Admin 0.9 % sodium chloride solution 126 mL/hr Intravenous Continuous Carlos Oreilly MD 126 mL/hr at 08/10/23 0815 126 mL/hr at 08/10/23 0815 morphine sulfate (PF) injection 4 mg 4 mg Intravenous Once Carlos Oreilly MD Current Outpatient Medications Medication Sig Dispense Refill albuterol 108 (90 Base) MCG/ACT Aerosol Solution take 2 Puffs by inhalation every 4 hours as needed. allopurinol (ZYLOPRIM) 300 MG Tablet 300 mg. apixaban (ELIQUIS) 5 MG Tablet 5 mg. Ascorbic Acid 500 MG Capsule CR 500 mg. atorvastatin (LIPITOR) 40 MG Tablet 40 mg every evening. azelastine (ASTELIN) 0.1 % Solution budesonide-formoterol fumarate (SYMBICORT) 160-4.5 MCG/ACT Aerosol inhale 2 puff by inhalation route 2 times every day in the morning and evening Calcium Carb-Cholecalciferol 600-20 MG-MCG Tablet cefUROXime (CEFTIN) 500 MG Tablet Take 500 mg by mouth. (Patient not taking: Reported on 06/07/2022) docusate sodium (Colace) 100 MG Capsule Take 1 Capsule by mouth 2 times daily. 60 Capsule 0 ergocalciferol (VITAMIN D) 38899 UNIT Capsule Take 50,000 Units by mouth. famotidine (PEPCID) 10 MG Tablet Take 10 mg by mouth. fexofenadine (SOMMER) 60 MG Tablet Take by mouth. fluocinonide (LIDEX) 0.05 % Solution APPLY TO ITCHY SCALP 1 TO 2 TIMES DAILY (Patient not taking: Reported on 06/07/2022) fluticasone (FLONASE) 50 MCG/ACT Suspension (Patient not taking: Reported on 06/07/2022) HYDROcodone-acetaminophen (Beaumont) 5-325 MG Tablet Take 1 Tablet by mouth every 6 hours as needed for Severe pain. 15 Tablet 0 irbesartan-hydroCHLOROthiazide (AVALIDE) 150-12.5 MG Tablet Take 1 Tablet by mouth daily. (Patient not taking: Reported on 06/07/2022) montelukast (SINGULAIR) 10 MG Tablet 10 mg. Multiple Vitamin (MULTIVITAMIN ADULT PO) take 1 tablet by oral route every day with food niacin CR 250 MG Capsule CR Take by mouth. Yosemite-3 1400 MG Capsule Take by mouth. omeprazole (PriLOSEC) 10 MG CAPSULE DELAYED RELEASE 10 mg. (Patient not taking: Reported on 05/18/2022) oxybutynin (DITROPAN-XL) 10 MG TABLET SR 24 HR Take 1 Tablet by mouth daily. (Patient not taking: Reported on 06/07/2022) 30 Tablet 3 Semaglutide-Weight Management (WEGOVY SC) by Subcutaneous route. sotalol (BETAPACE) 160 MG Tablet Take 160 mg by mouth 2 times daily. valsartan-hydroCHLOROthiazide (DIOVAN-HCT) 320-12.5 MG Tablet Take 1 Tablet by mouth daily. Zinc 50 MG Capsule Take by mouth. Allergies Allergen Reactions Nitrofurantoin Diarrhea and Nausea Christopher Inhibitors Other (see Comments) and Unknown Erythromycin Unknown unsure what type of reaction Sulfa Antibiotics Vomiting Past Medical History Positives Diagnosis Date A-fib (HCC) Acid reflux Arthritis GENERALIZED Asthma Carcinoma (HCC) LEFT BREAST AND UTERUS Gout High cholesterol Hypertension GUY on CPAP Past Surgical History: Procedure Laterality Date BREAST SURGERY Left 09/14/2006 CARPAL TUNNEL RELEASE Right 2002 CHOLECYSTECTOMY 1975 HC CATH CARDIAC ABLATION C1729 D 03/10/2010; 04/28/2010 HYSTERECTOMY 10/26/06 TOTAL LAP,INGUINAL HERNIA REPR,INITIAL Left 03/30/2011 UMBILICAL X2 OTHER SURGICAL HISTORY Left SKULL DUE TO TUMOR THAT ATE AWAY THE BONE PACEMAKER INSERTION Right 06/22/2012 Make: METRONIC; Model: Medtronic [id number] CapSureFix Novus PARTIAL HIP ARTHROPLASTY Right 06/19/2015 TOTAL KNEE ARTHROPLASTY Left 09/30/2015 URETER STENT PLACEMENT Right 05/26/2022 Procedure: CYSTOSCOPY, RIGHT STENT INSERTION; Surgeon: Clementina Logan MD; Location: [facility]; Service: Urology URETEROSCOPY Right 05/26/2022 Procedure: RIGHT URETEROSCOPY WITH HOLMIUM LASER LITHOTRIPSY; Surgeon: Clementina Logan MD; Location: [facility]; Service: Urology Social History Socioeconomic History Marital status: Spouse name: Not on file Number of children: Not on file Years of education: Not on file Highest education level: Not on file Occupational History Not on file Tobacco Use Smoking status: Former Current packs/day: 0.00 Types: Cigarettes Quit date: 2000 Years since quittin.4 Smokeless tobacco: Never Vaping Use Vaping status: Never Used Substance and Sexual Activity Alcohol use: Not Currently Drug use: Not Currently Sexual activity: Not Currently Other Topics Concern Not on file Social History Narrative Not on file Social Determinants of Health Financial Resource Needs: Not on file Food Insecurity Needs: Not on file Transportation Needs: Not on file Physical Activity: Not on file Stress: Not on file Social Integration: Not on file Intimate Partner Violence: Not on file Housing Stability: Not on file BP 134/59 Pulse 61 Temp 97.2 ??F (36.2 ??C) (Tympanic) Resp 20 Ht 4' 11 (1.499 m) Wt 217lb (98.4 kg) SpO2 98% BMI 43.83 kg/m?? Review of Systems Constitutional: Negative for activity change, chills and fever. Respiratory: Negative for shortness of breath, wheezing and stridor. Gastrointestinal: Negative for abdominal pain, diarrhea and nausea. Genitourinary: Positive for frequency, hematuria and urgency. All other systems reviewed and are negative. Physical Exam Vitals and nursing note reviewed. Constitutional: Appearance: She is obese. Comments: Uncomfortable appearing but not toxic HENT: Head: Normocephalic and atraumatic. Mouth/Throat: Mouth: Mucous membranes are moist. Eyes: Extraocular Movements: Extraocular movements intact. Conjunctiva/sclera: Conjunctivae normal. Cardiovascular: Rate and Rhythm: Normal rate and regular rhythm. Pulmonary: Effort: Pulmonary effort is normal. Abdominal: General: Abdomen is flat. Palpations: Abdomen is soft. Comments: Does not have significantly reproducible abdominal pain no rebound or guarding. Musculoskeletal: General: Normal range of motion. Cervical back: Normal range of motion. Skin: General: Skin is warm and dry. Capillary Refill: Capillary refill takes less than 2 seconds. Neurological: General: No focal deficit present. Mental Status: She is alert and oriented to person, place, and time. Psychiatric: Behavior: Behavior normal. Procedures Recent Results (from the past 24 hour(s)) CMP Result Value Ref Range SODIUM 141 136 - 145 mmol/L POTASSIUM 3.9 3.5 - 5.1 mmol/L CHLORIDE 109 (H) 98 - 107 mmol/L CO2, VENOUS 21 (L) 22 - 30 mmol/L ANION GAP 14.9 <18.0 mmol/L GLUCOSE 141 (H) 70 - 99 mg/dL BUN 27 (H) 10 - 20 mg/dL CREATININE, BLOOD 0.66 0.60 - 1.00 mg/dL BUN/CREATININE RATIO 41 (H) 12 - 20 ratio TOTAL PROTEIN 6.9 6.3 - 8.2 g/dL ALBUMIN 3.9 3.5 - 5.0 g/dL A/G RATIO 1.3 1.0 - 2.2 CALCIUM 9.8 8.7 - 10.5 mg/dL T BILI 0.5 0.2 - 1.2 mg/dL SGOT (AST) 18 5 - 34 U/L SGPT (ALT) 24 0 - 55 U/L ALKALINE PHOSPHATASE 91 40 - 150 U/L GFR, ESTIMATED >60 >=60 GFR, EST. >60 >=60 GFR, EST. NONAFRICAN >60 >=60 PT / INR Result Value Ref Range PROTIME-PATIENT 13.4 11.6 - 14.8 sec INR 1.0 0.9 - 1.2 CBC with Auto Differential Result Value Ref Range WBC 5.95 4.00 - 12.00 10(3)/mcL RBC 4.25 3.80 - 5.30 10(6)/mcL HEMOGLOBIN (HGB) 14.0 12.0 - 15.8 g/dL HEMATOCRIT (HCT) 40.8 36.0 - 47.0 % MCV 96.0 82.0 - 96.0 fL MCH 32.9 26.0 - 34.0 pg MCHC 34.3 31.0 - 36.0 g/dL PLATELET COUNT 173 140 - 440 10(3)/mcL RDW 13.2 11.8 - 15.5 % MPV 9.6 (L) 9.7 - 12.4 fL NEUTROPHILS 63.4 47.0 - 73.0 % LYMPHOCYTES 25.0 18.0 - 42.0 % MONOCYTES 8.1 4.0 - 12.0 % EOSINOPHILS 2.5 0.0 - 5.0 % BASOPHILS 1.0 0.0 - 1.0 % ABSOLUTE NEUTROPHILS 3.77 1.60 - 7.70 10(3)/mcL ABSOLUTE LYMPHOCYTES 1.49 1.30 - 3.20 10(3)/mcL ABSOLUTE MONOCYTES 0.48 0.20 - 1.00 10(3)/mcL ABSOLUTE EOSINOPHIL 0.15 0.00 - 0.40 10(3)/mcL ABSOLUTE BASOPHILS 0.06 0.00 - 0.10 10(3)/mcL NRBC PER 100 WBC 0 Urinalysis w/ Reflex Result Value Ref Range SPECIFIC GRAVITY 1.010 1.003 - 1.030 URINE PH 6.0 5.0 - 9.0 WBC ESTERASE 25 /ul (A) Negative NITRITE Negative Negative PROTEIN, RANDOM URINE 30 mg/dL (A) Negative URINE GLUCOSE, QUAL Negative Negative URINE KETONES Negative Negative UROBILINOGEN Normal Normal mg/dL URINE BLOOD 250 /uL (A) Negative elsi/ul URINALYSIS COLOR [place] URINALYSIS CLARITY Clear WBC (Urine) 0-5 Negative, 0-5 /hpf URINE RBC'S 51-150 (A) Negative, 0-2 /hpf EPITHELIAL CELLS Small amount /lpf BACTERIA, URINE Negative Negative /hpf Imaging Results CT RENAL STONE STUDY (ABDOMEN AND PELVIS W/O CONTRAST) (Final result) Result time 08/10/23 09:42:34 Final result by Baltazar Deleon MD (08/10/23 09:42:34) Impression: IMPRESSION: 0.4 cm obstructing stone left ureteral pelvic junction with moderate hydronephrosis. Additional nonobstructing caliceal stones bilaterally. Narrative: EXAM DESCRIPTION: CT RENAL STONE STUDY (ABDOMEN AND PELVIS W/O CONTRAST) REASON FOR STUDY: Left flank pressure that goes to her back and blood in her urine this morning TECHNIQUE: CT scan of the abdomen and pelvis performed without intravenous and without oral contrast using helical scanning technique. Reconstructed coronal and sagittal MPR images reviewed. All images stored on PACS. Automated exposure control was used as a dose optimization technique for this examination. COMPARISON: 03/16/2023 FINDINGS: The sensitivity for detection of visceral lesions is diminished without the use of intravenous contrast. LOWER CHEST: No consolidation or effusion. Moderate cardiomegaly partially visualized. Moderate-sized hiatal hernia similar to previous. LIVER: Normal size. No identified cystic or solid masses. GALLBLADDER: Not visualized, BILE DUCTS: No intrahepatic or extrahepatic ductal dilatation. SPLEEN: Normal size. No focal lesions. PANCREAS: No identified cystic or solid masses. No significant calcifications. No adjacent inflammation or peripancreatic fluid collections. Pancreatic duct not dilated. ADRENALS: Normal. KIDNEYS/URINARY TRACT: Right kidney demonstrates punctate caliceal nonobstructing stones in the mid and lower calyx similar to previous. No hydronephrosis or hydroureter. Left kidney demonstrates a lower pole 0.1 cm nonobstructing calcification. Additional 0.4 cm calcification at the ureteral pelvic junction is identified producing moderate hydronephrosis new from previous. Subtle adjacent induration. Remainder of ureter unremarkable. Urinary bladder is obscured by beam hardening artifact related to bilateral hip prosthesis. GI: No dilated bowel loops. No obvious wall thickening. Appendix is not visualized. No significant diverticular disease. PERITONEUM: No ascites or free air. RETROPERITONEUM: Nonenlarged lymph nodes periaortic space, along the iliac chris chains generally unchanged. REPRODUCTIVE: Pelvis is somewhat obscured by beam hardening artifact from hip prostheses. VASCULATURE: No abdominal aortic aneurysm. MUSCULOSKELETAL: No significant abnormality. OTHER: No other abnormality. THIS IS AN ELECTRONICALLY VERIFIED FINAL REPORT 08/10/2023 9:40 AM - Electronically signed by Baltazar Deleon M.D. RB: RIRI Report ID: [id number] Reading Location: [id number] XR ABDOMEN KUB FLAT PLATE (Final result) Result time 08/10/23 08:13:25 Final result by Ezra Kern MD (08/10/23 08:13:25) Impression: IMPRESSION: Small calcification projecting over the left ureteral pelvis or proximal left ureter suspicious for renal calculi. Consider CT. Narrative: EXAM DESCRIPTION: XR ABDOMEN KUB FLAT PLATE REASON FOR STUDY: ureteral calcukus- left lower abdominal pressure and cramping with radiation into left lower back off and on x 1 week worse today hematuria today- Hx cholecystectomy, kidney stones, gout TECHNIQUE: 1 radiographic view of the abdomen. COMPARISON: 06/26/2023 FINDINGS: BOWEL: Nonobstructive gas pattern. SOFT TISSUES: There is a 4 mm small calcification projecting over the left ureteral pelvis or proximal left ureter suspicious for renal calculi. Previously was positioned over the lower pole. Consider CT. LINES/TUBES: Bilateral hip arthroplasties. BONES: No acute osseous abnormality. THIS IS AN ELECTRONICALLY VERIFIED FINAL REPORT 08/10/2023 8:10 AM - Electronically signed by Ezra Kern M.D. KN: MELISSA Report ID: [id number] Reading Location: [place] [address] Medical Decision Making 73-year-old female with left-sided flank and back pain when abdominal pain, given history of hematuria and prior ureteral calculi, suspect this is the most likely issue, we will get a KUB along with urinalysis and blood work, other considerations would be pyelonephritis, atypical diverticulitis, cystitis. Amount and/or Complexity of Data Reviewed External Data Reviewed: radiology. Details: Prior KUB examined Labs: ordered. Decision-making details documented in ED Course. Details: Hematuria without significant signs of infection Radiology: ordered and independent interpretation performed. Decision-making details documented in ED Course. Details: Possible calcification left-sided KUB on my visualization, CT visualization shows hydronephrosis and a proximal ureteral calculus on the left Risk Parenteral controlled substances. Decision regarding hospitalization. 10:27 AM CDT Case discussed with Dr. Galvez, given the 4 mm size there is some potential may pass, condition slightly complicated by current utilization of Eliquis. Plan to hold Eliquis, near term follow-up with urology,return to the ER for uncontrollable pain, fever, nausea vomiting, or worsening condition priorto follow up. Clinical Impression 1. Left ureteral calculus 2. Gross hematuria Disposition: Discharge * Clinton Taylor RN - 08/10/2023 7:12 AM CDT Pt to ed room 7 with c/o left flank pressure that goes to her back and blood in her urine this morning. documented in this encounter Miscellaneous Notes * PatientPass Patient Instructions - Carlos Oreilly MD - 08/10/2023 10:27 AM CDT Images from the original note were not included. Patient Education Table of Contents Renal Colic To view videos and all your education online visit, [email or web address] or scan this QR code with your smartphone. Access to this content will in one year. Renal Colic Renal colic is pain that is caused by passing a kidney stone. The pain can be sharp and severe. It may be felt in your back, abdomen, side (flank), or groin. It can cause nausea. Renal colic can comeand go. Follow these instructions at home: Watch your condition for any changes. Medicines Take wvsm-ufv-noapspq and prescription medicines only as told by your health care provider. Ask your provider if the medicine prescribed to you: ? Requires you to avoid driving or using machinery. ? Can cause constipation. You may need to take these actions to prevent or treat constipation: ? Take rzqj-vxz-wlroimj or prescription medicines. ? Eat foods that are high in fiber, such as beans, whole grains, and fresh fruits and vegetables. ? Limit foods that are high in fat and processed sugars, such as fried or sweet foods. Eating and drinking Drink enough fluid to keep your pee (urine) pale yellow. You may be told to drink at least 8?10 glasses of water each day. Follow instructions from your provider about what you may eat and drink. If told, change your diet. You may need to: ? Limit how much salt (sodium) you eat. You may need to eat less than 2 grams (2,000 mg) per day. ? Eat more fruits and vegetables. ? Limit how much animal protein you eat. This includes red meat, fish, poultry, and eggs. ? Avoid foods such as spinach, rhubarb, sweet potatoes, and nuts. These foods make kidney stones more likely to form. General instructions Collect pee samples as told by your provider. You may need to collect a pee sample after you pass the kidney stone. Strain your pee every time you pee (urinate), for as long as you are told. Use the strainer that your provider gives you. Do not throw out the kidney stone after you pass it. Keep the stone so it can be tested by your provider. Testing the makeup of your kidney stone may show why you got it and help prevent you from getting more in the future. Your provider may give you more instructions. Make sure you know what you can and cannot do. Contact a health care provider if: You have a fever or chills. Your pee smells bad or looks cloudy. You have pain or burning when you pee. You have blood in your pee. Get help right away if: The pain in your flank or groin suddenly gets worse. You become confused or do not know the time of day, where you are, or who you are (become disoriented). You feel like you may faint or you faint. This information is not intended to replace advice given to you by your health care provider. Make sure you discuss any questions you have with your health care provider. Document Released: 2005-11-25 Document Updated: 2023-03-05 Document Reviewed: 2022-11-11 [employer] Patient Education ? 2023 [employer] documented in this encounter Plan of Treatment Upcoming Encounters Date Type Department Care Team (Late st Contact Info) Description 12/29/2024 9:00 AM CDT Office Visit [facility] [address] [place] [address] Clementina Logan MD [address], [address] [address] documented as of this encounter Procedures Procedure Name Priority Date/Time Associated Diagnosis Comments CT RENAL STONE STUDY (ABDOMEN AND PELVIS W/O CONTRAST) Stat with Interpretation 08/10/2023 9:27 AM CDT URINALYSIS REFLEX IF INDICATED BY ABNORMAL RESULTS STAT 08/10/2023 8:18 AM CDT XR ABDOMEN KUB FLAT PLATE STAT 08/10/2023 8:00 AM CDT CBC WITH AUTO DIFFERENTIAL STAT 08/10/2023 7:25 AM CDT PROTIME (PT) (PROTHROMBIN TIME) STAT 08/10/2023 7:25 AM CDT CMP (COMPREHENSIVE METABOLIC PANEL) STAT 08/10/2023 7:25 AM CDT COMPLETE BLOOD COUNT (CBC) WITH DIFF STAT 08/10/2023 7:25 AM CDT documented in this encounter Results * CT RENAL STONE STUDY (ABDOMEN AND PELVIS W/O CONTRAST) (08/10/2023 9:27 AM CDT) Anatomical Region Laterality Modality Abdomen N/A Computed Tomogra phy 08/10/2023 9:40 AM CDT Impressions 08/10/2023 9:42 AM CDT IMPRESSION: 0.4 cm obstructing stone left ureteral pelvic junction with moderate hydronephrosis. Additional nonobstructing caliceal stones bilaterally. Narrative 08/10/2023 9:42 AM CDT EXAM DESCRIPTION: ?? CT RENAL STONE STUDY (ABDOMEN AND PELVIS W/O CONTRAST) REASON FOR STUDY: ?? Left flank pressure that goes to her back and blood in her urine this morning ?? TECHNIQUE: CT scan of the abdomen and pelvis performed without intravenous and ??without ??oral contrast using helical scanning technique. Reconstructed coronal and sagittal MPR images reviewed. All images stored on PACS. Automated exposure control was used as a dose optimization technique for this examination. COMPARISON: ?? 03/16/2023 FINDINGS: The sensitivity for detection of visceral lesions is diminished without the use of intravenous contrast. LOWER CHEST: ?? No consolidation or effusion. ??Moderate cardiomegaly partially visualized. Moderate-sized hiatal hernia similar to previous. LIVER: ?? Normal size. ??No identified cystic or solid masses. GALLBLADDER: ?? Not visualized, BILE DUCTS: ?? No intrahepatic or extrahepatic ductal dilatation. SPLEEN: ?? Normal size. ??No focal lesions. PANCREAS: ?? No identified cystic or solid masses. ??No significant calcifications. No adjacent inflammation or peripancreatic fluid collections. Pancreatic duct not dilated. ADRENALS: ?? Normal. KIDNEYS/URINARY TRACT: ?? Right kidney demonstrates punctate caliceal nonobstructing stones in the mid and lower calyx similar to previous. ??No hydronephrosis or hydroureter. Left kidney demonstrates a lower pole 0.1 cm nonobstructing calcification. ??Additional 0.4 cm calcification at the ureteral pelvic junction is identified producing moderate hydronephrosis new from previous. ??Subtle adjacent induration. ??Remainder of ureter unremarkable. ?Urinary bladder is obscured by beam hardening artifact related to bilateral hip prosthesis. GI: ?? No dilated bowel loops. No obvious wall thickening. Appendix is not visualized. No significant diverticular disease. PERITONEUM: ?? No ascites or free air. RETROPERITONEUM: ?? Nonenlarged lymph nodes periaortic space, along the iliac chris chains generally unchanged. REPRODUCTIVE: ?? Pelvis is somewhat obscured by beam hardening artifact from hip prostheses. VASCULATURE: ?? No abdominal aortic aneurysm. MUSCULOSKELETAL: ?? No significant abnormality. OTHER: ?? No other abnormality. THIS IS AN ELECTRONICALLY VERIFIED FINAL REPORT 08/10/2023 9:40 AM - Electronically signed by ??Baltazar Deleon M.D. RB: RIRI D: ??08/10/2023 9:40 AM T: ??08/10/2023 9:40 AM Report ID: [id number] Reading Location: ??[id number] Procedure Note Baltazar Deleon MD - 08/10/2023 EXAM DESCRIPTION: CT RENAL STONE STUDY (ABDOMEN AND PELVIS W/O CONTRAST) REASON FOR STUDY: Left flank pressure that goes to her back and blood in her urine this morning TECHNIQUE: CT scan of the abdomen and pelvis performed without intravenous and without oral contrast using helical scanning technique. Reconstructed coronal and sagittal MPR images reviewed. All images stored on PACS. Automated exposure control was used as a dose optimization technique for this examination. COMPARISON: 03/16/2023 FINDINGS: The sensitivity for detection of visceral lesions is diminished without the use of intravenous contrast. LOWER CHEST: No consolidation or effusion. Moderate cardiomegaly partially visualized. Moderate-sized hiatal hernia similar to previous. LIVER: Normal size. No identified cystic or solid masses. GALLBLADDER: Not visualized, BILE DUCTS: No intrahepatic or extrahepatic ductal dilatation. SPLEEN: Normal size. No focal lesions. PANCREAS: No identified cystic or solid masses. No significant calcifications. No adjacent inflammation or peripancreatic fluid collections. Pancreatic duct not dilated. ADRENALS: Normal. KIDNEYS/URINARY TRACT: Right kidney demonstrates punctate caliceal nonobstructing stones in the mid and lower calyx similar to previous. No hydronephrosis or hydroureter. Left kidney demonstrates a lower pole 0.1 cm nonobstructing calcification. Additional 0.4 cm calcification at the ureteral pelvic junction is identified producing moderate hydronephrosis new from previous. Subtle adjacent induration. Remainder of ureter unremarkable. Urinary bladder is obscured by beam hardening artifact related to bilateral hip prosthesis. GI: No dilated bowel loops. No obvious wall thickening. Appendix is not visualized. No significant diverticular disease. PERITONEUM: No ascites or free air. RETROPERITONEUM: Nonenlarged lymph nodes periaortic space, along the iliac chris chains generally unchanged. REPRODUCTIVE: Pelvis is somewhat obscured by beam hardening artifact from hip prostheses. VASCULATURE: No abdominal aortic aneurysm. MUSCULOSKELETAL: No significant abnormality. OTHER: No other abnormality. THIS IS AN ELECTRONICALLY VERIFIED FINAL REPORT 08/10/2023 9:40 AM - Electronically signed by Baltazar Deleon M.D. RB: RIRI Report ID: [id number] Reading Location: [id number] IMPRESSION: 0.4 cm obstructing stone left ureteral pelvic junction with moderate hydronephrosis. Additional nonobstructing caliceal stones bilaterally. Carlos Oreilly MD IMG CT ORDERABLES Kristen l Result * (ABNORMAL) Urinalysis w/ Reflex (08/10/2023 8:18 AM CDT) SPECIFIC GRAVITY 1.010 1.003 - 1.030 08/10/2023 8:54 AM CDT [facility] URINE PH 6.0 5.0 - 9.0 08/10/2023 8:54 AM CDT [facility] WBC ESTERASE 25 /ul(A) Negative 08/10/2023 8:54 AM CDT [facility] NITRITE Negative Negative 08/10/2023 8:54 AM CDT [facility] PROTEIN, RANDOM URINE 30 mg/dL(A) Negative 08/10/2023 8:54 AM CDT [facility] URINE GLUCOSE, QUAL Negative Negative 08/10/2023 8:54 AM CDT [facility] URINE KETONES Negative Negative 08/10/2023 8:54 AM CDT [facility] UROBILINOGEN Normal Normal mg/dL 08/10/2023 8:54 AM CDT [facility] URINE BLOOD 250 /uL(A) Negative elsi/ul 08/10/2023 8:54 AM CDT [facility] URINALYSIS COLOR [place] 08/10/19 8:54 AM CDT [facility] URINALYSIS CLARITY Clear 08/10/2023 8:54 AM CDT [facility] WBC (Urine) 0-5 Negative, 0-5 /hpf 08/10/2023 8:54 AM CDT [facility] URINE RBC'S 51-150(A) Negative, 0-2 /hpf 08/10/2023 8:54 AM CDT [facility] EPITHELIAL CELLS Small amount /lpf 2023 8:54 AM CDT [facility] BACTERIA, URINE Negative Negative /hpf 08/10/2023 8:54 AM CDT [facility] Urine URINE SPECIMEN / Unknown Non-Phlebotomy Collection / Unknown 08/10/2023 8:18 AM CDT 08/10/2023 8:32 AM CDT Carlos Oreilly MD URINE ORDERABLES Final Result [facility] [place] [address] * XR ABDOMEN KUB FLAT PLATE (08/10/2023 8:00 AM CDT) Anatomical Region Laterality Modality Abdomen N/A Digital Radiogra phy 08/10/2023 8:10 AM CDT Impressions 08/10/2023 8:13 AM CDT IMPRESSION: Small calcification projecting over the left ureteral pelvis or proximal left ureter suspicious for renal calculi. Consider CT. Narrative 08/10/2023 8:13 AM CDT EXAM DESCRIPTION: ?? XR ABDOMEN KUB FLAT PLATE REASON FOR STUDY: ?? ureteral calcukus- left lower abdominal pressure and cramping with radiation into left lower back off and on x 1 week worse today hematuria today- Hx cholecystectomy, kidney stones, gout ?? TECHNIQUE: 1 ??radiographic view of the abdomen. COMPARISON: ?? 06/26/2023 FINDINGS: BOWEL: ??Nonobstructive gas pattern. ?? SOFT TISSUES: ??There is a 4 mm small calcification projecting over the left ureteral pelvis or proximal left ureter suspicious for renal calculi. ??Previously was positioned over the lower pole. ?? Consider CT. LINES/TUBES: ??Bilateral hip arthroplasties. BONES: ??No acute osseous abnormality. THIS IS AN ELECTRONICALLY VERIFIED FINAL REPORT 08/10/2023 8:10 AM - Electronically signed by ??Ezra Kern M.D. KN: MELISSA D: ??08/10/2023 8:10 AM T: ??08/10/2023 8:10 AM Report ID: [id number] Reading Location: ??[id number] Procedure Note Ezra Kern MD - 08/10/2023 EXAM DESCRIPTION: XR ABDOMEN KUB FLAT PLATE REASON FOR STUDY: ureteral calcukus- left lower abdominal pressure and cramping with radiation into left lower back off and on x 1 week worse today hematuria today- Hx cholecystectomy, kidney stones, gout TECHNIQUE: 1 radiographic view of the abdomen. COMPARISON: 06/26/2023 FINDINGS: BOWEL: Nonobstructive gas pattern. SOFT TISSUES: There is a 4 mm small calcification projecting over the left ureteral pelvis or proximal left ureter suspicious for renal calculi. Previously was positioned over the lower pole. Consider CT. LINES/TUBES: Bilateral hip arthroplasties. BONES: No acute osseous abnormality. THIS IS AN ELECTRONICALLY VERIFIED FINAL REPORT 08/10/2023 8:10 AM - Electronically signed by Ezra Kern M.D. KN: MELISSA Report ID: [id number] Reading Location: [id number] IMPRESSION: Small calcification projecting over the left ureteral pelvis or proximal left ureter suspicious for renal calculi. Consider CT. us Carlos Oreilly MD IMG DIAGNOSTIC ORDERAB LES Final Result * (ABNORMAL) CBC with Auto Differential (08/10/2023 7:25 AM CDT) WBC 5.95 4.00 - 12.00 10(3)/mcL 08/10/2023 8:01 AM CDT [facility] RBC 4.25 3.80 - 5.30 10(6)/mcL 08/10/2023 8:01 AM CDT [facility] HEMOGLOBIN (HGB) 14.0 12.0 - 15.8 g/dL 08/10/2023 8:01 AM CDT [facility] HEMATOCRIT (HCT) 40.8 36.0 - 47.0 % 08/10/2023 8:01 AM CDT [facility] MCV 96.0 82.0 - 96.0 fL 08/10/2023 8:01 AM CDT [facility] MCH 32.9 26.0 - 34.0 pg 08/10/2023 8:01 AM CDT [facility] MCHC 34.3 31.0 - 36.0 g/dL 08/10/2023 8:01 AM CDT [facility] PLATELET COUNT 173 140 - 440 10(3)/mcL 08/10/2023 8:01 AM CDT [facility] RDW 13.2 11.8 - 15.5 % 08/10/2023 8:01 AM CDT [facility] MPV 9.6(L) 9.7 - 12.4 fL 08/10/2023 8:01 AM CDT [facility] NEUTROPHILS 63.4 47.0 - 73.0 % 08/10/2023 8:01 AM CDT [facility] LYMPHOCYTES 25.0 18.0 - 42.0 % 08/10/2023 8:01 AM CDT [facility] MONOCYTES 8.1 4.0 - 12.0 % 08/10/2023 8:01 AM CDT [facility] EOSINOPHILS 2.5 0.0 - 5.0 % 08/10/2023 8:01 AM CDT [facility] BASOPHILS 1.0 0.0 - 1.0 % 08/10/2023 8:01 AM CDT [facility] ABSOLUTE NEUTROPHILS 3.77 1.60 - 7.70 10(3)/[facility] 08/10/2023 8:01 AM CDT [facility] ABSOLUTE LYMPHOCYTES 1.49 1.30 - 3.20 10(3)/[facility] 08/10/2023 8:01 AM CDT [facility] ABSOLUTE MONOCYTES 0.48 0.20 - 1.00 10(3)/[facility] 08/10/2023 8:01 AM CDT [facility] ABSOLUTE EOSINOPHIL 0.15 0.00 - 0.40 10(3)/[facility] 08/10/2023 8:01 AM CDT [facility] ABSOLUTE BASOPHILS 0.06 0.00 - 0.10 10(3)/[facility] 08/10/2023 8:01 AM CDT [facility] NRBC PER 100 WBC 0 08/10/19 8:01 AM CDT [facility] Blood Venipuncture / Unknown 08/10/2023 7:25 AM CDT 08/10/2023 7:36 AM CDT Carlos Oreilly MD HEMATOLOGY ORDERABLES Final Result [facility] [place] [address] * PT / INR (08/10/2023 7:25 AM CDT) PROTIME-PATIENT 13.4 11.6 - 14.8 sec 08/10/2023 7:51 AM CDT [facility] INR 1.0 0.9 - 1.2 08/10/2023 7:51 AM CDT [facility] Comment: Therapeutic Ranges INR = 2.0-3.0: Venous thromb, atrial fib, pul embolism, tissue heart valve, ami. INR = 2.5-3.5: Mechanical heart valve Critical value for INR is >/= 4.5 Blood Venipuncture / Unknown 08/10/2023 7:25 AM CDT 08/10/2023 7:36 AM CDT us Carlos Oreilly MD HEMATOLOGY ORDERABLES Final Result Performing Organization Address City/[facility]/ZIP Co de Phone Number [facility] [place] [address] * (ABNORMAL) CMP (08/10/2023 7:25 AM CDT) SODIUM 141 136 - 145 mmol/L 08/10/2023 7:58 AM CDT [facility] POTASSIUM 3.9 3.5 - 5.1 mmol/L 08/10/2023 7:58 AM CDT [facility] CHLORIDE 109(H) 98 - 107 mmol/L 08/10/2023 7:58 AM CDT [facility] CO2, VENOUS 21(L) 22 - 30 mmol/L 08/10/2023 7:58 AM CDT [facility] ANION GAP 14.9 <18.0 mmol/L 08/10/2023 7:58 AM CDT [facility] GLUCOSE 141(H) 70 - 99 mg/dL 08/10/2023 7:58 AM T [facility] BUN 27(H) 10 - 20 mg/dL 08/10/2023 7:58 AM T [facility] CREATININE, BLOOD 0.66 0.60 - 1.00 mg/dL 08/10/2023 7:58 AM [facility] BUN/CREATININE RATIO 41(H) 12 - 20 ratio 08/10/2023 7:58 AM CDT [facility] TOTAL PROTEIN 6.9 6.3 - 8.2 g/dL 08/10/2023 7:58 AM T [facility] ALBUMIN 3.9 3.5 - 5.0 g/dL 08/10/2023 7:58 AM [facility] A/G RATIO 1.3 1.0 - 2.2 08/10/2023 7:58 AM T [facility] CALCIUM 9.8 8.7 - 10.5 mg/dL 08/10/2023 7:58 AM T [facility] T BILI 0.5 0.2 - 1.2 mg/dL 08/10/2023 7:58 AM [facility] SGOT (AST) 18 5 - 34 U/L 08/10/2023 7:58 AM [facility] SGPT (ALT) 24 0 - 55 U/L 08/10/2023 7:58 AM [facility] ALKALINE PHOSPHATASE 91 40 - 150 U/L 08/10/2023 7:58 AM T [facility] GFR, ESTIMATED >60 >=60 08/10/2023 7:58 AM [facility] Comment: Creatinine Clearance is the preferred criteria for selecting drug dose adjustments in renally impaired patients. ??The GFR is provided as additional pertinent clinical information. GFR is reported in mL/min/1.73 sq m. Calculation based on the Chronic Kidney Disease Epidemiology Collaboration (CKD- EPI) equation refit without adjustment for race. GFR, EST. >60 >=60 024 7:58 AM CDT [facility] GFR, EST. NONAFRICAN >60 >=60 08/10/2023 7:58 AM CDT [facility] Blood Venipuncture / Unknown 08/10/2023 7:25 AM CDT 08/10/2023 7:36 AM CDT us Carlos Oreilly MD CHEMISTRY ORDERABLES F inal Result [facility] [address] [place] [address] documented in this encounter Visit Diagnoses Diagnosis Left ureteral calculus- Primary Calculus of ureter Gross hematuria documented in this encounter Administered Medications Inactive Administered Medications - up to 3 most recent administrations Medication Order MAR Action Action Date Dose Rate Site 0.9 % sodium chloride solution at 126 mL/hr, Intravenous, CONTINUOUS, Starting on Wed08/10/23 at 0800, Until Wed08/10/23 at 1241 New Bag 08/10/2023 8:15 AM CDT 126 mL/hr 126 mL/hr ondansetron (ZOFRAN) injection 4 mg 4 mg, Intravenous, ONCE, 1 dose, On Wed08/10/23 at 0800 Given 08/10/2023 7:38 AM CDT 4 mg sodium chloride 0.9 % 500 mL IV bolus 500 mL, Intravenous, ONCE, 1 dose, On Wed08/10/23 at 0800, Administer over 0.5 Hours New Bag 08/10/2023 7:38 AM CDT 500 mL 1000 mL/hr documented in this encounter Active and Recently Administered Medications Times are shown in CDT. Scheduled Medication Order 08/08/2023 08/09/2023 08/10/2023 morphine sulfate (PF) injection 4 mg 4 mg, Intravenous, ONCE, 1 dose, On Wed08/10/23 at 0800 0800 (Not Given - Pr ovider: Clinton Taylor RN - Reason: Patient/family refused) ondansetron (ZOFRAN) injection 4 mg (COMPLETED) 4 mg, Intravenous, ONCE, 1 dose, On Wed08/10/23 at 0800 0738 (Given - Provid er: Clinton Taylor RN) sodium chloride 0.9 % 500 mL IV bolus (COMPLETED) 500 mL, Intravenous, ONCE, 1 dose, On Wed08/10/23 at 0800, Administer over 0.5 Hours 0738 (New Bag - Prov ider: Clinton Taylor RN)0811 (Stopped - Provider: Clinton Taylor RN) Continuous Medication Order 08/08/2023 08/09/2023 08/10/2023 0.9 % sodium chloride solution at 126 mL/hr, Intravenous, CONTINUOUS, Starting on Wed08/10/23 at 0800, Until Wed08/10/23 at 1241 0815 (New Bag - Prov ider: Clinton Taylor RN)1035 (Stopped - Provider: Demetrice Riojas RN) documented in this encounter Care Teams Cottrell Operator Relationship Specialty Start Date End Date Enrique Syed MD [facility] [place] [address] PCP - General Internal Medicine 08/11/22 Clementina Logan MD [address] [address] Consulting Physician Urology 03/17/22 documented as of this encounter
--- OUTSIDE RECORDS SUMMARY | 2024-03-11 12:47 | XMS_ITS | Encounter Summary ---
Author Organization [employer] Care Team Providers Care Photocopying Equipment Mechanic Name Role Phone Enrique Syed MD Primary Care Provider [phone] Clementina Logan MD Unavailable [phone] Encounter Details Date Type Department Care Team (Latest Contact Info) Description 09/17/2023 Travel Social History Tobacco Use Types Packs/Day Years Used Date Smoking Tobacco: Former Cigarettes Q uit: 1999 Smokeless Tobacco: Never Alcohol Use Standard Drinks/Week Comments Not Currently 0 (1 standard drink = 0.6 oz pur e alcohol) [facility] Utilities Answer Date Recorded In the past 12 months has [employer] electric, gas, oil, or water company threatened [...] How often do you attend tenriism or denominational serv ices? Patient declined 09/18/2023 Do you [...] medical care, and heating? Patient declined [facility] - Occupational Stress Questionnaire Answer Date Recorded [...] any time in the past 12 m [facility], were you homeless or living in a fdc (including now)? Patient declined 09/18/2023 Sexually Active [...] [facility] [place] [address] Clementina Logan MD [address] [address] documented as of this encounter Visit Diagnoses Not on filedocumented in this encounter Care Teams Photocopying Equipment Mechanic Relationship Specialty Start Date End Date Enrique Syed MD [address] [place] [address] PCP - General Internal Medicine 08/11/22 Clementina Logan MD [address] [address] Consulting Physician Urology 03/17/22 documented as of this encounter
--- OUTSIDE RECORDS SUMMARY | 2024-03-11 12:47 | XMS_ITS | Encounter Summary ---
Author Organization [employer] Care Team Providers Care Golf Club Head Inspector Name Role Phone Enrique Syed MD Primary Care Provider [phone] Clementina Logan MD Unavailable [phone] Encounter Details Date Type Department Care Team (Latest Contact Info) Description 07/13/2023 Travel Social History Tobacco Use Types Packs/Day [...] [facility] [place] [address] Clementina Logan MD [address] [address] documented as of this encounter Visit Diagnoses Not on filedocumented in this encounter Care Teams Golf Club Head Inspector Relationship Specialty Start Date End Date Enrique Syed MD [address] [place] [address] PCP - General Internal Medicine 08/11/22 Clementina Logan MD [address] [place] [address] Consulting Physician Urology 03/17/22 documented as of this encounter
--- OUTSIDE RECORDS SUMMARY | 2024-03-11 12:47 | XMS_ITS | Encounter Summary ---
Author Organization [facility] Address [address] [place] [address] Phone Care Team Providers Care Walnut Dehydrator Operator Name Role Phone Enrique Syed MD Primary Care Provider [phone] Clementina Logan MD Unavailable [phone] Reason for Visit * Reason Onset Date Comments OTHER 09/06/2023 Encounter Details Date Type Department Care Team (Late st Contact Info) Description 09/06/2023 Telephone [facility] [place] [address] Clementina Logan MD #[address] [address] OTHER Social History Tobacco Use Types Packs/Day Years [...] Telephone Encounter - Giovanny Flaherty RMA - 09/07/2023 8:24 AM CDT PT ADDED TO THE SCHEDULE * Telephone Encounter - Giovanny Flaherty RMA - 09/06/2023 9:24 AM CDT Pt called to see if she can have her appt moved up as she went to the E.R due to a UTI.PT IS ON [facility] FOR 7 DAYS AND HER PAIN LEVEL IS AT A 7 WHEN SHE MOVES AROUND.PT ALREADY HAS AN APPT ON THIS WEDNESDAY WITH YOU.PLEASE ADVISE. documented in this encounter Plan of Treatment Upcoming Encounters Date Type Department Care Team (Late st Contact Info) Description 12/29/2024 9:00 AM CDT Office Visit [facility] [place] [address] Clementina Logan MD [address] [address] documented as of this encounter Visit Diagnoses Not on filedocumented in this encounter Care Teams Walnut Dehydrator Operator Relationship Specialty Start Date End Date Enrique Syed MD [address] [place] [address] PCP - General Internal Medicine 08/11/22 Clementina Logan MD [address] [address] Consulting Physician Urology 03/17/22 documented as of this encounter
--- OUTSIDE RECORDS SUMMARY | 2024-03-11 12:47 | XMS_ITS | Encounter Summary ---
Author Organization [facility] Address [address] [place] [address] Phone Care Team Providers Care Project Consultant Name Role Phone Enrique Syed MD Primary Care Provider [phone] Clementina Logan MD Unavailable [phone] Reason for Visit * Reason Comments Flank Pain Encounter Details Date Type Department Care Team (Late st Contact Info) Description 09/04/2023 9:09 AM CDT - 09/04/2023 12:37 PM CDT Emergency [facility] Emergency [address] [place] [id number] Tere Gutierrez, PAC [address] [place] [address] Urinary tract infection Discharge Disposition: Discharged to home or Selfcare [...] Sign Reading Time Taken Comments Blood Pressure 144/66 09/04/2023 9:17 AM CDT Pulse 65 09/04/2023 9:17 AM CDT Temperature 36.7 ??C (98.1 ??F) 09/04/2023 9:17 AM CD T Respiratory Rate 20 09/04/2023 9:17 AM CDT Oxygen Saturation 100% 09/04/2023 9:17 AM CDT Inhaled Oxygen Concentration - - Weight 97.5 kg (215 lb) 09/04/2023 9:17 AM CDT Height 149.9 cm (4' 11 ) 09/04/2023 9:17 AM CDT Body Mass Index 43.42 09/04/2023 9:17 AM CDT documented in this encounter Discharge Instructions * Discharge Instructions* Tere Gutierrez PAC - 09/04/2023 12:26 PM CDT Please follow up with Dr. Logan as scheduled. Seek reevaluation if your symptoms change or worsen orif you develop a fever. documented in this encounter Medications at Time [...] Take 800 mg by mouth nightly. 08/19/2016 [place]-3 1400 MG Capsule Take by mouth. oxybutynin [...] by mouth. 09/23/2016 4 ergocalciferol (VITAMIN D) 09059 UNIT Capsule Take 50,000 Units by mouth. 06/10/2018 4 fluocinonide (LIDEX) 0.05 % Solution 12/09/2021 4 HYDROcodone-acet aminophen (NORCO) 5-325 MG TabletIndication s:Left ureteral calculus Take 1-2 Tablets by mouth every 4 hours as needed for Moderate or more severe pain. 15 Tablet 08/10/2023 4 HYDROcodone-acet aminophen ([place]) 5-325 MG TabletIndication s:Ureteral stone Take 1 Tablet by mouth every 6 hours as needed for Severe pain. 15 Tablet 05/26/2022 4 irbesartan-hydro CHLOROthiazide (AVALIDE) 150-12.5 MG Tablet Take 1 Tablet by mouth daily. 08/19/2016 4 levoFLOXacin (Levaquin) 500 MG TabletIndication s:Urinary Tract Infection Take 1 Tablet by mouth daily for 7 days. Indications: Urinary Tract Infection 7 Tablet 09/04/2023 4 omeprazole (PriLOSEC) 10 MG CAPSULE DELAYED RELEASE 10 mg. 09/17/2014 4 tamsulosin (FLOMAX) 0.4 MG Capsule Take 1 Capsule by mouth daily for 7 days. 7 Capsule 09/04/2023 4 documented as of this encounter ED Notes * Olaf Rai RN - 09/04/2023 12:37 PM CDT pt understands d/c instructions. explained purpose and common side effects of medications ordered. no new questions or c/o's. pt ambulatory out of er with steady gait. * Sari Sellers RN - 09/04/2023 11:43 AM CDT Pt medicated per provider orders. Pt educated on intended effects and side effects of medication and verbalized understanding, able to provide teach back of education. * Sari Sellers RN - 09/04/2023 10:51 AM CDT Patient to CT via stretcher at this time * Tere Gutierrez PAC - 09/04/2023 10:20 AM CDT Chief Complaint Patient presents with Flank Pain HPI Adri Tristan is a 73 y.o. female who presents from home due to L flank pain. She states that the pain has been occurring since she was here on 08/10/23 and was diagnosed with a 0.4 cm obstructingstone left ureteral pelvic junction with moderate hydronephrosis. She states that she followed up with Dr. Logan and he ordered US retroperitoneal complete which was completed 08/26/23 and showed a left nephrolithiasis and mild hydronephrosis with distended extrarenal pelvis. She is supposed to f/u with Dr. Logan on 09/10/23. She states that her pain in her L flank became severe yesterday. She deniesany fever, dysuria, vomiting, diarrhea. Her last BM was yesterday. She states she is passing urine okay. PMH includes asthma, atrial fibrillation, HTN, HLD, GERD, and GUY on CPAP. She is a former smoker. Her pmd is Dr. Syed. Current Facility-Administered Medications Medication Dose Route Frequency Provider Last Rate Last Admin morphine sulfate (PF) injection 2 mg 2 mg Intravenous Once Chichi Jeffries MD Current Outpatient Medications Medication Sig Dispense [...] daily. 60 Capsule 0 ergocalciferol (VITAMIN D) 97072 UNIT Capsule Take 50,000 Units by mouth. famotidine (PEPCID) 10 MG Tablet Take 10 mg by mouth. fexofenadine (SOMMER) 60 MG Tablet Take by mouth. fluocinonide (LIDEX) 0.05 % Solution APPLY TO ITCHY SCALP 1 TO 2 TIMES DAILY (Patient not taking: Reported on 06/07/2022) fluticasone (FLONASE) 50 MCG/ACT Suspension (Patient not taking: Reported on 06/07/2022) HYDROcodone-acetaminophen (NORCO) 5-325 MG Tablet Take 1-2 Tablets by mouth every 4 hours as neededfor Moderate or more severe pain. 15 Tablet 0 HYDROcodone-acetaminophen ([place]) 5-325 MG Tablet Take 1 Tablet by mouth every 6 hours as needed for Severe pain. 15 Tablet 0 irbesartan-hydroCHLOROthiazide (AVALIDE) 150-12.5 MG Tablet Take 1 Tablet by mouth daily. (Patient not taking: Reported on 06/07/2022) levoFLOXacin (Levaquin) 500 MG Tablet Take 1 Tablet by mouth daily for 7 days. Indications: UrinaryTract Infection 7 Tablet 0 montelukast (SINGULAIR) 10 MG Tablet 10 mg. Multiple Vitamin (MULTIVITAMIN ADULT PO) take 1 tablet by oral route every day with food niacin CR 250 MG Capsule CR Take by mouth. [place]-3 1400 MG Capsule Take by mouth. omeprazole [...] 160 mg by mouth 2 times daily. tamsulosin (FLOMAX) 0.4 MG Capsule Take 1 Capsule by mouth daily for 7 days. 7 Capsule 0 traMADol (ULTRAM) 50 MG Tablet Take 1 Tablet by mouth every 8 hours as needed for Moderate or more severe pain. 20 Tablet 0 valsartan-hydroCHLOROthiazide (DIOVAN-HCT) 320-12.5 MG Tablet Take 1 [...] STENT INSERTION; Surgeon: Clementina Logan MD; Location: [facility]; Service: Urology URETEROSCOPY Right 05/26/2022 Procedure: RIGHT URETEROSCOPY WITH HOLMIUM LASER LITHOTRIPSY; Surgeon: Clementina Logan MD; Location: [facility]; Service: Urology Social History Socioeconomic History Marital status: Spouse name: Not on file Number of children: Not on file Years of education: Not on file Highest education level: Not on file Occupational History Not on file Tobacco Use Smoking status: Former Current packs/day: 0.00 Types: Cigarettes Quit date: 2000 Years since quittin.5 Smokeless tobacco: Never Vaping Use Vaping status: [...] file Housing Stability: Not on file BP 144/66 Pulse 65 Temp 98.1 ??F (36.7 ??C) (Tympanic) Resp 20 Ht 4' 11 (1.499 m) Wt 215lb (97.5 kg) SpO2 100% BMI 43.42 kg/m?? Review of Systems Constitutional: Negative for chills and fever. HENT: Negative for congestion, ear pain, rhinorrhea and sore throat. Eyes: Negative for discharge. Respiratory: Negative for cough, chest tightness, shortness of breath and wheezing. Cardiovascular: Negative for chest pain and palpitations. Gastrointestinal: Positive for nausea. Negative for abdominal pain, diarrhea and vomiting. Genitourinary: Positive for flank pain. Negative for difficulty urinating and menstrual problem. Musculoskeletal: Negative for arthralgias and myalgias. Skin: Negative for rash and wound. Neurological: Negative for dizziness, syncope and headaches. All other systems reviewed and are negative. Physical Exam Vitals and nursing note reviewed. Constitutional: General: She is not in acute distress. Appearance: She is well-developed. She is not diaphoretic. HENT: Head: Normocephalic and atraumatic. Right Ear: External ear normal. Left Ear: External ear normal. Eyes: Conjunctiva/sclera: Conjunctivae normal. Pupils: Pupils are equal, round, and reactive to light. Neck: Trachea: No tracheal deviation. Cardiovascular: Rate and Rhythm: Normal rate and regular rhythm. Heart sounds: Normal heart sounds. No murmur heard. Pulmonary: Effort: Pulmonary effort is normal. No respiratory distress. Breath sounds: Normal breath sounds. No wheezing or rales. Abdominal: General: Bowel sounds are normal. There is no distension. Palpations: Abdomen is soft. Tenderness: There is no abdominal tenderness. There is no guarding or rebound. Comments: No tenderness to palpation Musculoskeletal: General: Normal range of motion. Cervical back: Normal range of motion. Skin: General: Skin is warm and dry. Neurological: Mental Status: She is alert and oriented to person, place, and time. Cranial Nerves: No cranial nerve deficit. Labs Reviewed URINALYSIS REFLEX IF INDICATED BY ABNORMAL RESULTS - Abnormal; Notable for the following components: Result Value WBC ESTERASE 500 /uL (*) NITRITE Positive (*) PROTEIN, RANDOM URINE 30 mg/dL (*) URINE BLOOD 250 /uL (*) WBC (Urine) 51-150 (*) URINE RBC'S 21-50 (*) BACTERIA, URINE Many (*) All other components within normal limits CMP (COMPREHENSIVE METABOLIC PANEL) - Abnormal; Notable for the following components: CHLORIDE 108 (*) CO2, VENOUS 20 (*) GLUCOSE 150 (*) BUN/CREATININE RATIO 24 (*) All other components within normal limits CBC WITH AUTO DIFFERENTIAL - Abnormal; Notable for the following components: MPV 9.3 (*) All other components within normal limits CULTURE, URINE COMPLETE BLOOD COUNT (CBC) WITH DIFF Narrative: The following orders were created for panel order Complete Blood Count (CBC) WITH Diff. Procedure Abnormality Status --------- ------ CBC with Auto Differential[[id number]] Abnormal Final result Please view results for these tests on the individual orders. EXTRA TUBES Narrative: The following orders were created for panel order Extra Tubes. Procedure Abnormality Status --------- ------ Blue Top Tube[[id number]] Final result Gold Top Tube[[id number]] Final result Please view results for these tests on the individual orders. BLUE TOP TUBE GOLD TOP TUBE CT RENAL STONE STUDY (ABDOMEN AND PELVIS W/O CONTRAST) Final Result IMPRESSION: Grossly stable partly obstructive 4 mm calculus in the left ureteropelvic junction. This results in left hydroureter and mild minimally increased hydronephrosis. Additional nonobstructing caliceal stones bilaterally. Small sliding hiatal hernia. Moderate fat containing ventral hernia. Likely at least moderate or possibly severe spinal canal stenosis at L1-L2 as described above. If clinically indicated this could be better evaluated with nonurgent lumbar spine MRI. URINALYSIS REFLEX IF INDICATED BY ABNORMAL RESULTS Final Result Complete Blood Count (CBC) WITH Diff Final Result CMP (Comprehensive Metabolic Panel) Final Result Extra Tubes Final Result Procedures Recent Results (from the past 24 hour(s)) CMP (Comprehensive Metabolic Panel) Result Value Ref Range SODIUM 141 136 - 145 mmol/L POTASSIUM 4.0 3.5 - 5.1 mmol/L CHLORIDE 108 (H) 98 - 107 mmol/L CO2, VENOUS 20 (L) 22 - 30 mmol/L ANION GAP 17.0 <18.0 mmol/L GLUCOSE 150 (H) 70 - 99 mg/dL BUN 15 10 - 20 mg/dL CREATININE, BLOOD 0.63 0.60 - 1.00 mg/dL BUN/CREATININE RATIO 24 (H) 12 - 20 ratio TOTAL PROTEIN 7.1 6.3 - 8.2 g/dL ALBUMIN 3.7 3.5 - 5.0 g/dL A/G RATIO 1.1 1.0 - 2.2 CALCIUM 9.8 8.7 - 10.5 mg/dL T BILI 0.5 0.2 - 1.2 mg/dL SGOT (AST) 16 5 - 34 U/L SGPT (ALT) 23 0 - 55 U/L ALKALINE PHOSPHATASE 97 40 - 150 U/L GFR, ESTIMATED >60 >=60 GFR, EST. >60 >=60 GFR, EST. NONAFRICAN >60 >=60 CBC with Auto Differential Result Value Ref Range WBC 7.18 4.00 - 12.00 10(3)/mcL RBC 4.21 3.80 - 5.30 10(6)/mcL HEMOGLOBIN (HGB) 13.6 12.0 - 15.8 g/dL HEMATOCRIT (HCT) 39.5 36.0 - 47.0 % MCV 93.8 82.0 - 96.0 fL MCH 32.3 26.0 - 34.0 pg MCHC 34.4 31.0 - 36.0 g/dL PLATELET COUNT 257 140 - 440 10(3)/mcL RDW 12.7 11.8 - 15.5 % MPV 9.3 (L) 9.7 - 12.4 fL NEUTROPHILS 69.0 47.0 - 73.0 % LYMPHOCYTES 20.9 18.0 - 42.0 % MONOCYTES 7.0 4.0 - 12.0 % EOSINOPHILS 2.4 0.0 - 5.0 % BASOPHILS 0.7 0.0 - 1.0 % ABSOLUTE NEUTROPHILS 4.96 1.60 - 7.70 10(3)/mcL ABSOLUTE LYMPHOCYTES 1.50 1.30 - 3.20 10(3)/mcL ABSOLUTE MONOCYTES 0.50 0.20 - 1.00 10(3)/mcL ABSOLUTE EOSINOPHIL 0.17 0.00 - 0.40 10(3)/mcL ABSOLUTE BASOPHILS 0.05 0.00 - 0.10 10(3)/mcL NRBC PER 100 WBC 0 URINALYSIS REFLEX IF INDICATED BY ABNORMAL RESULTS Result Value Ref Range SPECIFIC GRAVITY 1.010 1.003 - 1.030 URINE PH 6.0 5.0 - 9.0 WBC ESTERASE 500 /uL (A) Negative NITRITE Positive (A) Negative PROTEIN, RANDOM URINE 30 mg/dL (A) Negative URINE GLUCOSE, QUAL Negative Negative URINE KETONES Negative Negative UROBILINOGEN Normal Normal mg/dL URINE BLOOD 250 /uL (A) Negative elsi/ul URINALYSIS COLOR Yellow URINALYSIS CLARITY Slightly Cloudy WBC (Urine) 51-150 (A) Negative, 0-5 /hpf URINE RBC'S 21-50 (A) Negative, 0-2 /hpf EPITHELIAL CELLS Occasional /lpf BACTERIA, URINE Many (A) Negative /hpf Imaging Results CT RENAL STONE STUDY (ABDOMEN AND PELVIS W/O CONTRAST) (Final result) Result time 09/04/23 11:40:25 Final result by Mario Cruz MD (09/04/23 11:40:25) Impression: IMPRESSION: Grossly stable partly obstructive 4 mm calculus in the left ureteropelvic junction. This results in left hydroureter and mild minimally increased hydronephrosis. Additional nonobstructing caliceal stones bilaterally. Small sliding hiatal hernia. Moderate fat containing ventral hernia. Likely at least moderate or possibly severe spinal canal stenosis at L1-L2 as described above. If clinically indicated this could be better evaluated with nonurgent lumbar spine MRI. Narrative: EXAM DESCRIPTION: CT RENAL STONE STUDY (ABDOMEN AND PELVIS W/O CONTRAST) REASON FOR STUDY: c/o LT flank intermittent pain for the past week, worsening constant last night. HX of kidney stone, Breast CA . TECHNIQUE: CT scan of the abdomen and pelvis performed without intravenous and without oral contrast using helical scanning technique. Reconstructed coronal and sagittal MPR images reviewed. All images stored on PACS. Automated exposure control was used as a dose optimization technique for this examination. COMPARISON: CT abdomen and pelvis dated 08/10/2023 FINDINGS: The sensitivity for detection of visceral lesions is diminished without the use of intravenous contrast. LOWER CHEST: No consolidation or effusion. Unchanged cardiac size. Partially visualized cardiac leads. Lipomatous hypertrophy of the interatrial septum. Small sliding hiatal hernia similar to previous. LIVER: Normal size. Unremarkable for noncontrast technique. GALLBLADDER: Not visualized, BILE DUCTS: No intrahepatic or extrahepatic ductal dilatation. SPLEEN: Normal size. No focal lesions. PANCREAS: Fatty replacement. Otherwise unremarkable. ADRENALS: Normal. KIDNEYS/URINARY TRACT: Right kidney demonstrates punctate caliceal nonobstructing stones in the mid and lower calyx similar to previous. No hydronephrosis or hydroureter. Left kidney demonstrates a lower pole 0.1 cm nonobstructing calcification. Grossly stable partly obstructive 4 mm calculus within the left ureteropelvic junction/proximal ureter. This results in mild hydroureter and mild left hydronephrosis. The hydronephrosis is minimally increased from the prior examination and the hydroureter is stable. Slight induration surrounding the left ureter calculus is decreased. The ureter distal to the calcification is decompressed. Left ovarian vein phleboliths are noted. Urinary bladder is obscured by beam hardening [...] VASCULATURE: No abdominal aortic aneurysm. MUSCULOSKELETAL: No acute fracture. Bilateral hip prosthesis. Likely at least moderate or possibly severe spinal canal stenosis at L1-L2 due to marginal endplate spurring, disc bulge with calcification and ligamentum flavum infolding. This appears unchanged from prior exam. OTHER: There is a moderate unchanged ventral hernia mildly inferior to the umbilicus. The hernia neck is relatively small relative to the hernia sac size measuring 10 mm and 51 mm respectively. There is no bowel within the hernia. No significant inflammatory changes. THIS IS AN ELECTRONICALLY VERIFIED FINAL REPORT 09/04/2023 11:37 AM - Electronically signed by Mario Cruz M.D. MM: MM Report ID: [id number] Reading Location: [place] [address] Medical Decision Making Clinical Impression 1. Left ureteral stone 2. Urinary tract infection Disposition: Discharge Discussed patient with Dr. Logan. He was okay with disposition home as patient has not had a fever and does not have leukocytosis. Patient was given IV rocephin while in the ED and her pain is improved with toradol. Reviewed urine culture from 03/27/22 which showed greater than 100,000 CFU/ML Klebsiella pneumoniae and was luu sensitive with intermediate sensitivity to nitrofurantion. Patient was discharged with bactrim. She requested tramadol for pain and was also given zofran and flomax. She is to f/u with Dr. Logan on Wednesday as previously scheduled. Cosigned by Chichi Jeffries MD at 09/04/2023 2:06 PM CDT * Olaf Rai RN - 09/04/2023 10:03 AM CDT urine sample collected and sent to lab. pt has not been able to find a ride to this time. estimatedtime frame on results. * Olaf Rai RN - 09/04/2023 9:45 AM CDT explained purpose and common side effects of medications ordered. pt is not sure if she can find a ride today. morphine being held at this time. no new questions or c/o's. * Sari Sellers RN - 09/04/2023 9:25 AM CDT While IV access obtained, patient tearful and visibly uncomfortable. ERP made aware and to place orders. Per Patient, hx of hysterectomy and mastectomy for cancer and cannot use left arm for punctures/ BP. Pace maker on Right side due to mastectomy. * Sari Sellers RN - 09/04/2023 9:18 AM CDT Patient to ED via wheelchair for c/o left Flank pain. Patient states she has had intermittent pain fro the past week but last night it became constant and worse with movements. Patient is working with Dr. Logan for kidney stone and has an appointment Wednesday, but states the pain is too much and needed to be seen. Patient states she believes they states it's a non obstructing as of imaging a few weeks ago, but states it showed enlargement to her kidney. Patient denies symptoms and states she has had changes in BM (normally has one every morning, didn't have one today.) documented in this encounter Miscellaneous Notes * PatientPass Patient Instructions - Brenda, DORON Villegas - 09/04/2023 12:26 PM CDT Images from the original note were not included. Patient Education Table of Contents Renal Colic Urinary Tract Infection, Adult To view videos and all your education online visit, [email or web address] or scan this QR code with your [...] your condition for any changes. Medicines Take mvvp-irr-qybqwae and prescription medicines only as told by your health care provider. Ask your provider if the medicine prescribed to you: ? Requires you to avoid driving or using machinery. ? Can cause constipation. You may need to take these actions to prevent or treat constipation: ? Take harg-cba-ereeuzf or prescription medicines. ? Eat foods that [...] 2005-11-25 Document Updated: 2023-03-05 Document Reviewed: 2022-11-11 [employer] Patient Education ? 2023 [employer] Urinary Tract Infection, Adult A urinary tract infection (UTI) is an infection of any part of the urinary tract. The urinary tractincludes the kidneys, ureters, bladder, and urethra. These organs make, store, and get rid of urinein the body. An upper UTI affects the ureters and kidneys. A lower UTI affects the bladder and urethra. What are the causes? Most urinary tract infections are caused by bacteria in your genital area around your urethra, where urine leaves your body. These bacteria grow and cause inflammation of your urinary tract. What increases the risk? You are more likely to develop this condition if: You have a urinary catheter that stays in place. You are not able to control when you urinate or have a bowel movement (incontinence). You are female and you: ? Use a spermicide or diaphragm for control. ? Have low estrogen levels. ? Are . You have certain genes that increase your risk. You are sexually active. You take antibiotic medicines. You have a condition that causes your flow of urine to slow down, such as: ? An enlarged prostate, if you are male. ? Blockage in your urethra. ? A kidney stone. ? A nerve condition that affects your bladder control (neurogenic bladder). ? Not getting enough to drink, or not urinating often. You have certain medical conditions, such as: ? Diabetes. ? A weak disease-fighting system (immunesystem). ? Sickle cell disease. ? Gout. ? Spinal cord injury. What are the signs or symptoms? Symptoms of this condition include: Needing to urinate right away (urgency). Frequent urination. This may include small amounts of urine each time you urinate. Pain or burning with urination. Blood in the urine. Urine that smells bad or unusual. Trouble urinating. Cloudy urine. Vaginal discharge, if you are female. Pain in the abdomen or the lower back. You may also have: Vomiting or a decreased appetite. Confusion. Irritability or tiredness. A fever or chills. Diarrhea. The first symptom in older adults may be confusion. In some cases, they may not have any symptoms until the infection has worsened. How is this diagnosed? This condition is diagnosed based on your medical history and a physical exam. You may also have other tests, including: Urine tests. Blood tests. Tests for STIs (sexually transmitted infections). If you have had more than one UTI, a cystoscopy or imaging studies may be done to determine the cause of the infections. How is this treated? Treatment for this condition includes: Antibiotic medicine. Ootk-vcw-anqcnlu medicines to treat discomfort. Drinking enough water to stay hydrated. If you have frequent infections or have other conditions such as a kidney stone, you may need to see a health care provider who specializes in the urinary tract (urologist). In rare cases, urinary tract infections can cause sepsis. Sepsis is a life- threatening condition that occurs when the body responds to an infection. Sepsis is treated in the hospital with IV antibiotics, fluids, and other medicines. Follow these instructions at home: Medicines Take umky-qbr-gtekram and prescription medicines only as told by your health care provider. If you were prescribed an antibiotic medicine, take it as told by your health care provider. Do notstop using the antibiotic even if you start to feel better. General instructions Make sure you: ? Empty your bladder often and completely. Do not hold urine for long periods of time. ? Empty your bladder after sex. ? Wipe from front to back after urinating or having a bowel movement if you are female. Use each tissue only one time when you wipe. Drink enough fluid to keep your urine pale yellow. Keep all follow-up visits. This is important. Contact a health care provider if: Your symptoms do not get better after 1?2 days. Your symptoms go away and then return. Get help right away if: You have severe pain in your back or your lower abdomen. You have a fever or chills. You have nausea or vomiting. Summary A urinary tract infection (UTI) is an infection of any part of the urinary tract, which includes the kidneys, ureters, bladder, and urethra. Most urinary tract infections are caused by bacteria in your genital area. Treatment for this condition often includes antibiotic medicines. If you were prescribed an antibiotic medicine, take it as told by your health care provider. Do notstop using the antibiotic even if you start to feel better. Keep all follow-up visits. This is important. This information is not intended to replace advice given to you by your health care provider. Make sure you discuss any questions you have with your health care provider. Document Released: 2005-11-25 Document Updated: 2020-09-22 Document Reviewed: 2020-09-27 [employer] Patient Education ? 2023 [employer] documented in this encounter Plan of Treatment Upcoming Encounters Date Type Department Care Team (Late st Contact Info) Description 12/29/2024 9:00 AM CDT Office Visit [facility] [address] [place] [address] Clementina Logan MD [address] [address] documented as of this encounter Procedures Procedure Name Priority Date/Time Associated Diagnosis Comments CT RENAL STONE STUDY (ABDOMEN AND PELVIS W/O CONTRAST) Stat with Interpretation 09/04/2023 11:00 AM CDT URINALYSIS REFLEX IF INDICATED BY ABNORMAL RESULTS STAT 09/04/2023 10:02 AM CDT CULTURE, URINE STAT 09/04/2023 10:02 AM CDT CBC WITH AUTO DIFFERENTIAL STAT 09/04/2023 9:29 AM CDT CMP (COMPREHENSIVE METABOLIC PANEL) STAT 09/04/2023 9:29 AM CDT COMPLETE BLOOD COUNT (CBC) WITH DIFF STAT 09/04/2023 9:29 AM CDT EXTRA TUBES STAT 09/04/2023 9:28 AM CDT GOLD TOP TUBE STAT 09/04/2023 9:28 AM CDT BLUE TOP TUBE STAT 09/04/2023 9:28 AM CDT documented in this encounter Results * CT RENAL STONE STUDY (ABDOMEN AND PELVIS W/O CONTRAST) (09/04/2023 11:00 AM CDT) Anatomical Region Laterality Modality Abdomen N/A Computed Tomogra phy 09/04/2023 11:3 7 AM CDT Impressions 09/04/2023 11:40 AM CDT IMPRESSION: Grossly stable partly obstructive 4 mm calculus in the left ureteropelvic junction. ??This results in left hydroureter and mild minimally increased hydronephrosis. Additional nonobstructing caliceal stones bilaterally. Small sliding hiatal hernia. Moderate fat containing ventral hernia. Likely at least moderate or possibly severe spinal canal stenosis at L1-L2 as described above. ??If clinically indicated this could be better evaluated with nonurgent lumbar spine MRI. Narrative 09/04/2023 11:40 AM CDT EXAM DESCRIPTION: ?? CT RENAL STONE STUDY (ABDOMEN AND PELVIS W/O CONTRAST) REASON FOR STUDY: ?? c/o LT flank intermittent pain for the past week, worsening constant ??last night. HX of kidney stone, Breast CA . ?? TECHNIQUE: CT scan of the abdomen and pelvis performed without intravenous and ??without ??oral contrast using helical scanning technique. Reconstructed coronal and sagittal MPR images reviewed. All images stored on PACS. Automated exposure control was used as a dose optimization technique for this examination. COMPARISON: CT abdomen and pelvis dated 08/10/2023 FINDINGS: The sensitivity for detection of visceral lesions is diminished without the use of intravenous contrast. LOWER CHEST: ??No consolidation or effusion. ??Unchanged cardiac size. Partially visualized cardiac leads. ??Lipomatous hypertrophy of the interatrial septum. Small sliding hiatal hernia similar to previous. LIVER: ??Normal size. ??Unremarkable for noncontrast technique. ?? GALLBLADDER: ??Not visualized, BILE DUCTS: ??No intrahepatic or extrahepatic ductal dilatation. SPLEEN: ??Normal size. ??No focal lesions. PANCREAS: ??Fatty replacement. ??Otherwise unremarkable. ADRENALS: ?? Normal. KIDNEYS/URINARY TRACT: ?? Right kidney demonstrates punctate caliceal nonobstructing stones in the mid and lower calyx similar to previous. No hydronephrosis or hydroureter. Left kidney demonstrates a lower pole 0.1 cm nonobstructing calcification. ??Grossly stable partly obstructive 4 mm calculus within the left ureteropelvic junction/proximal ureter. ??This results in mild hydroureter and mild left hydronephrosis. ??The hydronephrosis is minimally increased from the prior examination and the hydroureter is stable. ??Slight induration surrounding the left ureter calculus is decreased. ??The ureter distal to the calcification is decompressed. ??Left ovarian vein phleboliths are noted. Urinary bladder is obscured by beam hardening artifact related to bilateral hip prosthesis. GI: ?? No dilated bowel loops. No obvious wall thickening. Appendix is not visualized. No significant diverticular disease. PERITONEUM: ??No ascites or free air. RETROPERITONEUM: ?? Nonenlarged lymph nodes periaortic space, along the iliac chris chains generally unchanged. REPRODUCTIVE: ??Pelvis is somewhat obscured by beam hardening artifact from hip prostheses. VASCULATURE: ??No abdominal aortic aneurysm. MUSCULOSKELETAL: ??No acute fracture. ??Bilateral hip prosthesis. ?? Likely at least moderate or possibly severe spinal canal stenosis at L1-L2 due to marginal endplate spurring, disc bulge with calcification and ligamentum flavum infolding. ??This appears unchanged from prior exam. OTHER: ??There is a moderate unchanged ventral hernia mildly inferior to the umbilicus. ??The hernia neck is relatively small relative to the hernia sac size measuring 10 mm and 51 mm respectively. ??There is no bowel within the hernia. ??No significant inflammatory changes. THIS IS AN ELECTRONICALLY VERIFIED FINAL REPORT 09/04/2023 11:37 AM - Electronically signed by ??Mario Cruz M.D. MM: MM D: ??09/04/2023 11:37 AM T: ??09/04/2023 11:37 AM Report ID: [id number] Reading Location: ??[id number] Procedure Note Mario Cruz MD - 09/04/2023 EXAM DESCRIPTION: CT RENAL STONE STUDY (ABDOMEN AND PELVIS W/O CONTRAST) REASON FOR STUDY: c/o LT flank intermittent pain for the past week, worsening constant last night. HX of kidney stone, Breast CA . TECHNIQUE: CT scan of the abdomen and pelvis performed without intravenous and without oral contrast using helical scanning technique. Reconstructed coronal and sagittal MPR images reviewed. All images stored on PACS. Automated exposure control was used as a dose optimization technique for this examination. COMPARISON: CT abdomen and pelvis dated 08/10/2023 FINDINGS: The sensitivity for detection of visceral lesions is diminished without the use of intravenous contrast. LOWER CHEST: No consolidation or effusion. Unchanged cardiac size. Partially visualized cardiac leads. Lipomatous hypertrophy of the interatrial septum. Small sliding hiatal hernia similar to previous. LIVER: Normal size. Unremarkable for noncontrast technique. GALLBLADDER: Not visualized, BILE DUCTS: No intrahepatic or extrahepatic ductal dilatation. SPLEEN: Normal size. No focal lesions. PANCREAS: Fatty replacement. Otherwise unremarkable. ADRENALS: Normal. KIDNEYS/URINARY TRACT: Right kidney demonstrates punctate caliceal nonobstructing stones in the mid and lower calyx similar to previous. No hydronephrosis or hydroureter. Left kidney demonstrates a lower pole 0.1 cm nonobstructing calcification. Grossly stable partly obstructive 4 mm calculus within the left ureteropelvic junction/proximal ureter. This results in mild hydroureter and mild left hydronephrosis. The hydronephrosis is minimally increased from the prior examination and the hydroureter is stable. Slight induration surrounding the left ureter calculus is decreased. The ureter distal to the calcification is decompressed. Left ovarian vein phleboliths are noted. Urinary bladder is obscured by beam hardening [...] VASCULATURE: No abdominal aortic aneurysm. MUSCULOSKELETAL: No acute fracture. Bilateral hip prosthesis. Likely at least moderate or possibly severe spinal canal stenosis at L1-L2 due to marginal endplate spurring, disc bulge with calcification and ligamentum flavum infolding. This appears unchanged from prior exam. OTHER: There is a moderate unchanged ventral hernia mildly inferior to the umbilicus. The hernia neck is relatively small relative to the hernia sac size measuring 10 mm and 51 mm respectively. There is no bowel within the hernia. No significant inflammatory changes. THIS IS AN ELECTRONICALLY VERIFIED FINAL REPORT 09/04/2023 11:37 AM - Electronically signed by Mario Cruz M.D. MM: MM Report ID: [id number] Reading Location: [id number] IMPRESSION: Grossly stable partly obstructive 4 mm calculus in the left ureteropelvic junction. This results in left hydroureter and mild minimally increased hydronephrosis. Additional nonobstructing caliceal stones bilaterally. Small sliding hiatal hernia. Moderate fat containing ventral hernia. Likely at least moderate or possibly severe spinal canal stenosis at L1-L2 as described above. If clinically indicated this could be better evaluated with nonurgent lumbar spine MRI. Chichi Jeffries MD IMG CT ORDERABLES Final Result * Culture, Urine (09/04/2023 10:02 AM CDT) CULTURE RESULTS ESCHERICHIA COLI 09/08/2023 3:42 PM CDT [facility] Comment:PRESUMPTIVE IDENTIFI CATION Urine URINE SPECIMEN / Unknown Non-Phlebotomy Collection / Unknown 09/04/2023 10:02 AM CDT 09/04/2023 10:37 AM CDT Narrative Organism Antibiotic Method Susceptibility Escherichia coli Ampicillin [facility] IIB >=32 mcg/ml: Resistant Escherichia coli Ampicillin/sulbactam [facility] IIB 16 mcg/ml: Intermediate Escherichia coli Cefazolin [facility] II[facility] <=4 mcg/ml: Susceptible Escherichia coli Cefepime [facility] <=1 mcg/ml: Susceptible Escherichia coli Ceftriaxone [facility] II[facility] <=1 mcg/ml: Susceptible Escherichia coli Gentamicin [facility] II[facility] <=1 mcg/ml: Susceptible Escherichia coli Levofloxacin [facility] II[facility] <=0.12 mcg/ml: Susceptible Escherichia coli Meropenem [facility] II[facility] <=0.25 mcg/ml: Susceptible Escherichia coli Nitrofurantoin [facility] IIB <=16 mcg/ml: Susceptible Escherichia coli Piperacillin/Tazobactam [facility] II B <=4 mcg/ml: Susceptible Escherichia coli Tobramycin [facility] IIB <=1 mcg/ml: Susceptible Escherichia coli Trimeth/Sulfamethoxazole [facility] I IB <=20 mcg/ml: Susceptible us Chichi Jeffries MD MICROBIOLOGY - GENERAL O RDERABLES Final Result [facility] [address] [place] [address], [place] * (ABNORMAL) URINALYSIS REFLEX IF INDICATED BY ABNORMAL RESULTS (09/04/2023 10:02 AM CDT) SPECIFIC GRAVITY 1.010 1.003 - 1.030 09/04/2023 11:06 AM CDT [facility] URINE PH 6.0 5.0 - 9.0 09/04/2023 11:06 AM CDT [facility] WBC ESTERASE 500 /uL(A) Negative 09/04/2023 11:06 AM CDT [facility] NITRITE Positive(A) Negative 09/04/2023 11:06 AM CDT [facility] PROTEIN, RANDOM URINE 30 mg/dL(A) Negative 09/04/2023 11:06 AM CDT [facility] URINE GLUCOSE, QUAL Negative Negative 09/04/2023 11:06 AM CDT [facility] URINE KETONES Negative Negative 09/04/2023 11:06 AM CDT [facility] UROBILINOGEN Normal Normal mg/dL 09/04/2023 11:06 AM CDT [facility] URINE BLOOD 250 /uL(A) Negative elsi/ul 09/04/2023 11:06 AM CDT [facility] URINALYSIS COLOR Yellow 09/04/2023 11:06 AM CDT [facility] URINALYSIS CLARITY Slightly Cloudy 09/04/2023 11:06 AM CDT [facility] WBC (Urine) 51-150(A) Negative, 0-5 /hpf 09/04/2023 11:06 AM CDT [facility] URINE RBC'S 21-50(A) Negative, 0-2 /hpf 09/04/2023 11:06 AM CDT [facility] EPITHELIAL CELLS Occasional /lpf 09/04/2023 11:06 AM CDT [facility] BACTERIA, URINE Many(A) Negative /hpf 09/04/2023 11:06 AM CDT [facility] Urine URINE SPECIMEN / Unknown Non-Phlebotomy Collection / Unknown 09/04/2023 10:02 AM CDT 09/04/2023 10:37 AM CDT us Chichi Jeffries MD URINE ORDERABLES Final R esult [facility] [address] [place] [address] * (ABNORMAL) CBC with Auto Differential (09/04/2023 9:29 AM CDT) WBC 7.18 4.00 - 12.00 10(3)/[facility] 09/04/2023 9:51 AM CDT [facility] RBC 4.21 3.80 - 5.30 10(6)/[facility] 09/04/2023 9:51 AM CDT [facility] HEMOGLOBIN (HGB) 13.6 12.0 - 15.8 g/dL 09/04/2023 9:51 AM CDT [facility] HEMATOCRIT (HCT) 39.5 36.0 - 47.0 % 09/04/2023 9:51 AM CDT [facility] MCV 93.8 82.0 - 96.0 fL 09/04/2023 9:51 AM CDT [facility] MCH 32.3 26.0 - 34.0 pg 09/04/2023 9:51 AM CDT [facility] MCHC 34.4 31.0 - 36.0 g/dL 09/04/2023 9:51 AM CDT [facility] PLATELET COUNT 257 140 - 440 10(3)/mcL 09/04/2023 9:51 AM CDT [facility] RDW 12.7 11.8 - 15.5 % 09/04/2023 9:51 AM CDT [facility] MPV 9.3(L) 9.7 - 12.4 fL 09/04/2023 9:51 AM CDT [facility] NEUTROPHILS 69.0 47.0 - 73.0 % 09/04/2023 9:51 AM CDT [facility] LYMPHOCYTES 20.9 18.0 - 42.0 % 09/04/2023 9:51 AM CDT [facility] MONOCYTES 7.0 4.0 - 12.0 % 09/04/2023 9:51 AM CDT [facility] EOSINOPHILS 2.4 0.0 - 5.0 % 09/04/2023 9:51 AM CDT [facility] BASOPHILS 0.7 0.0 - 1.0 % 09/04/2023 9:51 AM CDT [facility] ABSOLUTE NEUTROPHILS 4.96 1.60 - 7.70 10(3)/mcL 09/04/2023 9:51 AM CDT [facility] ABSOLUTE LYMPHOCYTES 1.50 1.30 - 3.20 10(3)/[facility] 09/04/2023 9:51 AM CDT [facility] ABSOLUTE MONOCYTES 0.50 0.20 - 1.00 10(3)/[facility] 09/04/2023 9:51 AM CDT [facility] ABSOLUTE EOSINOPHIL 0.17 0.00 - 0.40 10(3)/[facility] 09/04/2023 9:51 AM CDT [facility] ABSOLUTE BASOPHILS 0.05 0.00 - 0.10 10(3)/[facility] 09/04/2023 9:51 AM CDT [facility] NRBC PER 100 WBC 0 09/04/19 9:51 AM CDT [facility] Blood Venipuncture / Unknown 09/04/2023 9:29 AM CDT 09/04/2023 9:47 AM CDT us Chichi Jeffries MD HEMATOLOGY ORDERABLES Fi nal Result [facility] [address] [place] [address] * (ABNORMAL) CMP (Comprehensive Metabolic Panel) (09/04/2023 9:29 AM CDT) SODIUM 141 136 - 145 mmol/L 09/04/2023 10:10 AM CDT [facility] POTASSIUM 4.0 3.5 - 5.1 mmol/L 09/04/2023 10:10 AM CDT [facility] CHLORIDE 108(H) 98 - 107 mmol/L 09/04/2023 10:10 AM CDT [facility] CO2, VENOUS 20(L) 22 - 30 mmol/L 09/04/2023 10:10 AM CDT [facility] ANION GAP 17.0 <18.0 mmol/L 09/04/2023 10:10 AM CDT [facility] GLUCOSE 150(H) 70 - 99 mg/dL 09/04/2023 10:10 AM CDT [facility] BUN 15 10 - 20 mg/dL 09/04/2023 10:10 AM CDT [facility] CREATININE, BLOOD 0.63 0.60 - 1.00 mg/dL 09/04/2023 10:10 AM CDT [facility] BUN/CREATININE RATIO 24(H) 12 - 20 ratio 09/04/2023 10:10 AM CDT [facility] TOTAL PROTEIN 7.1 6.3 - 8.2 g/dL 09/04/2023 10:10 AM CDT [facility] ALBUMIN 3.7 3.5 - 5.0 g/dL 09/04/2023 10:10 AM CDT [facility] A/G RATIO 1.1 1.0 - 2.2 09/04/2023 10:10 AM CDT [facility] CALCIUM 9.8 8.7 - 10.5 mg/dL 09/04/2023 10:10 AM CDT [facility] T BILI 0.5 0.2 - 1.2 mg/dL 09/04/2023 10:10 AM CDT [facility] SGOT (AST) 16 5 - 34 U/L 09/04/2023 10:10 AM CDT [facility] SGPT (ALT) 23 0 - 55 U/L 09/04/2023 10:10 AM CDT [facility] ALKALINE PHOSPHATASE 97 40 - 150 U/L 09/04/2023 10:10 AM CDT [facility] GFR, ESTIMATED >60 >=60 09/04/2023 10:10 AM CDT [facility] Comment: Creatinine Clearance is the preferred criteria for selecting drug dose adjustments in renally impaired patients. ??The GFR is provided as additional pertinent clinical information. GFR is reported in mL/min/1.73 sq m. Calculation based on the Chronic Kidney Disease Epidemiology Collaboration (CKD- EPI) equation refit without adjustment for race. GFR, EST. >60 >=60 024 10:10 AM CDT [facility] GFR, EST. NONAFRICAN >60 >=60 09/04/2023 10:10 AM CDT [facility] Blood Venipuncture / Unknown 09/04/2023 9:29 AM CDT 09/04/2023 9:47 AM CDT us Chichi Jeffries MD CHEMISTRY ORDERABLES Fin al Result [facility] [address] [place] [address] * Gold Top Tube (09/04/2023 9:28 AM CDT) Blood No Phlebotomy Charged / Unknown 09/04/2023 9:28 AM CDT 09/04/2023 9:46 AM CDT us Chichi Jeffries MD CHEMISTRY ORDERABLES Fin al Result Performing Organization Address [facility] Co de Phone Number [facility] [place] [address] * Blue Top Tube (09/04/2023 9:28 AM CDT) Blood No Phlebotomy Charged / Unknown 09/04/2023 9:28 AM CDT 09/04/2023 9:46 AM CDT us Chichi Jeffries MD HEMATOLOGY ORDERABLES Fi nal Result Performing Organization Address [facility] Co de Phone Number [facility] [address] [place] [address] documented in this encounter Visit Diagnoses Diagnosis Left ureteral stone- Primary Urinary tract infection Urinary tract infection, site not specified documented in this encounter Administered Medications Inactive Administered Medications - up to 3 most recent administrations Medication Order MAR Action Action Date Dose Rate Site cefTRIAXone (ROCEPHIN) injection 1 g 1 g, Intravenous, ONCE, 1 dose, On 09/04/23 at 1200, Indications: CystitisIndications:Cystitis Given 09/04/2023 11:39 AM CDT 1 g ketorolac (TORADOL) injection 15 mg 15 mg, Intravenous, ONCE, 1 dose, On 09/04/23 at 1000 Given 09/04/2023 9:36 AM CDT 15 mg ondansetron (ZOFRAN) injection 4 mg 4 mg, Intravenous, ONCE, 1 dose, On 09/04/23 at 1000Indications:Nausea and Vomiting Given 09/04/2023 9:41 AM CDT 4 mg sodium chloride 0.9 % 1,000 mL IV bolus Intravenous, ONCE, 1 dose, On 09/04/23 at 1000, Administer over 0.5 Hours New Bag 09/04/2023 9:45 AM CDT 2000 mL/hr documented in this encounter Active and Recently Administered Medications Times are shown in CDT. Scheduled Medication Order 09/02/2023 09/03/2023 09/04/2023 cefTRIAXone (ROCEPHIN) injection 1 g (COMPLETED) 1 g, Intravenous, ONCE, 1 dose, On 09/04/23 at 1200, Indications: Cystitis 1139 (Given - Provid er: Sari Sellers RN) ketorolac (TORADOL) injection 15 mg (COMPLETED) 15 mg, Intravenous, ONCE, 1 dose, On 09/04/23 at 1000 0936 (Given - Provid er: Olaf Rai, PATY) morphine sulfate (PF) injection 2 mg 2 mg, Intravenous, ONCE, 1 dose, On 09/04/23 at 1000 1000 (Not Given - Pr ovider: Olaf Rai RN - Reason: Other - Comment: no ride available for her) ondansetron (ZOFRAN) injection 4 mg (COMPLETED)(Linked Group 1) 4 mg, Intravenous, ONCE, 1 dose, On 09/04/23 at 1000 0941 (Given - Provid er: Olaf Rai RN) sodium chloride 0.9 % 1,000 mL IV bolus (COMPLETED) Intravenous, ONCE, 1 dose, On 09/04/23 at 1000, Administer over 0.5 Hours 0945 (New Bag - Prov ider: Olaf Rai RN)1130 (Stopped - Provider: Olaf Rai RN) Linked Groups Order Group 1: ondansetron (ZOFRAN-ODT) disintegrating tablet 4 mg (COMPLETED) 4 mg, Oral, ONCE, 1 dose, On 09/04/23 at 1000, For Nausea. A) Contact Provider for order if patient is in first trimester of . B) Option to hold if patient does not have nausea or vomiting. Or ondansetron (ZOFRAN) injection 4 mg (COMPLETED)Jump to med 4 mg, Intravenous, ONCE, 1 dose, On 09/04/23 at 1000 documented in this encounter Care Teams Project Consultant Relationship Specialty Start Date End Date Enrique Syed MD [address] [place] [id number] PCP - General Internal Medicine 08/11/22 Clementina Logan MD [address] [facility] [address] [address] Consulting Physician Urology 03/17/22 documented as of this encounter
--- OUTSIDE RECORDS SUMMARY | 2024-03-11 12:47 | XMS_ITS | Encounter Summary ---
Author Organization [facility] Address [address] [place] [address] Phone Care Team Providers Care Patient Intake Coordinator Name Role Phone Enrique Syed MD Primary Care Provider [phone] Clementina Logan MD Unavailable [phone] Reason for Visit * Reason Onset Date Comments Follow-up 09/20/2023 Encounter Details Date Type Department Care Team (Late st Contact Info) Description 09/20/2023 Post Discharge Follow-up [facility] [address] [place] [address] Noelle Izaguirre, RN [place] Social History Tobacco Use Types Packs/Day Years Used Date Smoking Tobacco: Former Cigarettes Q uit: 2000 Smokeless Tobacco: Never Alcohol Use Standard Drinks/Week Comments Not Currently 0 (1 standard drink = 0.6 oz pur e alcohol) [facility] Utilities Answer Date Recorded In the past 12 months has [employer], gas, oil, or water [employer] threatened to shut off services in your home? Patient declined 09/18/2023 Social Connection and Isolation Panel [NHANES] A nswer Date Recorded In a typical week, how many times do you talk on the phone with family, friends, or neighbors? Patient declined 09/18/2023 How often do you get togethe r with friends or relatives? Patient declined 09/18/2023 How often do you attend jain or roman catholic serv ices? Patient declined 09/18/2023 Do you belong to any clubs o r organizations such as jain groups, unions, fraternal or athletic groups, or [...] medical care, and heating? Patient declined 09/18/2023 [employer] ional [facility] - Occupational Stress Questionnaire Answer Date [...] any time in the past 12 m [facility], were you homeless or living in a snf (including now)? Patient declined 09/18/2023 Sexually Active [employer] Comments Not Currently Comments No Sex and Gender Information Value Date Recorded Sex Assigned at Not on file Legal Sex Female 10:10 PM CDT Gender Identity Not on file Sexual Orientation Not on file documented as of this encounter Miscellaneous Notes * Telephone Encounter - Noelle Izaguirre RN - 09/20/2023 12:23 PM CDT Called patient to follow up after recent discharge from [facility] Med[facility]. How are you feeling? Feeling better Did you get your medications? Yes Do you have the date of your follow up appointment? Yes, it is tomorrow. Do you have a ride? Yes Have you heard from Home health? na What else can I do for you? Nothing Do you have any questions for the Discharging Dr? No Instructed patient to callback with any questions or concerns. documented in this encounter Plan of Treatment Upcoming Encounters Date Type Department Care Team (Late st Contact Info) Description 12/29/2024 9:00 AM CDT Office Visit [facility] [address] [place] [address] Clementina Logan MD [address] [address] documented as of this encounter Visit Diagnoses Not on filedocumented in this encounter Care Teams Patient Intake Coordinator Relationship Specialty Start Date End Date Enrique Syed MD [address] [place] [address] PCP - General Internal Medicine 08/11/22 Clementina Logan MD [facility] [facility] [address] [address] Consulting Physician Urology 03/17/22 documented as of this encounter
--- OUTSIDE RECORDS SUMMARY | 2024-03-11 12:47 | XMS_ITS | Encounter Summary ---
Author Organization [facility] Address [address] [place] [address] Phone Care Team Providers Care Bicycle Designer Name Role Phone Yohannes Elise MD Primary Care Provider [phone] Clementina Logan MD Unavailable [phone] Reason for Visit * Auth/Cert (Routine) Specialty Diagnoses / Procedures Referred By Rosalind estevez Referred To Contact Diagnoses LEFT URETERAL STONE Procedures URETEROSCOPY WITH HOLMIUM LASER CYSTOSCOPY STENT INSERTION (SINGLE / BILATERAL) Clementina Logan MD [address] [address] Phone: tel: fax: Referral ID Status Reason Start Date Expiration Date Visits Re quested Visits Authorized [id number] 1 1 Encounter Details Date Type Department Care Team (Latest Contact Info) Description 09/17/2023 10:17 AM CDT - 09/18/2023 2:03 PM CDT Hospital Encounter [facility] [address] [place] [phone] Clementina Logan MD [address] [address] Carlos Burrell MD [address] [place] [address] Arrhythmia Discharge Disposition: Discharged to home or Selfcare Social History Tobacco Use Types Packs/Day Years Used Date Smoking Tobacco: Former Cigarettes Q uit: 1999 Smokeless Tobacco: Never Alcohol Use Standard Drinks/Week Comments Not Currently 0 (1 standard drink = 0.6 oz pur e alcohol) [facility] Utilities Answer Date Recorded In [...] How often do you attend jain or baptism serv ices? Patient declined 09/18/2023 Do you [...] medical care, and heating? Patient declined 09/18/2023 Citizen Of [place] [employer] of Occupat ional Health - Occupational Stress [...] any time in the past 12 m [facility], were you homeless or living in [...] Sign Reading Time Taken Comments Blood Pressure 143/64 09/18/2023 8:00 AM CDT Pulse 110 09/18/2023 4:35 AM CDT Temperature 36.7 ??C (98.1 ??F) 09/18/2023 8:00 AM CD T Respiratory Rate 16 09/18/2023 8:00 AM CDT Oxygen Saturation 99% 09/18/2023 8:00 AM CDT Inhaled Oxygen Concentration - - Weight 98.9 kg (218 lb 1.6 oz) 09/17/2023 10:32 AM CDT Height 149.9 cm (4' 11 ) 09/17/2023 10:32 AM CDT Body Mass Index 44.05 09/17/2023 10:32 AM CDT documented in this encounter Functional Status * Audit-C Score [...] one occasion? Patient declined 09/18/2023 9:27 AM Flory Cedeño RN documented as of this encounter Discharge Summaries * Carlos Burrell MD - 09/18/2023 12:18 PM CDT Images from the original note were not included. [facility] DISCHARGE SUMMARY Name: Adri Tristan : 1950 Attending Physician: Carlos Burrell MD Discharging Provider: Carlos Burrell MD Primary Care Physician: YOHANNES ELISE MD Admission Date/Time: 09/17/2023 Discharge Date: 09/18/23 INSTRUCTIONS FOR PHYSICIANS ON FOLLOW UP AFTER DISCHARGE: Follow-up Information Follow up With Specialties Details Why Contact Yohannes Brown MD Internal Medicine [address] [place] [address] Discharge Instructions: Discharge Condition: significantly improved Disposition: Home Diet: Regular Diet Activity: activity as tolerated Discharge Diagnoses: Arrhythmia seen during postoperative course, suspect underlying paced rhythm with intermittent paroxysmal atrial fibrillation Status post kidney stent and stone removal Paroxysmal atrial fibrillation Sick sinus syndrome with pacemaker in place History of left breast cancer Essential hypertension Dyslipidemia GUY Principal Problem: Arrhythmia Active Problems: Pacemaker Overview: right chest GUY on CPAP Hypertension High cholesterol Gout Carcinoma (HCC) Overview: LEFT BREAST AND UTERUS Asthma Arthritis Overview: GENERALIZED Acid reflux A-fib (HCC) A-fib (HCC) Overview: hx ablation in 2010 Admitting Diagnoses: Possible arrhythmia and postoperative recovery HOSPITAL COURSE: 73-year-old female with a known history of sick sinus syndrome with a pacemaker, paroxysmal atrial fibrillation, breast cancer, hypertension, dyslipidemia, GUY who was admitted to observation after being monitor to have an unspecified arrhythmia postoperatively. ECG just showed AV paced rhythm withsome PACs. Patient was admitted to telemetry, no overnight events. Paced rhythm, AFib. Asymptomatic, at baseline. Has follow up with her EP, has pacemaker information being sent her EP this week. Discharge home today Operations / Procedures (if any) performed during stay: Procedure(s): LEFT URETEROSCOPY WITH HOLMIUM LASER LITHOTRIPSY CYSTOSCOPY WITH LEFT URETERAL STENT PLACEMENT CYSTOSCOPY RETROGRADE PYELOGRAMS Consults: Treatment Team: Consulting Physician: Lance Cannon MD Exam Day of Discharge: Temp Av.1 ??F (36.7 ??C) Min: 97.3 ??F (36.3 ??C) Max: 99.3 ??F (37.4 ??C) BP Min: 135/74 Max: 174/94 Pulse Av.1 Min: 43 Max: 110 Heart Rate (Monitor) Av.2 Min: 52 Max: 110 Resp Av.1 Min: 10 Max: 22 SpO2 Av.1 % Min: 96 % Max: 100 % Body mass index is 44.05 kg/m??. Exam: GENERAL: NAD, alert and cooperative HEENT: NC/AT. EOMI NECK: Supple, trachea midline CVS: Normal S1 and S2, no murmurs appreciated RESP: CTAB, no wheeze GI: Soft, nondistended, nontender. No guarding EXTREMITIES: No edema NEURO: CN II-XII grossly intact. AAOx4 SKIN: Skin normal color, texture PSYCHIATRIC: Mood stable, normal affect Lab / Imaging Review: Lab Results Component Value Date WBC 12.64 (H) 09/18/2023 HEMOGLOBIN 14.7 09/18/2023 HEMATOCRIT 42.1 09/18/2023 PLATELETCNT 185 09/18/2023 MCV 94.0 09/18/2023 Lab Results Component Value Date SODIUM 139 09/18/2023 POTASSIUM 4.0 09/18/2023 CHLORIDE 110 (H) 09/18/2023 CO2VEN 17 (L) 09/18/2023 ANIONGAP 16.0 09/18/2023 GLUCOSE 176 (H) 09/18/2023 BUN 15 09/18/2023 CREATININE 0.64 09/18/2023 BCRATIO8 23 (H) 09/18/2023 TOTALPROTEIN 7.1 09/04/2023 ALBUMIN 3.7 09/04/2023 CALCIUM 9.8 09/18/2023 TBIL 0.5 09/04/2023 SGOTAST 16 09/04/2023 SGPTALT 23 09/04/2023 ALKALINEPHO 97 09/04/2023 GFRNA >60 09/18/2023 GFRA >60 09/18/2023 No results found for: GLUCOSEPOCT Lab Results Component Value Date INR 1.0 08/10/2023 PTP 13.4 08/10/2023 No results found for: HGBA1C No results found for: [id number] No results found for: CPK , CPKI , CKMB , CKMBNI , CKMBPOCT , CKMBRELINDX , TROPONINI , POCTRP No results found for: FERRITIN No results found for: FOLATE No results found for: PHARTERIAL , PO2ART , LVE3NGN , CO2ART , O2ART No results found for: LACACIDPOCT , LACTICA CT RENAL STONE STUDY (ABDOMEN AND PELVIS W/O CONTRAST) Result Date: 09/04/2023 IMPRESSION: Grossly stable partly obstructive 4 mm calculus in the left ureteropelvic junction. This results in left hydroureter and mild minimally increased hydronephrosis. Additional nonobstructingcaliceal stones bilaterally. Small sliding hiatal hernia. Moderate fat containing ventral hernia. Likely at least moderate or possibly severe spinal canal stenosis at L1-L2 as described above. If clinically indicated this could be better evaluated with nonurgent lumbar spine MRI. US RETROPERITONEAL COMPLETE Result Date: 08/26/2023 Left nephrolithiasis and mild hydronephrosis with distended extrarenal pelvis. Electronically signed by: Kya Mojica M.D. DISCHARGE MEDICATION LIST: Discharge Medications: Medication List START taking these medications cephALEXin 500 MG Caps Commonly known as: KEFLEX Take 1 Capsule by mouth 2 times daily for 3 days. CHANGE how you take these medications * HYDROcodone-acetaminophen 5-325 MG Tabs Commonly known as: [place] Take 1 Tablet by mouth every 6 hours as needed for Severe pain. What changed: Another medication with the same name was added. Make sure you understand how and when to take each. * HYDROcodone-acetaminophen 5-325 MG Tabs Commonly known as: NORCO Take 1 Tablet by mouth every 6 hours as needed for Severe pain. What changed: You were already taking a medication with the same name, and this prescription was added. Make sure you understand how and when to take each. * This list has 2 medication(s) that are the same as other medications prescribed for you. Read thedirections carefully, and ask your doctor or other care provider to review them with you. CONTINUE taking these medications albuterol 108 (90 Base) MCG/ACT Aers Commonly known as: PROVENTIL HFA, VENTOLIN HFA allopurinol 300 MG Tabs Commonly known as: ZYLOPRIM apixaban 5 MG Tabs Commonly known as: ELIQUIS Ascorbic Acid 500 MG Rxc-ybiz-rlm atorvastatin 40 MG Tabs Commonly known as: LIPITOR azelastine 0.1 % Soln Commonly known as: ASTELIN budesonide-formoterol fumarate 160-4.5 MCG/ACT Aero Commonly known as: SYMBICORT Calcium Carb-Cholecalciferol 600-20 MG-MCG Tabs cefUROXime 500 MG Tabs Commonly known as: CEFTIN docusate sodium 100 MG Caps Commonly known as: Colace Take 1 Capsule by mouth 2 times daily. ergocalciferol 73044 UNIT Caps Commonly known as: VITAMIN D famotidine 10 MG Tabs Commonly known as: PEPCID fexofenadine 60 MG Tabs Commonly known as: SOMMER fluocinonide 0.05 % Soln Commonly known as: LIDEX fluticasone 50 MCG/ACT Susp Commonly known as: FLONASE irbesartan-hydroCHLOROthiazide 150-12.5 MG Tabs Commonly known as: AVALIDE montelukast 10 MG Tabs Commonly known as: SINGULAIR MULTIVITAMIN ADULT PO niacin CR 250 MG Qhr-xzdf-aal [place]-3 1400 MG Caps omeprazole 10 MG Cap-del-rel Commonly known as: PriLOSEC oxybutynin 10 MG Tab-sr-24hr Commonly known as: DITROPAN-XL Take 1 Tablet by mouth daily. sotalol 160 MG Tabs Commonly known as: BETAPACE traMADol 50 MG Tabs Commonly known as: ULTRAM Take 1 Tablet by mouth every 8 hours as needed for Moderate or more severe pain. valsartan-hydroCHLOROthiazide 320-12.5 MG Tabs Commonly known as: DIOVAN-HCT WEGOVY SC Zinc 50 MG Caps ASK your doctor about these medications * HYDROcodone-acetaminophen 5-325 MG Tabs Commonly known as: NORCO Take 1-2 Tablets by mouth every 4 hours as needed for Moderate or more severe pain. * This list has 1 medication(s) that are the same as other medications prescribed for you. Read thedirections carefully, and ask your doctor or other care provider to review them with you. Where to Get Your Medications These medications were sent to [facility] [address] [place] [id number] cephALEXin 500 MG Caps HYDROcodone-acetaminophen 5-325 MG Tabs Medications Discontinued during this hospitalization: Medications Discontinued During This Encounter Medication Reason acetaminophen (OFIRMEV) IV 1,000 mg fentaNYL (PF) (SUBLIMAZE) injection 25 mcg HYDROcodone-acetaminophen (NORCO) 5-325 MG per tablet 1 Tablet Patient Transfer ondansetron (ZOFRAN) injection 4 mg Patient Transfer fentaNYL (PF) (SUBLIMAZE) injection 25-50 mcg Patient Transfer ondansetron (ZOFRAN) injection 4 mg Patient Transfer lactated ringers infusion azelastine (ASTELIN) 0.1 % nasal spray 2 [place] Auto-discontinue per P&T niacin CR capsule 750 mg Formulary change albuterol (PROVENTIL HFA, VENTOLIN HFA) inhaler 2 Puff niacin tablet 750 mg Thank you very much for allowing the [facility] Adult Hospitalist Service to participate in the care of this patient. If you have any questions, please don't hesitate to call. Signed: Carlos Burrell MD, 09/18/2023, 12:18 PM CDT I have spent 40 minutes performing discharge services today. This time includes my time spent on this note preparation including discharge documentation, discharge instructions, final orders, ordering prescriptions, and communication to social work. documented in this encounter Medications at Time [...] Take 800 mg by mouth nightly. 08/19/2016 [place]-3 1400 MG Capsule Take by mouth. oxybutynin (DITROPAN-XL) 10 MG TABLET SR 24 HR Take 1 Tablet by mouth daily. 30 Tablet 3 05/26/2022 Semaglutide-Weig ht Management (WEGOVY SC) by Subcutaneous route. sotalol [...] Zinc 50 MG Capsule Take by mouth. cephALEXin (KEFLEX) 500 MG Capsule Take 1 Capsule by mouth 2 times daily for 3 days. 6 Capsule 09/17/2023 4 documented as of this encounter H&P Notes * Dre Baltazar, DEREK, PAULA - 09/17/2023 5:16 PM CDT [facility] ADMISSION HISTORY & PHYSICAL HPI: Adri Tristan is a 73 y.o. female with history of hypertension, hyperlipidemia, gout, asthma, GERD,history of paroxysmal atrial fibrillation status post an ablation in 2010, history of sick sinus syndrome status post dual-chamber pacemaker in the right chest wall, history of left breast cancer status post a partial mastectomy, who presented to [facility] with complaints of arrhythmias. Patient was diagnosed with left nephrolithiasis. She underwent an outpatient stone removal with a stent placed by Dr. Logan. Postoperatively patient was noted to have arrhythmias on the monitor. She lives alone and therefore it was decided the patient be admitted overnight for observation. EKG revealed AV dual paced rhythm with APCs and aberrant conduction on EKG. Patient denies lightheaded, dizziness, shortness for breath, or chest pain. Will check routine labs including magnesium and phosphorus level. Admitted for further management. Allergies: is allergic to nitrofurantoin, christopher inhibitors, erythromycin, and sulfa antibiotics. Home Medications: Prior to Admission Medications Prescriptions Last Dose Informant Patient Reported? Taking? Ascorbic Acid 500 MG Capsule CR 09/15/2023 Yes No Si mg. Calcium Carb-Cholecalciferol 600-20 MG-MCG Tablet Yes No HYDROcodone-acetaminophen (NORCO) 5-325 MG Tablet Not Taking No No Sig: Take 1-2 Tablets by mouth every 4 hours as needed for Moderate or more severe pain. Patient not taking: Reported on 09/08/2023 HYDROcodone-acetaminophen (W[place]low) 5-325 MG Tablet No No Sig: Take 1 Tablet by mouth every 6 hours as needed for Severe pain. Multiple Vitamin (MULTIVITAMIN ADULT PO) 09/15/2023 Yes No [place]-3 1400 MG Capsule 09/15/2023 Yes No Sig: Take by mouth. Semaglutide-Weight Management (WEGOVY SC) Yes No Sig: by Subcutaneous route. Zinc 50 MG Capsule 09/15/2023 Yes No Sig: Take by mouth. albuterol 108 (90 Base) MCG/ACT Aerosol Solution 08/18/2023 Yes Yes Sig: take 2 Puffs by inhalation every 4 hours as needed. allopurinol (ZYLOPRIM) 300 MG Tablet 09/16/2023 Yes Yes Si mg. apixaban (ELIQUIS) 5 MG Tablet 09/15/2023 Yes No Sig: Take 5 mg by mouth 2 times daily. atorvastatin (LIPITOR) 40 MG Tablet 09/16/2023 Yes Yes Si mg every evening. azelastine (ASTELIN) 0.1 % Solution 09/17/2023 Yes Yes budesonide-formoterol fumarate (SYMBICORT) 160-4.5 MCG/ACT Aerosol > Month Yes Yes Sig: inhale 2 puff by inhalation route 2 times every day in the morning and evening cefUROXime (CEFTIN) 500 MG Tablet Yes No Sig: Take 500 mg by mouth. docusate sodium (Colace) 100 MG Capsule 09/16/2023 No Yes Sig: Take 1 Capsule by mouth 2 times daily. Patient taking differently: Take 100 mg by mouth 2 times daily as needed. ergocalciferol (VITAMIN D) 68492 UNIT Capsule Yes No Sig: Take 50,000 Units by mouth. famotidine (PEPCID) 10 MG Tablet 09/17/2023 Yes Yes Sig: Take 10 mg by mouth. fexofenadine (SOMMER) 60 MG Tablet 09/16/2023 Yes Yes Sig: Take by mouth. fluocinonide (LIDEX) 0.05 % Solution Yes No fluticasone (FLONASE) 50 MCG/ACT Suspension > Month Yes Yes irbesartan-hydroCHLOROthiazide (AVALIDE) 150-12.5 MG Tablet Yes No Sig: Take 1 Tablet by mouth daily. montelukast (SINGULAIR) 10 MG Tablet 09/16/2023 Yes Yes Si mg. niacin CR 250 MG Capsule CR 09/15/2023 Yes No Sig: Take 800 mg by mouth nightly. omeprazole (PriLOSEC) 10 MG CAPSULE DELAYED RELEASE Yes No Si mg. oxybutynin (DITROPAN-XL) 10 MG TABLET SR 24 HR No No Sig: Take 1 Tablet by mouth daily. sotalol (BETAPACE) 160 MG Tablet 09/17/2023 Yes Yes Sig: Take 160 mg by mouth 2 times daily. traMADol (ULTRAM) 50 MG Tablet 09/06/2023 No No Sig: Take 1 Tablet by mouth every 8 hours as needed for Moderate or more severe pain. valsartan-hydroCHLOROthiazide (DIOVAN-HCT) 320-12.5 MG Tablet 09/16/2023 Yes Yes Sig: Take 1 Tablet by mouth daily. Facility-Administered Medications: None Past Medical History: She has a past medical history of A-fib (HCC), Acid reflux, Arthritis, Asthma, Carcinoma (HCC), Gout, High cholesterol, Hypertension, GUY on CPAP, and Pacemaker. Surgical History: has a past surgical history that includes Breast Surgery (Left, 09/14/2006); Hysterectomy; Cholecystectomy (1975); Other Surgical History (Left); Carpal Tunnel Release (Right, 2002); Total Knee Arthroplasty (Left, 09/30/2015); Partial Hip Arthroplasty (Right, 06/19/2015); Pacemaker Insertion (Right, 06/22/2012); lap,inguinal hernia repr,initial (Left, 03/30/2011); cath cardiac ablation c1729 d; Ureteroscopy (Right, 05/26/2022); and Ureter Stent Placement (Right, 05/26/2022). Social History: reports that she quit smoking about 24 years ago. Her smoking use included cigarettes. She has never used smokeless tobacco. She reports that she does not currently use alcohol. She reports that she does not currently use drugs. Family History: family history includes Cancer in her father and mother; Heart Disease in her father; Heart Surgery in her father. Review of Systems: Arrhymias noted on monitor postoperatively. Denies lightheaded, dizziness blurred vision. Denies Fever, chills, SOB, cough, sore throat. Denies Chest pain, heart palpitations. Denies abdominal pain, denies constipation, Denies nausea, vomiting, diarrhea, or constipation. Denies LE swelling. Physical Exam: VITALS:Temp Av.1 ??F (36.2 ??C) Min: 96.3 ??F (35.7 ??C) Max: 97.7 ??F (36.5 ??C) BP Min: 134/91 Max: 174/94 Pulse Av.7 Min: 43 Max: 98 Heart Rate (Monitor) Av.2 Min: 64 Max: 95 Resp Av.8 Min: 10 Max: 22 SpO2 Av.5 % Min: 96 % Max: 100 % No intake/output data recorded. Weight: Wt Readings from Last 1 Encounters: 09/17/23 218 lb 1.6 oz (98.9 kg) General: well developed well nourished, alert, oriented and in no acute distress Skin: normal coloration and turgor, no rashes HEENT: normocephalic, atraumatic. Pupils equal, round and reactive to light. Extraocular movements intact. Oronasopharynx pink and moist, no lesion or exudate. Neck: Supple. No JVD, lymphadenopathy thyromegaly or carotid bruits auscultated CVS: RRR, S1/S2 normal, no murmurs, gallops or rubs Chest: clear to auscultation, no wheezes, rales or rhonchi, symmetric air entry and normal respiratory effort Abdominal: soft, nontender, nondistended. Positive Bowel sounds, no organomegaly appreciated Extremities: no edema, no clubbing or cyanosis Neuro: Alert and orient x 3. Moves all extremities well. No neurological deficits noted on exam. Gait not tested Data Review: CT RENAL STONE STUDY (ABDOMEN AND PELVIS W/O CONTRAST) Result Date: 09/04/2023 IMPRESSION: Grossly stable partly obstructive 4 mm calculus in the left ureteropelvic junction. This results in left hydroureter and mild minimally increased hydronephrosis. Additional nonobstructingcaliceal stones bilaterally. Small sliding hiatal hernia. Moderate fat containing ventral hernia. Likely at least moderate or possibly severe spinal canal stenosis at L1-L2 as described above. If clinically indicated this could be better evaluated with nonurgent lumbar spine MRI. US RETROPERITONEAL COMPLETE Result Date: 08/26/2023 Left nephrolithiasis and mild hydronephrosis with distended extrarenal pelvis. Electronically signed by: Kya Mojica M.D. Lab Results Component Value Date WBC 7.18 09/04/2023 HEMOGLOBIN 13.6 09/04/2023 HEMATOCRIT 39.5 09/04/2023 PLATELETCNT 257 09/04/2023 MCV 93.8 09/04/2023 Lab Results Component Value Date SODIUM 141 09/04/2023 POTASSIUM 4.0 09/04/2023 CHLORIDE 108 (H) 09/04/2023 CO2VEN 20 (L) 09/04/2023 ANIONGAP 17.0 09/04/2023 GLUCOSE 150 (H) 09/04/2023 BUN 15 09/04/2023 CREATININE 0.63 09/04/2023 BCRATIO8 24 (H) 09/04/2023 TOTALPROTEIN 7.1 09/04/2023 ALBUMIN 3.7 09/04/2023 CALCIUM 9.8 09/04/2023 TBIL 0.5 09/04/2023 SGOTAST 16 09/04/2023 SGPTALT 23 09/04/2023 ALKALINEPHO 97 09/04/2023 GFRNA >60 09/04/2023 GFRA >60 09/04/2023 No results found for: PHARTERIAL , PO2ART , IVK6XYZ , CO2ART , O2ART No results found for: CPK , CPKI , CKMB , CKMBNI , CKMBPOCT , CKMBRELINDX , TROPONINI , POCTRP No results found for: AMYL , AMYLASE No results found for: LIPASE No results found for: CHOLESTEROL , TRIGLYCRIDES , HDLCHOLESTE , LDL Assessment/Plan Patient Active Problem List Diagnosis Pacemaker GUY on CPAP Hypertension High cholesterol Gout Carcinoma (HCC) Asthma Arthritis Acid reflux A-fib (HCC) A-fib (HCC) Arrhythmia Plan: Arrhythmia-suspect paroxysmal atrial fibrillation Arrhythmias noted on the monitor postoperatively with ectopy EKG showed AV paced rhythm with PAC Will check routine labs including electrolytes troponin level Will monitor on telemetry overnight and consult Cardiology Consider echocardiogram Left Kidney stone Status post removal with stent placement 09/[address] Logan Postop per Urology Paroxysmal atrial fibrillation Status post ablation in 2010 Patient is being managed by EP Dr. Gomez Baltazar at [facility] Resume home Eliquis b.i.d. Resume home sotalol History of sick sinus syndrome Status post dual-chamber pacemaker placed in [address] Gomez Baltazar at [facility] Per chart review, patient does not have a General Cardiology Remote history of left breast cancer Status post a partial left mastectomy Hypertension/hyperlipidemia BP stable, resume home antihypertensives after meds reconciled GUY Uses nightly CPAP Advance Care Planning: Aggregate face to face time discussing end of life advance care planning with patient and/or family and/or Power of Chemical Processing Supervisor approximately 16 minutes. Discussed CPR/Intubation/Treatment Goals/Quality of life/Intensity of Care. Patient desires: Full Code VTE Prophylaxis: Patient Already on Oral Anticoagulation Treatment Team: Consulting Physician: Lance Cannon MD Thank you very much for allowing the [facility] Adult Hospitalist Service to participate in the care of this patient By: Dre Baltazar APRN, CNP, 09/17/2023, 5:16 PM CDT Primary Care Physician: YOHANNES ELISE MD Cosigned by Carlos Burrell MD at 09/18/2023 12:13 PM CDT Associated attestation - Carlos Burrell MD - 09/18/2023 12:13 PM CDT I collaborated in the care of this patient with the AUDITING CLERK/PA. I did not personally examine this patient. I agree with the AUDITING CLERK/PA???s findings and defer to the attached note, with any revisions noted below. * Clementina Logan MD - 09/17/2023 12:59 PM CDT Primary Care Physician: YOHANNES ELISE MD Chief Complaint: Left 4mm UPJ stone __ ASSESSMENT AND PLAN: This is a 73 y.o. female with left ureteral stone. Had an extensive discussionwith the patient about the risks, benefits, alternatives to surgery. This includes: Observation versus surgical stone extraction. We discussed risk of language includes that the patient would need a stent [...] injuries. We discussed and discomfort and pain afte rwards. Also, with each stone approach I stressed the risk of developing a ureteral stricture post operatively, risk of sepsis that could lead to or prolonged hospitalization (even in the setting of a negative urine culture), nerve injuries from positioning. I also stressed there is a risk ofneeding more than one procedure particularly if the stone is large or we cannot gain safe access tothe stone due to ureteral narrowing or anatomic variations. The patient expressed understanding. Patient consents to surgery. __ History of Present Illness: Adri Tristan is a 73 y.o. female seen for the evaluation and management of 4mm left UPJ stone Past Medical History Positives Diagnosis Date A-fib (HCC) Acid reflux Arthritis GENERALIZED Asthma Carcinoma (HCC) LEFT BREAST AND UTERUS Gout High cholesterol Hypertension GUY on CPAP Pacemaker right chest Past Surgical History: Procedure Laterality Date BREAST SURGERY Left 09/14/2006 CARPAL TUNNEL RELEASE Right 2002 CHOLECYSTECTOMY 1975 [facility] CATH CARDIAC ABLATION C1729 D 03/10/2010; 04/28/2010 HYSTERECTOMY 10/26/06 TOTAL LAP,INGUINAL HERNIA REPR,INITIAL Left 03/30/2011 UMBILICAL X2 OTHER SURGICAL HISTORY Left SKULL DUE TO TUMOR THAT ATE AWAY THE BONE PACEMAKER INSERTION Right 06/22/2012 Make: METRONIC; Model: Crewwtronic [id number] CapSureFix Novus PARTIAL HIP ARTHROPLASTY Right 06/19/2015 left also done on 01/13/23 TOTAL KNEE ARTHROPLASTY Left 09/30/2015 URETER STENT PLACEMENT Right 05/26/2022 Procedure: CYSTOSCOPY, RIGHT STENT INSERTION; Surgeon: Clementina Logan MD; [facility]: [facility] [facility]; Service: Urology URETEROSCOPY Right 05/26/2022 Procedure: RIGHT URETEROSCOPY WITH HOLMIUM LASER LITHOTRIPSY; Surgeon: Clementina Logan MD; Location: [facility]; Service: Urology Current Facility-Administered Medications Medication Dose Route Frequency Provider Last Rate Last Admin [START ON 09/24/2023] ceFAZolin (ANCEF) injection 2 g 2 g Intravenous Once Rajat Ramirez APRN, CNP Iopamidol (ISOVUE-300) 61 % injection 30 mL 30 mL Other Once Clementina Logan MD [START ON 09/24/2023] lactated ringers infusion 20 mL/hr Intravenous Continuous Rajat Ramirez APRN, CNP 20 mL/hr at 09/17/23 1046 20 mL/hr at 09/17/23 1046 Allergies Allergen Reactions Nitrofurantoin Diarrhea and Nausea Christopher Inhibitors Other (see Comments) and Unknown Erythromycin Unknown unsure what type of reaction Sulfa Antibiotics Vomiting Social History Socioeconomic History Marital status: Tobacco Use Smoking status: Former Current packs/day: 0.00 Types: Cigarettes Quit date: 1999 Years since quittin.5 Smokeless tobacco: Never Vaping Use Vaping status: Never Used Substance and Sexual Activity Alcohol use: Not Currently Drug use: Not Currently Sexual activity: Not Currently Family History Problem Relation Age of Onset Cancer Mother BREAST Cancer Father PROSTATE Heart Disease Father Heart Surgery Father REVIEW OF SYSTEMS: As per the HPI. All other systems were reviewed and issues relevant to chief complaint are negative. The complete REVIEW OF SYSTEMS, MEDICATION LIST and DRUG ALLERGIES, PAST MEDICAL HISTORY, FAMILY MEDICAL HISTORY and SOCIAL HISTORY are documented in detail and were reviewed with the patient. The patient was asked to review all abnormal responses not pertinent to today's visit with their primary care physician. PHYSICAL EXAMINATION: Constitutional: General appearance: Well nourished, well developed female in no acute distress. Appears stated age Eyes: EOMI, no scleral icterus Neurologic: Normal mood and affect. Respiratory: Normal respiratory effort. No use of accessory muscles Cardiovascular: No lower extremity edema. Extremities well perfused. Ears, Nose, Throat, Mouth: midline trachea, no thryomegaly. Soft, supple appearing. Skin: Warm and dry. Gastrointestinal: No masses. No abdominal tenderness. No hepatosplenomegaly. Psychiatry: Normal mood, alert and oriented documented in this encounter Consult Notes * [facility] - 09/18/2023 10:07 AM CDT CARDIOLOGY CONSULTATION NOTE Adri Tristan is a 73 y.o. female admitted 09/17/2023 10:17 AM (LOS: 23 hours) REASON FOR CONSULTATION arrhythmia HPI: Adri Tristan is a 73 y.o. female who presents with the above. She has a known history ofsick sinus syndrome s/p PPM, paroxysmal atrial fibrillation, breast cancer, hypertension, dyslipidemia, GUY who was admitted to observation. She was noted to have significant ectopy postoperatively. ECGs reviewed, AV paced rhythm with occasional PACs. Patient was admitted to telemetry, no overnight events. She denies any new symptoms. Past Medical/ Social/Family History: Medications Prior to Admission Medication Sig Dispense Refill albuterol 108 (90 Base) MCG/ACT Aerosol Solution take 2 Puffs by inhalation every 4 hours as needed. allopurinol (ZYLOPRIM) 300 MG Tablet 300 mg. apixaban (ELIQUIS) 5 MG Tablet Take 5 mg by mouth 2 times daily. Ascorbic Acid 500 MG Capsule CR 500 mg. atorvastatin (LIPITOR) 40 MG Tablet 80 mg every evening. azelastine (ASTELIN) 0.1 % Solution budesonide-formoterol fumarate (SYMBICORT) 160-4.5 MCG/ACT Aerosol inhale 2 puff by inhalation route 2 times every day in the morning and evening Calcium Carb-Cholecalciferol 600-20 MG-MCG Tablet cefUROXime (CEFTIN) 500 MG Tablet Take 500 mg by mouth. docusate sodium (Colace) 100 MG Capsule Take 1 Capsule by mouth 2 times daily. (Patient taking differently: Take 100 mg by mouth 2 times daily as needed.) 60 Capsule 0 ergocalciferol (VITAMIN D) 73164 UNIT Capsule Take 50,000 Units by mouth. famotidine (PEPCID) 10 MG Tablet Take 10 mg by mouth. fexofenadine (SOMMER) 60 MG Tablet Take by mouth. fluocinonide (LIDEX) 0.05 % Solution fluticasone (FLONASE) 50 MCG/ACT Suspension HYDROcodone-acetaminophen (NORCO) 5-325 MG Tablet Take 1-2 Tablets by mouth every 4 hours as neededfor Moderate or more severe pain. (Patient not taking: Reported on 09/08/2023) 15 Tablet 0 HYDROcodone-acetaminophen ([place]) 5-325 MG Tablet Take 1 Tablet by mouth every 6 hours as needed for Severe pain. 15 Tablet 0 irbesartan-hydroCHLOROthiazide (AVALIDE) 150-12.5 MG Tablet Take 1 Tablet by mouth daily. montelukast (SINGULAIR) 10 MG Tablet 10 mg. Multiple Vitamin (MULTIVITAMIN ADULT PO) niacin CR 250 MG Capsule CR Take 800 mg by mouth nightly. [place]-3 1400 MG Capsule Take by mouth. omeprazole (PriLOSEC) 10 MG CAPSULE DELAYED RELEASE 10 mg. oxybutynin (DITROPAN-XL) 10 MG TABLET SR 24 HR Take 1 Tablet by mouth daily. 30 Tablet 3 Semaglutide-Weight Management (WEGOVY SC) by Subcutaneous route. sotalol (BETAPACE) 160 MG Tablet Take 160 mg by mouth 2 times daily. traMADol (ULTRAM) 50 MG Tablet Take 1 [...] Medical History Positives Diagnosis Date A-fib (HCC) hx ablation in 2010 Acid reflux Arthritis GENERALIZED Asthma Carcinoma (HCC) LEFT BREAST AND UTERUS Gout High cholesterol Hypertension GUY on CPAP Pacemaker right chest, 2/2 to SSS Past Surgical History: Procedure Laterality Date BREAST SURGERY Left 09/14/2006 CARPAL TUNNEL RELEASE Right 2002 CHOLECYSTECTOMY 1976 HC CATH CARDIAC ABLATION C1729 D 03/10/2010; 04/28/2010 HYSTERECTOMY 10/26/06 TOTAL LAP,INGUINAL HERNIA REPR,INITIAL Left 03/30/2011 UMBILICAL X2 OTHER SURGICAL HISTORY Left SKULL DUE TO TUMOR THAT ATE AWAY THE BONE PACEMAKER INSERTION Right 06/22/2012 Make: METRONIC; Model: Medtronic [id number] CapSureFix Novus PARTIAL HIP ARTHROPLASTY Right 06/19/2015 left also done on 01/13/23 TOTAL KNEE ARTHROPLASTY Left 09/30/2015 URETER STENT PLACEMENT Right 05/26/2022 Procedure: CYSTOSCOPY, RIGHT STENT INSERTION; Surgeon: Clementina Logan MD; Location: [facility]; Service: Urology URETEROSCOPY Right 05/26/2022 Procedure: RIGHT URETEROSCOPY WITH HOLMIUM LASER LITHOTRIPSY; Surgeon: Clementina Logan MD; Location: [facility]; Service: Urology Social History Socioeconomic History Marital status: Spouse name: Not on file Number of children: Not on file Years of education: Not on file Highest education level: Not on file Occupational History Not on file Tobacco Use Smoking status: Former Current packs/day: 0.00 Types: Cigarettes Quit date: 1999 Years since quittin.5 Smokeless tobacco: Never Vaping Use Vaping status: Never Used Substance and Sexual Activity Alcohol use: Not Currently Drug use: Not Currently Sexual activity: Not Currently Other Topics Concern Not on file Social History Narrative Not on file Social Determinants of Health Financial Resource Needs: Patient Declined (09/18/2023) Overall Financial Resource Strain (CARDIA) Difficulty of Paying Living Expenses: Patient declined Food Insecurity Needs: Patient Declined (09/18/2023) Hunger Vital Sign Worried About Running Out of Food in the Last Year: Patient declined Ran Out of Food in the Last Year: Patient declined Transportation Needs: Patient Declined (09/18/2023) PRAPARE - Transportation Lack of Transportation (Medical): Patient declined Lack of Transportation (Non-Medical): Patient declined Physical Activity: Patient Declined (09/18/2023) Exercise Vital Sign Days of Exercise per Week: Patient declined Minutes of Exercise per Session: Patient declined Stress: Patient Declined (09/18/2023) Citizen Of The [place] [employer]ational [employer] - Occupational Stress Questionnaire Feeling of Stress : Patient declined Social Integration: Patient Declined (09/18/2023) Social Connection and Isolation Panel [NHANES] Frequency of Communication with Friends and Family: Patient declined Frequency of Social Gatherings with Friends and Family: Patient declined Attends Buddhism Services: Patient declined Active Member of Clubs or Organizations: Patient declined Attends Club or Organization Meetings: Patient declined Marital Status: Patient declined Intimate Partner Violence: Patient Declined (09/18/2023) Humiliation, Afraid, Rape, and Kick questionnaire Fear of Current or Ex-Partner: Patient declined Emotionally Abused: Patient declined Physically Abused: Patient declined Sexually Abused: Patient declined Housing Stability: Patient Declined (09/18/2023) Housing Stability Vital Sign Unable to Pay for Housing in the Last Year: Patient declined Number of Times Moved in the Last Year: 1 Homeless in the Last Year: Patient declined Family History Problem Relation Age of Onset Cancer Mother BREAST Cancer Father PROSTATE Heart Disease Father Heart Surgery Father Review of Systems: All systems were reviewed and are negative other than what is noted in HPI. Objective: BP 143/64 Pulse 110 Temp 98.1 ??F (36.7 ??C) (Tympanic) Resp 16 Ht 4' 11 (1.499 m) Wt 218 lb 1.6 oz (98.9 kg) SpO2 99% BMI 44.05 kg/m?? Physical Exam: General appearance: alert, no distress, cooperative, appears stated age Neurologic: Alert and oriented X 3. Lab Review: CBC: Lab Results Component Value Date WBC 12.64 (H) 09/18/2023 HEMOGLOBIN 14.7 09/18/2023 HEMATOCRIT 42.1 09/18/2023 PLATELETCNT 185 09/18/2023 BMP: Lab Results Component Value Date SODIUM 139 09/18/2023 POTASSIUM 4.0 09/18/2023 CHLORIDE 110 (H) 09/18/2023 CO2VEN 17 (L) 09/18/2023 GLUCOSE 176 (H) 09/18/2023 BUN 15 09/18/2023 CREATININE 0.64 09/18/2023 CREATININE 0.69 09/17/2023 CREATININE 0.63 09/04/2023 CALCIUM 9.8 09/18/2023 Coagulation: Lab Results Component Value Date INR 1.0 08/10/2023 Cardiac markers: No results found for: CPK , CKMB , CKMBPOCT , CKMBRELINDX , TROPONINI , POCTRP No results found for: CHOLESTEROL , TRIGLYCRIDES , HDLCHOLESTE , LDL Lab Results Component Value Date SGPTALT 23 09/04/2023 No results found for: BNP , BNPPOCT Assessment/ Plan: Adri Tristan is a 73 y.o. female who has a known history of sick sinus syndrome s/p PPM,paroxysmal atrial fibrillation, breast cancer, hypertension, dyslipidemia, GUY who was admitted to observation. She was noted to have significant ectopy postoperatively. ECGs reviewed, AV paced rhythm with occasional PACs. Patient was admitted to telemetry, no overnight events. No need to change medications. Patient can be discharged home to follow up with EP as an outpatient. See orders for recommended meds By: Dudley Luo MD, 09/18/2023, 10:07 AM CDT Primary Care Physician: YOHANNES ELISE MD documented in this encounter Nursing Notes * Rodney Longo RN - 09/17/2023 2:38 PM CDT WHO Safety Checklist Team Debriefing completed. Additional information discussed during debrief, inrelation to patient specific assessment, includes blood loss, glycemic control, pain management, and venous thromboembolism prophylaxis, as needed. All members of the surgical team participated in the debriefing process, and each records information as applicable in their respective areas of documen tation.Specimen Transported to [facility] by RODNEY LONGO RN. documented in this encounter OR Notes * OR Surgeon - Clementina Logan MD - 09/17/2023 2:54 PM CDT PHYSICIAN'S OPERATIVE NOTE Pre-Op Diagnosis: 1. Left nephrolithiasis Post-Op Diagnosis: 1. Left nephrolithiasis Procedure: 1. Cystourethroscopy 2. Left retrograde pyelogram with intraoperative fluoroscopic interpretation 3. Left semi-rigid and flexible ureteroscopy with laser lithotripsy and basket stone extraction 4. Placement of 6x24 JJ stent on left side Surgeon: Clementina Mauricio MD Crime Analyst: None Anesthesia: General Indications: This is a 73 y.o. female with a left 4mm ureteral stone. We plan for cystourethroscopy, retrograde pyelogram, ureteroscopy with laser lithotripsy and basket stone extraction with placement of JJ stent. Risks discussed including infection and sepsis, pain, bleeding, ureteral/urethral stricture development, ureteral injury/perforation, bladder injury, inability to complete the procedure, need for additional surgeries, DVT/PE, nerve/positioning injuries, and pain/discomfort from stentplacement were discussed. We discussed risks of urinary retention and ongoing symptoms. We also discussed the risk of needing additional surgery should there be residual stone fragments left behind. We focused on the risk of incomplete stone removal, need for additional stone surgeries, inability to complete the procedure at hand requiring placement of stent versus nephrostomy tube in particular.Lastly, we highlighted the importance of having the stent removed in a timely fashion to avoid incru station. Patient consents and agrees to procedure. Findings 1. Retrograde pyelogram with left ureter with no tortuosity. There is no hydronephrosis. There is afilling defect visualized. The stone was visualized on plain film. The calyces appear normal. 2. Semi-rigid and flexible ureteroscopy was performed which showed impacted proximal left ureteral stone that was grasped and fragmented with the laser and removed. No residual stone noted. 3. Placement of 6x24 JJ stent (left). Position confirmed fluoroscopically and under direct vision. Description of Procedure: After the patient was correctly identified and appropriately consented, the patient was taken to the operative suite and placed on the table in the supine position. Bilateral lower extremity SCD's were applied and functioning. General anesthesia was administered by the anesthesia team and IV antibiotics with cefazolin were administered. The patient was then repositioned to the dorsal lithotomy position with all pressure points were well padded and no compression of nerves was noted. The team agreed to the safety of positioning. The patient's lower abdomen, genitals, and perineum were prepped in the usual sterile fashion. The operative team paused for a preoperative time-out. The prep was all owed to dry to completion before starting the case. Sterile drapes were applied after prep had appropriately dried. A well lubricrated 21F rigid cystoscope was introduced transurethrally. The urethra appeared normalwith no strictures or lesions. Heard cystoscopy was performed which showed no bladder tumors or stones. Bilateral ureteral orifices were in their orthotopic position. The left ureteral orifice was identified. The Sensor wire was then guided to the upper pole and confirmed to be in the correct position fluoroscopically. Over a 2nd Sensor wire, a short rigid ureteral scope was atraumatically guided into the ureter. Care was taken not to traumatize the urothelium. The scope went up without resistance. The original wire was left in place as a safety wire. We then utilized the semi-rigid ureteroscope. The stone was visualized. A 200 nm laser fiber was used. The stone was dusted and fragmented to completion. A nitinol basket was then utlized and stone fragments were removed and sent for analysis. Then, using a flexible ureteroscope, we performed thorough nephroscopy after injecting additional contrast to provide us with a road map. No extravasation was seen. Each calyx was carefully examined and noted to be free of stone. The ureteroscope was then withdrawn and the ureter was carefully examined with no stone fragments noted. We then backloaded the wire on to the 21F rigid cystoscope. A 6x24 JJ stent was then back loaded onto the scope and advanced under fluoroscopy and direct visualization. The proximal curl was visualized in the upper pole with fluoroscopy. The distal curl was seen in the bladder. The bladder was deco mpressed and the scope was removed atraumatically. The patient was then returned to the supine position and awoken. All lines and tubes were functioning appropriately and was transferred to PACU in stable condition. Complications: none immediately apparent EBL: 0 mL Fluids: Per anesthesia records Drains/Tubes: 1. 6x24 stent Grafts/Implants: 1. None Condition: excellent Specimen: Left ureteral stone Disposition: 1. Stent for 2 weeks documented in this encounter Miscellaneous Notes * Interdisciplinary - Flory Smith RN - 09/18/2023 1:42 PM CDT Educated with AVS present. Education materials on heart healthy and DASH diet given per pt request.Telemetry and IV removed. Taken by wheel chair to family car at main entrance. No Distress noted. * Interdisciplinary - Hanh Shepherd RRT - 09/18/2023 9:14 AM CDT Respiratory Therapy Assessment And Education Points 0 1 2 3 4 Score Pulmonary History No Smoking Smokes <1 ppd Smokes 1 ppd or more Pulmonary impairment (acute or chronic) Severe or Chronic exacerbation 3 Surgical Status None General Surgery Lower Abdominal Surgery Thoracic or Upper Abdominal Surgery Thoracic with Pulmonary Disease 0 CXR (from last 24 hrs) Clear Unavailable Infiltrates, Atelectasis or Pleural effusion Infiltrates in more than 1 lobe Infiltrates plus Atelectasis or Pleural effusion 1 Respirations Regular Pattern, RR 8-20 Increased, RR 21-25 Dyspnea on exertion, irregular pattern, RR 26-30 Use of accessory muscles, prolonged expiration, RR 31-35 Severe SOB with use of accessory muscles, RR >35 0 BS Clear Diminished Unilaterally Diminished Bilaterally Crackles in Bases Wheezing and/or Rhonchi 0 Cough Strong, Non- productive cough Strong, productive cough Weak, Non- productive cough Weak, productive cough No cough, may require suctioning 0 Mental status Alert and oriented Lethargic, follows commands Confused, does not follow commands Obtunded Comatose 0 Level of Activity Ambulatory Ambulatory with assistance Temporarily non-Ambulatory Bed rest, able to position self Bed rest, unable to position self 1 O2 required to keep SpO2 >=92% (or ordered goal) None 1-3 L/M or FiO2 25-35% 4-6 L/M or FiO2 35-50% >50% 100% 0 Total Score 5 Treatment Scoring Guide Frequency Utilize ORDER SET for all changes Severity Level 5 > 20 points Q2 and Q4 Albuterol Q2 and Ipratropium Q4 *Discontinue previous orders* Severity Level 4 16-20 points Q4 and PRN Duoneb Q4 and Albuterol Q2 PRN *Discontinue previous orders* Severity Level 3 11-15 points QID and PRN Duoneb QID and Albuterol Q4 PRN *Discontinue previous orders* Severity Level 2 6-10 points TID and Q6 PRN Albuterol only *Discontinue previous orders* Severity Level 1 0-5 points Q6 PRN Albuterol only *Discontinue previous orders* Home Regimen Home medication orders As per reconciled home medications Patient RTA Severity Level Is: 1 Patient Progression Since Admission: not changed Treatment Plan Adjusted: No: Education Documented (within Education Tab): Yes Education Provided To: patient Comments: na By: HANH SHEPHERD, GRACE; 09/18/2023, 9:14 AM CDT * Plan of Care - Naye Amin RN - 09/18/2023 2:55 AM CDT Problem: Adult Inpatient Plan of Care Goal: Plan of Care Review Outcome: Ongoing (see interventions/notes) Flowsheets (Taken 09/18/2023 0254) Plan of Care Reviewed With: patient Progress: progress toward functional goals as expected Today's Goal: no pain this shift. Outcome Evaluation: Patient has had no complaints of pain this shift. patient educated to let nursing staff know if pain is present . IV fluids infusing without difficulty. no s/s of any distress noted. call light in reach. Does the patient need assistance with discharge and/or transitioning to the next level of care?: No, no needs anticipated Goal: Optimal Comfort and Wellbeing Outcome: Ongoing (see interventions/notes) Intervention: Monitor Pain and Promote Comfort Flowsheets (Taken 09/17/2023 1950) Pain Management Interventions: care clustered pain management plan reviewed with patient/caregiver pillow support provided position adjusted relaxation techniques promoted quiet environment facilitated Intervention: Provide Person-Centered Care Flowsheets (Taken 09/17/20231949) Trust Relationship/Rapport: care explained choices provided emotional support provided empathic listening provided questions answered questions encouraged nonverbal communication acknowledged safe/supportive environment facilitated thoughts/feelings acknowledged respect patient/family decisions provided reassurance provided therapeutic presence provided Goal: Readiness for Transition of Care Outcome: Ongoing (see interventions/notes) Problem: Surgery Nonspecified Goal: Anesthesia/Sedation Recovery Outcome: Ongoing (see interventions/notes) Intervention: Optimize Anesthesia Recovery Flowsheets Taken 09/18/2023253 Reorientation Measures: clock in view Taken 09/17/20231949 Safety Promotion/Fall Prevention: bed alarm environmental modification fall reduction program maintained nonskid shoes/slippers when out of bed lighting adjusted for task/safety low bed Problem: Fall Injury Risk Goal: Absence of Fall and Fall-Related Injury Outcome: Ongoing (see interventions/notes) Intervention: Identify and Manage Contributors Flowsheets Taken 09/18/2023253 Self-Care Promotion: independence encouraged BADL personal objects within reach BADL personal routines maintained Taken 09/17/20231949 Medication Review/Management: medications reviewed Intervention: Promote Injury-Free Environment Flowsheets (Taken 09/17/20231949) Safety Promotion/Fall Prevention: bed alarm environmental modification fall reduction program maintained nonskid shoes/slippers when out of bed lighting adjusted for task/safety low bed * Interdisciplinary - Socorro Pena, RT - 09/17/2023 11:34 PM CDT Respiratory Therapy Assessment And Education Points 0 1 2 3 4 Score Pulmonary History No Smoking Smokes <1 ppd Smokes 1 ppd or more Pulmonary impairment (acute or chronic) Severe or Chronic exacerbation 3 Surgical Status None General Surgery Lower Abdominal Surgery Thoracic or Upper Abdominal Surgery Thoracic with Pulmonary Disease 0 CXR (from last 24 hrs) Clear Unavailable Infiltrates, Atelectasis or Pleural effusion Infiltrates in more than 1 lobe Infiltrates plus Atelectasis or Pleural effusion 1 Respirations Regular Pattern, RR 8-20 Increased, RR 21-25 Dyspnea on exertion, irregular pattern, RR 26-30 Use of accessory muscles, prolonged expiration, RR 31-35 Severe SOB with use of accessory muscles, RR >35 0 BS Clear Diminished Unilaterally Diminished Bilaterally Crackles in Bases Wheezing and/or Rhonchi 0 Cough Strong, Non- productive cough Strong, productive cough Weak, Non- productive cough Weak, productive cough No cough, may require suctioning 0 Mental status Alert and oriented Lethargic, follows commands Confused, does not follow commands Obtunded Comatose 0 Level of Activity Ambulatory Ambulatory with assistance Temporarily non-Ambulatory Bed rest, able to position self Bed rest, unable to position self 1 O2 required to keep SpO2 >=92% (or ordered goal) None 1-3 L/M or FiO2 25-35% 4-6 L/M or FiO2 35-50% >50% 100% 0 Total Score 4 Treatment Scoring Guide Frequency Utilize ORDER SET for all changes Severity Level 5 > 20 points Q2 and Q4 Albuterol Q2 and Ipratropium Q4 *Discontinue previous orders* Severity Level 4 16-20 points Q4 and PRN Duoneb Q4 and Albuterol Q2 PRN *Discontinue previous orders* Severity Level 3 11-15 points QID and PRN Duoneb QID and Albuterol Q4 PRN *Discontinue previous orders* Severity Level 2 6-10 points TID and Q6 PRN Albuterol only *Discontinue previous orders* Severity Level 1 0-5 points Q6 PRN Albuterol only *Discontinue previous orders* Home Regimen Home medication orders As per reconciled home medications Patient RTA Severity Level Is: level 1 per protocol Patient Progression Since Admission: not changed Treatment Plan Adjusted: Yes Education Documented (within Education Tab): Yes Education Provided To: patient Comments: no changes needed at this time By: SOCORRO PENA, RT; 09/17/2023, 11:35 PM CDT * Interdisciplinary - Flory Smith RN - 09/17/2023 5:58 PM CDT Pt AO4. Up to restroom with SBA. Urinating with no issues. No complaints of pain. Labs drawn, telemetry in place. Will continue to monitor. VSS. * Interdisciplinary - Flory Smith RN - 09/17/2023 4:05 PM CDT Initial Skin Assessment Patient assessed with 2nd RN antonella Sy noted: none PRESSURE INJURY AND MOISTURE MANAGEMENT RECOMMENDATIONS: Moisture Management: Patient is Continent and has no moisture problems at this time Pressure Injury Prevention Interventions: Patient is independent in Room and/or Bed Specialty Surface Selection: Moisture Score: 4-->rarely moist Mobility Score: 3-->slightly limited Total Param Score: 21 Patient has intact skin on the pelvis and trunk: Bed Selection based on Param Moisture and Mobility: Moisture 4: Mobility 3 or 4: No Specialty Bed Indicated Wound care: N/A FLORY SMITH RN '2 * Plan of Care - Ines Randolph RN - 09/17/2023 2:36 PM CDT Patient will be discharged from PACU when criteria has been met. * Plan of Care - Krystle Trujillo RN - 09/17/2023 10:21 AM CDT Problem: Adult Inpatient Plan of Care Goal: Plan of Care Review Outcome: Ongoing (see interventions/notes) Flowsheets (Taken 09/17/2023 1020) Plan of Care Reviewed With: patient family Progress: progress toward functional goals as expected Today's Goal: to discharge home Outcome Evaluation: ready for or Does the patient need assistance with discharge and/or transitioning to the next level of care?: No, no needs anticipated Goal: Optimal Comfort and Wellbeing Outcome: Ongoing (see interventions/notes) Intervention: Provide Person-Centered Care Flowsheets (Taken 09/17/2023 1020) Trust Relationship/Rapport: care explained choices provided Goal: Readiness for Transition of Care Outcome: Ongoing (see interventions/notes) Intervention: Mutually Develop Transition Plan Flowsheets (Taken 09/17/2023 1020) Readmission Within the Last 30 Days: no previous admission in last 30 days Problem: Surgery Nonspecified Goal: Anesthesia/Sedation Recovery Outcome: Ongoing (see interventions/notes) Intervention: Optimize Anesthesia Recovery Flowsheets (Taken 09/17/2023 1020) Safety Promotion/Fall Prevention: low bed nonskid shoes/slippers when out of bed * Interdisciplinary - Billie Barrett RN - 09/17/2023 8:13 AM CDT Called patient's cardiology department at [phone] and requested most resent pacemaker settings. Lizzy at office stated she would fax it over this morning. * Interdisciplinary - Valerie Lagunas RN - 09/16/2023 1:56 PM CDT Confirmed with patient that her procedure date is moved up to tomorrow 09/17/2023 with arrival time of 1030. * Jamari - Shelly Escobar RN - 09/08/2023 3:44 PM CDT Images from the original note were not included. PLEASE READ THIS IMPORTANT INFORMATION Currently, your procedure is scheduled for SEPTEMBER 23 You will need to arrive at 10:00 a.m. (Should there be a change in your arrival time, you will be notified the weekday prior to your surgery date). You will be receiving: [] LOCAL [] MONITORED SEDATION [] SPINAL [x] GENERAL And/or anesthetic. IN ADVANCE OF YOUR SURGERY DAY COMPLETE Pre-Procedure testing: NONE [] Lab [] EKG [] X-RAY [] URINE These need to be completed at [facility], Wednesday - Wednesday from 0700 am - 3 pm. Report to the registration desk. Bring your photo ID and insurance card. ARRANGE DIRECTOR QUALITY ASSURANCE- For your safety, after having anesthesia, You must have an adult taxi driver supervisor (18 yrs or older) arranged in advance of your procedure who can listen to your discharge instructions with you and can stay with you if needed for 24 hrs following your procedure. If you are using public transportation, you must have an adult, you know, ( 18 yrs or older) to accompany you. STOP MEDICATIONS PER YOUR SURGEONS ORDERS NONE / days /____ days / days / ____days HOLD Herbal supplements, Multivitamins, Vitamin E, and Fish Oil Omegas for 3 days prior to the procedure. DO NOT: Smoke, vape, chew or drink alcohol for 24 hours prior to the procedure Shave the operative site Bring any valuables or money with you Wear makeup or jewelry. Remove all body piercings FAILURE TO FOLLOW THE ABOVE INSTRUCTIONS IN ADVANCE MAY RESULT IN CANCELLATION OF YOUR PROCEDURE ONTHE DAY OF. ON THE DAY OF SURGERY NOTHING TO EAT OR DRINK FOR 8 HRS PRIOR TO ARRIVAL TIME ON YOUR PROCEDURE DATE! NO GUM, MINTS, WATER, ETC. FAILURE TO FOLLOW THESE INSTRUCTIONS MAY CAUSE YOUR PROCEDURE TO BE CANCELLED FOR YOUR SAFETY. Please take the following medications with a sip of water before coming to the hospital on the day of your surgery: You may take Tylenol the day of Surgery SOTALOL, FAMOTIDINE Please bring your rescue inhaler, if you have one. You may use your inhaler or nasal spray. DO: Bathe or shower the night before or the day of your procedure Your Doctor's office may give you special cleansers with instructions Wear comfortable clothes that are easy to change in and out of. Wear safe non-slip shoes Bring a list of current medications, including and any [id number] medications and supplements(such as herbs and essential oils) with dosages and how often you take them. Bring CPAP machine if you have sleep apnea and will be staying overnight. Note children under 16 must be accompanied by a parent or legal guardian in the hospital at all times. Report to Registration Upon Arrival Please enter through the EMERGENCY ENTRANCE DOORS if arriving prior to 8 AM or you are in need of awheelchair. If arriving after 8 AM, enter through the FRONT ENTRANCE DOORS and follow the benavidez to your right until you reach the registration. Bring your Photo ID and Insurance card. After you are checked in, Registration will direct you to the elevator which will take you to Day Surgery located ont 4th floor. Please call Pre-Surgical Testing, if you have any questions or concerns regarding Pre- Surgical instructions- Wednesday thru Wednesday, 08:30- 4 pm IF YOU EXPERIENCE SIGNS OR SYMPTOMS OF ILLNESS PRIOR TO YOUR SCHEDULED PROCEDURE OR IF YOU CAN'T KEEP YOUR APPOINTMENT, PLEASE CALL YOUR PROCEDURAL DOCTOR'S OFFICE. DO NOT CALL PRE- SURGICAL TESTING. Thank you for selecting [facility] ([facility]) for your procedure.We know you have a choice for your healthcare and we are pleased to provide you with this service. Our [facility] [place] [facility] is to: Serve with the Greatest Care and Love . We are not employees of [facility], we are [facility] [employer] driven to provide care based on our [place], Vision and Values. Please do not hesitate to let us know if you have any questions or concerns. May God Bless you and we look forward to serving you. Your Perioperative Team. documented in this encounter Plan of Treatment Upcoming Encounters Date Type Department Care Team (Late st Contact Info) Description 12/29/2024 9:00 AM CDT Office Visit [facility] [address] [place] [address] Clementina Logan MD [address] [facility], [address] [address] Scheduled Orders Name Type Priority Associated Diagnoses Orde r Schedule Pulse Oximetry, Spot PFT Routine WITH VITALS until discontinued starting 09/17/2023 documented as of this encounter Procedures Procedure Name Priority Date/Time Associated Diagnosis Comments CBC WITH AUTO DIFFERENTIAL Routine 09/18/2023 4:42 AM CDT COMPLETE BLOOD COUNT (CBC) WITH DIFF Routine 09/18/2023 4:42 AM CDT BASIC METABOLIC PANEL W/ CALCIUM TOTAL Routine 09/18/2023 4:42 AM CDT RHYTHM STRIP 09/18/2023 12:00 AM CDT RHYTHM STRIP 09/18/2023 12:00 AM CDT MDI TREATMENT RT-INITIAL Routine 09/17/2023 11:37 PM CDT TROPONIN I, HIGH SENSITIVITY (HSTRP) STAT 09/17/2023 5:56 PM CDT CBC WITH AUTO DIFFERENTIAL STAT 09/17/2023 5:56 PM CDT PHOSPHORUS (PO4) STAT 09/17/2023 5:56 PM CDT MAGNESIUM (MG) STAT 09/17/2023 5:56 PM CDT COMPLETE BLOOD COUNT (CBC) WITH DIFF STAT 09/17/2023 5:56 PM CDT BASIC METABOLIC PANEL W/ CALCIUM TOTAL STAT 09/17/2023 5:56 PM CDT EKG 12 LEAD STAT 09/17/2023 3:29 PM CDT XR RETROGRADE PYELOGRAM Routine 09/17/2023 2:46 PM CDT PATHOLOGY SURGICAL Routine 09/17/2023 2: 21 PM CDT CYSTOSCOPY RETROGRADE PYELOGRAMS 09/17/2023 1:38 PM CDT LEFT URETERAL STONE Case Notes PATIENT HAS A PACEMAKER. SHE HAS APPOINTMENT ON 09/[address] ELISE FOR SURGICAL CLEARANCE - 09/15 - RECEIVED NEW BOOKING FORM MOVING CASE FROM 09/23 TO 09/16 Special Needs 4'11 215lbs afib with Eliquis use (ok to stay on per Dr. Logan) clearance appt sched for 09/12, pacemaker (settings under media dated 05/26/22, asthma, GUY with home CPAP. CYSTOSCOPY STENT INSERTION (SINGLE / BILATERAL) 09/17/2023 1:38 PM CDT LEFT URETERAL STONE Case Notes PATIENT HAS A PACEMAKER. SHE HAS APPOINTMENT ON 09/[address] ELISE FOR SURGICAL CLEARANCE - 09/15 - RECEIVED NEW BOOKING FORM MOVING CASE FROM 09/23 TO 09/16 Special Needs 4'11 215lbs afib with Eliquis use (ok to stay on per Dr. Logan) clearance appt sched for 09/12, pacemaker (settings under media dated 05/26/22, asthma, GUY with home CPAP. URETEROSCOPY WITH HOLMIUM LASER 09/17/2023 1:38 PM CDT LEFT URETERAL STONE Case Notes PATIENT HAS A PACEMAKER. SHE HAS APPOINTMENT ON 09/[address] ELISE FOR SURGICAL CLEARANCE - 09/15 - RECEIVED NEW BOOKING FORM MOVING CASE FROM 09/23 TO 09/16 Special Needs 4'11 215lbs afib with Eliquis use (ok to stay on per Dr. Logan) clearance appt sched for 09/12, pacemaker (settings under media dated 05/26/22, asthma, GUY with home CPAP. RHYTHM STRIP 09/17/2023 12:00 AM CDT RHYTHM STRIP 09/17/2023 12:00 AM CDT EKG SCAN 09/17/2023 12:00 AM CDT documented in this encounter Results * (ABNORMAL) CBC with Auto Differential (09/18/2023 4:42 AM CDT) Only the most recent of2 resultswithin the time period is included. WBC 12.64(H) 4.00 - 12.00 10(3)/mcL 09/18/2023 5:19 AM CDT [facility] RBC 4.48 3.80 - 5.30 10(6)/mcL 09/18/2023 5:19 AM CDT [facility] HEMOGLOBIN (HGB) 14.7 12.0 - 15.8 g/dL 09/18/2023 5:19 AM CDT [facility] HEMATOCRIT (HCT) 42.1 36.0 - 47.0 % 09/18/2023 5:19 AM CDT [facility] MCV 94.0 82.0 - 96.0 fL 09/18/2023 5:19 AM CDT [facility] MCH 32.8 26.0 - 34.0 pg 09/18/2023 5:19 AM CDT [facility] MCHC 34.9 31.0 - 36.0 g/dL 09/18/2023 5:19 AM CDT [facility] PLATELET COUNT 185 140 - 440 10(3)/mcL 09/18/2023 5:19 AM CDT [facility] RDW 12.9 11.8 - 15.5 % 09/18/2023 5:[address] [facility] MPV 9.6(L) 9.7 - 12.4 fL 09/18/2023 5:[address] [facility] NEUTROPHILS 88.8(H) 47.0 - 73.0 % 09/18/2023 5:[address] [facility] LYMPHOCYTES 7.8(L) 18.0 - 42.0 % 09/18/2023 5:[address] [facility] MONOCYTES 3.1(L) 4.0 - 12.0 % 09/18/2023 5:[address] [facility] EOSINOPHILS 0.1 0.0 - 5.0 % 09/18/2023 5:19 AM CDT [facility] BASOPHILS 0.2 0.0 - 1.0 % 09/18/2023 5:[address] [facility] ABSOLUTE NEUTROPHILS 11.23(H) 1.60 - 7.70 10(3)/mcL 09/18/2023 5:19 AM CDT [facility] ABSOLUTE LYMPHOCYTES 0.99(L) 1.30 - 3.20 10(3)/mcL 09/18/2023 5:19 AM CDT [facility] ABSOLUTE MONOCYTES 0.39 0.20 - 1.00 10(3)/mcL 09/18/2023 5:19 AM CDT [facility] ABSOLUTE EOSINOPHIL 0.01 0.00 - 0.40 10(3)/mcL 09/18/2023 5:19 AM CDT [facility] ABSOLUTE BASOPHILS 0.02 0.00 - 0.10 10(3)/mcL 09/18/2023 5:19 AM CDT [facility] NRBC PER 100 WBC 0 09/18/19 5:19 AM CDT [facility] Blood Venipuncture / Unknown 09/18/2023 4:42 AM CDT 09/18/2023 5:10 AM CDT us Dre Baltazar AUDITING CLERK, EXCHANGE ARCHITECT HEMATOLOGY ORDERABLES F inal Result [facility] [address] [place] [address] * (ABNORMAL) BMP with Ca, Total (09/18/2023 4:42 AM CDT) Only the most recent of2 resultswithin the time period is included. SODIUM 139 136 - 145 mmol/L 09/18/2023 5:[address] [facility] POTASSIUM 4.0 3.5 - 5.1 mmol/L 09/18/2023 5:[address] [facility] CHLORIDE 110(H) 98 - 107 mmol/L 09/18/2023 5:[address] [facility] CO2, VENOUS 17(L) 22 - 30 mmol/L 09/18/2023 5:[address] [facility] ANION GAP 16.0 <18.0 mmol/L 09/18/2023 5:[address] [facility] GLUCOSE 176(H) 70 - 99 mg/dL 09/18/2023 5:38 AM CDT [facility] BUN 15 10 - 20 mg/dL 09/18/2023 5:[address] [facility] CREATININE, BLOOD 0.64 0.60 - 1.00 mg/dL 09/18/2023 5:38 AM CDT [facility] BUN/CREATININE RATIO 23(H) 12 - 20 ratio 09/18/2023 5:38 AM CDT [facility] CALCIUM 9.8 8.7 - 10.5 mg/dL 09/18/2023 5:38 AM CDT [facility] GFR, ESTIMATED >60 >=60 09/18/2023 5:38 AM CDT [facility] Comment: Creatinine Clearance is the preferred criteria for selecting drug dose adjustments in renally impaired patients. ??The GFR is provided as additional pertinent clinical information. GFR is reported in mL/min/1.73 sq m. Calculation based on the Chronic Kidney Disease Epidemiology Collaboration (CKD- EPI) equation refit without adjustment for race. GFR, EST. >60 >=60 024 5:38 AM CDT [facility] GFR, EST. NONAFRICAN >60 >=60 09/18/2023 5:38 AM CDT [facility] Blood Venipuncture / Unknown 09/18/2023 4:42 AM CDT 09/18/2023 5:10 AM CDT us Dre Baltazar AUDITING CLERK, EXCHANGE ARCHITECT CHEMISTRY ORDERABLES Fi nal Result Performing Organization Address City/[facility]/ZIP Co de Phone Number [facility] [address] [place] [address] * RHYTHM STRIP (09/18/2023 12:00 AM CDT) Only the most recent of4 resultswithin the time period is included. 09/18/2023 us Provider Scan IMG ECG ORDERABLES Final Result RESULTING AGENCY * TROPONIN I, HIGH SENSITIVITY (HSTRP) (09/17/2023 5:56 PM CDT) TROPONIN I, HIGH SENSITIVITY- [place] <3 <=14 ng/L 09/17/2023 6:26 PM CDT [facility] Comment: High-sensitivity troponin I results are reported in ng/L making the result appear to be 1,000 times higher than the contemporary troponin I value which is reported in ng/ml. Results from [place]. Blood Venipuncture / Unknown 09/17/2023 5:56 PM CDT 09/17/2023 6:01 PM CDT Dre Baltazar APRN, EXCHANGE ARCHITECT CHEMISTRY ORDERABLES Fi nal Result Performing Organization Address [facility]/ZIP Co de Phone Number [facility] [address] [place] [address] * PHOSPHORUS (PO4) (09/17/2023 5:56 PM CDT) PHOSPHORUS 2.8 2.5 - 4.5 mg/dL 09/17/2023 6:21 PM CDT [facility] Blood Venipuncture / Unknown 09/17/2023 5:56 PM CDT 09/17/2023 6:01 PM CDT Dre Baltazar APRN, EXCHANGE ARCHITECT CHEMISTRY ORDERABLES Fi nal Result Performing Organization Address [facility]/ZIP Co de Phone Number [facility] [address] [place] [address] * MAGNESIUM (MG) (09/17/2023 5:56 PM CDT) MAGNESIUM 2.0 1.6 - 2.6 mg/dL 09/17/2023 6:21 PM CDT [facility] Blood Venipuncture / Unknown 09/17/2023 5:56 PM CDT 09/17/2023 6:01 PM CDT Dre Baltazar APRN, EXCHANGE ARCHITECT CHEMISTRY ORDERABLES Fi nal Result [facility] [address] [facility] [place] [address] * EKG 12 LEAD (09/17/2023 3:29 PM CDT) Ventricular Rate 72 BPM EXTERNAL EKG Atrial Rate 72 BPM EXTERNAL EKG P-R Interval 176 ms EXTERNAL EKG QRS Duration 150 ms EXTERNAL EKG Q-T Duration 442 ms EXTERNAL EKG QTC CALCULATION 483 ms EXTERNAL EKG P Leland -9 degrees EXTERNAL EKG R Leland -66 degrees EXTERNAL EKG T Leland 56 degrees EXTERNAL EKG 09/17/2023 3:29 PM CDT Impressions EXTERNAL EKG - 09/22/2023 11:50 AM CDT AV dual-paced rhythm with frequent atrial-paced complexes and premature atrial complexes with aberrant conduction Abnormal ECG When compared with ECG of 20-MAY-2022 14:17, ventricular-paced complexes noew present Confirmed by Josselin Lee ([id number]) on 09/22/2023 11:50:09 AM Narrative Procedure Note Josselin Lee MD PhD - 09/22/2023 IMPRESSION: AV dual-paced rhythm with frequent atrial-paced complexes and prematureatrial complexes with aberrant conduction Abnormal ECG When compared with ECG of 20-MAY-2022 14:17, ventricular-paced complexes noew present Confirmed by Josselin Lee ([id number]) on 09/22/2023 11:50:09 AM us Ezra Will APRN, STEPHAN IMG ECG ORDERABLES Final Result EXTERNAL EKG * XR RETROGRADE PYELOGRAM (09/17/2023 2:46 PM CDT) us Clementina Mauricio MD IMG FLUOROSCOPY ORDERABLES Fin al Result * Pathology Surgical (09/17/2023 2:21 PM CDT) Case Report Surgical Pathology Report ? Case: [id number] ? Authorizing Provider: ??Clementina Logan MD ?Collected: ? 09/17/2023 02:21 PM ? Ordering Location: ? [facility] ? Received: ?09/20/2023 08:38 AM ? [facility] ? Main OR ? Pathologist: ? More Cobos MD PhD ? Specimen: ?Stone, LEFT URETERAL STONES ? 09/21/2023 8:33 AM CDT [facility] FINAL DIAGNOSIS Calculus, left ureteral, removal: - Nephrolithiasis (gross examination only). 09/21/2023 8:33 AM CDT [facility] Pre-Operative Diagnosis LEFT URETERAL STONE 09/21/2023 8:33 AM CDT [facility] Gross Description A. LEFT URETERAL STONES Specimen is received fresh labeled with the patient's name, Adri Tristan, and designated as left ureteral stone. The specimen consists of several small round black calculi ranging in size from less than 0.1 up to 0.3 cm in total dimensions. No soft tissue is present within the container. The specimen is forwarded to a reference laboratory for crystallographic examination. This is for gross dictation only. MH/sb 09/21/2023 8:33 AM CDT [facility] Tissue STONE - BODY MATERIAL / Unknown 09/17/2023 2:21 PM CDT 09/20/2023 8:38 AM CDT Clementina Mauricio MD PATHOLOGY/CYTOLOGY ORDERABLES Final Result [facility] [address] [place] [address] * EKG SCAN (09/17/2023 12:00 AM CDT) 09/17/2023 us Provider Scan IMG ECG ORDERABLES Final Result RESULTING AGENCY documented in this encounter Visit Diagnoses Diagnosis Arrhythmia- Primary Cardiac dysrhythmia, unspecified Kidney stone Calculus of kidney Asthma Unspecified asthma Pacemaker Cardiac pacemaker in situ GUY on CPAP Obstructive sleep apnea (adult) (pediatric) Hypertension Unspecified essential hypertension High cholesterol Pure hypercholesterolemia Gout Gout, unspecified Carcinoma (HCC) Other malignant neoplasm without specification of site Asthma Unspecified asthma Arthritis Arthropathy, unspecified, site unspecified Acid reflux Esophageal reflux A-fib (HCC) Atrial fibrillation documented in this encounter Admitting Diagnoses Diagnosis Arrhythmia Cardiac dysrhythmia, unspecified documented in this encounter Administered Medications Inactive Administered Medications - up to 3 most recent administrations Medication Order MAR Action Action Date Dose Rate Site 0.9 % sodium chloride solution at 100 mL/hr, Intravenous, CONTINUOUS, Starting on Wed09/17/23 at 1730, Until 09/18/23 at 1604 New Bag 09/17/2023 6:24 PM CDT 100 mL/hr acetaminophen (TYLENOL) suppository 650 mg 650 mg, Rectal, EVERY 4 HOURS PRN, Starting on Wed09/17/23 at 1709, Until 09/18/23 at 1604, Mild pain or more severe pain if patient requests, Fever, If patient is taking oral intake without complications and both PO/PA orders are active, administer through the oral route. acetaminophen (TYLENOL) tablet 650 mg 650 mg, Oral, EVERY 4 HOURS PRN, Starting on Wed09/17/23 at 1709, Until 09/18/23 at 1604, Mild pain or more severe pain if patient requests, Fever, If patient is taking oral intake without complications and both PO/PA orders are active, administer through the oral route. Given 09/18/2023 4:04 AM CDT 650 mg albuterol (PROVENTIL, VENTOLIN) (2.5 MG/3ML) 0.083% nebulizer solution 2.5 mg 2.5 mg, Nebulization, EVERY 6 HOURS PRN, Starting on Wed09/17/23 at 2336, Until 09/18/23 at 1604, Wheezing, 1. For RTA Severity Level 1 2. Discontinue all albuterol and ipratropium ORDERS AND ORDER SET if assessment results for 2 consecutive days has been a level 1 and no PRN treatments have been administered in the same time period. 3. A new physician order is required to resume order set once discontinued.Indications:Asth ma allopurinol (ZYLOPRIM) tablet 300 mg 300 mg, Oral, DAILY, First dose on Wed09/17/23 at 1800, Until Discontinued Given 09/18/2023 8:12 AM CDT 300 mg Given 09/17/2023 6:24 PM CDT 300 mg apixaban (ELIQUIS) tablet TABS 5 mg 5 mg, Oral, 2 TIMES DAILY, First dose on Wed09/17/23 at 2100, Until DiscontinuedIndications:Atrial Fibrillation Given 09/18/2023 8:12 AM CDT 5 mg Given 09/17/2023 8:36 PM CDT 5 mg atorvastatin (LIPITOR) tablet 80 mg 80 mg, Oral, EVERY EVENING, First dose on Wed09/17/23 at 1800, Until Discontinued Given 09/17/2023 6:24 PM CDT 80 m g budesonide-formoterol fumarate (SYMBICORT) 160-4.5 MCG/ACT inhaler AERO 2 Puff 2 Puff, Inhalation, 2 TIMES DAILY, First dose on Wed09/17/23 at 2100, Until Discontinued, For disposal of medication AND containers- bag and return to Pharmacy Given 09/18/2023 7:54 AM CDT 2 Puf fs Given 09/17/2023 8:51 PM CDT 2 Puffs calcium carbonate (TUMS) chewable tablet 1,000 mg 1,000 mg, Oral, EVERY 8 HOURS PRN, Starting on Wed09/17/23 at 1708, Until 09/18/23 at 1604, Heartburn, Indigestion famotidine (PEPCID) tablet 10 mg 10 mg, Oral, DAILY, First dose on Wed09/18/23 at 0900, Until Discontinued, Indications: Symptomatic Gastroesophageal Reflux DiseaseIndications:Symptomatic Gastroesophageal Reflux Disease Given 09/18/2023 8:12 AM CDT 10 mg fluticasone (FLONASE) nasal spray 2 [place] 2 [place], Nasal, DAILY, First dose on Wed09/17/23 at 1800, Until Discontinued, Dose is for each nostril. Given 09/18/2023 8:12 AM CDT 2 Sprays HYDROcodone-acetaminophen (NORCO) 5-325 MG per tablet 1 Tablet 1 Tablet, Oral, EVERY 4 HOURS PRN, Starting on Wed09/17/23 at 1709, Until 09/18/23 at 1604, Moderate pain or more severe pain if patient requests, Maximum dose of acetaminophen is 4000 mg from all sources in 24 hours.If pain not effectively managed, then contact provider to discuss possibly 1) adding scheduled opioid dosing or non-opioid pain treatments, 2) increasing dosage, or 3) changing to HOME PARAPROFESSIONAL. lactated ringers infusion at 20 mL/hr, Intravenous, CONTINUOUS, Starting on Wed09/24/23 at 0000, Until Wed09/17/23 at 1729, PRE-OP (SURGERY) New Bag 09/17/2023 10:46 AM CDT 20 mL/hr 20 mL/hr losartan-hydrochlorothiazide 100-25 tablet combo (separate ingred) Oral, DAILY, First dose on Wed09/17/23 at 1800, Until Discontinued Given 09/18/2023 8:12 AM CDT Given 09/17/2023 6:25 PM CDT magnesium hydroxide (MILK OF MAGNESIA) 400 MG/5ML suspension 30 mL 30 mL, Oral, DAILY PRN, Starting on Wed09/17/23 at 1708, Until 09/18/23 at 1604, Constipation - 3rd line, Magnesium hydroxide 400 mg/5 ml = 166.7 mg elemental magnesium/5ml. Hold for loose stools (loose, liquid, mucoid, soft, watery stool that takes the shape of the container) or greater than 2 moderate or larger stools in 24hrsIndications:Constipation melatonin tablet 3 mg 3 mg, Oral, NIGHTLY PRN, Starting on Wed09/17/23 at 1708, Until 09/18/23 at 1604, Other, Sleep montelukast (SINGULAIR) tablet 10 mg 10 mg, Oral, EVERY EVENING, First dose on Wed09/17/23 at 1800, Until Discontinued Given 09/17/2023 6:24 PM CDT 10 mg niacin (NIASPAN) CR tablet 500 mg 500 mg, Oral, NIGHTLY, First dose on 09/18/23 at 2100, Until Discontinued, Do Not Crush nicotine (NICODERM CQ) 21 MG/24HR patch 1 Patch 1 Patch, Transdermal, DAILY PRN, Starting on Wed09/17/23 at 1708, Until 09/18/23 at 1604, Administer over 24 Hours, Other, Nicotine dependency, For disposal of medication AND containers- black bin ondansetron (ZOFRAN) injection 4 mg 4 mg, Intravenous, EVERY 6 HOURS PRN, Starting on Wed09/17/23 at 1708, Until 09/18/23 at 1604, Nausea - 1st line, 1. First Line Antiemetic. 2. Use Injection only if patient unable to tolerate oral medications. ondansetron (ZOFRAN-ODT) disintegrating tablet 4 mg 4 mg, Oral, EVERY 6 HOURS PRN, Starting on Wed09/17/23 at 1708, Until 09/18/23 at 1604, Nausea - 1st line, 1. First Line Antiemetic. 2. Use PO form unless unable to tolerate PO medications, then use Injection polyethylene glycol (GLYCOLAX, MIRALAX) packet 17 g 17 g, Oral, 2 TIMES DAILY PRN, Starting on Wed09/17/23 at 1708, Until 09/18/23 at 1604, Constipation - 1st line, Dilute dose in 120 - 240 mL of beverage.Hold for loose stools (loose, liquid, mucoid, soft, watery stool that takes the shape of the container) or greater than 2 moderate or larger stools in 24hrsIndications:Constipation Prochlorperazine Edisylate (COMPAZINE) injection 10 mg 10 mg, Intravenous, EVERY 6 HOURS PRN, Starting on Wed09/17/23 at 1709, Until 09/18/23 at 1604, Nausea - 2nd line, Second Line Antiemetic Give if nausea/vomiting recurs after ondansetron. senna (SENOKOT) tablet 8.6 mg 8.6 mg (1 Tablet), Oral, 2 TIMES DAILY PRN, Starting on Wed09/17/23 at 1708, Until 09/18/23 at 1604, Constipation - 2nd line sotalol (BETAPACE) per half tablet 160 mg 160 mg, Oral, 2 TIMES DAILY, First dose on Wed09/17/23 at 2100, Until Discontinued Given 09/18/2023 8:12 AM CDT 160 mg Given 09/17/2023 8:35 PM CDT 160 mg documented in this encounter Active and Recently Administered Medications Times are shown in CDT. Scheduled Medication Order 09/16/2023 09/17/2023 09/18/2023 acetaminophen (OFIRMEV) IV 1,000 mg (COMPLETED) 1,000 mg, Intravenous, ONCE, 1 dose, On Wed09/17/23 at 1400, Administer over 15 Minutes, Maximum dose of acetaminophen is 75mg/kg/day up to 4000 mg from all sources in 24 hours. 1416 (Given - Provider: Tyra Carbajal, AUDITING CLERK, MRI TECH) allopurinol (ZYLOPRIM) tablet 300 mg 300 mg, Oral, DAILY, First dose on Wed09/17/23 at 1800, Until Discontinued 1823 (Given - Provider: Flory Smith RN) 811 (Given - Provider: Flory Smith RN) apixaban (ELIQUIS) tablet TABS 5 mg 5 mg, Oral, 2 TIMES DAILY, First dose on Wed09/17/23 at 2100, Until Discontinued 2035 (Given - Provider: Naye Amin RN) 08 (Given - Provider: Flory Smith RN) atorvastatin (LIPITOR) tablet 80 mg 80 mg, Oral, EVERY EVENING, First dose on Wed09/17/23 at 1800, Until Discontinued 1823 (Given - Provider: Flory Smith RN) budesonide-formoterol fumarate (SYMBICORT) 160-4.5 MCG/ACT inhaler AERO 2 Puff 2 Puff, Inhalation, 2 TIMES DAILY, First dose on Wed09/17/23 at 2100, Until Discontinued, For disposal of medication AND containers- bag and return to Pharmacy 2050 (Given - Provider: Socorro Pena, RT) 0754 (Given - Provider: Hanh Shepherd, BURRER HAND)0900 (Canceled Entry - Provider: Hanh Shepherd RRT) ceFAZolin (ANCEF) injection 2 g (COMPLETED) 2 g, Intravenous, ONCE, 1 dose, On Wed09/24/23 at 0000, INTRA-OP, Indications: Perioperative Pharmacoprophylaxis 1414 (Given - Provider: Tyra Carbajal, AUDITING CLERK, MRI TECH) famotidine (PEPCID) tablet 10 mg 10 mg, Oral, DAILY, First dose on Wed09/18/23 at 0900, Until Discontinued, Indications: Symptomatic Gastroesophageal Reflux Disease 811 (Given - Provider: Flory Smith RN) fluticasone (FLONASE) nasal spray 2 [place] 2 [place], Nasal, DAILY, First dose on Wed09/17/23 at 1800, Until Discontinued, Dose is for each nostril. 1800 (Not Given - Provider: Flory Smith RN - Reason: Patient/family refused) 08 (Given - Provider: Flory Smith RN) Iopamidol (ISOVUE-300) 61 % injection 30 mL (COMPLETED) 30 mL, Other, ONCE, 1 dose, On Wed09/17/23 at 1230, INTRA-OP 1230 (Canceled Entry - Provider: Flory Smith RN)1438 (Given - Provider: Clementina Mauricio MD) losartan-hydrochlorothiazide 100-25 tablet combo (separate ingred) Oral, DAILY, First dose on Wed09/17/23 at 1800, Until Discontinued 1824 (Given - Provider: Flory Smith RN) 0812 (Given - Provider: Flory Smith RN) montelukast (SINGULAIR) tablet 10 mg 10 mg, Oral, EVERY EVENING, First dose on Wed09/17/23 at 1800, Until Discontinued 1823 (Given - Provider: Flory Smith RN) niacin (NIASPAN) CR tablet 500 mg 500 mg, Oral, NIGHTLY, First dose on Wed09/18/23 at 2100, Until Discontinued, Do Not Crush sotalol (BETAPACE) per half tablet 160 mg 160 mg, Oral, 2 TIMES DAILY, First dose on Wed09/17/23 at 2100, Until Discontinued 2034 (Given - Provider: Naye Amin RN) 0812 (Given - Provider: Flory Smith RN) Continuous Medication Order 09/16/2023 09/17/2023 09/18/2023 0.9 % sodium chloride solution at 100 mL/hr, Intravenous, CONTINUOUS, Starting on Wed09/17/23 at 1730, Until Wed09/18/23 at 1604 1824 (New Bag - Provider: Flory Smith RN) 1000 (Stopped - Provider: Flory Smith RN) lactated ringers infusion (CANCELED) at 20 mL/hr, Intravenous, CONTINUOUS, Starting on Wed09/24/23 at 0000, Until Wed09/17/23 at 1729, PRE-OP (SURGERY) 1046 (New Bag - Provider: Krystle Trujillo RN)1358 (Continued by Anesthesia - Provider: Ezra Will APRN, STEPHAN)1442 (Anesthesia Volume Adjustment - Provider: Ezra Will APRN, STEPHAN)1729 (Canceled Entry - Provider: Flory Smith RN) PRN Medication Order 09/16/2023 09/17/2023 09/18/2023 acetaminophen (TYLENOL) suppository 650 mg(Linked Group 1) 650 mg, Rectal, EVERY 4 HOURS PRN, Starting on Wed09/17/23 at 1709, Until 09/18/23 at 1604, Mild pain or more severe pain if patient requests, Fever, If patient is taking oral intake without complications and both PO/PA orders are active, administer through the oral route. 0404 (See Alternativ e - Provider: Naye Amin RN) acetaminophen (TYLENOL) tablet 650 mg(Linked Group 1) 650 mg, Oral, EVERY 4 HOURS PRN, Starting on Wed09/17/23 at 1709, Until 09/18/23 at 1604, Mild pain or more severe pain if patient requests, Fever, If patient is taking oral intake without complications and both PO/PA orders are active, administer through the oral route. 0404 (Given - Provid er: Naye Amin RN) albuterol (PROVENTIL, VENTOLIN) (2.5 MG/3ML) 0.083% nebulizer solution 2.5 mg 2.5 mg, Nebulization, EVERY 6 HOURS PRN, Starting on Wed09/17/23 at 2336, Until 09/18/23 at 1604, Wheezing, 1. For RTA Severity Level 1 2. Discontinue all albuterol and ipratropium ORDERS AND ORDER SET if assessment results for 2 consecutive days has been a level 1 and no PRN treatments have been administered in the same time period. 3. A new physician order is required to resume order set once discontinued. calcium carbonate (TUMS) chewable tablet 1,000 mg 1,000 mg, Oral, EVERY 8 HOURS PRN, Starting on Wed09/17/23 at 1708, Until 09/18/23 at 1604, Heartburn, Indigestion HYDROcodone-acetaminophen (NORCO) 5-325 MG per tablet 1 Tablet 1 Tablet, Oral, EVERY 4 HOURS PRN, Starting on Wed09/17/23 at 1709, Until 09/18/23 at 1604, Moderate pain or more severe pain if patient requests, Maximum dose of acetaminophen is 4000 mg from all sources in 24 hours.If pain not effectively managed, then contact provider to discuss possibly 1) adding scheduled opioid dosing or non-opioid pain treatments, 2) increasing dosage, or 3) changing to HOME PARAPROFESSIONAL. magnesium hydroxide (MILK OF MAGNESIA) 400 MG/5ML suspension 30 mL 30 mL, Oral, DAILY PRN, Starting on Wed09/17/23 at 1708, Until 09/18/23 at 1604, Constipation - 3rd line, Magnesium hydroxide 400 mg/5 ml = 166.7 mg elemental magnesium/5ml. Hold for loose stools (loose, liquid, mucoid, soft, watery stool that takes the shape of the container) or greater than 2 moderate or larger stools in 24hrs melatonin tablet 3 mg 3 mg, Oral, NIGHTLY PRN, Starting on Wed09/17/23 at 1708, Until 09/18/23 at 1604, Other, Sleep nicotine (NICODERM CQ) 21 MG/24HR patch 1 Patch 1 Patch, Transdermal, DAILY PRN, Starting on Wed09/17/23 at 1708, Until 09/18/23 at 1604, Administer over 24 Hours, Other, Nicotine dependency, For disposal of medication AND containers- black bin ondansetron (ZOFRAN) injection 4 mg(Linked Group 2) 4 mg, Intravenous, EVERY 6 HOURS PRN, Starting on Wed09/17/23 at 1708, Until 09/18/23 at 1604, Nausea - 1st line, 1. First Line Antiemetic. 2. Use Injection only if patient unable to tolerate oral medications. ondansetron (ZOFRAN-ODT) disintegrating tablet 4 mg(Linked Group 2) 4 mg, Oral, EVERY 6 HOURS PRN, Starting on Wed09/17/23 at 1708, Until 09/18/23 at 1604, Nausea - 1st line, 1. First Line Antiemetic. 2. Use PO form unless unable to tolerate PO medications, then use Injection polyethylene glycol (GLYCOLAX, MIRALAX) packet 17 g 17 g, Oral, 2 TIMES DAILY PRN, Starting on Wed09/17/23 at 1708, Until 09/18/23 at 1604, Constipation - 1st line, Dilute dose in 120 - 240 mL of beverage.Hold for loose stools (loose, liquid, mucoid, soft, watery stool that takes the shape of the container) or greater than 2 moderate or larger stools in 24hrs Prochlorperazine Edisylate (COMPAZINE) injection 10 mg 10 mg, Intravenous, EVERY 6 HOURS PRN, Starting on Wed09/17/23 at 1709, Until 09/18/23 at 1604, Nausea - 2nd line, Second Line Antiemetic Give if nausea/vomiting recurs after ondansetron. senna (SENOKOT) tablet 8.6 mg 8.6 mg (1 Tablet), Oral, 2 TIMES DAILY PRN, Starting on Wed09/17/23 at 1708, Until 09/18/23 at 1604, Constipation - 2nd line Linked Groups Order Group 1: acetaminophen (TYLENOL) tablet 650 mgJump to med 650 mg, Oral, EVERY 4 HOURS PRN, Starting on Wed09/17/23 at 1709, Until 09/18/23 at 1604, Mild pain or more severe pain if patient requests, Fever, If patient is taking oral intake without complications and both PO/PA orders are active, administer through the oral route. Or acetaminophen (TYLENOL) suppository 650 mgJump to med 650 mg, Rectal, EVERY 4 HOURS PRN, Starting on Wed09/17/23 at 1709, Until 09/18/23 at 1604, Mild pain or more severe pain if patient requests, Fever, If patient is taking oral intake without complications and both PO/PA orders are active, administer through the oral route. Group 2: ondansetron (ZOFRAN-ODT) disintegrating tablet 4 mgJump to med 4 mg, Oral, EVERY 6 HOURS PRN, Starting on Wed09/17/23 at 1708, Until 09/18/23 at 1604, Nausea - 1st line, 1. First Line Antiemetic. 2. Use PO form unless unable to tolerate PO medications, then use Injection Or ondansetron (ZOFRAN) injection 4 mgJump to med 4 mg, Intravenous, EVERY 6 HOURS PRN, Starting on Wed09/17/23 at 1708, Until 09/18/23 at 1604, Nausea - 1st line, 1. First Line Antiemetic. 2. Use Injection only if patient unable to tolerate oral medications. documented in this encounter Care Teams Bicycle Designer Relationship Specialty Start Date End Date Yohannes Elise MD [address] [place] [address] PCP - General Internal Medicine 08/11/22 Clementina Logan MD [address] [address] Consulting Physician Urology 03/17/22 documented as of this encounter
--- OUTSIDE RECORDS SUMMARY | 2024-03-11 12:47 | XMS_ITS | Encounter Summary ---
Author Organization [facility] Address [address] [place] [address] Phone Care Team Providers Care Vending Machine Refiller Name Role Phone Enrique Syed MD Primary Care Provider [phone] Clementina Logan MD Unavailable [phone] Encounter Details Date Type Department Care Team (Late st Contact Info) Description 08/10/2023 Telephone [facility] [address] [place] [address] Clementina Logan MD [address] [address] Social History Tobacco Use Types [...] Miscellaneous Notes * Telephone Encounter - Maritza Schenider - 08/10/2023 1:15 PM CDT Pt scheduled * Telephone Encounter - Clementina Lgoan MD - 08/10/2023 10:19 AM CDT OV in 1-2 weeks to discuss stone documented in this encounter Plan of Treatment Upcoming Encounters Date Type Department Care Team (Late st Contact Info) Description 12/29/2024 9:00 AM CDT Office Visit [facility] [address] [place] [address] Clementina Logan MD [address], [address] [address] documented as of this encounter Visit Diagnoses Not on filedocumented in this encounter Care Teams Vending Machine Refiller Relationship Specialty Start Date End Date Enrique Syed MD [address] [place] [address] PCP - General Internal Medicine 08/11/22 Clementina Logan MD [address] [address] Consulting Physician Urology 03/17/22 documented as of this encounter
--- OUTSIDE RECORDS SUMMARY | 2024-03-11 12:47 | XMS_ITS | Encounter Summary ---
Author Organization [facility] Address [address] [place] [address] Phone Care Team Providers Care Broadcast Meteorologist Name Role Phone Enrique Syed MD Primary Care Provider [phone] Clementina Logan MD Unavailable [phone] Reason for Visit * Reason Onset Date Comments Results 09/01/2023 Encounter Details Date Type Department Care Team (Late st Contact Info) Description 09/01/2023 Telephone [facility] [address] [place] [address] Clementina Logan MD #[address] [address] Results Social History Tobacco Use Types Packs/Day Years [...] encounter Miscellaneous Notes * Telephone Encounter - Felisa Malave RMA - 09/06/2023 9:33 AM CDT Please see telephone note * Telephone Encounter - Felisa Malave RMA - 09/01/2023 1:57 PM CDT Patient calling for her kidney ultrasound results. Please advise. documented in this encounter Plan of Treatment Upcoming Encounters Date Type Department Care Team (Late st Contact Info) Description 12/29/2024 9:00 AM CDT Office Visit [facility] [address] [place] [address] Clementina Logan MD [address] [address] documented as of this encounter Visit Diagnoses Not on filedocumented in this encounter Care Teams Broadcast Meteorologist Relationship Specialty [place] [address] [place] [address] PCP - General Internal Medicine 08/11/22 Clementina Logan MD [address] [address] Consulting Physician Urology 03/17/22 documented as of this encounter
--- OUTSIDE RECORDS SUMMARY | 2024-03-11 12:47 | XMS_ITS | Encounter Summary ---
Author Organization [facility] Address [address] [place] [address] Phone Care Team Providers Care Family Physician Name Role Phone Yohannes Elise MD Primary Care Provider [phone] Clementina Logan MD Unavailable [phone] Reason for Visit * Auth/Cert (Routine) Specialty Diagnoses / Procedures Referred By Rosalind estevez Referred To Contact Diagnoses LEFT URETERAL STONE Procedures URETEROSCOPY WITH HOLMIUM LASER CYSTOSCOPY STENT INSERTION (SINGLE / BILATERAL) Clementina Logan MD [address] [facility] [address] [address] Phone: tel: fax: Referral ID Status Reason Start Date Expiration Date Visits Re quested Visits Authorized [id number] 1 1 Encounter Details Date Type Department Care Team (Late st Contact Info) Description 09/17/2023 12:40 PM CDT - 09/17/2023 2:10 PM CDT [facility] [address] [place] [address] Clementina Logan MD [facility] [address] [address] LEFT URETEROSCOPY WITH HOLMIUM LASER LITHOTRIPSY Surgery Details Date/Time Status Location OR Service Patient Class Case Class Case Type Trauma Case? 09/17/2023 12:40 PM Posted [facility] OR [address] [place] [address] Ambulatory Surgery Elective/ Scheduled Panel 1 Procedure LRB Anes Op Region Wound Class Comments LEFT URETEROSCOPY WITH HOLMI UM LASER LITHOTRIPSY Left General Ureter Clean Contaminated CYSTOSCOPY WITH LEFT URETERA L STENT PLACEMENT Left General Bladder Clean Contaminated CYSTOSCOPY RETROGRADE PYELOGRAMS Left General Bladder Clean Contaminated Surgeon Surgeon Role Service Panel Clementina Logan MD Primary Urology 1 Case Notes PATIENT HAS A PACEMAKER. SHE HAS APPOINTMENT ON 09/[address] ELISE FOR SURGICAL CLEARANCE - 09/15 - RECEIVED NEW BOOKING FORM MOVING CASE FROM 09/23 TO 09/16 Special Needs 4'11 215lbs afib with Eliquis use (ok to stay on per Dr. Logan) clearance appt sched for 09/12, pacemaker (settings under media dated 05/26/22, asthma, GUY with home CPAP. documented in this encounter Social History Tobacco Use Types Packs/Day Years Used Date Smoking Tobacco: Former Cigarettes Q uit: 1999 Smokeless Tobacco: Never Alcohol Use Standard Drinks/Week Comments Not Currently 0 (1 standard drink = 0.6 oz pur e alcohol) [facility] Utilities Answer Date Recorded In the past 12 months has [employer], gas, oil, or water [employer] threatened to shut off services in your home? Patient declined 09/18/2023 Social Connection and Isolation Panel [NHANES] A nswer Date Recorded In a typical week, how many times do you talk on the phone with family, friends, or neighbors? Patient declined 09/18/2023 How often do you get togethe r with friends or relatives? Patient declined 09/18/2023 How often do you attend religion or jew serv ices? Patient declined 09/18/2023 Do you belong to any clubs o r organizations such as religion groups, unions, fraternal or athletic groups, or [...] medical care, and heating? Patient declined 09/18/2023 [facility] of Occupat ional [facility] - Occupational Stress Questionnaire Answer Date [...] any time in the past 12 m [facility], were you homeless or living in [...] Sign Reading Time Taken Comments Blood Pressure 134/91 09/17/2023 10:32 AM CDT Pulse 82 09/17/2023 10:32 AM CDT Temperature 35.7 ??C (96.3 ??F) 09/17/2023 10:32 AM C DT Respiratory Rate 20 09/17/2023 10:32 AM CDT Oxygen Saturation 96% 09/17/2023 10:32 AM CDT Inhaled Oxygen Concentration - - Weight 98.9 kg (218 lb 1.6 oz) 09/17/2023 10:32 AM CDT Height 149.9 cm (4' 11 ) 09/17/2023 10:32 AM CDT Body Mass Index 44.05 09/17/2023 10:32 AM CDT documented in this encounter Discharge Summaries * Carlos Burrell MD - 09/18/2023 12:18 PM CDT Images from the original note were not included. [facility] DISCHARGE SUMMARY Name: Adri Tristan : 1950 Attending Physician: Carlos Burrell MD Discharging Provider: Carlos Burrell MD Primary Care Physician: YOHANNES ELISE MD Admission Date/Time: 09/17/2023 Discharge Date: 09/18/23 INSTRUCTIONS FOR PHYSICIANS ON FOLLOW UP AFTER DISCHARGE: Follow-up Information Follow up With Specialties Details Why Contact Info Yohannes Elise MD Internal Medicine [address] [place] [address] Discharge Instructions: Discharge Condition: significantly improved Disposition: [...] found for: HGBA1C No results found for: [id number] No results found for: CPK , CPKI , CKMB , CKMBNI , CKMBPOCT , CKMBRELINDX , TROPONINI , POCTRP No results found for: FERRITIN No results found for: FOLATE No results found for: PHARTERIAL , PO2ART , ZXF8ESP , CO2ART , O2ART No results found [...] HYDROcodone-acetaminophen 5-325 MG Tabs Commonly known as: Shawnee Take 1 Tablet by mouth every 6 [...] known as: ELIQUIS Ascorbic Acid 500 MG Mou-sxof-ado atorvastatin 40 MG Tabs Commonly known as: LIPITOR azelastine 0.1 % Soln Commonly known as: ASTELIN budesonide-formoterol fumarate 160-4.5 MCG/ACT Aero Commonly known as: SYMBICORT Calcium Carb-Cholecalciferol 600-20 MG-MCG Tabs cefUROXime 500 MG Tabs Commonly known as: CEFTIN docusate sodium 100 MG Caps Commonly known as: Colace Take 1 Capsule by mouth 2 times daily. ergocalciferol 98293 UNIT Caps Commonly known as: VITAMIN D famotidine 10 MG Tabs Commonly known as: PEPCID fexofenadine 60 MG Tabs Commonly known as: SOMMER fluocinonide 0.05 % Soln Commonly known as: LIDEX fluticasone 50 MCG/ACT Susp Commonly known as: FLONASE irbesartan-hydroCHLOROthiazide 150-12.5 MG Tabs Commonly known as: AVALIDE montelukast 10 MG Tabs Commonly known as: SINGULAIR MULTIVITAMIN ADULT PO niacin CR 250 MG Ylb-navk-nnt [place]-3 1400 MG Caps omeprazole 10 MG Cap-del-rel [...] Your Medications These medications were sent to [facility] [address] [place] [id number] cephALEXin 500 MG Caps HYDROcodone-acetaminophen 5-325 MG [...] azelastine (ASTELIN) 0.1 % nasal spray 2 [place] Auto-discontinue per P&T niacin CR capsule 750 mg Formulary change albuterol (PROVENTIL HFA, VENTOLIN HFA) inhaler 2 Puff niacin tablet 750 mg Thank you very much for allowing the [facility] Adult Hospitalist Service to participate [...] Take 800 mg by mouth nightly. 08/19/2016 [place]-3 1400 MG Capsule Take by mouth. oxybutynin [...] this encounter H&P Notes * Dre Baltazar, RULES EXAMINER, CERTIFIED EXECUTIVE CHEF - 09/17/2023 5:16 PM CDT [facility] ADMISSION HISTORY & PHYSICAL HPI: Adri Tristan is a 73 y.o. female with history of hypertension, hyperlipidemia, gout, asthma, GERD,history of paroxysmal atrial fibrillation status post an ablation in 2010, history of sick sinus syndrome status post dual-chamber pacemaker in the right chest wall, history of left breast cancer status post a partial mastectomy, who presented to [facility] with complaints of arrhythmias. Patient was diagnosed [...] Patient not taking: Reported on 09/08/2023 HYDROcodone-acetaminophen (Shawnee) 5-325 MG Tablet No No Sig: Take 1 Tablet by mouth every 6 hours as needed for Severe pain. Multiple Vitamin (MULTIVITAMIN ADULT PO) 09/15/2023 Yes No [place]-3 1400 MG Capsule 09/15/2023 Yes No Sig: [...] times daily as needed. ergocalciferol (VITAMIN D) 82891 UNIT Capsule Yes No Sig: Take 50,000 [...] (Right, 06/22/2012); lap,inguinal hernia repr,initial (Left, 03/30/2011); hc cath cardiac ablation [id number] d; Ureteroscopy (Right, [...] distended extrarenal pelvis. Electronically signed by: Kya Galina, M.D. Lab Results Component Value Date WBC [...] results found for: PHARTERIAL , PO2ART , HEI3XHN , CO2ART , O2ART No results found [...] removal with stent placement 09/[address] Desmond Mares per Urology Paroxysmal atrial fibrillation Status post ablation in 2010 Patient is being managed by EP Dr. Gomez Baltazar at [facility] Resume home Eliquis b.i.d. Resume home sotalol History of sick sinus syndrome Status post dual-chamber pacemaker placed in [address] Gomez Bal[facility]zar [facility] Per chart review, patient does not have a General Cardiology Remote history of left breast cancer Status post a partial left mastectomy Hypertension/hyperlipidemia BP stable, resume home antihypertensives after meds reconciled GUY Uses nightly CPAP Advance Care Planning: Aggregate face to face time discussing end of life advance care planning with patient and/or family and/or Power of Newsroom Intern approximately 16 minutes. Discussed CPR/Intubation/Treatment Goals/Quality of life/Intensity of Care. Patient desires: Full Code VTE Prophylaxis: Patient Already on Oral Anticoagulation Treatment Team: Consulting Physician: Lance Cannon MD Thank you very much for allowing the [facility] Adult Hospitalist Service to participate in the care of this patient By: Dre Baltazar APRN, CNP, 09/17/2023, 5:16 PM CDT Primary Care Physician: YOHANNES ELISE MD Cosigned by Carlos Burrell MD at 09/18/2023 12:13 PM CDT Associated attestation - Carlos Burrell MD - 09/18/2023 12:13 PM CDT I collaborated in the care of this patient with the RULES EXAMINER/PA. I did not personally examine this patient. I agree with the RULES EXAMINER/PA???s findings and defer to the attached note, [...] PACEMAKER INSERTION Right 06/22/2012 Make: METRONIC; Model: BigTip [id number] CapSureFix Novus PARTIAL HIP ARTHROPLASTY Right 06/19/2015 left also done on 01/13/23 TOTAL KNEE ARTHROPLASTY Left 09/30/2015 URETER STENT PLACEMENT Right 05/26/2022 Procedure: CYSTOSCOPY, RIGHT STENT INSERTION; Surgeon: Clementina Logan MD; Location: [facility]; Service: Urology URETEROSCOPY Right 05/26/2022 Procedure: RIGHT URETEROSCOPY WITH HOLMIUM LASER LITHOTRIPSY; Surgeon: Clementina Logan MD; Location: [facility]; Service: Urology Current Facility-Administered Medications Medication Dose [...] Types: Cigarettes Quit date: 1999 Years since quittin. Smokeless tobacco: Never Vaping Use Vaping status: [...] this encounter Consult Notes * Dudley Luo MD - 09/18/2023 10:07 AM CDT CARDIOLOGY [...] needed.) 60 Capsule 0 ergocalciferol (VITAMIN D) 30395 UNIT Capsule Take 50,000 Units by mouth. [...] Reported on 09/08/2023) 15 Tablet 0 HYDROcodone-acetaminophen (Shawnee) 5-325 MG Tablet Take 1 Tablet by mouth every 6 hours as needed for Severe pain. 15 Tablet 0 irbesartan-hydroCHLOROthiazide (AVALIDE) 150-12.5 MG Tablet Take 1 Tablet by mouth daily. montelukast (SINGULAIR) 10 MG Tablet 10 mg. Multiple Vitamin (MULTIVITAMIN ADULT PO) niacin CR 250 MG Capsule CR Take 800 mg by mouth nightly. [place]-3 1400 MG Capsule Take by mouth. omeprazole [...] STENT INSERTION; Surgeon: Clementina Logan MD; Location: [facility]; Service: Urology URETEROSCOPY Right 05/26/2022 Procedure: RIGHT URETEROSCOPY WITH HOLMIUM LASER LITHOTRIPSY; Surgeon: Clementina Logan MD; Location: [facility]; Service: Urology Social History Socioeconomic History Marital [...] Session: Patient declined Stress: Patient Declined (09/18/2023) [employer] [place] of Occupational Health - Occupational Stress Questionnaire Feeling of Stress : Patient declined Social Integration: Patient Declined (09/18/2023) Social Connection and Isolation Panel [NHANES] Frequency of Communication with Friends and Family: Patient declined Frequency of Social Gatherings with Friends and Family: Patient declined Attends Yarsani Services: Patient declined Active Member of Clubs [...] on left side Surgeon: Clementina Mauricio MD Outpatient Admitting Clerk: None Anesthesia: General Indications: This is a [...] No Distress noted. * Interdisciplinary - Hanh Shepherd, PIPELINES MANAGER - 09/18/2023 9:14 AM CDT Respiratory Therapy [...] Provided To: patient Comments: na By: HANH SHEPHERD RRT; 09/18/2023, 9:14 AM CDT * Plan of Care - Naye Amin RN - 09/18/2023 2:55 AM CDT Problem: Adult Inpatient Plan of Care Goal: Plan of Care Review Outcome: Ongoing (see interventions/notes) Flowsheets (Taken 09/18/2023253) Plan of Care Reviewed With: patient Progress: [...] Monitor Pain and Promote Comfort Flowsheets (Taken 09/17/20231949) Pain Management Interventions: care clustered pain management [...] Intervention: Identify and Manage Contributors Flowsheets Taken 09/18/2023 0254 Self-Care Promotion: independence encouraged BADL personal objects [...] Assessment Patient assessed with 2nd RN antonella Wounds noted: none PRESSURE INJURY AND MOISTURE MANAGEMENT [...] AM CDT Called patient's cardiology department at [phone] and requested most resent pacemaker settings. Lizzy [...] URINE These need to be completed at [facility], Wednesday - Wednesday from 0700 am - 3 pm. Report to the registration desk. Bring your photo ID and insurance card. ARRANGE [facility] H[facility]PITALIST- For your safety, after having anesthesia, You must have an adult school bus driver/teacher assistant (18 yrs or older) arranged in advance [...] list of current medications, including and any aola-mpw-nkgrzkt medications and supplements(such as herbs and essential [...] PRE- SURGICAL TESTING. Thank you for selecting [facility] ([facility]) for your procedure.We know you have a choice for your healthcare and we are pleased to provide you with this service. Our [place] [facility] is to: Serve with the Greatest Care and Love . We are not employees of [facility], we are [employer] driven to provide care based on our [place], Vision and Values. Please do not hesitate to let us know if you have any questions or concerns. May God Bless you and we look forward to serving you. Your Perioperative Team. documented in this encounter Plan of Treatment Upcoming Encounters Date Type Department Care Team (Late st Contact Info) Description 12/29/2024 9:00 AM CDT Office Visit [facility] [address] [place] [address] Clementina Logan MD [address] [address] Scheduled Orders Name Type Priority Associated Diagnoses [...] - 12.00 10(3)/mcL 09/18/2023 5:19 AM CDT [facility] RBC 4.48 3.80 - 5.30 10(6)/mcL 09/18/2023 5:19 AM CDT [facility] HEMOGLOBIN (HGB) 14.7 12.0 - 15.8 g/dL 09/18/2023 5:19 AM CDT [facility] HEMATOCRIT (HCT) 42.1 36.0 - 47.0 % 09/18/2023 5:19 AM CDT [facility] MCV 94.0 82.0 - 96.0 fL 09/18/2023 5:19 AM CDT [facility] MCH 32.8 26.0 - 34.0 pg 09/18/2023 5:19 AM CDT [facility] MCHC 34.9 31.0 - 36.0 g/dL 09/18/2023 5:19 AM CDT [facility] PLATELET COUNT 185 140 - 440 10(3)/mcL 09/18/2023 5:19 AM CDT [facility] RDW 12.9 11.8 - 15.5 % 09/18/2023 5:19 AM CDT [facility] MPV 9.6(L) 9.7 - 12.4 fL 09/18/2023 5:19 AM CDT [facility] NEUTROPHILS 88.8(H) 47.0 - 73.0 % 09/18/2023 5:19 AM CDT [facility] LYMPHOCYTES 7.8(L) 18.0 - 42.0 % 09/18/2023 5:19 AM CDT [facility] MONOCYTES 3.1(L) 4.0 - 12.0 % 09/18/2023 5:19 AM CDT [facility] EOSINOPHILS 0.1 0.0 - 5.0 % 09/18/2023 5:19 AM CDT [facility] BASOPHILS 0.2 0.0 - 1.0 % 09/18/2023 5:19 AM CDT [facility] ABSOLUTE NEUTROPHILS 11.23(H) 1.60 - 7.70 10(3)/[facility] 09/18/2023 5:19 AM CDT [facility] ABSOLUTE LYMPHOCYTES 0.99(L) 1.30 - 3.20 10(3)/[facility] 09/18/2023 5:19 AM CDT [facility] ABSOLUTE MONOCYTES 0.39 0.20 - 1.00 10(3)/[facility] 09/18/2023 5:19 AM CDT [facility] ABSOLUTE EOSINOPHIL 0.01 0.00 - 0.40 10(3)/[facility] 09/18/2023 5:19 AM CDT [facility] ABSOLUTE BASOPHILS 0.02 0.00 - 0.10 10(3)/[facility] 09/18/2023 5:19 AM CDT [facility] NRBC PER 100 WBC 0 09/18/19 5:19 AM CDT [facility] Blood Venipuncture / Unknown 09/18/2023 4:42 AM CDT 09/18/2023 5:10 AM CDT us Dre Baltazar RULES EXAMINER, CERTIFIED EXECUTIVE CHEF HEMATOLOGY ORDERABLES F inal Result [facility] #1 [facility] [place] [address] * (ABNORMAL) BMP with Ca, Total (09/18/2023 4:42 AM CDT) Only the most recent of2 resultswithin the time period is included. SODIUM 139 136 - 145 mmol/L 09/18/2023 5:38 AM CDT [facility] POTASSIUM 4.0 3.5 - 5.1 mmol/L 09/18/2023 5:38 AM CDT [facility] CHLORIDE 110(H) 98 - 107 mmol/L 09/18/2023 5:38 AM CDT [facility] CO2, VENOUS 17(L) 22 - 30 mmol/L 09/18/2023 5:38 AM CDT [facility] ANION GAP 16.0 <18.0 mmol/L 09/18/2023 5:38 AM CDT [facility] GLUCOSE 176(H) 70 - 99 mg/dL 09/18/2023 5:38 AM CDT [facility] BUN 15 10 - 20 mg/dL 09/18/2023 5:38 AM CDT [facility] CREATININE, BLOOD 0.64 0.60 - 1.00 mg/dL 09/18/2023 5:38 AM CDT [facility] BUN/CREATININE RATIO 23(H) 12 - 20 ratio 09/18/2023 5:38 AM CDT [facility] CALCIUM 9.8 8.7 - 10.5 mg/dL 09/18/2023 5:38 AM CDT [facility] GFR, ESTIMATED >60 >=60 09/18/2023 5:38 AM CDT [facility] Comment: Creatinine Clearance is the preferred criteria for selecting drug dose adjustments in renally impaired patients. ??The GFR is provided as additional pertinent clinical information. GFR is reported in mL/min/1.73 sq m. Calculation based on the Chronic Kidney Disease Epidemiology Collaboration (CKD- EPI) equation refit without adjustment for race. GFR, EST. >60 >=60 024 5:[address] [facility] GFR, EST. NONAFRICAN >60 >=60 09/18/2023 5:[address] [facility] Blood Venipuncture / Unknown 09/18/2023 4:42 AM CDT 09/18/2023 5:10 AM CDT Dre Baltazar APRN, CERTIFIED EXECUTIVE CHEF CHEMISTRY ORDERABLES Fi nal Result [facility] [address] [place] [address] * RHYTHM STRIP (09/18/2023 12:00 AM CDT) Only the most recent of4 resultswithin the time period is included. 09/18/2023 us Provider Scan IMG ECG ORDERABLES Final Result Performing Organization Address City/[facility]/ZIP Co de Phone Number RESULTING AGENCY * TROPONIN I, HIGH SENSITIVITY (HSTRP) (09/17/2023 5:56 PM CDT) TROPONIN I, HIGH SENSITIVITY- [place] <3 <=14 ng/L 09/17/2023 6:26 PM CDT [facility] Comment: High-sensitivity troponin I results are reported in ng/L making the result appear to be 1,000 times higher than the contemporary troponin I value which is reported in ng/ml. Results from [place]. Blood Venipuncture / Unknown 09/17/2023 5:56 PM CDT 09/17/2023 6:01 PM CDT Dre Baltazar APRN, CERTIFIED EXECUTIVE CHEF CHEMISTRY ORDERABLES Fi nal Result Performing Organization Address City/[facility]/ZIP Co de Phone Number [facility] [address] [place] [address] * PHOSPHORUS (PO4) (09/17/2023 5:56 PM CDT) PHOSPHORUS 2.8 2.5 - 4.5 mg/dL 09/17/2023 6:21 PM CDT [facility] Blood Venipuncture / Unknown 09/17/2023 5:56 PM CDT 09/17/2023 6:01 PM CDT Dre Baltazar APRN, CERTIFIED EXECUTIVE CHEF CHEMISTRY ORDERABLES Fi nal Result [facility] [address] [place] [address] * MAGNESIUM (MG) (09/17/2023 5:56 PM CDT) MAGNESIUM 2.0 1.6 - 2.6 mg/dL 09/17/2023 6:21 PM CDT [facility] Blood Venipuncture / Unknown 09/17/2023 5:56 PM CDT 09/17/2023 6:01 PM CDT Dre Baltazar APRN, CERTIFIED EXECUTIVE CHEF CHEMISTRY ORDERABLES Fi nal Result Performing Organization Address City/[facility]/ZIP Co de Phone Number [facility] [address] [place] [address] * EKG 12 LEAD (09/17/2023 3:29 PM CDT) Ventricular Rate 72 BPM EXTERNAL EKG Atrial Rate 72 BPM EXTERNAL EKG P-R Interval 176 ms EXTERNAL EKG QRS Duration 150 ms EXTERNAL EKG Q-T Duration 442 ms EXTERNAL EKG QTC CALCULATION 483 ms EXTERNAL EKG P [place] -9 degrees EXTERNAL EKG R [place] -66 degrees EXTERNAL EKG T [place] 56 degrees EXTERNAL EKG 09/17/2023 3:29 PM CDT Impressions EXTERNAL EKG - 09/22/2023 11:50 AM CDT AV dual-paced rhythm with frequent atrial-paced complexes and premature atrial complexes with aberrant conduction Abnormal ECG When compared with ECG of 20-MAY-2022 14:17, ventricular-paced complexes noew present Confirmed by Josselin Lee ([id number]) on 09/22/2023 11:50:09 AM Narrative Procedure Note Josselin Lee MD PhD - 09/22/2023 IMPRESSION: AV dual-paced rhythm with frequent atrial-paced complexes and prematureatrial complexes with aberrant conduction Abnormal ECG When compared with ECG of 20-MAY-2022 14:17, ventricular-paced complexes noew present Confirmed by Josselin Lee ([id number]) on 09/22/2023 11:50:09 AM Ezra Will APRN, CRNA IMG ECG ORDERABLES Final Result EXTERNAL EKG * XR RETROGRADE PYELOGRAM (09/17/2023 2:46 PM CDT) us Clementina Mauricio MD IMG FLUOROSCOPY ORDERABLES Fin al Result * Pathology Surgical (09/17/2023 2:21 PM CDT) Case Report Surgical Pathology Report ? Case: [id number] ? Authorizing Provider: ??Clementina Logan MD ?Collected: ? 09/17/2023 02:21 PM ? Ordering Location: ? [facility] ? Received: ?09/20/2023 08:38 AM ? [facility] ? Main OR ? Pathologist: ? More Cobos MD PhD ? Specimen: ?Stone, LEFT URETERAL STONES ? 09/21/2023 8:33 AM T [facility] FINAL DIAGNOSIS Calculus, left ureteral, removal: - Nephrolithiasis (gross examination only). 09/21/2023 8:33 AM [facility] Pre-Operative Diagnosis LEFT URETERAL STONE 09/21/2023 8:33 AM [facility] Gross Description A. LEFT URETERAL STONES [...] examination. This is for gross dictation only. MALIK/nadeen 09/21/2023 8:33 AM CDT [facility] Tissue STONE - BODY MATERIAL / Unknown 09/17/2023 2:21 PM CDT 09/20/2023 8:38 AM CDT us Clementina Mauricio MD PATHOLOGY/CYTOLOGY ORDERABLES Final Result [facility] [address] [place] [address] * EKG SCAN (09/17/2023 12:00 AM CDT) 09/17/2023 us Provider Scan IMG ECG ORDERABLES Final Result RESULTING AGENCY documented in this encounter Visit Diagnoses Not on filedocumented in this encounter Admitting Diagnoses Diagnosis Arrhythmia [...] taking oral intake without complications and both PO/IL orders are active, administer through the oral route. acetaminophen (TYLENOL) tablet 650 mg 650 mg, Oral, EVERY 4 HOURS PRN, Starting on Wed09/17/23 at 1709, Until 09/18/23 at 1604, Mild pain or more severe pain if patient requests, Fever, If patient is taking oral intake without complications and both PO/IL orders are active, administer through the oral route. Given 09/18/2023 4:04 AM CDT 650 mg albuterol (PROVENTIL, VENTOLIN) (2.5 MG/3ML) 0.083% nebulizer solution 2.5 mg 2.5 mg, Nebulization, EVERY 6 HOURS PRN, Starting on Wed09/17/23 at 2336, Until Wed09/18/23 at 1604, Wheezing, 1. For RTA Severity [...] PRN, Starting on Wed09/17/23 at 1708, Until Wed09/18/23 at 1604, Heartburn, Indigestion famotidine (PEPCID) tablet 10 mg 10 mg, Oral, DAILY, First dose on Wed09/18/23 at 0900, Until Discontinued, Indications: Symptomatic Gastroesophageal Reflux DiseaseIndications:Symptomatic Gastroesophageal Reflux Disease Given 09/18/2023 8:12 AM CDT 10 mg fluticasone (FLONASE) nasal spray 2 [place] 2 [place], Nasal, DAILY, First dose on Wed09/17/23 at [...] 2) increasing dosage, or 3) changing to TRAVEL REGISTERED NURSE PACU. Iopamidol (ISOVUE-300) 61 % injection 30 mL 30 mL, Other, ONCE, 1 dose, On Wed09/17/23 at 1230, INTRA-OP Given 09/17/2023 2:38 PM CDT 6 mL lactated ringers infusion at 20 mL/hr, Intravenous, [...] mg from all sources in 24 hours. 141 (Given - Provider: Tyra Carbajal APRN, GAS LOAD DISPATCHER) allopurinol (ZYLOPRIM) tablet 300 mg 300 mg, Oral, DAILY, First dose on Wed09/17/23 at 1800, Until Discontinued 1823 (Given - Provider: Flory Smith RN) 08 (Given - Provider: Flory Smith RN) apixaban (ELIQUIS) tablet TABS 5 mg 5 mg, Oral, 2 TIMES DAILY, First dose on Wed09/17/23 at 2100, Until Discontinued 2035 (Given - Provider: Naye Amin RN) 0812 (Given - Provider: Flory Smith RN) atorvastatin (LIPITOR) tablet 80 mg 80 mg, Oral, EVERY EVENING, First dose on Wed09/17/23 at 1800, Until Discontinued 1823 (Given - Provider: Flory Smith, PATY) budesonide-formoterol fumarate (SYMBICORT) 160-4.5 MCG/ACT inhaler AERO 2 Puff 2 Puff, Inhalation, 2 TIMES DAILY, First dose on Wed09/17/23 at 2100, Until Discontinued, For disposal of medication AND containers- bag and return to Pharmacy 2050 (Given - Provider: Socorro Pena, RT) 0754 (Given - Provider: Hanh Shepherd, GRACE)0900 (Canceled Entry - Provider: Hanh Shepherd RRT) ceFAZolin (ANCEF) injection 2 g (COMPLETED) 2 g, Intravenous, ONCE, 1 dose, On Wed09/24/23 at 0000, INTRA-OP, Indications: Perioperative Pharmacoprophylaxis 1414 (Given - Provider: Tyra Carbajal, RULES EXAMINER, GAS LOAD DISPATCHER) famotidine (PEPCID) tablet 10 mg 10 mg, Oral, DAILY, First dose on Wed09/18/23 at 0900, Until Discontinued, Indications: Symptomatic Gastroesophageal Reflux Disease 08 (Given - Provider: Flory Smith RN) fluticasone (FLONASE) nasal spray 2 [place] 2 [place], Nasal, DAILY, First dose on Wed09/17/23 at [...] 1824 (Given - Provider: Flory Smith RN) 811 (Given - Provider: Flory Smith RN) montelukast [...] Wed09/17/23 at 1730, Until 09/18/23 at 1604 1824 (New Bag - Provider: Flory Smith RN) 1000 (Stopped - Provider: Flory Smith RN) lactated ringers infusion (CANCELED) at 20 mL/hr, Intravenous, CONTINUOUS, Starting on Wed09/24/23 at 0000, Until Wed09/17/23 at 1729, PRE-OP (SURGERY) 1046 (New Bag - Provider: Krystle Trujillo RN)1358 (Continued by Anesthesia - Provider: Ezra Will APRN, GAS LOAD DISPATCHER)1442 (Anesthesia Volume Adjustment - Provider: Ezra Will APRN, GAS LOAD DISPATCHER)1729 (Canceled Entry - Provider: Flory Smith RN) PRN Medication Order 09/16/2023 09/17/2023 09/18/2023 acetaminophen (TYLENOL) suppository 650 mg(Linked Group 1) 650 mg, Rectal, EVERY 4 HOURS PRN, Starting on Wed09/17/23 at 1709, Until 09/18/23 at 1604, Mild pain or more severe pain if patient requests, Fever, If patient is taking oral intake without complications and both PO/IL orders are active, administer through the oral route. 0404 (See Alternativ e - Provider: Naye Amin RN) acetaminophen (TYLENOL) tablet 650 mg(Linked Group 1) 650 mg, Oral, EVERY 4 HOURS PRN, Starting on Wed09/17/23 at 1709, Until 09/18/23 at 1604, Mild pain or more severe pain if patient requests, Fever, If patient is taking oral intake without complications and both PO/IL orders are active, administer through the oral [...] 2) increasing dosage, or 3) changing to TRAVEL REGISTERED NURSE PACU. magnesium hydroxide (MILK OF MAGNESIA) 400 MG/5ML [...] taking oral intake without complications and both PO/IL orders are active, administer through the oral route. Or acetaminophen (TYLENOL) suppository 650 mgJump to med 650 mg, Rectal, EVERY 4 HOURS PRN, Starting on Wed09/17/23 at 1709, Until 09/18/23 at 1604, Mild pain or more severe pain if patient requests, Fever, If patient is taking oral intake without complications and both PO/IL orders are active, administer through the oral [...] medications. documented in this encounter Care Teams Family Physician Relationship Specialty Start Date End Date Yohannes Elise MD [address] [place] [address] PCP - General Internal Medicine 08/11/22 Clementina Logan MD [address] [address] Consulting Physician Urology 03/17/22 documented as of this encounter
--- OUTSIDE RECORDS SUMMARY | 2024-03-11 12:47 | XMS_ITS | Encounter Summary ---
Author Organization [employer] Care Team Providers Care Machine Ceramic Coater Name Role Phone Enrique Syed MD Primary Care Provider [phone] Clementina Logan MD Unavailable [phone] Encounter Details Date Type Department Care Team (Latest Contact Info) Description 09/04/2023 Travel Social History Tobacco Use Types Packs/Day [...] [facility] [address] [place] [address] Clementina Logan MD [address] [address] documented as of this encounter Visit Diagnoses Not on filedocumented in this encounter Care Teams Machine Ceramic Coater Relationship Specialty Start Date End Date Enrique Syed MD [address] [place] [address] PCP - General Internal Medicine 08/11/22 Clementina Logan MD [address] [place] [address] Consulting Physician Urology 03/17/22 documented as of this encounter
--- OUTSIDE RECORDS SUMMARY | 2024-03-11 12:48 | XMS_ITS | Encounter Summary ---
Author Organization [employer] Care Team Providers Care Mobile Tester Name Role Phone Enrique Syed MD Primary Care Provider [phone] Clementina Logan MD Unavailable [phone] Encounter Details Date Type Department Care Team (Latest Contact Info) Description 04/21/2023 Travel Social History Tobacco Use Types Packs/Day [...] [facility] [address] [place] [address] Clementina Logan MD [address] [address] documented as of this encounter Visit Diagnoses Not on filedocumented in this encounter Care Teams Mobile Tester Relationship Specialty Start Date End Date Enrique Syed MD [address] [place] [address] PCP - General Internal Medicine 08/11/22 Clementina Logan MD [address] [place] [address] Consulting Physician Urology 03/17/22 documented as of this encounter
--- OUTSIDE RECORDS SUMMARY | 2024-03-11 12:48 | XMS_ITS | Encounter Summary ---
Author Organization [email or web address] Care Team Providers Care Transplanter Name Role Phone Enrique Syed MD Primary Care Provider [phone] Clementina Logan MD Unavailable [phone] Encounter Details Date Type Department Care Team (Latest Contact Info) Description 03/16/2023 Travel Social History Tobacco Use Types Packs/Day Years Used Date Smoking Tobacco: Former Cigarettes Q uit: 1999 Smokeless Tobacco: Never Alcohol Use Standard Drinks/Week Comments Not Currently 0 (1 standard drink = 0.6 oz pur e alcohol) Sexually Active Control Partners Comments Not Currently Comments Unknown Sex and Gender Information Value Date Recorded Sex Assigned at Not on file Legal Sex Female 10:10 PM CDT Gender Identity Not on file Sexual Orientation Not on file documented as of this encounter Plan of Treatment Upcoming Encounters Date Type Department Care Team (Late st Contact Info) Description 12/29/2024 9:00 AM CDT [facility] [address] [place] [address] Clementina Logan MD [address] [address] documented as of this encounter Visit Diagnoses Not on filedocumented in this encounter Care Teams Transplanter Relationship Specialty Start Date End Date Enrique Syed MD [address] [place] [address] PCP - General Internal Medicine 08/11/22 Clementina Logan MD [address] [place] [address] Consulting Physician Urology 03/17/22 documented as of this encounter
--- OUTSIDE RECORDS SUMMARY | 2024-03-11 12:48 | XMS_ITS | Encounter Summary ---
Author Organization [employer] Care Team Providers Care Returned Goods Inspector Name Role Phone Enrique Syed MD Primary Care Provider [phone] Clementina Logan MD Unavailable [phone] Encounter Details Date Type Department Care Team (Latest Contact Info) Description 06/05/2022 Travel Social History Tobacco Use Types Packs/Day [...] on file Sexual Orientation Not on file COVID-19 Exposure Response Date Recorded In the last 10 days, have yo u been in contact with someone who was confirmed or suspected to have Coronavirus/COVID-19? No / Unsure 06/05/2022 3:53 PM CDT documented as of this encounter Plan of Treatment Upcoming Encounters Date Type Department Care Team (Late st Contact Info) Description 12/29/2024 9:00 AM CDT [facility] [address] [place] [phone] Clementina Logan MD [address], [address] [address] documented as of this encounter Visit Diagnoses Not on filedocumented in this encounter Care Teams Returned Goods Inspector Relationship Specialty Start Date End Date Enrique Syed MD PCP - General Internal Medicine 04/24/16 07/07/22 Clementina Logan MD [address] [place] [address] Consulting Physician Urology 03/17/22 documented as of this encounter
--- OUTSIDE RECORDS SUMMARY | 2024-03-11 12:48 | XMS_ITS | Encounter Summary ---
Author Organization [employer] Care Team Providers Care Gem Expert Name Role Phone Enrique Syed MD Primary Care Provider [phone] Clementina Logan MD Unavailable [phone] Encounter Details Date Type Department Care Team (Latest Contact Info) Description 06/09/2022 Travel Social History Tobacco Use Types Packs/Day [...] suspected to have Coronavirus/COVID-19? No / Unsure 06/09/2022 10:07 AM CDT documented as of this encounter Plan of Treatment Upcoming Encounters Date Type Department Care Team (Late st Contact Info) Description 12/29/2024 9:00 AM CDT [facility] [address] [place] [address] Clementina Logan MD [address], [address] [address] documented as of this encounter Visit Diagnoses Not on filedocumented in this encounter Care Teams Gem Expert Relationship Specialty Start Date End Date Enrique Syed MD PCP - General Internal Medicine 04/24/16 07/07/22 Clementina Logan MD [address] [place] [address] Consulting Physician Urology 03/17/22 documented as of this encounter
--- OUTSIDE RECORDS SUMMARY | 2024-03-11 12:48 | XMS_ITS | Encounter Summary ---
Author Organization [employer] Care Team Providers Care Worship Director Name Role Phone Enrique Syed MD Primary Care Provider [phone] Clementina Logan MD Unavailable [phone] Encounter Details Date Type Department Care Team (Latest Contact Info) Description 07/21/2022 Travel Social History Tobacco Use Types Packs/Day [...] suspected to have Coronavirus/COVID-19? No / Unsure 07/21/2022 10:17 AM CDT documented as of this encounter Plan of Treatment Upcoming Encounters Date Type Department Care Team (Late st Contact Info) Description 12/29/2024 9:00 AM CDT Office [facility] [address] [place] [address] Clementina Logan MD [address], [address] [address] documented as of this encounter Visit Diagnoses Not on filedocumented in this encounter Care Teams Worship Director Relationship Specialty Start Date End Date Enrique Syed MD [address] [address] PCP - General Internal Medicine 07/21/22 08/04/22 Clementina Logan MD [address] [address] Consulting Physician Urology 03/17/22 documented as of this encounter
--- OUTSIDE RECORDS SUMMARY | 2024-03-11 12:48 | XMS_ITS | Encounter Summary ---
Author Organization [employer] Care Team Providers Care Sports Cartoonist Name Role Phone Enrique Syed MD Primary Care Provider [phone] Clementina Logan MD Unavailable [phone] Encounter Details Date Type Department Care Team (Latest Contact Info) Description 07/24/2022 Travel Social History Tobacco Use Types Packs/Day [...] suspected to have Coronavirus/COVID-19? No / Unsure 07/24/2022 9:31 AM CDT documented as of this encounter Plan of Treatment Upcoming Encounters Date Type Department Care Team (Late st Contact Info) Description 12/29/2024 9:00 AM CDT [facility] [address] [place] [address] Clementina Logan MD [address], [address] [address] documented as of this encounter Visit Diagnoses Not on filedocumented in this encounter Care Teams Sports Cartoonist Relationship Specialty Start Date End Date Enrique Syed MD [address] [address] PCP - General Internal Medicine 07/21/22 08/04/22 Clementina Logan MD [address] [address] Consulting Physician Urology 03/17/22 documented as of this encounter
--- OUTSIDE RECORDS SUMMARY | 2024-03-11 12:48 | XMS_ITS | Encounter Summary ---
Author Organization [facility] Address [address] [place] [address] Phone Care Team Providers Care Water Plant Pump Operator Name Role Phone Enrique Syed MD Primary Care Provider [phone] Clementina Logan MD Unavailable [phone] Reason for Referral * Radiology Services (Routine) - Closed Specialty Diagnoses / Procedures Referred By Rosalind t Referred To Contact Radiology Diagnoses Kidney stone Procedures US RENAL COMPLETE Torey Campoverde MD [address] [address] Phone: tel: fax: Referral ID Status Reason Start Date Expiration Date Visits Re quested Visits Authorized [id number] Closed 06/09/2023 1 1 * Radiology Services (Routine) - Closed Specialty Diagnoses / Procedures Referred By Rosalind estevez Referred To Contact Radiology Diagnoses Kidney stone Procedures XR ABDOMEN KUB FLAT PLATE Torey Campoverde MD [address] [address] Phone: tel: fax: Referral ID Status Reason Start Date Expiration Date Visits Re quested Visits Authorized [id number] Closed 06/09/2023 1 1 Encounter Details Date Type Department Care Team (Late st Contact Info) Description 06/09/2023 Telephone [facility] [address] [place] [address] Torey [facility]overde MD [facility] [facility] [address] [address] Social History Tobacco Use Types Packs/Day Years [...] Telephone Encounter - Elizabeth Gonzalez RN - 06/09/2023 3:45 PM CDT Order per OV note 07/25/23 documented in this encounter Plan of Treatment Upcoming Encounters Date Type Department Care Team (Late st Contact Info) Description 12/29/2024 9:00 AM CDT Office Visit [facility] [address] [place] [address] Clementina Logan MD [address] [address] documented as of this encounter Results * XR ABDOMEN KUB FLAT PLATE (06/26/2023 11:49 AM CDT) Anatomical Region Laterality Modality Abdomen N/A Digital Radiogra phy 06/28/2023 6:13 PM CDT Impressions 06/28/2023 6:15 PM CDT IMPRESSION: 1. A 5 mm calcification projecting over the lower pole left renal shadow reflective of a calculus, also characterized on CT 03/16/2023. ??Faint punctate calcification projecting over the interpolar region of the right renal shadow could also reflect a calculus. Narrative 06/28/2023 6:15 PM CDT EXAM DESCRIPTION: ?? XR ABDOMEN KUB FLAT PLATE REASON FOR STUDY: ?? Follow up for kidney stones last yr. Denies pain currently. H/o lithotripst, stent, LT breast and uterine cancer, cholecystectomy, hysterectomy ?? TECHNIQUE: Frontal ??radiographic view of the abdomen on 2 exposures. COMPARISON: ?? 03/16/2023 FINDINGS: BOWEL: ??Nonobstructive gas pattern. ?? SOFT TISSUES: ??There is a 5 mm calcification projecting over the lower pole left renal shadow reflective of a calculus which was also characterized on CT 03/16/2023. ??Faint punctate calcification projecting over the interpolar region of the right renal shadow could also reflect a calculus. LINES/TUBES: ??None. BONES: ??No acute osseous abnormality. ?? Bilateral total hip arthroplasties project over the expected position but incompletely imaged. ??Multilevel imaged spine degenerative disc disease. THIS IS AN ELECTRONICALLY VERIFIED FINAL REPORT 06/28/2023 6:13 PM - Electronically signed by ??Benedict Sweeney M.D. AT: AT D: ??06/28/2023 6:13 PM T: ??06/28/2023 6:13 PM Report ID: [id number] Reading Location: ??[id number] Procedure Note Benedict Sweeney MD - 06/28/2023 EXAM DESCRIPTION: XR ABDOMEN KUB FLAT PLATE REASON FOR STUDY: Follow up for kidney stones last yr. Denies pain currently. H/o lithotripst, stent, LT breast and uterine cancer, cholecystectomy, hysterectomy TECHNIQUE: Frontal radiographic view of the abdomen on 2 exposures. COMPARISON: 03/16/2023 FINDINGS: BOWEL: Nonobstructive gas pattern. SOFT TISSUES: There is a 5 mm calcification projecting over the lower pole left renal shadow reflective of a calculus which was also characterized on CT 03/16/2023. Faint punctate calcification projecting over the interpolar region of the right renal shadow could also reflect a calculus. LINES/TUBES: None. BONES: No acute osseous abnormality. Bilateral total hip arthroplasties project over the expected position but incompletely imaged. Multilevel imaged spine degenerative disc disease. THIS IS AN ELECTRONICALLY VERIFIED FINAL REPORT 06/28/2023 6:13 PM - Electronically signed by Benedict Sweeney M.D. AT: AT Report ID: [id number] Reading Location: [id number] IMPRESSION: 1. A 5 mm calcification projecting over the lower pole left renal shadow reflective of a calculus, also characterized on CT 03/16/2023. Faint punctate calcification projecting over the interpolar region of the right renal shadow could also reflect a calculus. Torey Campoverde MD [facility] DIAGNOSTIC ORDERABLES Final Result * US RENAL COMPLETE (06/26/2023 11:36 AM CDT) Anatomical Region Laterality Modality , Abdomen N/A Ultrasound 06/30/2023 8:03 AM CDT Impressions 06/30/2023 8:06 AM CDT IMPRESSION: No hydronephrosis noted in either kidney. A 2 nonobstructing stones identified in the left renal calices, measuring 5 mm and 6 mm respectively. ??No definite stones are identified in the right renal calices on these images. Other findings as above. Narrative 06/30/2023 8:06 AM CDT EXAM DESCRIPTION: US RENAL COMPLETE REASON FOR STUDY: Evaluate for hydronephrosis and kidney stones. TECHNIQUE: Ultrasound of the kidneys and urinary bladder was performed with grayscale imaging. COMPARISON: CT of the abdomen and pelvis dated 03/16/2023. FINDINGS: RIGHT KIDNEY: The right kidney measures 12.7 cm from pole to pole. ??Parenchymal echogenicity and cortical thickness is normal. No focal parenchymal lesions are seen. ??No hydronephrosis is noted. There questionable echogenic reflectors, but no definite stones on these images. LEFT KIDNEY: The left kidney measures 10.8 cm from pole to pole. ?? Parenchymal echogenicity and cortical thickness is normal. ??Tiny benign simple cyst in the left lower pole, measuring 8 mm. ??No suspicious focal parenchymal lesions are seen. ??No hydronephrosis. ?? 2 nonobstructing stones are identified in the left renal calices, measuring 5 mm and 6 mm respectively. URINARY BLADDER: ?? The urinary bladder, as visualized, appears unremarkable. The right and left ureteral jets are visualized. OTHER: ?? No other additional findings. THIS IS AN ELECTRONICALLY VERIFIED FINAL REPORT 06/30/2023 8:03 AM - Electronically signed by ??Nba Nolasco M.D. RL: REJI D: ??06/30/2023 8:03 AM T: ??06/30/2023 8:03 AM Report ID: [id number] Reading Location: ??[id number] Procedure Note Nba Nolasco MD - 06/30/2023 EXAM DESCRIPTION: US RENAL COMPLETE REASON FOR STUDY: Evaluate for hydronephrosis and kidney stones. TECHNIQUE: Ultrasound of the kidneys and urinary bladder was performed with grayscale imaging. COMPARISON: CT of the abdomen and pelvis dated 03/16/2023. FINDINGS: RIGHT KIDNEY: The right kidney measures 12.7 cm from pole to pole. Parenchymal echogenicity and cortical thickness is normal. No focal parenchymal lesions are seen. No hydronephrosis is noted. There questionable echogenic reflectors, but no definite stones on these images. LEFT KIDNEY: The left kidney measures 10.8 cm from pole to pole. Parenchymal echogenicity and cortical thickness is normal. Tiny benign simple cyst in the left lower pole, measuring 8 mm. No suspicious focal parenchymal lesions are seen. No hydronephrosis. 2 nonobstructing stones are identified in the left renal calices, measuring 5 mm and 6 mm respectively. URINARY BLADDER: The urinary bladder, as visualized, appears unremarkable. The right and left ureteral jets are visualized. OTHER: No other additional findings. THIS IS AN ELECTRONICALLY VERIFIED FINAL REPORT 06/30/2023 8:03 AM - Electronically signed by Nba Nolasco M.D. RL: REJI Report ID: [id number] Reading Location: [id number] IMPRESSION: No hydronephrosis noted in either kidney. A 2 nonobstructing stones identified in the left renal calices, measuring 5 mm and 6 mm respectively. No definite stones are identified in the right renal calices on these images. Other findings as above. us Torey Campoverde MD IMG US ORDERABLES Final Result documented in this encounter Visit Diagnoses Diagnosis Kidney stone- Primary Calculus of kidney Kidney stone Calculus of kidney Kidney stone Calculus of kidney documented in this encounter Care Teams Water Plant Pump Operator Relationship Specialty Start Date End Date Enrique Syed MD [address] [place] [address] PCP - General Internal Medicine 08/11/22 Clementina Logan MD [address] [address] Consulting Physician Urology 03/17/22 documented as of this encounter
--- OUTSIDE RECORDS SUMMARY | 2024-03-11 12:48 | XMS_ITS | Encounter Summary ---
Author Organization [facility] Address [address] [place] [address] Phone Care Team Providers Care Granulator Tender Name Role Phone Enrique Syed MD Primary Care Provider [phone] Clementina Logan MD Unavailable [phone] Reason for Referral * Radiology Services (Routine) - Closed Specialty Diagnoses / Procedures Referred By Rosalind estevez Referred To Contact Radiology Diagnoses Kidney stone Procedures US RENAL COMPLETE Clementina Logan MD [address] [place] [address] Phone: tel: fax: Referral ID Status Reason Start Date Expiration Date Visits Re quested Visits Authorized [id number] Closed 06/09/2022 1 1 Reason for Visit * Radiology Services (Routine) - Closed Specialty Diagnoses / Procedures Referred By Rosalind estevez Referred To Contact Radiology Diagnoses Kidney stone Procedures US RENAL COMPLETE Clementina Logan MD [address] [place] [address] Phone: tel: fax: Referral ID Status Reason Start Date Expiration Date Visits Re quested Visits Authorized [id number] Closed 06/09/2022 1 1 Encounter Details Date Type Department Care Team (Latest Contact Info) Description 07/21/2022 10:23 AM CDT - 07/21/2022 11:59 PM CDT Hospital Encounter [facility] Ultrasound [address] [facility] [place] [address] Clementina Logan MD [address], [facility] [address] [place] [address] Discharge Disposition: Discharged to home or Selfcare [...] AM CDT documented as of this encounter Medications at [...] Take 800 mg by mouth nightly. 08/19/2016 [place]-3 1400 MG Capsule Take by mouth. oxybutynin [...] by mouth. 09/23/2016 4 ergocalciferol (VITAMIN D) 62102 UNIT Capsule Take 50,000 Units by mouth. 06/10/2018 4 fluocinonide (LIDEX) 0.05 % Solution 12/09/2021 4 HYDROcodone-acet aminophen ([place]) 5-325 MG TabletIndication s:Ureteral stone Take 1 Tablet by mouth every 6 hours as needed for Severe pain. 15 Tablet 05/26/2022 4 irbesartan-hydro CHLOROthiazide (AVALIDE) 150-12.5 MG Tablet Take 1 Tablet by mouth daily. 08/19/2016 4 omeprazole (PriLOSEC) 10 MG CAPSULE DELAYED RELEASE 10 mg. 09/17/2014 4 documented as of this encounter Plan of Treatment Upcoming Encounters Date Type Department Care Team (Late st Contact Info) Description 12/29/2024 9:00 AM CDT Office Visit [facility] [address] [id number] Clementina Logan MD [address] [place] [address] documented as of this encounter Procedures Procedure Name Priority Date/Time Associated Diagnosis Comments US RENAL COMPLETE Routine 07/21/2022 10: 49 AM CDT Kidney stone documented in this encounter Results * US RENAL COMPLETE (07/21/2022 10:49 AM CDT) Anatomical Region Laterality Modality , Abdomen N/A Ultrasound 07/21/2022 6:48 PM CDT Impressions 07/21/2022 6:51 PM CDT IMPRESSION: Trace right and mild left hydronephrosis. Normal renal size and echogenicity with no significant cortical thinning. Left renal cyst 0.8 cm. Hepatic steatosis. Urinary bladder could not be assessed well. Narrative 07/21/2022 6:51 PM CDT EXAM DESCRIPTION: ?? US RENAL COMPLETE REASON FOR STUDY: Assess for right hydronephrosis. TECHNIQUE: Ultrasound of the kidneys and urinary bladder was performed with grayscale imaging. COMPARISON: None. FINDINGS: RIGHT KIDNEY: The right kidney measures ??11.7 ??cm in length. ??There is trace hydronephrosis. ??There is normal cortical thickness and echogenicity. LEFT KIDNEY: The left kidney measures ??12.3 ??cm in length. ??There is mild hydronephrosis. ??There is normal cortical thickness and echogenicity. ?? Anechoic left renal cyst mid to lower pole 0.8 x 0.5 x 0.5 cm. URINARY BLADDER: ?? Not able to be well assessed. OTHER: ?? The liver is increased in echogenicity evidence of hepatic steatosis. THIS IS AN ELECTRONICALLY VERIFIED FINAL REPORT 07/21/2022 6:48 PM - Electronically signed by ??Yg Downs M.D. CH: D: ??07/21/2022 6:48 PM T: ??07/21/2022 6:48 PM Report ID: [id number] Reading Location: ??[id number] Procedure Note Yg Downs Jr., MD - 05/23/2023 EXAM DESCRIPTION: US RENAL COMPLETE REASON FOR STUDY: Assess for right hydronephrosis. TECHNIQUE: Ultrasound of the kidneys and urinary bladder was performed with grayscale imaging. COMPARISON: None. FINDINGS: RIGHT KIDNEY: The right kidney measures 11.7 cm in length. There is trace hydronephrosis. There is normal cortical thickness and echogenicity. LEFT KIDNEY: The left kidney measures 12.3 cm in length. There is mild hydronephrosis. There is normal cortical thickness and echogenicity. Anechoic left renal cyst mid to lower pole 0.8 x 0.5 x 0.5 cm. URINARY BLADDER: Not able to be well assessed. OTHER: The liver is increased in echogenicity evidence of hepatic steatosis. THIS IS AN ELECTRONICALLY VERIFIED FINAL REPORT 07/21/2022 6:48 PM - Electronically signed by Yg Downs M.D. CH: Report ID: [id number] Reading Location: [id number] IMPRESSION: Trace right and mild left hydronephrosis. Normal renal size and echogenicity with no significant cortical thinning. Left renal cyst 0.8 cm. Hepatic steatosis. Urinary bladder could not be assessed well. Clementina Mauricio MD [facility] [place] Final Result documented in this encounter Visit Diagnoses Diagnosis Kidney stone Calculus of kidney documented in this encounter Care Teams Granulator Tender Relationship Specialty Start Date End Date Enrique Syed MD [address] [address] PCP - General Internal Medicine 07/21/22 08/04/22 Clementina Logan MD [address] [address] Consulting Physician Urology 03/17/22 documented as of this encounter
--- OUTSIDE RECORDS SUMMARY | 2024-03-11 12:48 | XMS_ITS | Encounter Summary ---
Author Organization [facility] Address [address] [place] [address] Phone Care Team Providers Care Secretary Book Keeper Name Role Phone Enrique Syed MD Primary Care Provider [phone] Clementina Logan MD Unavailable [phone] Reason for Visit * Reason Onset Date Comments Results 06/06/2022 Urinary Problem 06/06/2022 Kidney Stone 06/06/2022 Encounter Details Date Type Department Care Team (Late st Contact Info) Description 06/06/2022 Nurse Triage [facility] [address] [place] [address] Clementina Logan MD [address] [address] Results; Urinary Problem; Kidney Stone Social History Tobacco Use Types Packs/Day Years [...] PM CDT documented as of this encounter Miscellaneous Notes * Telephone Encounter - Ally Blevins Alfredo, RN - 06/07/2022 9:22 PM CDT SITUATION: Urination Concerns BACKGROUND: Recent kidney stone and kidney stent placed on 05/26 ASSESSMENT: Symptom Description / Location: Says she urinated and saw several pieces of something come out when she urinated. She describes them as long and thin, jagged edges, appeared to look like tissue, she says they weremaybe 1 inch long, and they were dark red. She said they floated, there appeared to be at least 12 of them. She says they did not cause her anymore pain, but she did feel them while urinating She went in and urinated again after x2, and did not have as much blood with urination. She does take Eliquis. She says to her knowledge the stent has not came out, she says it feels like it is still in there. She says after having the stent placed every time she urinated her urine contained a lot of blood, to the point of changing the entire toilet water dark red, until this evening. Following the passage of the long thin objects, she no longer has dark red urine. There is a scant amount of blood noted in her urine currently. She denies any abdominal pain, she has some discomfort from the stent, but no other changes since this event. Pain (0-10): pain towards end of urination Temp: denies fever Treatment / Response: She was advised to call back if she had any changed to her urine, if she developed pain, cramping, or if her stent came out. She was encouraged to drink plenty of water, and call back if she was unable to pass urine. Caller/patient verbalized understanding and was agreeable to recommendation/plan of care RECOMMENDATION: See care advice and disposition for Guideline First positive answer recorded, all responses to prior questions were negative. If symptoms increase, change or if new symptoms develop, call your HCP or call back. Recommendations were based on caller information and is not a diagnosis. Verified and reviewed all triage information with caller. Reason for Disposition ??? [1] Recent ureteral STENT for kidney stone AND [2] normal post-op symptoms (e.g., blood in urine, nausea, pain) after ureteroscopy or ureteral STENT placement Protocols used: KIDNEY STONE FOLLOW-UP CALL-A- * Telephone Encounter - Kiana Oliveros RN - 06/07/2022 5:40 PM CDT Patient calling to get urine results. Updated that urine showed CULTURE RESULTS MIXED GROWTH OF ONE OR MORE DISTAL URETHRAL CONTAMINANTS Resulting Agency: [facility] Specimen Collected: 06/05/22 16:01 CDT Last Resulted: 06/06/22 15:51 CDT Patient relays that she continues to have symptoms of an UTI, burning with urination, frequency, blood in urine.Patient denies any fever. Patient relays that she has a urethral stent in placed and is to have the stent removed if she did not have an UTI. Advised patient that message will be sent tot he office. * Telephone Encounter - Raisa Mejia RN - 06/06/2022 2:43 PM CDT SITUATION (caller perception/concerns): Results BACKGROUND (events leading up to call): Caller was told she would be notified this morning of urinetest results, asking if available. ASSESSMENT: Declines triage. RECOMMENDATION: Advised the culture is in process - no reults available. Patient is scheduled for knee injection Wednesday at 10:30 am, wanting to ensure okay to have prior tostent removal on 06/09. documented in this encounter Plan of Treatment Upcoming Encounters Date Type Department Care Team (Late st Contact Info) Description 12/29/2024 9:00 AM CDT Office Visit [facility] [address] [place] [address] Clementina Logan MD [address] [facility], [address] [address] documented as of this encounter Visit Diagnoses Not on filedocumented in this encounter Care Teams Secretary Book Keeper Relationship Specialty Start Date End Date Enrique Syed MD PCP - General Internal Medicine 04/24/16 07/07/22 Clementina Logan MD [address] [place] [address] Consulting Physician Urology 03/17/22 documented as of this encounter
--- OUTSIDE RECORDS SUMMARY | 2024-03-11 12:48 | XMS_ITS | Encounter Summary ---
Author Organization [facility] Address [address] [place] [address] Phone Care Team Providers Care Supervisor Building Maintenance Name Role Phone Enrique Syed MD Primary Care Provider [phone] Clementina Logan MD Unavailable [phone] Reason for Referral * Radiology Services (Routine) - Closed Specialty Diagnoses / Procedures Referred By Contac t Referred To Contact Radiology Diagnoses Chest pain, unspecified type Procedures XR CHEST 2 VIEWS Enrique Syed MD [address] [place] [address] Phone: tel: fax: Referral ID Status Reason Start Date Expiration Date Visits Re quested Visits Authorized [id number] Closed 03/16/2023 1 1 ISH BLENDER Reason for Visit * Radiology Services (Routine) - Closed Specialty Diagnoses / Procedures Referred By Rosalind estevez Referred To Contact Radiology Diagnoses Chest pain, unspecified type Procedures XR CHEST 2 VIEWS Enrique Syed MD [address] [place] [address] Phone: tel: fax: Referral ID Status Reason Start Date Expiration Date Visits Re quested Visits Authorized [id number] Closed 03/16/2023 1 1 Encounter Details Date Type Department Care Team (Late st Contact Info) Description 03/16/2023 12:00 PM VARNISH BLENDER - 03/16/2023 12:20 PM VARNISH BLENDER Hospital Encounter [facility]iology [address] [place] [address] Enrique Syed MD [facility] [address] [address] Discharge Disposition: Discharged to home or Selfcare [...] Take 800 mg by mouth nightly. 08/19/2016 [place]-3 1400 MG Capsule Take by mouth. oxybutynin [...] by mouth. 09/23/2016 4 ergocalciferol (VITAMIN D) 84437 UNIT Capsule Take 50,000 Units by mouth. 06/10/2018 4 fluocinonide (LIDEX) 0.05 % Solution 12/09/2021 4 HYDROcodone-acet aminophen ([place]) 5-325 MG TabletIndication s:Ureteral stone Take 1 [...] Visit [facility] [address] [place] [address] Clementina Logan MD [address], [facility] [address] [place] [address] documented as of this encounter Procedures Procedure Name Priority Date/Time Associated Diagnosis Comments XR CHEST 2 VIEWS STAT 03/16/2023 12:4 1 PM VARNISH BLENDER Chest pain, unspecified type documented in this encounter Results * XR CHEST 2 VIEWS (03/16/2023 12:41 PM VARNISH BLENDER) Anatomical Region Laterality Modality Chest N/A Digital Radiogra phy 03/16/2023 12:5 0 PM VARNISH BLENDER Impressions 03/16/2023 12:53 PM VARNISH BLENDER IMPRESSION: No acute pulmonary infiltrates. Likely calcification of the left breast should be benign. Narrative 03/16/2023 12:53 PM VARNISH BLENDER EXAM DESCRIPTION: ?? XR CHEST 2 VIEWS REASON FOR STUDY: ?? Lt side chest pain after fall last nigth. Hx. asthma, HTN, ?? . ? TECHNIQUE: ?? Two views. ?? COMPARISON: ?? None FINDINGS: ?? Heart size is normal. ??No pneumothorax. ??No pneumonia or pulmonary edema. ??Dual lead cardiac pacing device noted. ??No pleural effusions. ??Axial type calcifications superimposing the lateral aspect of the left lower lung field. ??This likely superimposes the breasts and sternum on the lateral view. THIS IS AN ELECTRONICALLY VERIFIED FINAL REPORT 03/16/2023 12:50 PM - Electronically signed by ??Jose Alfredo Araya M.D. JS: ARMIDA D: ??03/16/2023 12:50 PM T: ??03/16/2023 12:50 PM Report ID: [id number] Reading Location: ??[id number] Procedure Note Jose Alfredo Araya, DO - 03/16/2023 EXAM DESCRIPTION: XR CHEST 2 VIEWS REASON FOR STUDY: Lt side chest pain after fall last nigth. Hx. asthma, HTN, . TECHNIQUE: Two views. COMPARISON: None FINDINGS: Heart size is normal. No pneumothorax. No pneumonia or pulmonary edema. Dual lead cardiac pacing device noted. No pleural effusions. Axial type calcifications superimposing the lateral aspect of the left lower lung field. This likely superimposes the breasts and sternum on the lateral view. THIS IS AN ELECTRONICALLY VERIFIED FINAL REPORT 03/16/2023 12:50 PM - Electronically signed by Jose Alfredo Araya M.D. JS: [email or web address] Report ID: [id number] Reading Location: [id number] IMPRESSION: No acute pulmonary infiltrates. Likely calcification of the left breast should be benign. Enrique Syed MD IMG DIAGNOSTIC ORDERABLES Final Result documented in this encounter Visit Diagnoses Diagnosis Chest pain, unspecified type documented in this encounter Care Teams Supervisor Building Maintenance Relationship Specialty Start Date End Date Enrique Syed MD [facility] [place] [address] PCP - General Internal Medicine 08/11/22 Clementina Logan MD [address] [address] Consulting Physician Urology 03/17/22 documented as of this encounter
--- OUTSIDE RECORDS SUMMARY | 2024-03-11 12:48 | XMS_ITS | Encounter Summary ---
Author Organization [facility] Address [address] [place] [address] Phone Care Team Providers Care Elevator Runner Name Role Phone Enrique Syed MD Primary Care Provider [phone] Clementina Logan MD Unavailable [phone] Reason for Visit * Reason Comments Headache Encounter Details Date Type Department Care Team (Late st Contact Info) Description 04/21/2023 3:43 PM PRODUCT DEVELOPMENT CARPENTER - 04/21/2023 4:43 PM PRODUCT DEVELOPMENT CARPENTER Emergency [facility] Emergency [address] [place] [address] Fan Wong MD [address] [place] [address] Nonintractable headache, unspecified chronicity pattern, unspecified headache type Discharge Disposition: Discharged to home or Selfcare [...] Sign Reading Time Taken Comments Blood Pressure 121/87 04/21/2023 4:42 PM PRODUCT DEVELOPMENT CARPENTER Pulse 79 04/21/2023 4:42 PM PRODUCT DEVELOPMENT CARPENTER Temperature 36.6 ??C (97.8 ??F) 04/21/2023 4:42 PM CS T Respiratory Rate 17 04/21/2023 4:42 PM PRODUCT DEVELOPMENT CARPENTER Oxygen Saturation 95% 04/21/2023 4:42 PM PRODUCT DEVELOPMENT CARPENTER Inhaled Oxygen Concentration - - Weight 96.4 kg (212 lb 8.4 oz) 04/21/2023 3:25 P M PRODUCT DEVELOPMENT CARPENTER Height 149.9 cm (4' 11 ) 04/21/2023 3:25 PM PRODUCT DEVELOPMENT CARPENTER Body Mass Index 42.92 04/21/2023 3:25 PM PRODUCT DEVELOPMENT CARPENTER documented in this encounter Discharge Instructions * Discharge Instructions* Fan Wong MD - 04/21/2023 4:37 PM PRODUCT DEVELOPMENT CARPENTER Take [id number] pain relievers as needed. Return to the ER if you develop any new symptoms that concern you. UCT DEVELOPMENT CARPENTER documented in this encounter Medications at Time [...] Take 800 mg by mouth nightly. 08/19/2016 [place]-3 1400 MG Capsule Take by mouth. oxybutynin (DITROPAN-XL) 10 MG TABLET SR 24 HR Take 1 Tablet by mouth daily. 30 Tablet 3 05/26/2022 Semaglutide-Weig ht Management (WEPARTHA SC) by Subcutaneous route. sotalol (BETAPACE) 160 MG Tablet Take 160 mg by mouth 2 times daily. 01/09/2022 valsartan-hydroC HLOROthiazide (DIOVAN-HCT) 320-12.5 MG Tablet Take 1 Tablet by mouth daily. 02/19/2022 Zinc 50 MG Capsule Take by mouth. Calcium Carb-Cholecalcif jhon 600-20 MG-MCG Tablet 11/15/2013 4 cefUROXime (CEFTIN) 500 MG Tablet Take 500 mg by mouth. 09/23/2016 4 ergocalciferol (VITAMIN D) 16470 UNIT Capsule Take 50,000 Units by mouth. 06/10/2018 4 fluocinonide (LIDEX) 0.05 % Solution 12/09/2021 4 HYDROcodone-acet aminophen (Luckey) 5-325 MG TabletIndication s:Ureteral stone Take 1 Tablet by mouth every 6 hours as needed for Severe pain. 15 Tablet 05/26/2022 4 irbesartan-hydro CHLOROthiazide (AVALIDE) 150-12.5 MG Tablet Take 1 Tablet by mouth daily. 08/19/2016 4 omeprazole (PriLOSEC) 10 MG CAPSULE DELAYED RELEASE 10 mg. 09/17/2014 4 documented as of this encounter ED Notes * Sari Sellers RN - 04/21/2023 4:42 PM CST Patient discharged. Discharge instructions and patient educational material reviewed with patient; questions and concerns addressed; patient verbalizes understanding, using teach back. Patient was given 0 prescriptions. Patient discharged per ambulatory mode with self as responsible constitution party. UCT DEVELOPMENT CARPENTER * Fan Wong MD - 04/21/2023 4:33 PM CST Chief Complaint Patient presents with ??? Headache 73-year-old female who is on Eliquis for atrial fibrillation presents with a headache since a fall 1 week ago. She reports she did hit her head but there was no LOC. She also injured her left hip butshe has been ambulatory since the fall. She contacted her doctor who recommended she come to the ERfor imaging since she was on the blood thinner. Patient also reports she has frequent headaches. She currently has a mild headache. No other symptoms reported. No current facility-administered medications for this encounter. Current Outpatient Medications Medication Sig Dispense Refill ??? albuterol 108 (90 Base) MCG/ACT Aerosol Solution take 2 Puffs by inhalation every 4 hours as needed. ??? allopurinol (ZYLOPRIM) 300 MG Tablet 300 mg. ??? apixaban (ELIQUIS) 5 MG Tablet 5 mg. ??? Ascorbic Acid 500 MG Capsule CR 500 mg. ??? atorvastatin (LIPITOR) 40 MG Tablet 40 mg every evening. ??? azelastine (ASTELIN) 0.1 % Solution ??? budesonide-formoterol fumarate (SYMBICORT) 160-4.5 MCG/ACT Aerosol inhale 2 puff by inhalation route 2 times every day in the morning and evening ??? Calcium Carb-Cholecalciferol 600-20 MG-MCG Tablet ??? cefUROXime (CEFTIN) 500 MG Tablet Take 500 mg by mouth. (Patient not taking: Reported on 06/07/2022) ??? docusate sodium (Colace) 100 MG Capsule Take 1 Capsule by mouth 2 times daily. 60 Capsule 0 ??? ergocalciferol (VITAMIN D) 46781 UNIT Capsule Take 50,000 Units by mouth. ??? famotidine (PEPCID) 10 MG Tablet Take 10 mg by mouth. ??? fexofenadine (SOMMER) 60 MG Tablet Take by mouth. ??? fluocinonide (LIDEX) 0.05 % Solution APPLY TO ITCHY SCALP 1 TO 2 TIMES DAILY (Patient not taking: Reported on 06/07/2022) ??? fluticasone (FLONASE) 50 MCG/ACT Suspension (Patient not taking: Reported on 06/07/2022) ??? HYDROcodone-acetaminophen (Luckey) 5-325 MG Tablet Take 1 Tablet by mouth every 6 hours as needed for Severe pain. 15 Tablet 0 ??? irbesartan-hydroCHLOROthiazide (AVALIDE) 150-12.5 MG Tablet Take 1 Tablet by mouth daily. (Patient not taking: Reported on 06/07/2022) ??? montelukast (SINGULAIR) 10 MG Tablet 10 mg. ??? Multiple Vitamin (MULTIVITAMIN ADULT PO) take 1 tablet by oral route every day with food ??? niacin CR 250 MG Capsule CR Take by mouth. ??? [place]-3 1400 MG Capsule Take by mouth. ??? omeprazole (PriLOSEC) 10 MG CAPSULE DELAYED RELEASE 10 mg. (Patient not taking: Reported on 05/18/2022) ??? oxybutynin (DITROPAN-XL) 10 MG TABLET SR 24 HR Take 1 Tablet by mouth daily. (Patient not taking: Reported on 06/07/2022) 30 Tablet 3 ??? Semaglutide-Weight Management (WEGOVY SC) by Subcutaneous route. ??? sotalol (BETAPACE) 160 MG Tablet Take 160 mg by mouth 2 times daily. ??? valsartan-hydroCHLOROthiazide (DIOVAN-HCT) 320-12.5 MG Tablet Take 1 Tablet by mouth daily. ??? Zinc 50 MG Capsule Take by mouth. Allergies Allergen Reactions ??? Nitrofurantoin Diarrhea and Nausea ??? Christopher Inhibitors Other (see Comments) and Unknown ??? Erythromycin Unknown unsure what type of reaction ??? Sulfa Antibiotics Vomiting Past Medical History Positives Diagnosis Date ??? A-fib (HCC) ??? Acid reflux ??? Arthritis GENERALIZED ??? Asthma ??? Carcinoma (HCC) LEFT BREAST AND UTERUS ??? Gout ??? High cholesterol ??? Hypertension ??? GUY on CPAP Past Surgical History: Procedure Laterality Date ??? BREAST SURGERY Left 09/14/2006 ??? CARPAL TUNNEL RELEASE Right 2002 ??? CHOLECYSTECTOMY 1975 ??? HC CATH CARDIAC ABLATION C1729 D 03/10/2010; 04/28/2010 ??? HYSTERECTOMY 10/26/06 TOTAL ??? LAP,INGUINAL HERNIA REPR,INITIAL Left 03/30/2011 UMBILICAL X2 ??? OTHER SURGICAL HISTORY Left SKULL DUE TO TUMOR THAT ATE AWAY THE BONE ??? PACEMAKER INSERTION Right 06/22/2012 Make: METRONIC; Model: Medtronic 5076 CapSureFix Novus ??? PARTIAL HIP ARTHROPLASTY Right 06/19/2015 ??? TOTAL KNEE ARTHROPLASTY Left 09/30/2015 ??? URETER STENT PLACEMENT Right 05/26/2022 Procedure: CYSTOSCOPY, RIGHT STENT INSERTION; Surgeon: Clementina Logan MD; Location: [facility]; Service: Urology ??? URETEROSCOPY Right 05/26/2022 Procedure: RIGHT URETEROSCOPY WITH HOLMIUM LASER LITHOTRIPSY; Surgeon: Clementina Logan MD; Location: [facility]; Service: Urology Social History Socioeconomic History ??? Marital status: Spouse name: Not on file ??? Number of children: Not on file ??? Years of education: Not on file ??? Highest education level: Not on file Occupational History ??? Not on file Tobacco Use ??? Smoking status: Former Types: Cigarettes Quit date: 2000 Years since quittin.1 ??? Smokeless tobacco: Never Vaping Use ??? Vaping Use: Never used Substance and Sexual Activity ??? Alcohol use: Not Currently ??? Drug use: Not Currently ??? Sexual activity: Not Currently Other Topics Concern ??? Not on file Social History Narrative ??? Not on file Social Determinants of Health Financial Resource Needs: Not on file Food Insecurity Needs: Not on file Transportation Needs: Not on file Physical Activity: Not on file Stress: Not on file Social Integration: Not on file Intimate Partner Violence: Not on file Housing Stability: Not on file BP 117/90 Pulse 83 Temp 97.9 ??F (36.6 ??C) (Tympanic) Resp 16 Ht 4' 11 (1.499 m) Wt 212lb 8.4 oz (96.4 kg) SpO2 94% BMI 42.92 kg/m?? Review of Systems All other systems reviewed and are negative. Physical Exam Vitals and nursing note reviewed. Constitutional: Appearance: Normal appearance. She is not ill-appearing or toxic-appearing. HENT: Head: Normocephalic and atraumatic. Nose: Nose normal. Mouth/Throat: Mouth: Mucous membranes are moist. Eyes: General: No scleral icterus. Conjunctiva/sclera: Conjunctivae normal. Pulmonary: Effort: Pulmonary effort is normal. Breath sounds: No stridor. Abdominal: General: Abdomen is flat. There is no distension. Musculoskeletal: General: No swelling or deformity. Normal range of motion. Cervical back: Normal range of motion. Skin: Findings: No rash. Neurological: General: No focal deficit present. Cranial Nerves: No cranial nerve deficit or dysarthria. Motor: No weakness. Coordination: Coordination normal. Gait: Gait normal. Psychiatric: Behavior: Behavior normal. Procedures No results found for this or any previous visit (from the past 24 hour(s)). Imaging Results CT HEAD OR BRAIN WO CONTRAST (Final result) Result time 04/21/23 16:31:51 Final result by Kale Espinoza MD (04/21/23 16:31:51) Impression: IMPRESSION: No acute intracranial abnormality by CT criteria. Narrative: EXAM DESCRIPTION: CT HEAD OR BRAIN WO CONTRAST REASON FOR STUDY: Fall 10 days ago while on anticoagulation. History of skull surgery 40 years ago. TECHNIQUE: Axial images acquired through the brain without intravenous contrast. Images stored on PACS. Automated exposure control was used as a dose optimization technique for this examination. COMPARISON: CT internal auditory canals 06/12/2022 FINDINGS: BRAIN: No hemorrhage, edema or mass effect. Normal white matter. Minimal cerebral atrophy. The agosto-white matter differentiation is diffusely preserved. Basilar cisterns are patent. EXTRA-AXIAL SPACES: No fluid collections. No masses. CALVARIUM: Postoperative change in the left frontal calvarium. No displaced fracture. SINUSES/MASTOIDS: No fluid or mucosal thickening. ORBITS: No significant abnormality. OTHER: The skull base, craniocervical junction, and extracranial soft tissues are unremarkable. Prominent vessel along the underside of the left tentorium (coronal image 53) is unchanged from May. THIS IS AN ELECTRONICALLY VERIFIED FINAL REPORT 04/21/2023 4:29 PM - Electronically signed by Kale Espinoza M.D. LB: GLORIA Report ID: [id number] Reading Location: [place] [address] Medical Decision Making 73 year old female presents with headaches after a fall that occurred one-week ago. She was no focal neurologic findings noted on exam and no nausea or vomiting. She was no other significant injuriesnoted. She had a head CT that was negative. Differential diagnosis includes contusion, uncomplicated headache and intracranial bleeding. Nonintractable headache, unspecified chronicity pattern, unspecified headache type: self-limited orminor problem Amount and/or Complexity of Data Reviewed Radiology: ordered. Decision-making details documented in ED Course. Risk Decision regarding hospitalization. Clinical Impression 1. Nonintractable headache, unspecified chronicity pattern, unspecified headache type Disposition: Discharge UCT DEVELOPMENT CARPENTER * Sari Sellers RN - 04/21/2023 3:56 PM CST Patient to CT via wheelchair at this time. UCT DEVELOPMENT CARPENTER * Olaf Rai RN - 04/21/2023 3:28 PM CST ~10 days ago while carrying objects, she tripped and fell. she has c/o'd h/a to anterior and posterior head, although she does not believe she struck her head. she is on blood thinners and pmd has advised her to come to er for ct head. pt is alert and follows commands well. resp unlabored. danielito@3mm. she has steady gait to triage. UCT DEVELOPMENT CARPENTER documented in this encounter Miscellaneous Notes * PatientPass Patient Instructions - Fan Wong MD - 04/21/2023 4:36 PM CST Images from the original note were not included. Patient Education Table of Contents General Headache Without Cause To view videos and all your education online visit, [email or web address] or scan this QR code with your smartphone. Access to this content will in one year. General Headache Without Cause A headache is pain or discomfort felt around the head or neck area. There are many causes and typesof headaches. A few common types include: Tension headaches. Migraine headaches. Cluster headaches. Chronic daily headaches. Sometimes, the specific cause of a headache may not be found. Follow these instructions at home: Watch your condition for any changes. Let your health care provider know about them. Take these steps to help with your condition: Managing pain Take sudi-zct-eeyepjk and prescription medicines only as told by your health care provider. Treatment may include medicines for pain that are taken by mouth or applied to the skin. Lie down in a dark, quiet room when you have a headache. Keep lights dim if bright lights bother you or make your headaches worse. If directed, put ice on your head and neck area: ? Put ice in a plastic bag. ? Place a towel between your skin and the bag. ? Leave the ice on for 20 minutes, 2?3 times per day. ? Remove the ice if your skin turns bright red. This is very important. If you cannot feel pain, heat, or cold, you have a greater risk of damage to the area. If directed, apply heat to the affected area. Use the heat source that your health care provider recommends, such as a moist heat pack or a heating pad. ? Place a towel between your skin and the heat source. ? Leave the heat on for 20?30 minutes. ? Remove the heat if your skin turns bright red. This is especially important if you are unable to feel pain, heat, or cold. You have a greater risk of getting burned. Eating and drinking Eat meals on a regular schedule. If you drink alcohol: ? Limit how much you have to: ? 0?1 drink a day for women who are not . ? 0?2 drinks a day for men. ? Know how much alcohol is in a drink. In the [place] one drink equals one 12 oz bottle of beer (355 mL), one 5 oz glass of wine (148 mL), or one 1? oz glass of hard liquor (44 mL). Stop drinking caffeine, or decrease the amount of caffeine you drink. Drink enough fluid to keep your urine pale yellow. General instructions Keep a headache journal to help find out what may trigger your headaches. For example, write down: ? What you eat and drink. ? How much sleep you get. ? Any change to your diet or medicines. Try massage or other relaxation techniques. Limit stress. Sit up straight, and do not tense your muscles. Do not use any products that contain nicotine or tobacco. These products include cigarettes, chewing tobacco, and vaping devices, such as e-cigarettes. If you need help quitting, ask your health careprovider. Exercise regularly as told by your health care provider. Sleep on a regular schedule. Get 7?9 hours of sleep each night, or the amount recommended by your health care provider. Keep all follow-up visits. This is important. Contact a health care provider if: Medicine does not help your symptoms. You have a headache that is different from your usual headache. You have nausea or you vomit. You have a fever. Get help right away if: Your headache: ? Becomes severe quickly. ? Gets worse after moderate to intense physical activity. You have any of these symptoms: ? Repeated vomiting. ? Pain or stiffness in your neck. ? Changes to your vision. ? Pain in an eye or ear. ? Problems with speech. ? Muscular weakness or loss of muscle control. ? Loss of balance or coordination. You feel faint or pass out. You have confusion. You have a seizure. These symptoms may represent a serious problem that is an emergency. Do not wait to see if the symptoms will go away. Get medical help right away. Call your local emergency services (911 in the [place] Do not drive yourself to the hospital. Summary A headache is pain or discomfort felt around the head or neck area. There are many causes and types of headaches. In some cases, the cause may not be found. Keep a headache journal to help find out what may trigger your headaches. Watch your condition for any changes. Let your health care provider know about them. Contact a health care provider if you have a headache that is different from the usual headache, orif your symptoms are not helped by medicine. Get help right away if your headache becomes severe, you vomit, you have a loss of vision, you loseyour balance, or you have a seizure. This information is not intended to replace advice given to you by your health care provider. Make sure you discuss any questions you have with your health care provider. Document Released: 2006-02-15 Document Updated: 2021-07-16 Document Reviewed: 2021-07-16 Elsevier Patient Education ? 2022 [employer] UCT DEVELOPMENT CARPENTER documented in this encounter Plan of Treatment Upcoming Encounters Date Type Department Care Team (Late st Contact Info) Description 12/29/2024 9:00 AM CDT Office Visit [facility] [address] [place] [address] Clementina Logan MD [address] [place] [address] documented as of this encounter Procedures Procedure Name Priority Date/Time Associated Diagnosis Comments CT HEAD OR BRAIN WO CONTRAST Stat with Interpretation 04/21/2023 4:01 PM PRODUCT DEVELOPMENT CARPENTER documented in this encounter Results * CT HEAD OR BRAIN WO CONTRAST (04/21/2023 4:01 PM PRODUCT DEVELOPMENT CARPENTER) Anatomical Region Laterality Modality Head N/A Computed Tomogra phy 04/21/2023 4:29 PM PRODUCT DEVELOPMENT CARPENTER Impressions 04/21/2023 4:31 PM PRODUCT DEVELOPMENT CARPENTER IMPRESSION: No acute intracranial abnormality by CT criteria. Narrative 04/21/2023 4:31 PM PRODUCT DEVELOPMENT CARPENTER EXAM DESCRIPTION: CT HEAD OR BRAIN WO CONTRAST REASON FOR STUDY: Fall 10 days ago while on anticoagulation. ?? History of skull surgery 40 years ago. TECHNIQUE: Axial images acquired through the brain without intravenous contrast. ??Images stored on PACS. ?? Automated exposure control was used as a dose optimization technique for this examination. COMPARISON: CT internal auditory canals 06/12/2022 FINDINGS: BRAIN: ?? No hemorrhage, edema or mass effect. ?Normal white matter. ?Minimal cerebral atrophy. ??The agosto-white matter differentiation is diffusely preserved. Basilar cisterns are patent. EXTRA-AXIAL SPACES: ?? No fluid collections. No masses. CALVARIUM: ?? Postoperative change in the left frontal calvarium. ??No displaced fracture. SINUSES/MASTOIDS: ?? No fluid or mucosal thickening. ORBITS: ?? No significant abnormality. OTHER: ?? The skull base, craniocervical junction, and extracranial soft tissues are unremarkable. ??Prominent vessel along the underside of the left tentorium (coronal image 53) is unchanged from May. THIS IS AN ELECTRONICALLY VERIFIED FINAL REPORT 04/21/2023 4:29 PM - Electronically signed by ??Kale Espinoza M.D. LB: GLORIA D: ??04/21/2023 4:29 PM T: ??04/21/2023 4:29 PM Report ID: [id number] Reading Location: ??[id number] Procedure Note Kale Espinoza MD - 04/21/2023 EXAM DESCRIPTION: CT HEAD OR BRAIN WO CONTRAST REASON FOR STUDY: Fall 10 days ago while on anticoagulation. History of skull surgery 40 years ago. TECHNIQUE: Axial images acquired through the brain without intravenous contrast. Images stored on PACS. Automated exposure control was used as a dose optimization technique for this examination. COMPARISON: CT internal auditory canals 06/12/2022 FINDINGS: BRAIN: No hemorrhage, edema or mass effect. Normal white matter. Minimal cerebral atrophy. The agosto-white matter differentiation is diffusely preserved. Basilar cisterns are patent. EXTRA-AXIAL SPACES: No fluid collections. No masses. CALVARIUM: Postoperative change in the left frontal calvarium. No displaced fracture. SINUSES/MASTOIDS: No fluid or mucosal thickening. ORBITS: No significant abnormality. OTHER: The skull base, craniocervical junction, and extracranial soft tissues are unremarkable. Prominent vessel along the underside of the left tentorium (coronal image 53) is unchanged from May. THIS IS AN ELECTRONICALLY VERIFIED FINAL REPORT 04/21/2023 4:29 PM - Electronically signed by Kale Espinoza M.D. LB: GLORIA Report ID: [id number] Reading Location: [id number] IMPRESSION: No acute intracranial abnormality by CT criteria. Fan Wong MD IM CT ORDERABLES Final Re sult documented in this encounter Visit Diagnoses Diagnosis Nonintractable headache, unspecified chronicity pattern, unspecified headache type- Primary documented in this encounter Care Teams Elevator Runner Relationship Specialty Start Date End Date Enrique Syed MD [address] [place] [id number] PCP - General Internal Medicine 08/11/22 Clementina Logan MD [address] [address] Consulting Physician Urology 03/17/22 documented as of this encounter
--- OUTSIDE RECORDS SUMMARY | 2024-03-11 12:48 | XMS_ITS | Encounter Summary ---
Author Organization [facility] Address [address] [place] [address] Phone Care Team Providers Care Template Inspector Name Role Phone Enrique Syed MD Primary Care Provider [phone] Clementina Logan MD Unavailable [phone] Reason for Visit * Radiology Services (Routine) - Closed Specialty Diagnoses / Procedures Referred By Abdiac t Referred To Contact Radiology Diagnoses Left upper quadrant pain Procedures CT ABDOMEN PELVIS W/O CONTRAST CT ABDOMEN W/O CONTRAST Enrique Syed MD [address] [place] [address] Phone: tel: fax: Referral ID Status Reason Start Date Expiration Date Visits Re quested Visits Authorized [id number] Closed 03/16/2023 1 1 Encounter Details Date Type Department Care Team (Late st Contact Info) Description 03/16/2023 12:21 PM TWISTING FRAME CHANGER - 03/16/2023 11:59 PM TWISTING FRAME CHANGER Hospital Encounter [facility] [address] [place] [address] Enrique Syed MD [address] [place] [address] [address] Discharge Disposition: Discharged to home or Selfcare [...] Take 800 mg by mouth nightly. 08/19/2016 [place]-3 1400 MG Capsule Take by mouth. oxybutynin (DITROPAN-XL) 10 MG TABLET SR 24 HR Take 1 Tablet by mouth daily. 30 Tablet 3 05/26/2022 Semaglutide-Weig ht Management (CAITY RI) by Subcutaneous route. sotalol (BETAPACE) 160 MG Tablet Take 160 mg by mouth 2 times daily. 01/09/2022 valsartan-hydroC HLOROthiazide (DIOVAN-HCT) 320-12.5 MG Tablet Take 1 Tablet by mouth daily. 02/19/2022 Zinc 50 MG Capsule Take by mouth. Calcium Carb-Cholecalcif jhon 600-20 MG-MCG Tablet 11/15/2013 4 cefUROXime (CEFTIN) 500 MG Tablet Take 500 mg by mouth. 09/23/2016 4 ergocalciferol (VITAMIN D) 96926 UNIT Capsule Take 50,000 Units by mouth. 06/10/2018 4 fluocinonide (LIDEX) 0.05 % Solution 12/09/2021 4 HYDROcodone-acet aminophen ([place]) 5-325 MG TabletIndication s:Ureteral stone Take 1 [...] Visit [facility] [address] [place] [address] Clementina Logan MD [address] [address] documented as of this encounter Procedures Procedure Name Priority Date/Time Associated Diagnosis Comments CT ABDOMEN PELVIS W/O CONTRAST Routine 03/16/2023 12:29 PM TWISTING FRAME CHANGER Left upper quadrant pain documented in this encounter Results * CT ABDOMEN PELVIS W/O CONTRAST (03/16/2023 12:29 PM TWISTING FRAME CHANGER) Anatomical Region Laterality Modality Abdomen N/A Computed Tomogra phy 03/16/2023 12:5 9 PM TWISTING FRAME CHANGER Impressions 03/16/2023 1:01 PM TWISTING FRAME CHANGER IMPRESSION: No definite evidence of acute traumatic visceral injury in the abdomen and pelvis. No definite evidence of bowel obstruction. ?? No definite evidence of obstructive uropathy. Multiple bilateral nonobstructing renal calculi. Mild mucosal thickening of the distal descending colon and sigmoid colon, which is likely related to underdistention and much less likely mild colitis of infectious or inflammatory etiology. Mild mucosal thickening of the urinary bladder, which is likely related to underdistention. If there is clinical concern for cystitis, then further evaluation with urinary analysis is recommended as clinically indicated. Scattered colonic diverticula without definite evidence of diverticulitis. Narrative 03/16/2023 1:01 PM TWISTING FRAME CHANGER EXAM DESCRIPTION: ?? CT ABDOMEN PELVIS W/O CONTRAST REASON FOR STUDY: ?? GLF last night w/ complaints of LUQ pain since. ?? TECHNIQUE: CT scan of the abdomen and pelvis performed without intravenous and ??without ??oral contrast using helical scanning technique. Reconstructed coronal and sagittal MPR images reviewed. All images stored on PACS. Automated exposure control was used as a dose optimization technique for this examination. COMPARISON: ?? None REFERENCE: Per ACR white paper recommendations, unless otherwise specified no follow-up imaging is recommended for incidental renal and adrenal lesions per consensus recommendations based on imaging criteria. Further lab evaluation could be pursued based on clinical findings. FINDINGS: The sensitivity for detection of visceral lesions is diminished without the use of intravenous contrast. LOWER CHEST: ?? The heart size is upper limits of normal. ??There is no definite evidence of pericardial effusion. ??There is a minimal to mild bibasilar subsegmental atelectasis. ??There are bilateral Bochdalek's hernias. ??There is a small hiatal hernia. LIVER: ?? The liver is grossly normal in size and contour. GALLBLADDER: ?? Surgically absent. BILE DUCTS: ?? No intrahepatic or extrahepatic ductal dilatation. SPLEEN: ?? The spleen is grossly normal in size and unremarkable. PANCREAS: ?? The pancreas has a grossly unremarkable unenhanced CT appearance. ADRENALS: ?? The bilateral adrenal glands are grossly symmetrical and unremarkable. KIDNEYS/URINARY TRACT: ?? There is no definite unenhanced CT evidence of a a focal renal lesion. ??There are multiple nonobstructing calculi in the bilateral kidneys with the largest measuring 0.4 cm on the right and 0.5 cm on the left. ??There is no definite evidence of hydronephrosis or hydroureter. ?There is mild mucosal thickening of the urinary bladder. GI: ?? There is no definite evidence of a bowel obstruction. ??The appendix is not visualized, however there are no definite pericecal inflammatory changes to suggest appendicitis. ??There are scattered colonic diverticula without definite evidence of diverticulitis. ?? There is mild mucosal thickening of the distal descending colon and sigmoid colon. ??Postsurgical changes of ventral abdominal wall hernia repair noted with a small fat containing left paramidline ventral abdominal wall hernia noted at the left lateral margin of the hernia repair with the abdominal wall defect measuring 1.2 cm (axial image 100). ??There is no definite evidence of free air or fluid in the abdomen and pelvis. ??There is no definite unenhanced CT evidence of lymphadenopathy in the abdomen and pelvis. REPRODUCTIVE: ?? The uterus is surgically absent. MUSCULOSKELETAL: ?? There is mild osteopenia. ??There is a minimal levoscoliotic curvature of the spine with degenerative changes. ?? There are degenerative changes bilateral sacroiliac joints and bilateral hips. 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 OTHER: ?? No other abnormality. THIS IS AN ELECTRONICALLY VERIFIED FINAL REPORT 03/16/2023 12:59 PM - Electronically signed by ??Elena Alvarez D.O. PS: PS D: ??03/16/2023 12:59 PM T: ??03/16/2023 12:59 PM Report ID: [id number] Reading Location: ??[id number] Procedure Note Elena Alvarez DO - 03/16/2023 EXAM DESCRIPTION: CT ABDOMEN PELVIS W/O CONTRAST REASON FOR STUDY: GLF last night w/ complaints of LUQ pain since. TECHNIQUE: CT scan of the abdomen and pelvis performed without intravenous and without oral contrast using helical scanning technique. Reconstructed coronal and sagittal MPR images reviewed. All images stored on PACS. Automated exposure control was used as a dose optimization technique for this examination. COMPARISON: None REFERENCE: Per ACR white paper recommendations, unless otherwise specified no follow-up imaging is recommended for incidental renal and adrenal lesions per consensus recommendations based on imaging criteria. Further lab evaluation could be pursued based on clinical findings. FINDINGS: The sensitivity for detection of visceral lesions is diminished without the use of intravenous contrast. LOWER CHEST: The heart size is upper limits of normal. There is no definite evidence of pericardial effusion. There is a minimal to mild bibasilar subsegmental atelectasis. There are bilateral Bochdalek's hernias. There is a small hiatal hernia. LIVER: The liver is grossly normal in size and contour. GALLBLADDER: Surgically absent. BILE DUCTS: No intrahepatic or extrahepatic ductal dilatation. SPLEEN: The spleen is grossly normal in size and unremarkable. PANCREAS: The pancreas has a grossly unremarkable unenhanced CT appearance. ADRENALS: The bilateral adrenal glands are grossly symmetrical and unremarkable. KIDNEYS/URINARY TRACT: There is no definite unenhanced CT evidence of a a focal renal lesion. There are multiple nonobstructing calculi in the bilateral kidneys with the largest measuring 0.4 cm on the right and 0.5 cm on the left. There is no definite evidence of hydronephrosis or hydroureter. There is mild mucosal thickening of the urinary bladder. GI: There is no definite evidence of a bowel obstruction. The appendix is not visualized, however there are no definite pericecal inflammatory changes to suggest appendicitis. There are scattered colonic diverticula without definite evidence of diverticulitis. There is mild mucosal thickening of the distal descending colon and sigmoid colon. Postsurgical changes of ventral abdominal wall hernia repair noted with a small fat containing left paramidline ventral abdominal wall hernia noted at the left lateral margin of the hernia repair with the abdominal wall defect measuring 1.2 cm (axial image 100). There is no definite evidence of free air or fluid in the abdomen and pelvis. There is no definite unenhanced CT evidence of lymphadenopathy in the abdomen and pelvis. REPRODUCTIVE: The uterus is surgically absent. MUSCULOSKELETAL: There is mild osteopenia. There is a minimal levoscoliotic curvature of the spine with degenerative changes. There are degenerative changes bilateral sacroiliac joints and bilateral hips. 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 OTHER: No other abnormality. THIS IS AN ELECTRONICALLY VERIFIED FINAL REPORT 03/16/2023 12:59 PM - Electronically signed by Elena Alvarez D.O. PS: PS Report ID: [id number] Reading Location: [place] [address] IMPRESSION: No definite evidence of acute traumatic visceral injury in the abdomen and pelvis. No definite evidence of bowel obstruction. No definite evidence of obstructive uropathy. Multiple bilateral nonobstructing renal calculi. Mild mucosal thickening of the distal descending colon and sigmoid colon, which is likely related to underdistention and much less likely mild colitis of infectious or inflammatory etiology. Mild mucosal thickening of the urinary bladder, which is likely related to underdistention. If there is clinical concern for cystitis, then further evaluation with urinary analysis is recommended as clinically indicated. Scattered colonic diverticula without definite evidence of diverticulitis. us Enrique Syed MD IMG CT ORDERABLES Final R esult documented in this encounter Visit Diagnoses Diagnosis Left upper quadrant pain Abdominal pain, left upper quadrant documented in this encounter Care Teams Template Inspector Relationship Specialty Start Date End Date Enrique Syed MD [address] [place] [address] PCP - General Internal Medicine 08/11/22 Clementina Logan MD [address] [address] Consulting Physician Urology 03/17/22 documented as of this encounter
--- OUTSIDE RECORDS SUMMARY | 2024-03-11 12:48 | XMS_ITS | Encounter Summary ---
Author Organization [facility] Address [address] [place] [address] Phone Care Team Providers Care Grad Intern Name Role Phone Enrique Syed MD Primary Care Provider [phone] Clementina Logan MD Unavailable [phone] Reason for Referral * Radiology Services (Routine) - Authorized Specialty Diagnoses / Procedures Referred By Contac t Referred To Contact Radiology Diagnoses Kidney stone Procedures XR ABDOMEN KUB FLAT PLATE Clementina Logan MD [address] [address] Phone: tel: fax: Referral ID Status Reason Start Date Expiration Date V isits Requested Visits Authorized [id number] Authorized 07/13/2023 1 1 Reason for Visit * Reason Comments Follow-up Encounter Details Date Type Department Care Team (Late st Contact Info) Description 07/13/2023 11:30 AM CDT Office Visit [facility] [address] [place] [phone] Clementina Logan MD [address] [address] Hematuria, unspecified type (Primary Dx); Kidney stone Discharge Disposition: Discharged [...] Sign Reading Time Taken Comments Blood Pressure 156/87 07/13/2023 10:09 AM CDT Pulse 88 07/13/2023 10:09 AM CDT Temperature - - Respiratory Rate 20 07/13/2023 10:09 AM CDT Oxygen Saturation 97% 07/13/2023 10:09 AM CDT Inhaled Oxygen Concentration - - Weight 96.2 kg (212 lb) 07/13/2023 10:09 AM CDT Height 152.4 cm (5') 07/13/2023 10:09 AM CDT Body Mass Index 41.4 07/13/2023 10:09 AM CDT documented in this encounter Progress Notes * Clementina Logan MD - 07/13/2023 11:30 AM CDT Reason for Visit: Nephrolithiasis and urinary incontinence Assessment/Plan: This is a 73 y.o. female with nephrolithiasis status post ureteroscopic stone extraction, mixed urinary incontinence. 1. Nephrolithiasis: She did have imaging which basically shows a left-sided stone. No hydronephrosis was noted, no right-sided stones noted. We discussed options for the stone which include observation versus ureteroscopic extraction versus ESWL. She would like to continue observation. We will planfor follow up in 1 year with a KUB. We discussed dietary modifications for stone prevention 2. Mixed urinary incontinence: We did discuss options for management of her overactive bladder which include dietary changes, eliminating caffeine, medication such as anticholinergics which beta agonist. We did discuss pelvic physical therapy and Kegel exercises as well. At this point she would like to continue observation. We will see her back in 1 year to re-evaluate her symptoms. Interval History: Adri Tristan is a 73 y.o. female is here today for the ongoing management of nephrolithiasis status post right ureteroscopic stone extraction. She also does endorse mixed urinary incontinence with both stress and urge component. She denies any gross hematuria, no flank pain. The complete REVIEW OF SYSTEMS, MEDICATION LIST [...] 12/29/2024 9:00 AM CDT Office Visit [facility] [address] [place] [address] Clementina Logan MD [address], [facility] [address] [place] [address] Scheduled Orders Name Type Priority Associated Diagnoses Orde r Schedule XR ABDOMEN KUB FLAT PLATE Imaging Routine Kidney stone Expected: 07/12/2024, Expires: 01/12/2025 documented as of this encounter Procedures Procedure Name Priority Date/Time Associated Diagnosis Comments POCT UA AUTOMATED W/O MICRO Routine 07/13/2023 9:36 AM CDT Hematuria, unspecified type documented in this encounter Results * (ABNORMAL) POCT UA AUTOMATED W/O MICRO (07/13/2023 9:36 AM CDT) POC UA SPECIFIC GRAVITY 1.015 URINE PH 5.0 5.0 - 9.0 POC URINE LEUKOCYTES 75 /uL(A) Negative Kalie/uL POC URINE NITRITE Negative Negative POC URINE PROTEIN Negative Negative mg/dL POC URINE GLUCOSE Norm Negative, Norm mg/dL POC URINE KETONE Negative Negative mg/dL POC URINE UROBILINOGEN Norm Norm, 0.2 E.U./dL (mg/dL), 1 E.U./dL (mg/dL) POC URINE BILIRUBIN Negative Negative mg/dL POC URINE BLOOD INSTRUMENT 50 Homer/uL(A) Negative Homer/uL POC URINE COLOR Yellow POC URINE CLARITY Clear Urine 07/13/2023 9:36 AM CDT Clementina Mauricio MD POINT OF CARE TESTING (MANUAL) Final Result documented in this encounter Visit Diagnoses Diagnosis Hematuria, unspecified type- Primary Kidney stone Calculus of kidney documented in this encounter Care Teams Grad Intern Relationship Specialty Start Date End Date Enrique Syed MD [address] [place] [address] PCP - General Internal Medicine 08/11/22 Clementina Logan MD [address], [address] [address] Consulting Physician Urology 03/17/22 documented as of this encounter
--- OUTSIDE RECORDS SUMMARY | 2024-03-11 12:48 | XMS_ITS | Encounter Summary ---
Author Organization [facility] Address [address] [place] [address] Phone Care Team Providers Care Curator Horticultural Museum Name Role Phone Enrique Syed MD Primary Care Provider [phone] Clementina Logan MD Unavailable [phone] Reason for Referral * Radiology Services (Routine) - Closed Specialty Diagnoses / Procedures Referred By Rosalind estevez Referred To Contact Radiology Diagnoses Kidney stone Procedures XR ABDOMEN KUB FLAT PLATE Torey Campoverde MD [address], [address] [address] Phone: tel: fax: Referral ID Status Reason Start Date Expiration Date Visits Re quested Visits Authorized [id number] Closed 06/09/2023 1 1 Reason for Visit * Radiology Services (Routine) - Closed Specialty Diagnoses / Procedures Referred By Rosalind estevez Referred To Contact Radiology Diagnoses Kidney stone Procedures XR ABDOMEN KUB FLAT PLATE Torey Campoverde MD [address] [facility], [address] [address] Phone: tel: fax: Referral ID Status Reason Start Date Expiration Date Visits Re quested Visits Authorized [id number] Closed 06/09/2023 1 1 Encounter Details Date Type Department Care Team (Latest Contact Info) Description 06/26/2023 11:44 AM CDT - 06/26/2023 11:59 PM CDT Hospital Encounter [facility] Diagnostic Radiology [address] [place] [address] Torey Campoverde MD [address], [facility] [address] [place] [address] Discharge Disposition: Discharged to home or Selfcare [...] Take 800 mg by mouth nightly. 08/19/2016 [place]-3 1400 MG Capsule Take by mouth. oxybutynin [...] by mouth. 09/23/2016 4 ergocalciferol (VITAMIN D) 19495 UNIT Capsule Take 50,000 Units by mouth. 06/10/2018 4 fluocinonide (LIDEX) 0.05 % Solution 12/09/2021 4 HYDROcodone-acet aminophen ([place]) 5-325 MG TabletIndication s:Ureteral stone Take 1 Tablet by mouth every 6 hours as needed for Severe pain. 15 Tablet 05/26/2022 4 irbesartan-hydro CHLOROthiazide (AVALIDE) 150-12.5 MG Tablet Take 1 Tablet by mouth daily. 08/19/2016 4 omeprazole (PriLOSEC) 10 MG CAPSULE DELAYED RELEASE 10 mg. 09/17/2014 4 documented as of this encounter Progress Notes * Maritza Schneider - 06/26/2023 12:30 PM CDT Pt made aware of results and has an apt on 07-13-2023; She did state she is having a 3-10 pain levelon right side. No fever or chills. Blood in urine, states its pink in color and she is pushing fluids. I did advise her to go to the ED if things become worse then weekend since it is Wednesday afternoon and we will be closed. documented in this encounter Plan of Treatment Upcoming Encounters Date Type Department Care Team (Late st Contact Info) Description 12/29/2024 9:00 AM CDT Office Visit [facility] [address] [place] [address] Clementina Logan MD [address], [facility] [address] [place] [address] documented as of this encounter Procedures Procedure Name Priority Date/Time Associated Diagnosis Comments XR ABDOMEN KUB FLAT PLATE Routine 06/26/2023 11:49 AM CDT Kidney stone documented in this encounter Results * XR ABDOMEN KUB [...] PM T: ??06/28/2023 6:13 PM Report ID: [id number] Reading Location: ??[id number] Procedure Note Benedict Sweeney MD - 06/28/2023 [...] Benedict Sweeney M.D. AT: AT Report ID: [id number] Reading Location: [id number] IMPRESSION: 1. A 5 mm calcification projecting over the lower pole left renal shadow reflective of a calculus, also characterized on CT 03/16/2023. Faint punctate calcification projecting over the interpolar region of the right renal shadow could also reflect a calculus. Torey Campoverde MD [facility] ORDERABLES Final Result documented in this encounter Visit Diagnoses Diagnosis Kidney stone Calculus of kidney documented in this encounter Care Teams Curator Horticultural Museum Relationship Specialty Start Date End Date Enrique Syed MD [address] [place] [address] PCP - General Internal Medicine 08/11/22 Clementina Logan MD [address] [address] Consulting Physician Urology 03/17/22 documented as of this encounter
--- OUTSIDE RECORDS SUMMARY | 2024-03-11 12:48 | XMS_ITS | Encounter Summary ---
Author Organization [facility] Address [address] [place] [address] Phone Care Team Providers Care Veterinary Practitioner Name Role Phone Enrique Syed MD Primary Care Provider [phone] Clementina Logan MD Unavailable [phone] Encounter Details Date Type Department Care Team (Late st Contact Info) Description 06/09/2022 Telephone [facility] [address] [place] [id number] Clementina Logan MD [address] [address] Social History Tobacco Use Types [...] AM CDT documented as of this encounter Miscellaneous Notes * Telephone Encounter - Maritza Schneider - 06/09/2022 10:45 AM CDT Pt is going to schedule imaging then call back to make a follow up with Dr. Logan documented in this encounter Plan of Treatment Upcoming Encounters Date Type Department Care Team (Late st Contact Info) Description 12/29/2024 9:00 AM CDT Office Visit [facility] [address] [place] [address] Clementina Logan MD [address], [facility] [address] [place] [address] documented as of this encounter Visit Diagnoses Not on filedocumented in this encounter Care Teams Veterinary Practitioner Relationship Specialty Start Date End Date Enrique Syed MD PCP - General Internal Medicine 04/24/16 07/07/22 Clementina Logan MD [address], [facility] [address] [place] [address] Consulting Physician Urology 03/17/22 documented as of this encounter
--- OUTSIDE RECORDS SUMMARY | 2024-03-11 12:48 | XMS_ITS | Encounter Summary ---
Author Organization [facility] Address [address] [place] [address] Phone Care Team Providers Care Code And Test Clerk Name Role Phone Enrique Syed MD Primary Care Provider [phone] Clementina Logan MD Unavailable [phone] Reason for Referral * Radiology Services (Routine) - Closed Specialty Diagnoses / Procedures Referred By Rosalind estevez Referred To Contact Radiology Diagnoses Kidney stone Procedures US RENAL COMPLETE Torey Campoverde MD [address] [address] Phone: tel: fax: Referral ID Status Reason Start Date Expiration Date Visits Re quested Visits Authorized [id number] Closed 06/09/2023 1 1 Reason for Visit * Radiology Services (Routine) - Closed Specialty Diagnoses / Procedures Referred By Rosalind estevez Referred To Contact Radiology Diagnoses Kidney stone Procedures US RENAL COMPLETE Torey Campoverde MD #[address] [address] Phone: tel: fax: Referral ID Status Reason Start Date Expiration Date Visits Re quested Visits Authorized [id number] Closed 06/09/2023 1 1 Encounter Details Date Type Department Care Team (Latest Contact Info) Description 06/26/2023 11:14 AM CDT - 06/26/2023 11:43 AM CDT Hospital Encounter [facility] Ultrasound [address] [place] [place] [phone] Torey Campoverde MD [address] [facility] [address] [place] [phone] Discharge Disposition: Discharged to home or Selfcare [...] Take 800 mg by mouth nightly. 08/19/2016 Orland-3 1400 MG Capsule Take by mouth. oxybutynin [...] by mouth. 09/23/2016 4 ergocalciferol (VITAMIN D) 68042 UNIT Capsule Take 50,000 Units by mouth. 06/10/2018 4 fluocinonide (LIDEX) 0.05 % Solution 12/09/2021 4 HYDROcodone-acet aminophen ([place]) 5-325 MG TabletIndication s:Ureteral stone Take 1 [...] [facility] #[address] [place] [phone] Clementina Logan MD #[address], [facility] [address] [place] [address] documented as of this encounter Procedures Procedure Name Priority Date/Time Associated Diagnosis Comments US RENAL COMPLETE Routine 06/26/2023 11: 36 AM CDT Kidney stone documented in this encounter Results * US RENAL COMPLETE (06/26/2023 11:36 AM [...] AM T: ??06/30/2023 8:03 AM Report ID: [id number] Reading Location: ??[id number] Procedure Note Nba Nolasco MD - 06/30/2023 [...] Nba Nolasco M.D. RL: REJI Report ID: [id number] Reading Location: [id number] IMPRESSION: No hydronephrosis noted in either kidney. A 2 nonobstructing stones identified in the left renal calices, measuring 5 mm and 6 mm respectively. No definite stones are identified in the right renal calices on these images. Other findings as above. us Torey Campoverde MD IM US ORDERABLES Final Result documented in this encounter Visit Diagnoses Diagnosis Kidney stone Calculus of kidney documented in this encounter Care Teams Code And Test Clerk Relationship Specialty Start Date End Date Enrique Syed MD [address] [place] [address] PCP - General Internal Medicine 08/11/22 Clementina Logan MD [address] [place] [address] Consulting Physician Urology 03/17/22 documented as of this encounter
--- OUTSIDE RECORDS SUMMARY | 2024-03-11 12:48 | XMS_ITS | Encounter Summary ---
Author Organization [facility] Care Team Providers Care Spare Hand Carding Name Role Phone Enrique Syed MD Primary Care Provider [phone] Clementina Logan MD Unavailable [phone] Encounter Details Date Type Department Care Team (Latest Contact Info) Description 05/26/2022 Travel Social History Tobacco Use Types Packs/Day [...] suspected to have Coronavirus/COVID-19? No / Unsure 05/26/2022 5:43 AM CDT documented as of this encounter Plan of Treatment Upcoming Encounters Date Type Department Care Team (Late st Contact Info) Description 12/29/2024 9:00 AM CDT [facility] [address] [place] [phone] Clementina Logan MD #[address], [address] [address] documented as of this encounter Visit Diagnoses Not on filedocumented in this encounter Care Teams Spare Hand Carding Relationship Specialty Start Date End Date Enrique Syed MD PCP - General Internal Medicine 04/24/16 07/07/22 Clementina Logan MD [address] [place] [address] Consulting Physician Urology 03/17/22 documented as of this encounter
--- OUTSIDE RECORDS SUMMARY | 2024-03-11 12:48 | XMS_ITS | Encounter Summary ---
Author Organization [facility] Address [address] [place] [address] Phone Care Team Providers Care Latin Dancer Name Role Phone Enrique Syed MD Primary Care Provider [phone] Clementina Logan MD Unavailable [phone] Reason for Referral * Radiology Services (Routine) - Closed Specialty Diagnoses / Procedures Referred By Rosalind estevez Referred To Contact Radiology Diagnoses Kidney stone Procedures XR ABDOMEN KUB FLAT PLATE Clementina Logan MD [address] [place] [address] Phone: tel: fax: Referral ID Status Reason Start Date Expiration Date Visits Re quested Visits Authorized [id number] Closed 07/24/2022 1 1 * Radiology Services (Routine) - Closed Specialty Diagnoses / Procedures Referred By Rosalind estevez Referred To Contact Radiology Diagnoses Kidney stone Procedures US RENAL COMPLETE Clementina Logan MD [address] [place] [address] Phone: tel: fax: Referral ID Status Reason Start Date Expiration Date Visits Re quested Visits Authorized [id number] Closed 07/24/2022 1 1 Encounter Details Date Type Department Care Team ([facility] st Contact Info) Description 07/24/2022 10:00 AM CDT Office Visit [facility] [address] [place] [phone] Clementina Logan MD #[address], [facility] [address] [place] [address] Hematuria, unspecified type (Primary Dx); Kidney stone [...] AM CDT documented as of this encounter Last Filed Vital Signs Vital Sign Reading Time Taken Comments Blood Pressure 122/76 07/24/2022 10:02 AM CDT Pulse 87 07/24/2022 10:02 AM CDT Temperature 35.7 ??C (96.2 ??F) 07/24/2022 10:02 AM C DT Respiratory Rate 18 07/24/2022 10:02 AM CDT Oxygen Saturation 99% 07/24/2022 10:02 AM CDT Inhaled Oxygen Concentration - - Weight 95.7 kg (211 lb) 07/24/2022 10:02 AM CDT Height 152.4 cm (5') 07/24/2022 10:02 AM CDT Body Mass Index 41.21 07/24/2022 10:02 AM CDT documented in this encounter Progress Notes * Clementina Logan MD - 07/24/2022 10:00 AM CDT Reason for Visit: Nephrolithiasis Interval History: Adri Tristan is a 72 y.o. female is here today for the ongoing management of nephrolithaisis. The patient underwent ureteroscopy on the right side. Doing well after surgery. No flankpain. She did have a follow-up ultrasound which basically shows no severe hydronephrosis on the right side. They did comment on mild left hydronephrosis however this could just be caliectasis. She has no flank pain on either side. See procedure note. The stent was removed intact. REVIEW OF SYSTEMS: As per the HPI. [...] note ASSESSMENT AND PLAN: This is a 72 y.o. 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 At this point will plan follow-up in about 6 months with a KUB and ultrasound to ensure that the left hydro is improved. KUB will let us surveil for recurrent stones. We discussed risk factors for developing kidney stones. These include dehydration and dietary aspects however may include GI illnesses, the metabolic syndrome, and family history. We discussed dietary interventions due diminish the [...] salt and food rich in salt) -moderating oxalate intake -moderating and spacing out animal protein intake -continue to consume the recommended amount of calcium (do not cut back on this) documented in this encounter Plan of Treatment Upcoming Encounters Date Type Department Care Team (Late st Contact Info) Description 12/29/2024 9:00 AM CDT [facility] [address] [place] [address] Clementina Logan MD [address], [facility] [address] [place] [address] Scheduled Orders Name Type Priority Associated Diagnoses Orde r Schedule US RENAL COMPLETE Imaging Routine Kidney stone Expected: 01/24/2023, Expires: 01/25/2024 XR ABDOMEN KUB FLAT PLATE Imaging Routine Kidney stone Expected: 01/24/2023, Expires: 01/25/2024 documented as of this encounter Visit Diagnoses Diagnosis Hematuria, unspecified type- Primary Kidney stone Calculus of kidney documented in this encounter Care Teams Latin Dancer Relationship Specialty Start Date End Date Enrique Syed MD [address] [address] PCP - General Internal Medicine 07/21/22 08/04/22 Clementina Logan MD [address] [address] Consulting Physician Urology 03/17/22 documented as of this encounter
--- OUTSIDE RECORDS SUMMARY | 2024-03-11 12:48 | XMS_ITS | Encounter Summary ---
Author Organization [facility] Address [address] [place] [address] Phone Care Team Providers Care Process Mold Technician Name Role Phone Enrique Syed MD Primary Care Provider [phone] Clementina Logan MD Unavailable [phone] Encounter Details Date Type Department Care Team (Late st Contact Info) Description 05/26/2022 Telephone [facility] [address] [place] [phone] Clementina Logan MD [address] [address] Social History Tobacco Use Types [...] Telephone Encounter - Felisa Malave RMA - 05/26/2022 2:29 PM CDT Pt called back and scheduled * Telephone Encounter - Maritza Schneider - 05/26/2022 1:52 PM CDT Left message for pt to call back. * Telephone Encounter - Clementina Logan MD - 05/26/2022 9:28 AM CDT OV in 2 weeks for cysto/stent pull please documented in this encounter Plan of Treatment Upcoming Encounters Date Type Department Care Team (Late st Contact Info) Description 12/29/2024 9:00 AM CDT Office Visit [facility] [address] [place] [address] Clementina Logan MD [address] [address] documented as of this encounter Visit Diagnoses Not on filedocumented in this encounter Care Teams Process Mold Technician Relationship Specialty Start Date End Date Enrique Syed MD PCP - General Internal Medicine 04/24/16 07/07/22 Clementina Logan MD [address] [facility] [facility] [address] [place] [address] Consulting Physician Urology 03/17/22 documented as of this encounter
--- OUTSIDE RECORDS SUMMARY | 2024-03-11 12:48 | XMS_ITS | Encounter Summary ---
Author Organization [facility] Address [address] [place] [address] Phone Care Team Providers Care Warp Hand Name Role Phone Enrique Syed MD Primary Care Provider [phone] Clementina Logan MD Unavailable [phone] Encounter Details Date Type Department Care Team (Late st Contact Info) Description 06/05/2022 Telephone [facility] [address] [place] [address] Clementina Logan MD #[address] [address] Social History Tobacco Use Types [...] Telephone Encounter - Felisa Malave RMA - 06/05/2022 2:[address] Logan, patient is to leave a urine culture due to UTI symptoms. documented in this encounter Plan of Treatment Upcoming Encounters Date Type Department Care Team (Late st Contact Info) Description 12/29/2024 9:00 AM CDT [facility] [address] [place] [address] Clementina Logan MD [address] [address] documented as of this encounter Results * CULTURE, URINE (06/05/2022 4:01 PM CDT) CULTURE RESULTS MIXED GROWTH OF ONE OR MORE DISTAL URETHRAL CONTAMINANTS 06/06/2022 3:51 PM CDT [facility] Culture URINE SPECIMEN COLLECTION, CLEAN CATCH / Unknown Non-Phlebotomy Collection / Unknown 06/05/2022 4:01 PM CDT 06/05/2022 4:33 PM CDT us Clementina Mauricio MD MICROBIOLOGY - GENERAL ORDERAB LES Final Result Performing Organization Address City/State/[facility] Co de Phone Number [facility] [address] [place] [address], documented in this encounter Visit Diagnoses Diagnosis UTI symptoms- Primary documented in this encounter Care Teams Warp Hand Relationship Specialty Start Date End Date Enrique Syed MD PCP - General Internal Medicine 04/24/16 07/07/22 Clementina Logan MD [address] [address] Consulting Physician Urology 03/17/22 documented as of this encounter
--- OUTSIDE RECORDS SUMMARY | 2024-03-11 12:48 | XMS_ITS | Encounter Summary ---
Author Organization [facility] Care Team Providers Care Carpenter Cradle And Dolly Name Role Phone Enrique Syed MD Primary Care Provider [phone] Clementina Logan MD Unavailable [phone] Encounter Details Date Type Department Care Team (Latest Contact Info) Description 06/26/2023 Travel Social History Tobacco Use Types Packs/Day [...] [facility] [address] [place] [address] Clementina Logan MD [address] [address] documented as of this encounter Visit Diagnoses Not on filedocumented in this encounter Care Teams Carpenter Cradle And Dolly Relationship Specialty Start Date End Date Enrique Syed MD [address] [place] [address] PCP - General Internal Medicine 08/11/22 Clementina Logan MD [address] [place] [address] Consulting Physician Urology 03/17/22 documented as of this encounter
--- OUTSIDE RECORDS SUMMARY | 2024-03-11 12:48 | XMS_ITS | Encounter Summary ---
Author Organization [facility] Address [address] [place] [address] Phone Care Team Providers Care News Photographer Name Role Phone Yohannes Elise MD Primary Care Provider [phone] Clementina Logan MD Unavailable [phone] Reason for Visit * Auth/Cert (Routine) Specialty Diagnoses / Procedures Referred By Rosalind estevez Referred To Contact Diagnoses RIGHT URETERAL STONE Procedures CYSTOSCOPY URETEROSCOPY WITH HOLMIUM LASER Clementina Logan MD [address] [address] Phone: tel: fax: Referral ID Status Reason Start Date Expiration Date Visits Re quested Visits Authorized [id number] 1 1 Encounter Details Date Type Department Care Team (Late st Contact Info) Description 05/26/2022 7:55 AM CDT - 05/26/2022 9:25 AM CDT Surgery [facility] Periop [address] [place] [address] Clement[facility] Logan [facility] [address] [address] RIGHT URETEROSCOPY WITH HOLMIUM LASER LITHOTRIPSY Surgery Details Date/Time Status Location OR Service Patient Class Case Class Case Type Trauma Case? 05/26/2022 7:55 AM Posted [facility] OR [address] [place] [address] Ambulatory Surgery Panel 1 Procedure LRB Anes Op Region Wound Class Comments RIGHT URETEROSCOPY WITH NU IUM LASER LITHOTRIPSY Right General Ureter Clean Contaminated CYSTOSCOPY, RIGHT STENT INSERTION Right General Ureter Clean Contaminated Surgeon Surgeon Role Service Panel Clementina Logan MD Primary Urology 1 Special Needs Allergy: Nitrofurantoin, Christopher Inhibitors, Erythromycin, Sulfa antibiotics Hx: HTN, GUY, L-Breast CA, A-fib, Pacemaker Request prayers prior to procedure- emailed Sr Claudine 5'0 220# No COVID test needed documented in this encounter Social History Tobacco [...] Sign Reading Time Taken Comments Blood Pressure 111/69 05/26/2022 9:21 AM CDT Pulse 60 05/26/2022 9:21 AM CDT Temperature 36.6 ??C (97.9 ??F) 05/26/2022 9:06 AM CD T Respiratory Rate 22 05/26/2022 9:21 AM CDT Oxygen Saturation 93% 05/26/2022 9:21 AM CDT Inhaled Oxygen Concentration - - Weight 99.8 kg (220 lb) 05/18/2022 3:00 PM CDT Height 152.4 cm (5') 05/18/2022 3:00 PM CDT Body Mass Index 42.97 05/18/2022 3:00 PM CDT documented in this encounter Discharge Instructions * Discharge Instructions* Yobany Chandler RN - 05/26/2022 9:30 AM CDT GENERAL GUIDELINES FOR MINIMIZING NAUSEA: Do not take pain medication on an empty stomach Eat small portions of foods because they are easier to digest and move through your stomach much faster. Be sure you are staying hydrated. Clear, cool beverages are recommended. Only take what you can tolerate. You might like trying clear soups, flavored gelatin, carbonated beverages, popsicles and ice cubes made of frozen drinks. Avoid the smells of cooking food, especially greasy ones, as the smells make make you nauseated. * Attachments The following attachments cannot be sent through Care Everywhere. * Cystoscopy ([place]) * Low-Purine Eating Plan ([place]) documented in this encounter Medications at Time [...] Take 800 mg by mouth nightly. 08/19/2016 Jordan-3 1400 MG Capsule Take by mouth. oxybutynin (DITROPAN-XL) 10 MG TABLET SR 24 HR Take 1 Tablet by mouth daily. 30 Tablet 3 05/26/2022 sotalol (BETAPACE) 160 MG Tablet Take 160 mg by mouth 2 times daily. 01/09/2022 valsartan-hydroC HLOROthiazide (DIOVAN-HCT) 320-12.5 MG Tablet Take 1 Tablet by mouth daily. 02/19/2022 Zinc 50 MG Capsule Take by mouth. Calcium Carb-Cholecalcif jhon 600-20 MG-MCG Tablet 11/15/2013 4 cefUROXime (CEFTIN) 500 MG Tablet Take 500 mg by mouth. 09/23/2016 4 cephALEXin (Keflex) 500 MG Capsule Take 1 Capsule by mouth 2 times daily for 5 days. 10 Capsule 05/26/2022 3 cephALEXin (KEFLEX) 500 MG Capsule Take 1 Capsule by mouth 2 times daily for 14 days. 28 Capsule 05/12/2022 3 ergocalciferol (VITAMIN D) 61857 UNIT Capsule Take 50,000 Units by mouth. 06/10/2018 4 fluocinonide (LIDEX) 0.05 % Solution 12/09/2021 4 HYDROcodone-acet aminophen (Follett) 5-325 MG TabletIndication s:Ureteral stone Take 1 Tablet by mouth every 6 hours as needed for Severe pain. 15 Tablet 05/26/2022 4 irbesartan-hydro CHLOROthiazide (AVALIDE) 150-12.5 MG Tablet Take 1 Tablet by mouth daily. 08/19/2016 4 omeprazole (PriLOSEC) 10 MG CAPSULE DELAYED RELEASE 10 mg. 09/17/2014 4 phenazopyridine (Pyridium) 200 MG Tablet Take 1 Tablet by mouth 3 times daily for 3 days. 9 Tablet 05/26/2022 3 documented as of this encounter H&P Notes * Clementina Logan MD - 05/26/2022 8:22 AM CDT Primary Care Physician: YOHANNES ELISE MD Chief Complaint: Right nephrolithiasis and hematuria History of Present Illness: Adri Tristan is a 72 y.o. female seen with right ureteral stone, hematuria Past Medical History Positives Diagnosis Date ??? [...] 06/19/2015 ??? TOTAL KNEE ARTHROPLASTY Left 09/30/2015 Current Facility-Administered Medications Medication Dose Route Frequency Provider Last Rate Last Admin ??? [START ON 05/29/2022] ceFAZolin (ANCEF) injection 2 g 2 g Intravenous Once Clementina Logan MD ??? FENTANYL CITRATE (PF) 100 MCG/2ML IJ SOLN ??? [START ON 05/29/2022] lactated ringers infusion Intravenous Continuous Clementina Logan MD 20 mL/hr at 05/26/22 0621 New Bag at 05/26/22 0621 ??? MIDAZOLAM HCL (PF) 2 MG/2ML IJ SOLN Allergies Allergen Reactions ??? Nitrofurantoin Diarrhea and Nausea ??? Christopher Inhibitors Other (see Comments) and Unknown ??? Erythromycin Unknown unsure what type of reaction ??? Sulfa Antibiotics Vomiting Social History Socioeconomic History ??? Marital status: Tobacco Use ??? Smoking status: Former Types: Cigarettes Quit date: 2000 Years since quittin.2 ??? Smokeless tobacco: Never Vaping Use ??? Vaping Use: Never used Substance and Sexual Activity ??? Alcohol use: Not Currently ??? Drug use: Not Currently ??? Sexual activity: Not Currently Family History Problem Relation Age of Onset ??? Cancer Mother BREAST ??? Cancer Father PROSTATE ??? Heart Disease Father ??? Heart Surgery Father REVIEW OF SYSTEMS: As per the HPI. All other systems were reviewed and are negative. The complete REVIEW OF SYSTEMS, [...] no scleral icterus Neurologic: Normal mood and affect.Moving all extremities Respiratory: Normal respiratory effort. No use of accessory muscles Cardiovascular: No lower extremity edema. Extremities well perfused. Ears, Nose, Throat, Mouth: midline trachea, no thryomegaly. Soft, supple appearing. Skin: Warm and dry. Gastrointestinal: No masses. No abdominal tenderness. No hepatosplenomegaly. Musculoskeletal: moving all extremities. Lymphatic: No inguinal lymphadenopathy. Psychiatry: Normal mood, alert and oriented ASSESSMENT AND PLAN: This is a 72 y.o. female with a right ureteral stone, Will plan for R URS/LL/stent, cysto with indicated procedures. Had an extensive discussion with the patient about the risks, benefits, alternatives to surgery. This includes: Observation versus surgical stone extraction. We discussed risk of language includes that the patient would need a stent for approximately 2 - 3 weeks following this. With regards ureteroscopy I discussed the risk of ureteral stricture, bladder injury, sepsis/, recurrence of stone,need for more than 1 procedure particularly if we cannot obtain adequate access or there is residual stone fragments left. We discussed the risk of nerve injury and positioning injuries. We discussedand discomfort and pain afterwards. Also, with each stone approach I stressed the risk of developing a ureteral stricture post operatively, risk of sepsis that could lead to or prolonged hospitalization (even in the setting of a negative urine culture), nerve injuries from positioning. I alsostressed there is a risk of needing more than one procedure particularly if the stone is large or we cannot gain safe access to the stone due to ureteral narrowing or anatomic variations. The patientexpressed understanding. Patient consents to surgery. documented in this encounter Nursing Notes * Tyra Torres RN - 05/26/2022 9:01 AM CDT Specimen Transported to OR specimen room by Yogesh TORRES. * Tyra Torres RN - 05/26/2022 8:57 AM CDT WHO Safety Checklist Team Debriefing completed. Additional information discussed during debrief, inrelation to patient specific assessment, includes blood loss, glycemic control, pain management, and venous thromboembolism prophylaxis, as needed. All members of the surgical team participated in the debriefing process, and each records information as applicable in their respective areas of documen tation. documented in this encounter OR Notes * OR Surgeon - Clementina Logan MD - 05/26/2022 9:26 AM CDT PHYSICIAN'S OPERATIVE NOTE Pre-Op Diagnosis: 1. Right nephrolithiasis Post-Op Diagnosis: 1. Right nephrolithiasis Procedure: 1. Cystourethroscopy 2. Right retrograde pyelogram with intraoperative fluoroscopic interpretation 3. Right semi-rigid and flexible ureteroscopy with laser lithotripsy and basket stone extraction 4. Placement of 5x24 JJ stent on right side Surgeon: Clementina Mauricio MD Data Developer: None Anesthesia: General Indications: This is a 72 y.o. female with right ureteral stone. We plan for cystourethroscopy, retrograde pyelogram, ureteroscopy with laser lithotripsy and basket stone extraction with placement ofJJ stent. Risks discussed including infection and sepsis, pain, bleeding, ureteral/urethral stricture development, ureteral injury/perforation, bladder injury, inability to complete the procedure, need for additional surgeries, DVT/PE, nerve/positioning injuries, and pain/discomfort from stent placement were discussed. We discussed risks of urinary retention and ongoing symptoms. We also discussed the risk of needing additional surgery should there be residual stone fragments left behind. We foc used on the risk of incomplete stone removal, need for additional stone surgeries, inability to complete the procedure at hand requiring placement of stent versus nephrostomy tube in particular. Lastly, we highlighted the importance of having the stent removed in a timely fashion to avoid incrustati on. Patient consents and agrees to procedure. Findings 1. Retrograde pyelogram with right ureter with moderate tortuosity. There is moderate hydronephrosis. There is a filling defect visualized. The stone was visualized on plain film. The calyces appear blunted. 2. Semi-rigid and flexible ureteroscopy was performed which showed distal ureteral stone, no renal stones (several heidy's plaques). After stone was visualized, laser litho was performed with 273nmlaser fiber with complete removal of stone. 4. placement of right 5x24 JJ stent (right). Position confirmed fluoroscopically and under direct vision. [...] for a preoperative time-out. The prep was allowed to dry to completion before starting the case. Sterile drapes were applied after prep had appropriately dried. A well lubricrated 21F rigid cystoscope was introduced transurethrally. The urethra appeared normalwith no strictures or lesions. Heard cystoscopy was performed which showed some cystitis cystica but no bladder tumors or stones. Bilateral ureteral orifices were in their orthotopic position. The right ureteral orifice was identified. It was intubated with a 5F exchange catheter over a Sensor wire. Dilute 1:1 conray was gently injected for a retrograde pyelogram. This showed the above findings. The Sensor wire was then guided to [...] semi-rigid ureteroscope. The stone was visualized. A 273nm laser fiber was used on the following settings: 8hz and 0.8J. The stone was dusted and fragmented to completion. A nitinol basket was then utlized and stone fragments were removed and sent for analysis. We then advanced a ureteral access sheathe under fluoroscopic guidance to the level of the mid ureter. This went up without resistance. The wire was left in place as a safety wire. We then utilized the flexible ureteroscope. Then, using a flexible ureteroscope, we performed thorough nephroscopy after injecting additional contrast to provide us with a road map. No extravasation was seen. Each calyx was carefully examined and noted to be free of stone. The ureteroscope was thenwithdrawn and the ureter was carefully examined with no stone fragments noted. Several randalls plaques were noted We then backloaded the wire on to the 21F rigid cystoscope. A 5x24 JJ stent was then back loaded onto [...] stable condition. Complications: none immediately apparent EBL: * No values recorded between 05/26/2022 8:23 AM and 05/26/2022 9:04 AM * Fluids: Per anesthesia records Drains/Tubes: 1. 5x24 stent Grafts/Implants: 1. None Condition: excellent Specimen: 1. Right ureteral stone Disposition: 1. D/c home 2. Stent for 2 weeks documented in this encounter Miscellaneous Notes * Plan of Care - Anastasiia Richards RN - 05/26/2022 11:01 AM CDT Patient denying pain since back from surgery. Patient able to void without difficulty. Urine with only small specks of blood in it times three. Patient able to eat and drink without nausea. Patient and daughter given discharge instructions with understanding stated. Patient knows to make appointment with Dr Logan to have stent removed in 2 weeks. Patient states that she will call for this appointment. Patient taken to her car in a wheelchair for her daughter to take her home. * Plan of Care - Sara Russell RN - 05/26/2022 9:00 AM CDT Patient will be discharged from PACU when criteria is met. * Plan of Care - Yobany Chandler RN - 05/26/2022 6:09 AM CDT Problem: Adult Inpatient Plan of Care Goal: Plan of Care Review Outcome: Ongoing (see interventions/notes) Flowsheets (Taken 05/26/2022607) Plan of Care Reviewed With: patient child Progress: progress toward functional goals as expected Today's Goal: To go home Outcome Evaluation: Ready for surgery Does the patient need assistance with discharge and/or transitioning to the next level of care?: No, no needs anticipated Goal: Patient-Specific Goal (Individualized) Outcome: Ongoing (see interventions/notes) Goal: Absence of Hospital-Acquired Illness or Injury Outcome: Ongoing (see interventions/notes) Intervention: Prevent and Manage VTE (Venous Thromboembolism) Risk Flowsheets (Taken 05/26/2022607) VTE Prevention/Management: ambulation encouraged Goal: Optimal Comfort and Wellbeing Outcome: Ongoing (see interventions/notes) Intervention: Provide Person-Centered Care Flowsheets (Taken 05/26/2022607) Trust Relationship/Rapport: care explained questions answered Goal: Readiness for Transition of Care Outcome: Ongoing (see interventions/notes) Intervention: Mutually Develop Transition Plan Flowsheets (Taken 05/26/2022 06) Equipment Needed After Discharge: none Equipment Currently Used at Home: none Anticipated Changes Related to Illness: none Transportation Concerns: none Readmission Within the Last 30 Days: no previous admission in last 30 days Patient/Family Anticipated Services at Transition: none Patient/Family Anticipates Transition to: home with family Transportation Anticipated: family or friend will provide Concerns to be Addressed: no discharge needs identified Offered/Gave Vendor List: no Problem: Surgery Nonspecified Goal: Anesthesia/Sedation Recovery Outcome: Ongoing (see interventions/notes) Intervention: Optimize Anesthesia Recovery Flowsheets (Taken 05/26/2022 0608) Safety Promotion/Fall Prevention: family at bedside nonskid shoes/slippers when out of bed low bed * Interdisciplinary - Billie Barrett RN - 05/25/2022 9:29 AM CDT Patient called in to let us know that she took her Fish oil by mistake yesterday and was concerned she would not be able to have procedure. I called and spoke with STEPHAN Restrepo who stated we are okay to proceed. Patient informed of same. * Jamari - Billie Barrett RN - 05/18/2022 4:34 PM CDT PATIENT INFORMED TO COMPLETE PREOP LABS AND EKG BY Wednesday05/22/2022 BETWEEN 7:30 AM - 3:00 PM. VOICED UNDERSTANDING. Denies having COVID in past 90 days No current COVID symptoms No COVID test needed * Jamari - Billie Barrett RN - 05/18/2022 4:34 PM CDT [facility] ADULT TEACHING Patient Name: Adri Tristan : 1950 [facility]#: [id number] Person Educated Patient Ready to Learn Yes Teaching Method Phone The Day of Surgery: Call your physician if your physical condition changes (cold, fever, flu). Do not come to the hospital without first calling your physician. Do not eat or drink (no gum, mints, water etc.) unless instructed to do so for at least 8 hours prior to arrival to the hospital. Medications can be taken with a small sip of water. Do not drink any alcohol 24 hours prior to surgery if applicable. Do not smoke for 24 hrs prior to surgery if applicable. Bring CPAP/BIPAP if applicable. Take a shower or bath. Do not apply make-up Wear comfortable, loose fitting clothing Instruction to leave all jewelry at home including wedding/engagement rings or any body piercing jewelry. Leave all valuables at home. Children ages 17 and under must be accompanied by a parent or legal guardian in the hospital at alltimes. Follow your surgeon's instructions for arrival time. If you have questions concerning arrival time,call your surgeon's office. Detailed instructions given for arrival location and parking. Arrange for a responsible person to accompany you, drive you home and stay with you for the first 24 hours following your surgery. If you have not made these arrangements you may be at risk of your surgery being cancelled. Follow directions regarding medications to Take or Hold. It is very important to follow directions from your surgeon's office on Diabetic medication or Blood Thinners. Only 2 adults over the age of 16 will be allowed to accompany you to the [facility]. No children under theage of 16 will be allowed in the [facility] unless they are the patient. If the patient chooses to bring their children under the age of 16, an adult must accompany those children in the surgery waiting room and cannot leave them unattended. During the flu season: refer to the visitation restriction guidelines implemented during that season if applicable. Fall Prevention Teaching The Day of Surgery: ?? Your safety while you are in the hospital is very important to us. Following surgery, you might be at increased risk for falling for several reasons: -The hospital environment is unfamiliar. It???s not the same as being at home -You may be weaker than you realize. -You may be connected to lines or equipment that can cause you to trip. -You may be on medications that make you drowsy or dizzy. We know this can happen especially with pain medication and anesthesia. We want to partner with you in the hospital to make sure you are safe -Please do not feel hesitant to ask for help while in the hospital. You will - need extra help untilyou get stronger especially with walking and using the bathroom. -Pay close attention to what the doctors and nurses tell you about your risk of falling. -A fall can mean a longer hospital stay. Also, injuries from a fall can affect your health for the rest of your life. Some things the nurses may do to keep you safe are: -Have you use the call light for help whenever you get out of bed. -Wear non-skid slippers to keep you from slipping on the floors -Use a special belt that wraps around your waist so we can help steady you when you walk -Activate an alarm on your bed so we know if you are getting up in case you forget to use your calllight -Stay in the bathroom with you in case you become dizzy or light headed Patient Response: Verbalizes Understanding Patient assessed for life teacher during the preop interview and appropriate interventions taken if applicable. documented in this encounter Plan of Treatment Upcoming Encounters Date Type Department Care Team (Late st Contact Info) Description 12/29/2024 9:00 AM CDT Office Visit [facility] [address] [place] [address] Clementina Logan MD [address] [facility], [address] [address] documented as of this encounter Procedures Procedure Name Priority Date/Time Associated Diagnosis Comments XR RETROGRADE PYELOGRAM Routine 05/26/2022 9:24 AM CDT PATHOLOGY SURGICAL Routine 05/26/2022 8: 41 AM CDT CYSTOSCOPY STENT INSERTION (SINGLE / BILATERAL) 05/26/2022 8:03 AM CDT RIGHT URETERAL STONE Special Needs Allergy: Nitrofurantoin, Christopher Inhibitors, Erythromycin, Sulfa antibiotics Hx: HTN, GUY, L-Breast CA, A-fib, Pacemaker Request prayers prior to procedure- emailed Sr Claudine 5'0 220# No COVID test needed CYSTOSCOPY URETEROSCOPY WITH HOLMIUM LASER 05/26/2022 8:03 AM CDT RIGHT URETERAL STONE Special Needs Allergy: Nitrofurantoin, Christopher Inhibitors, Erythromycin, Sulfa antibiotics Hx: HTN, GUY, L-Breast CA, A-fib, Pacemaker Request prayers prior to procedure- emailed Sr Claudine 5'0 220# No COVID test needed documented in this encounter Results * XR RETROGRADE PYELOGRAM (05/26/2022 9:24 AM CDT) Clementina Mauricio MD IMG FLUOROSCOPY ORDERABLES Fin al Result * Pathology Surgical (05/26/2022 8:41 AM CDT) Case Report Surgical Pathology Report ? Case: [id number] ? Authorizing Provider: ??Clementina Logan MD ?Collected: ? 05/26/2022 08:41 AM ? Ordering Location: ? [facility] ? Received: ?05/26/2022 12:21 PM ? [facility] ? Main OR ? Pathologist: ? Raad Gates MD ? Specimen: ?Stone, RIGHT URETERAL STONE FOR STONE ANALYSIS ? 05/27/2022 8:04 AM CDT [facility] FINAL DIAGNOSIS CALCULUS, RIGHT URETER, REMOVAL: - NEPHROLITHIASIS (GROSS EXAMINATION ONLY). 05/27/2022 8:04 AM CDT [facility] Pre-Operative Diagnosis RIGHT URETERAL STONE 05/27/2022 8:04 AM CDT [facility] Gross Description A. RIGHT URETERAL STONE FOR STONE ANALYSIS Specimen presents in a single saline container for gross examination only, labeled with the patient's name, Adri Tristan, and designated right ureteral stone for stone analysis. The specimen consists of five pieces of light solorio calculi measuring 0.1 cm up to 0.4 cm in greatest dimensions. All submitted to a reference laboratory for crystallographic examination. KS/sb 05/27/2022 8:04 AM CDT [facility] Microscopic Description Microscopic examination was performed which supports the final diagnosis. All control tissues stained appropriately. 05/27/2022 8:04 AM CDT [facility] Tissue STONE - BODY MATERIAL / Unknown 05/26/2022 8:41 AM CDT 05/26/2022 12:21 PM CDT Clementina Mauricio MD PATHOLOGY/CYTOLOGY ORDERABLES Final Result [facility] [address] [place] [address] documented in this encounter Visit Diagnoses Not on filedocumented in this encounter Administered Medications Inactive Administered Medications - up to 3 most recent administrations Medication Order MAR Action Action Date Dose Rate Site acetaminophen (TYLENOL) tablet 975 mg 975 mg, Oral, ONCE, 1 dose, On Wed05/26/22 at 0630, Maximum dose of acetaminophen is 4000 mg from all sources in 24 hours., PRE-OP (SURGERY) Given 05/26/2022 6:22 AM CDT 975 mg ACETAMINOPHEN 325 MG PO TABS 1 dose, Starting on Wed05/26/22 at 0601, Until Wed05/26/22 at 0622, Created by cabinet override dexamethasone (DECADRON) injection 8 mg 8 mg, Intravenous, ONCE, 1 dose, On Wed05/26/22 at 0630, PRE-OP (SURGERY) Given 05/26/2022 6:22 AM CDT 8 mg DEXAMETHASONE SODIUM PHOSPHATE 4 MG/ML IJ SOLN 1 dose, Starting on Wed05/26/22 at 0601, Until Wed05/26/22 at 0622, Created by cabinet override fentaNYL (PF) (SUBLIMAZE) injection 25-50 mcg 25-50 mcg, Intravenous, EVERY 10 MIN PRN, 4 doses, Starting on Wed05/26/22 at 0843, Until Wed05/26/22 at 1314, Moderate pain or more severe pain if patient requests, Severe pain, 25mcg moderate pain (4-6)/ 50mcg severe pain (7-10), Every 5-15 minutes prn to maximum of 200-400 mcg., PACU (I & II) iopamidol (ISOVUE-250) 51 % injection 100 mL 100 mL, Other, ONCE, 1 dose, On Wed05/26/22 at 0930, INTRA-OP Given 05/26/2022 8:57 AM CDT 20 mL Operative Site lactated ringers infusion at 20 mL/hr, Intravenous, CONTINUOUS, Starting on Wed05/29/22 at 0000, Until Wed05/26/22 at 1314, PRE-OP (SURGERY) New Bag 05/26/2022 6:21 AM CDT 20 mL/hr MIDAZOLAM HCL (PF) 2 MG/2ML IJ SOLN 1 dose, Starting on Wed05/26/22 at 0813, Until Wed05/26/22 at 1314, Created by cabinet override ondansetron (ZOFRAN) injection 4 mg 4 mg, Intravenous, ONCE, 1 dose, On Wed05/26/22 at 0630, PRE-OP (SURGERY) Given 05/26/2022 6:22 AM CDT 4 mg ondansetron (ZOFRAN) injection 4 mg 4 mg, Intravenous, EVERY 12 HOURS PRN, Starting on Wed05/26/22 at 0842, Until Wed05/26/22 at 1314, Nausea - 1st line, First Line Antiemetic, PACU (I & II) ONDANSETRON HCL 4 MG/2ML IJ SOLN 1 dose, Starting on Wed05/26/22 at 0601, Until Wed05/26/22 at 0622, Created by cabinet override documented in this encounter Active and Recently Administered Medications Times are shown in CDT. Scheduled Medication Order 05/24/2022 05/25/2022 05/26/2022 acetaminophen (TYLENOL) tablet 975 mg (COMPLETED) 975 mg, Oral, ONCE, 1 dose, On Wed05/26/22 at 0630, Maximum dose of acetaminophen is 4000 mg from all sources in 24 hours., PRE-OP (SURGERY) 0622 (Given - Provid er: Anastasiia Richards RN) ceFAZolin (ANCEF) injection 2 g (COMPLETED) 2 g, Intravenous, ONCE, 1 dose, On Wed05/29/22 at 0000, Administer over 5 Minutes, INTRA-OP, Indications: Perioperative Pharmacoprophylaxis 0831 (Given - Provid er: Josh Martínez DO) dexamethasone (DECADRON) injection 8 mg (COMPLETED) 8 mg, Intravenous, ONCE, 1 dose, On Wed05/26/22 at 0630, PRE-OP (SURGERY) 0622 (Given - Provid er: Anastasiia Richards RN) iopamidol (ISOVUE-250) 51 % injection 100 mL (COMPLETED) 100 mL, Other, ONCE, 1 dose, On Wed05/26/22 at 0930, INTRA-OP 0857 (Given - Provid er: Clementina Mauricio MD)0930 (Due) ondansetron (ZOFRAN) injection 4 mg (COMPLETED) 4 mg, Intravenous, ONCE, 1 dose, On Wed05/26/22 at 0630, PRE-OP (SURGERY) 0622 (Given - Provid er: Anastasiia Richards RN) Continuous Medication Order 05/24/2022 05/25/2022 05/26/2022 lactated ringers infusion at 20 mL/hr, Intravenous, CONTINUOUS, Starting on Wed05/29/22 at 0000, Until Wed05/26/22 at 1314, PRE-OP (SURGERY) 0621 (New Bag - Prov ider: Anastasiia Richards RN)0823 (Continued by Anesthesia - Provider: Josh Martínez DO)0909 (Anesthesia Volume Adjustment - Provider: Josh Martínez DO)0936 (Stopped - Provider: Sara Russell RN) PRN Medication Order 05/24/2022 05/25/2022 05/26/2022 fentaNYL (PF) (SUBLIMAZE) injection 25-50 mcg 25-50 mcg, Intravenous, EVERY 10 MIN PRN, 4 doses, Starting on Wed05/26/22 at 0843, Until Wed05/26/22 at 1314, Moderate pain or more severe pain if patient requests, Severe pain, 25mcg moderate pain (4-6)/ 50mcg severe pain (7-10), Every 5-15 minutes prn to maximum of 200-400 mcg., PACU (I & II) ondansetron (ZOFRAN) injection 4 mg 4 mg, Intravenous, EVERY 12 HOURS PRN, Starting on Wed05/26/22 at 0842, Until Wed05/26/22 at 1314, Nausea - 1st line, First Line Antiemetic, PACU (I & II) No Frequency Medication Order 05/24/2022 05/25/2022 05/26/2022 MIDAZOLAM HCL (PF) 2 MG/2ML IJ SOLN 1 dose, Starting on Wed05/26/22 at 0813, Until Wed05/26/22 at 1314, Created by cabinet override documented in this encounter Care Teams News Photographer Relationship Specialty Start Date End Date Yohannes Elise MD PCP - General Internal Medicine 04/24/16 07/07/22 Clementina Logan MD [address] [place] [address] Consulting Physician Urology 03/17/22 documented as of this encounter
--- OUTSIDE RECORDS SUMMARY | 2024-03-11 12:48 | XMS_ITS | Encounter Summary ---
Author Organization [facility] Address [address] [place] [address] Phone Care Team Providers Care Novelty Candy Maker Name Role Phone Enrique Syed MD Primary Care Provider [phone] Clementina Logan MD Unavailable [phone] Reason for Referral * Radiology Services (Routine) - Closed Specialty Diagnoses / Procedures Referred By Contac t Referred To Contact Radiology Diagnoses Chest pain, unspecified type Procedures XR CHEST 2 VIEWS Enrique Syed MD [address] [place] [address] Phone: tel: fax: Referral ID Status Reason Start Date Expiration Date Visits Re quested Visits Authorized [id number] Closed 03/16/2023 1 1 FITS MANAGER Encounter Details Date Type Department Care Team (Late st Contact Info) Description 03/16/2023 Transcribe Orders [facility] Patient Access Admitting [address] [place] [id number] Enrique Syed MD [address] [place] [address] [id number] Left upper quadrant pain (Primary Dx); Chest pain, unspecified type Social History Tobacco Use Types Packs/Day Years [...] [facility] [address] [place] [address] Clementina Logan MD [address], [facility] [address] [place] [address] documented as of this encounter Results * XR CHEST 2 VIEWS (03/16/2023 12:41 PM BENEFITS MANAGER) Anatomical Region Laterality Modality Chest N/A Digital Radiogra phy 03/16/2023 12:5 0 PM BENEFITS MANAGER Impressions 03/16/2023 12:53 PM BENEFITS MANAGER IMPRESSION: No acute pulmonary infiltrates. Likely calcification of the left breast should be benign. Narrative 03/16/2023 12:53 PM BENEFITS MANAGER EXAM DESCRIPTION: ?? XR CHEST 2 VIEWS REASON FOR STUDY: ?? Lt side chest pain after fall last . Hx. asthma, HTN, ?? . ? TECHNIQUE: [...] PM T: ??03/16/2023 12:50 PM Report ID: [id number] Reading Location: ??[id number] Procedure Note NaelJose Alfredo yanes, DO - 03/16/2023 EXAM DESCRIPTION: XR CHEST [...] Alfredo Araya M.D. JS: ARMIDA Report ID: [id number] Reading Location: [id number] IMPRESSION: No acute pulmonary infiltrates. Likely calcification of the left breast should be benign. us Enrique Syed MD IMG DIAGNOSTIC ORDERABLES Final Result documented in this encounter Visit Diagnoses Diagnosis Left upper quadrant pain- Primary Abdominal pain, left upper quadrant Chest pain, unspecified type Chest pain, unspecified type documented in this encounter Care Teams Novelty Candy Maker Relationship Specialty Start Date End Date Enrique Syed MD [facility] [place] [address] PCP - General Internal Medicine 08/11/22 Clementina Logan MD [address] [address] Consulting Physician Urology 03/17/22 documented as of this encounter
--- OUTSIDE RECORDS SUMMARY | 2024-03-11 12:48 | XMS_ITS | Encounter Summary ---
Author Organization [facility] Address [address] [place] [address] Phone Care Team Providers Care Loom Fixer Name Role Phone Enrique Syed MD Primary Care Provider [phone] Clementina Logan MD Unavailable [phone] Reason for Referral * Radiology Services (Routine) - Closed Specialty Diagnoses / Procedures Referred By Rosalind estevez Referred To Contact Radiology Diagnoses Kidney stone Procedures US RENAL COMPLETE Clementina Logan MD [address] [place] [address] Phone: tel: fax: Referral ID Status Reason Start Date Expiration Date Visits Re quested Visits Authorized [id number] Closed 06/09/2022 1 1 Reason for Visit * Reason Comments Kidney Stone Cysto/stent removal Encounter Details Date Type Department Care Team (Late st Contact Info) Description 06/09/2022 10:15 AM CDT [facility] [address] [place] [address] Clementina Logan MD [address] [address] UTI symptoms (Primary Dx); Hematuria, unspecified type; Kidney stone Discharge Disposition: Discharged to home or Selfcare Social History Tobacco Use Types Packs/Day Years Used Date Smoking Tobacco: Former Cigarettes Q uit: 1999 Smokeless Tobacco: Never Tobacco Cessation:Counseling Given: No Alcohol Use Standard Drinks/Week Comments Not Currently [...] Reading Time Taken Comments Blood Pressure 126/72 06/09/2022 10:12 AM CDT Pulse 87 06/09/2022 10:12 AM CDT Temperature 36.5 ??C (97.7 ??F) 06/09/2022 10:12 AM C DT Respiratory Rate 20 06/09/2022 10:12 AM CDT Oxygen Saturation 99% 06/09/2022 10:12 AM CDT Inhaled Oxygen Concentration - - Weight 99.8 kg (220 lb) 06/09/2022 10:12 AM CDT Height 152.4 cm (5') 06/09/2022 10:12 AM CDT Body Mass Index 42.97 06/09/2022 10:12 AM CDT documented in this encounter Progress Notes * Clementina Logan MD - 06/09/2022 10:15 AM CDT Reason for Visit: Nephrolithiasis Interval History: Adri Tristan is a 72 y.o. female is here today for the ongoing management of nephrolithaisis. The patient underwent ureteroscopy on the right side. The patient is here today for stent removal. See procedure note. The stent was removed [...] 72 y.o. female with a right ureteral stone s/p R URS. Today we removed the JJ stent. We had an extensive discussion about stone disease, our operative findings, and stone type. 1. Will plan for follow up in 6 weeks with renal US to ensure no interval development of hydronephrosis. Expressed importance for follow up visit. documented in this encounter Procedure Notes * Clementina Logan MD - 06/09/2022 10:15 AM CDT Cystoscopy Procedure Note Date of Visit: 06/09/2022 Cystourethroscopy and stent removal Adri Tristan is a 72 y.o. female who presents for cystoscopy and removal of an indwelling JJ stenton the right side that was placed following ureteroscopy. Indication(s): [...] was administered transurethrally. A well lubricated 16 Maltese flexible cystoscope was introduced transurethrally. Findings listed below.Through this, flexible stent graspers were advanced through the scope. The distal curl of the stentwas visualized. It was pulled and removed without resistance. It was removed intact. Both curls were visualized. There was no debris on the stent noted. At the end of the procedure, the patient was given ciprofloxacin x1 antibiotic prophylaxis. Findings: Urethra: No strictures, lesions, or stones Bladder: No stones, tumors, lesions. No trabeculations, diverticuli. Bilateral UO in orthotopic position with clear efflux Stent: Removed intact with both curls visualized outside the body. Stent discarded The patient tolerated the procedure well. Specimen sent: None Plan: See progress note documented in this encounter Miscellaneous Notes * Addendum Note - René Batista - 06/09/2022 10:15 AM CDTAddended by: RENÉ BATISTA on: 06/09/2022 10:46 AM Modules accepted: Orders * Addendum Note - Kahlil Dyer RN - 06/09/2022 10:15 AM CDTAddended by: KAHLIL DYER on: 06/09/2022 11:05 AM Modules accepted: Orders * Addendum Note - Kahlil Dyer RN - 06/09/2022 10:15 AM CDTAddended by: KAHLIL DYER on: 06/09/2022 11:27 AM Modules accepted: Orders documented in this encounter Plan of Treatment Upcoming Encounters Date Type Department Care Team (Late st Contact Info) Description 12/29/2024 9:00 AM CDT Office Visit [facility] [address] [place] [phone] Clementina Logan MD [address] [facility], [address] [address] Scheduled Orders Name Type Priority Associated Diagnoses Orde r Schedule CYSTOSCOPY,REMV CALCULUS,SIMPLE Procedures Routine Kidney stone Ordered: 06/09/2022 documented as of this encounter Procedures Procedure Name Priority Date/Time Associated Diagnosis Comments POCT UA AUTOMATED W/O MICRO Routine 06/09/2022 10:12 AM CDT UTI symptoms Hematuria, unspecified type documented in this encounter Results * US [...] PM T: ??07/21/2022 6:48 PM Report ID: [id number] Reading Location: ??[id number] Procedure Note Yg Downs Jr., MD - 07/21/2022 EXAM DESCRIPTION: US RENAL COMPLETE REASON FOR [...] Yg Downs M.D. CH: YESSENIA Report ID: [id number] Reading Location: [place] [address] IMPRESSION: Trace right and mild left hydronephrosis. Normal renal size and echogenicity with no significant cortical thinning. Left renal cyst 0.8 cm. Hepatic steatosis. Urinary bladder could not be assessed well. Clementina Mauricio MD [facility] US ORDERABLES Final Result * (ABNORMAL) POCT UA AUTOMATED W/O MICRO (06/09/2022 10:12 AM CDT) POC UA SPECIFIC GRAVITY 1.015 URINE PH 7.0 5.0 - 9.0 POC URINE LEUKOCYTES 500 /uL Negative Kalie/uL POC URINE NITRITE Negative Negative POC URINE PROTEIN 500 mg/dL Negative mg/dL POC URINE GLUCOSE Norm Negative, Norm mg/dL POC URINE KETONE 15 mg/dL(A) Negative mg/dL POC URINE UROBILINOGEN Norm Norm, 0.2 E.U./dL (mg/dL), 1 E.U./dL (mg/dL) POC URINE BILIRUBIN Negative Negative mg/dL POC URINE BLOOD INSTRUMENT 250 Homer/uL(A) Negative Homer/uL POC URINE COLOR Red POC URINE CLARITY Bloody Urine 06/09/2022 10:1 2 AM CDT Clementina Mauricio MD POINT OF CARE TESTING (MANUAL) Final Result documented in this encounter Visit Diagnoses Diagnosis UTI symptoms- Primary Hematuria, unspecified type Kidney stone Calculus of kidney Kidney stone Calculus of kidney documented in this encounter Administered Medications Inactive Administered Medications - up to 3 most recent administrations Medication Order MAR Action Action Date Dose Rate Site ciprofloxacin (CIPRO) tablet 500 mg 500 mg, Oral, ONCE, 1 dose, On Wed06/09/22 at 1130, Indications: Prevention of Bacterial InfectionIndications:Preventi on of Bacterial Infection Given by Other 06/09/2022 11:13 AM CDT 500 mg documented in this encounter Care Teams Loom Fixer Relationship Specialty Start Date End Date Enrique Syed MD PCP - General Internal Medicine 04/24/16 07/07/22 Clementina Logan MD [address] [place] [address] Consulting Physician Urology 03/17/22 documented as of this encounter
--- OUTSIDE RECORDS SUMMARY | 2024-03-11 12:48 | XMS_ITS | Encounter Summary ---
Author Organization [facility] Address [address] [place] [address] Phone Care Team Providers Care Drug Coordinator Name Role Phone Enrique Syed MD Primary Care Provider [phone] Clementina Logan MD Unavailable [phone] Reason for Visit * Auth/Cert (Routine) Specialty Diagnoses / Procedures Referred By Rosalind estevez Referred To Contact Diagnoses RIGHT URETERAL STONE Procedures CYSTOSCOPY URETEROSCOPY WITH HOLMIUM LASER Clementina Logan MD [address] [address] Phone: tel: fax: Referral ID Status Reason Start Date Expiration Date Visits Re quested Visits Authorized [id number] 1 1 Encounter Details Date Type Department Care Team (Late st Contact Info) Description 05/26/2022 8:23 AM CDT [facility] [address] [place] [address] Josh Martínez DO [address] [place] [address] Freddy Hernandez APRN, HOME HEALTH SPECIALIST [address] [place] [address] Anesthesia Record Procedure Summary Procedure Name Responsible Anesthesiologist Anesthesia Start Time Anesthesia Stop Time RIGHT URETEROSCOPY WITH HOLMIUM LASER LITHOTRIPSY (Right: Ureter) Josh Martínez DO 05/26/22 0823 05/26/22 0909 Events Date Time Event Comment 05/26/2022 0744 0823 An Start 0826 An Start Data 0827 ANASSESSCMPLT 0829 An Induction 0830 An LMA 0834 Anesthesia Ready 0901 Airway Removed 0904 Stop Data Collection 0904 Transort to Postop 0907 Handoff to RN I completed my SBAR handoff to the receiving nurse. Last vitals BP: 118/70 Temp: 36.6 ??C Pulse: 62 Resp: 28 SpO2: 96 % 0909 An Stop Last vitals: BP : 118/70 Temp: 36.6 ??C Pulse: 62 Resp: 28 SpO2: 96 % Meds Name Total midazolam (VERSED) injection 1 mg/mL 2 m g propofol 10 mg/mL 150 mg lidocaine 1 % 100 mg fentaNYL 50 mcg/mL 100 mcg phenylephrine 10 mg/mL 200 mcg ceFAZolin (ANCEF) injection 2 g 2 g lactated ringers infusion 150 mL * Agents Name FiO2 (%) FexpO2 (%) Inspired CO2 (mmHg) ETCO2 (mmHg) Inspired N2O (%) N2O (%) Sevoflurane (%) Inspired Sevoflurane (%) * Blood No blood administrations on file. Lines, Drains, and Airways Type Details Placement Removal PIV-Single Lumen Placement Date: 05/26/22; Placement Time: 0620; Catheter Size: 22 G; Orientation: Right; Location: Antecubital; Site Prep: Alcohol; Insertion Attempts: 1; Patient Tolerance: Tolerated well; Removal Date: 05/26/22; Removal Time: 1045 05/26/22 0620 by Anastasiia Richards RN 05/26/22 1045 by Anastasiia Richards RN Surgical Site Through Body Orifice 05/26/22; 0839; Urethra; 04/16/23; 0045 05/26/22 0839 by Tyra Elena RN 04/16/23 0045 by Auto-Discontinue, System documented in this encounter [...] AM CDT documented as of this encounter OR Notes * Anesthesia Postprocedure Evaluation - Josh Martínez DO - 05/26/2022 9:10 AM CDT Patient: Adri Tristan Procedure Summary Date: 05/26/22 Room / Location: [facility] MA[facility] OR [facility] Anesthesia Start: 822 Anesthesia Stop: 908 Procedures: RIGHT URETEROSCOPY WITH HOLMIUM LASER LITHOTRIPSY (Right: Ureter) CYSTOSCOPY, RIGHT STENT INSERTION (Right: Ureter) Diagnosis: (RIGHT URETERAL STONE) Surgeons: Clementina Logan MD Responsible Provider: Josh Martínez DO Anesthesia Type: general ASA Status: 3 Anesthesia Type: general Last vitals Vitals Value Taken Time BP 118/70 05/26/22 0906 Temp 36.6 ??C 05/26/22 0906 Pulse 62 05/26/22 0906 Resp 28 05/26/22 0906 SpO2 96 % 05/26/22 0906 Pain score: 0 Pain management: adequate Patient location during evaluation: PACU Patient participation: Sufficiently recovered to participate Level of consciousness: lethargic Cardiovascular status: acceptable Respiratory status: acceptable Hydration status: acceptable Anesthetic complications: no Airway patency: positional obstruction Nausea and Vomiting: none * Anesthesia Procedure Notes - Josh Martínez DO - 05/26/2022 8:37 AM CDTAssociated Order(s): LMA LMA Staffing Performed: anesthesiologist Anesthesiologist: Josh Martínez DO Airway Details Overall Difficulty: Easy Preoxygenated: Yes Ease of Mask Ventilation: Not attempted LMA Type: Disposable LMA Size: 3 Adequate seal established: Yes LMA placement confirmed by: bilateral breath sounds, CO2 detection Atraumatic LMA Placement * Anesthesia Preprocedure Evaluation - Josh Martínez DO - 05/26/2022 7:46 AM CDT Anesthesia Evaluation Procedure Information Date/Time: 05/26/22 0755 Procedure: RIGHT URETEROSCOPY WITH HOLMIUM LASER LITHOTRIPSY / CYSTOSCOPY WITH RIGHT STENT PLACEMENT (Right) Location: [facility] MA[facility] OR [facility] Surgeons: Clementina Logan MD Patient summary reviewed and Nursing notes reviewed History of anesthetic complications (difficult intubation and PONV) No family history of anesthesiareaction Allergies: -- Nitrofurantoin -- Diarrhea and Nausea -- Christopher Inhibitors -- Other (see Comments) and Unknown -- Erythromycin -- Unknown -- unsure what type of reaction -- Sulfa Antibiotics -- Vomiting Patient allergies reviewed. Medications: Current Facility-Administered Medications: ??? (START ON 05/29/2022) ceFAZolin (ANCEF) injection 2 g, 2 g, Intravenous, Once, Clementina Logan MD ??? (START ON 05/29/2022) lactated ringers infusion, , Intravenous, Continuous, Clementina Logan MD,Last Rate: 20 mL/hr at 05/26/22620, New Bag at 05/26/22620 Medications Prior to Admission: albuterol 108 (90 Base) MCG/ACT Aerosol Solution, take 2 Puffs by inhalation every 4 hours as needed., Disp: , Rfl: allopurinol (ZYLOPRIM) 300 MG Tablet, 300 mg., Disp: , Rfl: apixaban (ELIQUIS) 5 MG Tablet, 5 mg., Disp: , Rfl: Ascorbic Acid 500 MG Capsule CR, 500 mg., Disp: , Rfl: atorvastatin (LIPITOR) 40 MG Tablet, 40 mg every evening., Disp: , Rfl: azelastine (ASTELIN) 0.1 % Solution, , Disp: , Rfl: budesonide-formoterol fumarate (SYMBICORT) 160-4.5 MCG/ACT Aerosol, inhale 2 puff by inhalation route 2 times every day in the morning and evening, Disp: , Rfl: Calcium Carb-Cholecalciferol 600-20 MG-MCG Tablet, , Disp: , Rfl: cefUROXime (CEFTIN) 500 MG Tablet, Take 500 mg by mouth., Disp: , Rfl: cephALEXin (KEFLEX) 500 MG Capsule, Take 1 Capsule by mouth 2 times daily for 14 days., Disp: 28 Capsule, Rfl: 0 ciprofloxacin (CIPRO) 250 MG Tablet, , Disp: , Rfl: ergocalciferol (VITAMIN D) 71191 UNIT Capsule, Take 50,000 Units by mouth., Disp: , Rfl: famotidine (PEPCID) 10 MG Tablet, Take 10 mg by mouth., Disp: , Rfl: fexofenadine (SOMMER) 60 MG Tablet, Take by mouth., Disp: , Rfl: fluocinonide (LIDEX) 0.05 % Solution, APPLY TO ITCHY SCALP 1 TO 2 TIMES DAILY, Disp: , Rfl: fluticasone (FLONASE) 50 MCG/ACT Suspension, , Disp: , Rfl: irbesartan-hydroCHLOROthiazide (AVALIDE) 150-12.5 MG Tablet, Take 1 Tablet by mouth daily., Disp: ,Rfl: montelukast (SINGULAIR) 10 MG Tablet, 10 mg., Disp: , Rfl: Multiple Vitamin (MULTIVITAMIN ADULT PO), take 1 tablet by oral route every day with food, Disp: , Rfl: niacin CR 250 MG Capsule CR, Take by mouth., Disp: , Rfl: Harmony-3 1400 MG Capsule, Take by mouth., Disp: , Rfl: omeprazole (PriLOSEC) 10 MG CAPSULE DELAYED RELEASE, 10 mg. (Patient not taking: Reported on 05/18/2022), Disp: , Rfl: sotalol (BETAPACE) 160 MG Tablet, Take 160 mg by mouth 2 times daily., Disp: , Rfl: valsartan-hydroCHLOROthiazide (DIOVAN-HCT) 320-12.5 MG Tablet, Take 1 Tablet by mouth daily., Disp:, Rfl: Zinc 50 MG Capsule, Take by mouth., Disp: , Rfl: Patient medications reviewed. Airway Mallampati: III TM distance: >3 FB Neck ROM: limited Dental Pulmonary - normal exam (+) asthma, sleep apnea, Cardiovascular - normal exam (+) pacemaker, hypertension, dysrhythmias (afib), Neuro/Psych GI/Hepatic/Renal Endo/Other (+) arthritis, Risks, benefits, alternatives discussed with:patient. Anesthesia Plan ASA 3 general intravenous induction Anesthetic plan and risks discussed with Patient. Plan discussed with surgeon. documented in this encounter Plan of Treatment Upcoming Encounters Date Type Department Care Team (Late st Contact Info) Description 12/29/2024 9:00 AM CDT Office Visit [facility] [address] [place] [address] Clementina Logan MD [address], [facility] [address] [place] [address] documented as of this encounter Procedures Procedure Name Priority Date/Time Associated Diagnosis Comments LMA Routine 05/26/2022 8:37 AM CDT documented in this encounter Results * LMA (05/26/2022 8:37 AM CDT) Narrative Josh Martínez DO - 05/26/2022 8:37 AM CDT Josh Martínez, ? 05/26/2022 ??8:37 AM LMA Staffing Performed: anesthesiologist Anesthesiologist: Josh Martínez DO Airway Details Overall Difficulty: ??Easy Preoxygenated: ??Yes Ease of Mask Ventilation: ??Not attempted LMA Type: ??Disposable LMA Size: ??3 Adequate seal established: ??Yes LMA placement confirmed by: ??bilateral breath sounds, ??CO2 detection Atraumatic LMA Placement Josh Martínez DO ANESTHESIA ORDERABL ES Final Result documented in this encounter Visit Diagnoses Not on filedocumented in this encounter Administered Medications Inactive Administered Medications - up to 3 most recent administrations Medication Order MAR Action Action Date Dose Rate Site ceFAZolin (ANCEF) injection 2 g 2 g, Intravenous, ONCE, 1 dose, On Wed05/29/22 at 0000, Administer over 5 Minutes, INTRA-OP, Indications: Perioperative PharmacoprophylaxisIndications:Pamela operative Pharmacoprophylaxis Given 05/26/2022 8:31 AM CDT 2 g fentaNYL (PF) (SUBLIMAZE) injection Intravenous, ONCE (in OR), Starting on Wed05/26/22 at 0829, Until Wed05/26/22 at 0909 Given 05/26/2022 8:29 AM CDT 100 mcg lidocaine 1 % injection Intravenous, ONCE (in OR), Starting on Wed05/26/22 at 0829, Until Wed05/26/22 at 0909 Given 05/26/2022 8:29 AM CDT 100 mg midazolam (VERSED) injection Intravenous, ONCE (in OR), Starting on Wed05/26/22 at 0823, Until Wed05/26/22 at 0909 Given 05/26/2022 8:23 AM CDT 2 mg phenylephrine (JOANIE-SYNEPHRINE) injection Intravenous, ONCE (in OR), Starting on Wed05/26/22 at 0832, Until Wed05/26/22 at 0909 Given 05/26/2022 8:32 AM CDT 200 mcg propofol (DIPRIVAN) injection Intravenous, ONCE (in OR), Starting on Wed05/26/22 at 0829, Until Wed05/26/22 at 0909 Given 05/26/2022 8:29 AM CDT 150 mg documented in this encounter Care Teams Drug Coordinator Relationship Specialty Start Date End Date Enrique Syed MD PCP - General Internal Medicine 04/24/16 07/07/22 Clementina Logan MD [address] [place] [address] Consulting Physician Urology 03/17/22 documented as of this encounter
--- OUTSIDE RECORDS SUMMARY | 2024-03-11 12:49 | XMS_ITS | Encounter Summary ---
Author Organization [facility] Address [address] [place] [address] Phone Care Team Providers Care Art Conservator Name Role Phone Enrique Syed MD Primary Care Provider [phone] Clementina Logan MD Unavailable [phone] Reason for Visit * Reason Onset Date Comments Other 03/30/2022 Encounter Details Date Type Department Care Team (Late st Contact Info) Description 03/30/[address] [facility] #2 [place] [address] Clementina Logan MD #[address] [address] Other Social History Tobacco Use Types Packs/Day Years Used Date Smoking Tobacco: Former Cigarettes Smokeless Tobacco: Never Alcohol Use Standard Drinks/Week [...] suspected to have Coronavirus/COVID-19? No / Unsure 03/17/2022 9:24 AM WAITER/WAITRESS CABIN CLASS documented as of this encounter Miscellaneous Notes * Telephone Encounter - Giovanny Flaherty RMA - 03/30/2022 4:00 PM CST CALLED PT AND INFORMED HER ABOUT URINE CX RESULTS AND TO START ON THE ABT SOHAM. ER/WAITRESS CABIN CLASS documented in this encounter Plan of Treatment Upcoming Encounters Date Type Department Care Team (Late st Contact Info) Description 12/29/2024 9:00 AM CDT [facility] [address] [place] [address] Clementina Logan MD #[address] [facility] [address] [place] [address] documented as of this encounter Visit Diagnoses Not on filedocumented in this encounter Care Teams Art Conservator Relationship Specialty Start Date End Date Enrique Syed MD PCP - General Internal Medicine 04/24/16 07/07/22 Clementina Logan MD #[address] [facility] [address] [place] [address] Consulting Physician Urology 03/17/22 documented as of this encounter
--- OUTSIDE RECORDS SUMMARY | 2024-03-11 12:49 | XMS_ITS | Encounter Summary ---
Author Organization [facility] Address [address] [place] [address] Phone Care Team Providers Care Billiard Table Mechanic Name Role Phone Enrique Syed MD Primary Care Provider [phone] Clementina Logan MD Unavailable [phone] Reason for Referral * Radiology Services (Routine) - Closed Specialty Diagnoses / Procedures Referred By Rosalind estevez Referred To Contact Radiology Diagnoses Preop testing Procedures EKG 12 LEAD Clementina Logan MD [address] [place] [address] Phone: tel: fax: Referral ID Status Reason Start Date Expiration Date Visits Re quested Visits Authorized [id number] Closed 05/18/2022 1 1 Reason for Visit * Radiology Services (Routine) - Closed Specialty Diagnoses / Procedures Referred By Rosalind estevez Referred To Contact Radiology Diagnoses Preop testing Procedures EKG 12 LEAD Clementina Logan MD [address] [place] [address] Phone: tel: fax: Referral ID Status Reason Start Date Expiration Date Visits Re quested Visits Authorized [id number] Closed 05/18/2022 1 1 Encounter Details Date Type Department Care Team (Latest Contact Info) Description 05/20/2022 2:09 PM CDT - 05/20/2022 11:59 PM CDT Hospital Encounter [facility]iology Services [address] [place] [id number] Clementina Logan MD [facility] [facility] [address] [place] [address] Discharge Disposition: Discharged to home or Selfcare [...] suspected to have Coronavirus/COVID-19? No / Unsure 05/20/2022 1:59 PM CDT documented as of this encounter Medications [...] Take 800 mg by mouth nightly. 08/19/2016 [place]-3 1400 MG Capsule Take by mouth. oxybutynin [...] for 14 days. 28 Capsule 05/12/2022 3 ciprofloxacin (CIPRO) 250 MG Tablet 02/23/2022 3 ergocalciferol (VITAMIN D) 24266 UNIT Capsule Take 50,000 Units by mouth. 06/10/2018 4 fluocinonide (LIDEX) 0.05 % Solution 12/09/2021 4 HYDROcodone-acet aminophen ([place]) 5-325 MG TabletIndication s:Ureteral stone Take 1 [...] 05/26/2022 3 documented as of this encounter Plan of Treatment Upcoming Encounters Date Type Department Care Team (Late st Contact Info) Description 12/29/2024 9:00 AM CDT Office Visit [facility] [address] [place] [address] Clementina Logan MD #[address], [facility] [address] [place] [address] documented as of this encounter Procedures Procedure Name Priority Date/Time Associated Diagnosis Comments EKG 12 LEAD Routine 05/20/2022 2:17 PM CDT Preop testing documented in this encounter Results * EKG 12 LEAD (05/20/2022 2:17 PM CDT) Ventricular Rate 61 BPM EXTERNAL EKG Atrial Rate 61 BPM EXTERNAL EKG P-R Interval 212 ms EXTERNAL EKG QRS Duration 92 ms EXTERNAL EKG Q-T Duration 408 ms EXTERNAL EKG QTC CALCULATION 410 ms EXTERNAL EKG P [place] -29 degrees EXTERNAL EKG R [place] -30 degrees EXTERNAL EKG T [place] -30 degrees EXTERNAL EKG 05/20/2022 2:17 PM CDT Impressions EXTERNAL EKG - 05/22/2022 4:09 PM CDT Atrial-paced rhythm with prolonged AV conduction Left axis deviation Moderate voltage criteria for LVH, may be normal variant ( R in aVL , Gilbert product ) Abnormal ECG No previous ECGs available Confirmed by Joshua Estevez ([id number]) on 05/22/2022 4:09:47 PM Narrative Procedure Note Joshua Feliz MD - 05/22/2022 IMPRESSION: Atrial-paced rhythm with prolonged AV conduction Left axis deviation Moderate voltage criteria for LVH, may be normal variant ( R in aVL ,Gilbert product ) Abnormal ECG No previous ECGs available Confirmed by Joshua Estevez ([id number]) on 05/22/2022 4:09:47 PM Clementina Mauricio MD IMG ECG ORDERABLES Final Resul t EXTERNAL EKG documented in this encounter Visit Diagnoses Diagnosis Preop testing Preoperative examination, unspecified documented in this encounter Care Teams Billiard Table Mechanic Relationship Specialty Start Date End Date Enrique Syed MD PCP - General Internal Medicine 04/24/16 07/07/22 Clementina Logan MD #2 [place] [address] Consulting Physician Urology 03/17/22 documented as of this encounter
--- OUTSIDE RECORDS SUMMARY | 2024-03-11 12:49 | XMS_ITS | Encounter Summary ---
Author Organization [facility] Address [address] [place] [address] Phone Care Team Providers Care Back Feeder Plywood Layup Line Name Role Phone Enrique Syed MD Primary Care Provider [phone] Clementina Logan MD Unavailable [phone] Reason for Visit * Reason Onset Date Comments Results 03/30/2022 Encounter Details Date Type Department Care Team (Late st Contact Info) Description 03/30/2022 Telephone [facility] #2 [place] [address] Clementina Logan MD #[address] [address] Results Social History Tobacco Use Types Packs/Day [...] Coronavirus/COVID-19? No / Unsure 03/17/2022 9:24 AM NEEDLE MOLDER documented as of this encounter Miscellaneous Notes * Telephone Encounter - Giovanny Flaherty RMA - 03/30/2022 3:12 PM CST LVM FOR PT TO CALL [facility] TO LET HER KNOW HER URINE CX CAME BACK POSITIVE AND TO START KEFLEX 500MG BEFORE SURGERY. LE MOLDER documented in this encounter Plan of Treatment Upcoming Encounters Date Type Department Care Team (Late st Contact Info) Description 12/29/2024 9:00 AM CDT [facility] [address] [place] [address] Clementina Logan MD [address] [address] documented as of this encounter Visit Diagnoses Not on filedocumented in this encounter Care Teams Back Feeder Plywood Layup Line Relationship Specialty Start Date End Date Enrique Syed MD PCP - General Internal Medicine 04/24/16 07/07/22 Clementina Logan MD [facility] [facility] [address] [place] [address] Consulting Physician Urology 03/17/22 documented as of this encounter
--- OUTSIDE RECORDS SUMMARY | 2024-03-11 12:49 | XMS_ITS | Encounter Summary ---
Author Organization [employer] Care Team Providers Care Vessel Traffic Officer Name Role Phone Enrique Syed MD Primary Care Provider [phone] Clementina Logan MD Unavailable [phone] Encounter Details Date Type Department Care Team (Latest Contact Info) Description 05/18/2022 Travel Social History Tobacco Use Types Packs/Day [...] suspected to have Coronavirus/COVID-19? No / Unsure 05/18/2022 3:17 PM CDT documented as of this encounter Plan of Treatment Upcoming Encounters Date Type Department Care Team (Late st Contact Info) Description 12/29/2024 9:00 AM CDT [facility] [address] [place] [address] Clementina Logan MD #[address], [address] [address] documented as of this encounter Visit Diagnoses Not on filedocumented in this encounter Care Teams Vessel Traffic Officer Relationship Specialty Start Date End Date Enrique Syed MD PCP - General Internal Medicine 04/24/16 07/07/22 Clementina Logan MD #2 [place] [address] Consulting Physician Urology 03/17/22 documented as of this encounter
--- OUTSIDE RECORDS SUMMARY | 2024-03-11 12:49 | XMS_ITS | Encounter Summary ---
Author Organization [facility] Address [address] [place] [address] Phone Care Team Providers Care Service Agent Name Role Phone Enrique Syed MD Primary Care Provider [phone] Clementina Logan MD Unavailable [phone] Reason for Visit * Reason Onset Date Comments OTHER 04/28/2022 Encounter Details Date Type Department Care Team (Late st Contact Info) Description 04/28/2022 Telephone [facility] [address] [place] [address] Clementina Logan MD #[address] [address] OTHER Social History Tobacco Use Types Packs/Day [...] * Telephone Encounter - Maritza Schneider - 05/04/2022 8:11 AM CST Pt states she will be in tomorrow give urine sample. ICE CENTER SUPERVISOR * Telephone Encounter - Maritza Schneider - 05/01/2022 10:55 AM CST Left message for pt to call back; urine culture ordered ICE CENTER SUPERVISOR * Telephone Encounter - Giovanny Flaherty RMA - 04/28/2022 3:21 PM CST SPOKE WITH PT AND STILL WAITING FOR PT TO BE CLEARED BY PCP FOR SURGERY. PT STATES SHE HAS AN APPT SET UP FOR 05.08.2022. PT ALSO STATES THAT SHE'S SEEING A WIRELESS SALES MANAGER FOR AN INGROWN NAIL THAT MIGHT BE INFECTED. PT IS HAVING A LOT OF URGENCY /FREQUENCY , WOULD YOU LIKE ME TO HAVE PT DO A URINE CX.PLEASE ADVISE ICE CENTER SUPERVISOR documented in this encounter Plan of Treatment Upcoming Encounters Date Type Department Care Team (Late st Contact Info) Description 12/29/2024 9:00 AM CDT Office Visit [facility] [address] [place] [address] Clementina Logan MD [address] [address] documented as of this encounter Visit Diagnoses Not on filedocumented in this encounter Care Teams Service Agent Relationship Specialty Start Date End Date Enrique Syed MD PCP - General Internal Medicine 04/24/16 07/07/22 Clementina Logan MD #[address] [address] Consulting Physician Urology 03/17/22 documented as of this encounter
--- OUTSIDE RECORDS SUMMARY | 2024-03-11 12:49 | XMS_ITS | Encounter Summary ---
Author Organization [facility] Address [address] [place] [address] Phone Care Team Providers Care Welding Operator Name Role Phone Yohannes Elise MD Primary Care Provider [phone] Clementina Logan MD Unavailable [phone] Reason for Visit * Auth/Cert (Routine) Specialty Diagnoses / Procedures Referred By Rosalind estevez Referred To Contact Diagnoses RIGHT URETERAL STONE Procedures CYSTOSCOPY URETEROSCOPY WITH HOLMIUM LASER Clementina Logan MD #[address] [address] Phone: tel: fax: Referral ID Status Reason Start Date Expiration Date Visits Re quested Visits Authorized [id number] 1 1 Encounter Details Date Type Department Care Team (Latest Contact Info) Description 05/26/2022 5:43 AM CDT - 05/26/2022 10:50 AM CDT Hospital Encounter [facility] Preop/Pacu II 1 [place] [address] Clementina Logan MD #[address] [id number] Discharge Disposition: Discharged to home or Selfcare [...] Sign Reading Time Taken Comments Blood Pressure 124/64 05/26/2022 10:35 AM CDT Pulse 82 05/26/2022 10:35 AM CDT Temperature 36 ??C (96.8 ??F) 05/26/2022 10:35 AM CDT Respiratory Rate 16 05/26/2022 10:35 AM CDT Oxygen Saturation 98% 05/26/2022 10:35 AM CDT Inhaled Oxygen Concentration - - [...] be sent through Care Everywhere. * Cystoscopy (Spanish) * Low-Purine Eating Plan (Spanish) documented in this encounter Medications at Time [...] Take 800 mg by mouth nightly. 08/19/2016 [place]-3 1400 MG Capsule Take by mouth. oxybutynin [...] 28 Capsule 05/12/2022 3 ergocalciferol (VITAMIN D) 07865 UNIT Capsule Take 50,000 Units by mouth. 06/10/2018 4 fluocinonide (LIDEX) 0.05 % Solution 12/09/2021 4 HYDROcodone-acet aminophen ([place]) 5-325 MG TabletIndication s:Ureteral stone Take 1 [...] Continuous Clementina Logan MD 20 mL/hr at 05/26/22620 New Bag at 05/26/22620 ??? MIDAZOLAM HCL (PF) 2 MG/2ML IJ [...] on right side Surgeon: Clementina Mauricio MD Dial Lathe Operator: None Anesthesia: General Indications: This is a [...] Intervention: Mutually Develop Transition Plan Flowsheets (Taken 05/26/2022607) Equipment Needed After Discharge: none Equipment Currently [...] interventions/notes) Intervention: Optimize Anesthesia Recovery Flowsheets (Taken 05/26/2022607) Safety Promotion/Fall Prevention: family at bedside nonskid [...] to proceed. Patient informed of same. * Interdisciplinary - Billie Barrett RN - 05/18/2022 4:34 PM CDT PATIENT INFORMED TO COMPLETE PREOP LABS AND EKG BY Wednesday05/22/2022 BETWEEN 7:30 AM - 3:00 PM. VOICED UNDERSTANDING. Denies having COVID in past 90 days No current COVID symptoms No COVID test needed * Jamari - Billie Barrett RN - 05/18/2022 4:[address] [facility] ADULT TEACHING Patient Name: Adri Tristan : 1950 [facility]#: [id number] Person Educated Patient Ready to Learn Yes [...] be allowed to accompany you to the [facility]. No children under theage of 16 will be allowed in the [facility] unless they are the patient. If [...] a fall can affect your health for therest of your life. Some things the nurses [...] Patient Response: Verbalizes Understanding Patient assessed for chinese language professor during the preop interview and appropriate interventions taken if applicable. documented in this encounter Plan of Treatment Upcoming Encounters Date Type Department Care Team (Late st Contact Info) Description 12/29/2024 9:00 AM CDT Office Visit [facility] [address] [place] [address] Clementina Logan MD #[address], [facility] [address] [place] [address] documented as of this encounter Procedures Procedure [...] Case Report Surgical Pathology Report ? Case: [id number] ? Authorizing Provider: ??Clementina Logan MD ?Collected: ? 05/26/2022 08:41 AM ? Ordering Location: ? [facility] ? Received: ?05/26/2022 12:21 PM ? [facility] ? Main OR ? Pathologist: ? Raad Gates MD ? Specimen: ?Stone, RIGHT URETERAL STONE FOR STONE ANALYSIS ? 05/27/2022 8:04 AM CDT [facility] FINAL DIAGNOSIS CALCULUS, RIGHT URETER, REMOVAL: - NEPHROLITHIASIS (GROSS EXAMINATION ONLY). 05/27/2022 8:04 AM T [facility] Pre-Operative Diagnosis RIGHT URETERAL STONE 05/27/2022 8:04 AM T [facility] Gross Description A. RIGHT URETERAL [...] crystallographic examination. KS/sb 05/27/2022 8:04 AM CDT [facility] Microscopic Description Microscopic examination was performed which supports the final diagnosis. All control tissues stained appropriately. 05/27/2022 8:04 AM CDT [facility] Tissue STONE - BODY MATERIAL / Unknown 05/26/2022 8:41 AM CDT 05/26/2022 12:21 PM CDT us Clementina Mauricio MD PATHOLOGY/CYTOLOGY ORDERABLES Final Result [facility] #1 [place] [address] documented in this encounter Visit Diagnoses Diagnosis Ureteral stone- Primary Calculus of ureter documented in this encounter Administered Medications Inactive [...] of 200-400 mcg., PACU (I & II) lactated ringers infusion at 20 mL/hr, Intravenous, [...] override documented in this encounter Care Teams Welding Operator Relationship Specialty Start Date End Date Yohannes Elise MD PCP - General Internal Medicine 04/24/16 07/07/22 Clementina Logan MD #[address] [address] Consulting Physician Urology 03/17/22 documented as of this encounter
--- OUTSIDE RECORDS SUMMARY | 2024-03-11 12:49 | XMS_ITS | Encounter Summary ---
Author Organization [employer] Care Team Providers Care Hris Developer Name Role Phone Enrique Syed MD Primary Care Provider [phone] Clementina Logan MD Unavailable [phone] Encounter Details Date Type Department Care Team (Latest Contact Info) Description 05/05/2022 Travel Social History Tobacco Use Types Packs/Day [...] suspected to have Coronavirus/COVID-19? No / Unsure 05/05/2022 12:04 PM ELECTRICAL TEST ENGINEER documented as of this encounter Plan of Treatment Upcoming Encounters Date Type Department Care Team (Late st Contact Info) Description 12/29/2024 9:00 AM CDT Office Visit [facility] [address] [place] [address] Clementina Logan MD #[address], [address] [address] documented as of this encounter Visit Diagnoses Not on filedocumented in this encounter Care Teams Hris Developer Relationship Specialty Start Date End Date Enrique Syed MD PCP - General Internal Medicine 04/24/16 07/07/22 Clementina Logan MD #2 [place] [id number] Consulting Physician Urology 03/17/22 documented as of this encounter
--- OUTSIDE RECORDS SUMMARY | 2024-03-11 12:49 | XMS_ITS | Encounter Summary ---
Author Organization [facility] Address [address] [place] [address] Phone Care Team Providers Care Alternative Medicine Practitioner Name Role Phone Enrique Syed MD Primary Care Provider [phone] Clementina Jara MD Unavailable [phone] Encounter Details Date Type Department Care Team (Late st Contact Info) Description 05/01/2022 Telephone [facility] #[address] [place] [address] Clementina Jara MD #[address] [address] Social History Tobacco Use Types [...] Coronavirus/COVID-19? No / Unsure 05/05/2022 12:04 PM CONTROL SYSTEMS TECHNICIAN documented as of this encounter Miscellaneous Notes * Addendum Note - Clementina Jara MD - 05/12/2022 9:43 AM CDTAddended by: CLEMENTINA JARA on: 05/12/2022 09:43 AM Modules accepted: Orders * Telephone Encounter - Maritza Schneider - 05/01/2022 10:54 AM CST Ordered per Dr. Jara; Please see telephone call from 04/28/22. ROL SYSTEMS TECHNICIAN documented in this encounter Plan of Treatment Upcoming Encounters Date Type Department Care Team (Late st Contact Info) Description 12/29/2024 9:00 AM CDT Office Visit [facility] #[address] [place] [address] Clementina Jara MD #[address] [address] documented as of this encounter Results * CULTURE, URINE (05/05/2022 12:15 PM CONTROL SYSTEMS TECHNICIAN) CULTURE RESULTS KLEBSIELLA PNEUMONIAE 05/09/2022 5:54 PM CONTROL SYSTEMS TECHNICIAN [facility] CULTURE RESULTS ALSO MIXED GROWTH OF DISTAL URETHRA CONTAMINANTS. 05/09/2022 5:54 PM CONTROL SYSTEMS TECHNICIAN [facility] Culture URINE SPECIMEN COLLECTION, CLEAN CATCH / Unknown Non-Phlebotomy Collection / Unknown 05/05/2022 12:15 PM CONTROL SYSTEMS TECHNICIAN 05/05/2022 1:09 PM CONTROL SYSTEMS TECHNICIAN Narrative Organism Antibiotic Method Susceptibility Klebsiella pneumoniae Ampicillin/sulbactam SF VITEK II 8 mcg/ml: Susceptible Klebsiella pneumoniae Cefazolin [facility] VITEK II <=4 mcg/ml: Susceptible Klebsiella pneumoniae Cefepime [facility] VITEK II <=1 mcg/ml: Susceptible Klebsiella pneumoniae Ceftriaxone [facility] VITEK II <=1 mcg/ml: Susceptible Klebsiella pneumoniae Gentamicin [facility] VITEK II <=1 mcg/ml: Susceptible Klebsiella pneumoniae Levofloxacin [facility] VITEK II <=0.12 mcg/ml: Susceptible Klebsiella pneumoniae Meropenem [facility] VITEK II <=0.25 mcg/ml: Susceptible Klebsiella pneumoniae Nitrofurantoin [facility] VITEK II 64 mcg/ml: Intermediate Klebsiella pneumoniae Piperacillin/Tazobactam [facility] VIT EK II <=4 mcg/ml: Susceptible Klebsiella pneumoniae Tobramycin [facility] VITEK II <=1 mcg/ml: Susceptible Klebsiella pneumoniae Trimeth/Sulfamethoxazole [facility] NIKITA II <=20 mcg/ml: Susceptible us Clementina Mauricio MD MICROBIOLOGY - GENERAL ORDERAB LES Final Result [facility] [address] [place] [address], documented in this encounter Visit Diagnoses Diagnosis UTI symptoms- Primary documented in this encounter Care Teams Alternative Medicine Practitioner Relationship Specialty Start Date End Date Enrique Syed MD PCP - General Internal Medicine 04/24/16 07/07/22 Clementina Jara MD #[address] [address] Consulting Physician Urology 03/17/22 documented as of this encounter
--- OUTSIDE RECORDS SUMMARY | 2024-03-11 12:49 | XMS_ITS | Encounter Summary ---
Author Organization [facility] Address [address] [place] [address] Phone Care Team Providers Care Fishery Division Chief Name Role Phone Enrique Syed MD Primary Care Provider [phone] Clementina Logan MD Unavailable [phone] Encounter Details Date Type Department Care Team (Late st Contact Info) Description 04/13/2022 Telephone [facility] #2 [place] [address] Clementina Logan MD #[address] [address] Social History Tobacco Use Types [...] Coronavirus/COVID-19? No / Unsure 03/17/2022 9:24 AM BARGE PILOT documented as of this encounter Miscellaneous Notes * Telephone Encounter - Giovanny Flaherty, Yogesh - 04/13/2022 3:58 PM CST SPOKE WITH DR Syed's Nurse about pt to be cleared for surgery. Pt will be contacted by the office and get in for a pre-op visit. E PILOT documented in this encounter Plan of Treatment Upcoming Encounters Date Type Department Care Team (Late st Contact Info) Description 12/29/2024 9:00 AM CDT [facility] [address] [place] [address] Clementina Logan MD [address] [facility] [address] [place] [address] documented as of this encounter Visit Diagnoses Not on filedocumented in this encounter Care Teams Fishery Division Chief Relationship Specialty Start Date End Date Enrique Syed MD PCP - General Internal Medicine 04/24/16 07/07/22 Clementina Logan MD #[address] [facility] [address] [place] [address] Consulting Physician Urology 03/17/22 documented as of this encounter
--- OUTSIDE RECORDS SUMMARY | 2024-03-11 12:49 | XMS_ITS | Encounter Summary ---
Author Organization [employer] Care Team Providers Care Nutrition Teacher Name Role Phone Enrique Syed MD Primary Care Provider [phone] Clementina Logan MD Unavailable [phone] Encounter Details Date Type Department Care Team (Latest Contact Info) Description 05/20/2022 Travel Social History Tobacco Use Types Packs/Day [...] PHYSICIAN GROUP UROLOGY #[address] [place] [address] Clementina Logan MD #[address], [address] [address] documented as of this encounter Visit Diagnoses Not on filedocumented in this encounter Care Teams Nutrition Teacher Relationship Specialty Start Date End Date Enrique Syed MD PCP - General Internal Medicine 04/24/16 07/07/22 Clementina Logan MD #2 [place] [address] Consulting Physician Urology 03/17/22 documented as of this encounter
--- OUTSIDE RECORDS SUMMARY | 2024-03-11 12:49 | XMS_ITS | Encounter Summary ---
Author Organization [facility] Address [address] [place] [address] Phone Care Team Providers Care Marine Pipefitter Helper Name Role Phone Yohannes Elise MD Primary Care Provider [phone] Clementina Logan MD Unavailable [phone] Reason for Visit * Reason Comments New Patient hematuria * Consult, Test & Initiate Treatment (Routine) - Canceled Specialty Diagnoses / Procedures Referred By Contac t Referred To Contact Urology Diagnoses Hematuria, unspecified Procedures OFFICE VISIT DURING HOURS [facility] [place] [address] Phone: tel: fax: Referral ID Status Reason Start Date Expiration Date V isits Requested Visits Authorized [id number] Canceled 1 1 Encounter Details Date Type Department Care Team (Late st Contact Info) Description 03/17/2022 9:45 AM SENIOR ACCOUNT DIRECTOR Office Visit [facility] [address] [place] [address] Clementina Logan MD [address] [address] Hematuria, unspecified type (Primary Dx) Discharge Disposition: Discharged to home or Selfcare Social History Tobacco Use Types Packs/Day Years Used Date Smoking Tobacco: Former Cigarettes Smokeless Tobacco: Never Tobacco Cessation:Counseling Given: Not [...] Coronavirus/COVID-19? No / Unsure 03/17/2022 9:24 AM SENIOR ACCOUNT DIRECTOR documented as of this encounter Last Filed Vital Signs Vital Sign Reading Time Taken Comments Blood Pressure 128/72 03/17/2022 9:58 AM SENIOR ACCOUNT DIRECTOR Pulse 72 03/17/2022 9:58 AM SENIOR ACCOUNT DIRECTOR Temperature 36.7 ??C (98 ??F) 03/17/2022 9:58 AM SENIOR ACCOUNT DIRECTOR Respiratory Rate 18 03/17/2022 9:58 AM SENIOR ACCOUNT DIRECTOR Oxygen Saturation 99% 03/17/2022 9:58 AM SENIOR ACCOUNT DIRECTOR Inhaled Oxygen Concentration - - Weight 99.9 kg (220 lb 3.2 oz) 03/17/2022 9:58 A M SENIOR ACCOUNT DIRECTOR Height 152.4 cm (5') 03/17/2022 9:58 AM SENIOR ACCOUNT DIRECTOR Body Mass Index 43 03/17/2022 9:58 AM SENIOR ACCOUNT DIRECTOR documented in this encounter Progress Notes * Clementina Logan MD - 03/17/2022 9:45 AM CST Primary Care Physician: YOHANNES ELISE MD Chief Complaint: Hematuria History of Present Illness: Adri Tristan is a 71 y.o. female seen for the evaluation and management of hematuria. The patient endorses an episode of gross hematuria. 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 The patient endorses a prior a history of tobacco use with less than 3 pack year history. The patient denies a personal or family history of cancers (bladder, kidney, ureteral, prostate). The patient endorses chemical exposures (dyes, dry cleaning, industrial chemicals). She has worked as a hairdresser. The history of breast cancer and uterine cancer. She denies any frequent UTIs. She is a prior history of kidney stones status post ESWL about 10 years ago. She has been having chronic right lower flank pain, suprapubic pain as well. Pain is not worsened with activities. Has not responded well to her chiropractor treatment. Past medical history: Breast cancer, uterine cancer, radiation, atrial fibrillation with a pacemaker in place Past surgical history: ESWL, breast cancer surgery, hysterectomy, pacemaker implantation Current Outpatient Medications Medication Sig Dispense Refill ??? albuterol 108 (90 Base) MCG/ACT Aerosol Solution take 2 Puffs by inhalation. ??? allopurinol (ZYLOPRIM) 300 MG Tablet 300 mg. ??? apixaban (ELIQUIS) 5 MG Tablet 5 mg. ??? Ascorbic Acid 500 MG Capsule CR 500 mg. ??? atorvastatin (LIPITOR) 40 MG Tablet 40 mg. ??? azelastine (ASTELIN) 0.1 % Solution ??? budesonide-formoterol fumarate (SYMBICORT) 160-4.5 MCG/ACT Aerosol inhale 2 puff by inhalation route 2 times every day in the morning and evening ??? Calcium Carb-Cholecalciferol 600-20 MG-MCG Tablet ??? cefUROXime (CEFTIN) 500 MG Tablet Take 500 mg by mouth. ??? ciprofloxacin (CIPRO) 250 MG Tablet ??? ergocalciferol (VITAMIN D) 88420 UNIT Capsule Take 50,000 Units by mouth. ??? famotidine (PEPCID) 10 MG Tablet Take 10 mg by mouth. (Patient not taking: Reported on 03/17/2022) ??? fexofenadine (SOMMER) 60 MG Tablet Take by mouth. ??? fluocinonide (LIDEX) 0.05 % Solution APPLY TO ITCHY SCALP 1 TO 2 TIMES DAILY ??? fluticasone (FLONASE) 50 MCG/ACT Suspension ??? irbesartan-hydroCHLOROthiazide (AVALIDE) 150-12.5 MG Tablet Take 1 Tablet by mouth daily. ??? montelukast (SINGULAIR) 10 MG Tablet 10 mg. ??? Multiple Vitamin (MULTIVITAMIN ADULT PO) take 1 tablet by oral route every day with food ??? niacin CR 250 MG Capsule CR Take by mouth. ??? Drummonds-3 1400 MG Capsule Take by mouth. ??? omeprazole (PriLOSEC) 10 MG CAPSULE DELAYED RELEASE 10 mg. ??? sotalol (BETAPACE) 160 MG Tablet Take 160 mg by mouth 2 times daily. ??? valsartan-hydroCHLOROthiazide (DIOVAN-HCT) 320-12.5 MG Tablet Take 1 Tablet by mouth daily. No current facility-administered medications for this visit. Allergies Allergen Reactions ??? Nitrofurantoin Diarrhea and Nausea ??? Christopher Inhibitors Other (see Comments) and Unknown ??? Erythromycin Unknown unsure what type of reaction ??? Sulfa Antibiotics Vomiting Social History Socioeconomic History ??? Marital status: Tobacco Use ??? Smoking status: Former Types: Cigarettes ??? Smokeless tobacco: Never Vaping Use ??? Vaping Use: Never used Substance and Sexual Activity ??? Alcohol use: Not Currently ??? Drug use: Not Currently ??? Sexual activity: Not Currently Family History Problem Relation Age of Onset ??? Cancer Father ??? Heart Disease Father ??? Cancer Mother REVIEW OF SYSTEMS: As per the HPI. [...] No abdominal tenderness. No hernias. No hepatosplenomegaly. Musculoskeletal: moving all extremities. Lymphatic: No inguinal lymphadenopathy. Psychiatry: Normal mood, alert and oriented Labs: UCx ordered today Imaging: CT scan was personally reviewed from the [facility] system which basically shows right hydronephrosis, distal right ureteral stone, several bilateral nonobstructing renal calcifications that are about 2-3 mm each. She would a CT scan with contrast done June 2021 that also did not show any renal tumors masses. No hydronephrosis at that point ASSESSMENT AND PLAN: Today, I had a long candid discussion with Adri Tristan about several issues atlength: 1. Hematuria: the multifactorial etiology of microscopic and gross hematuria. We discussed the differential which includes issues that may involve the upper versus lower urinary tracts such as the: Kidneys, ureters, bladder, urethra/prostate, and periurethral tissues. Specific etiologies in each ofthese organ systems include malignancy, nephrolithiasis, infection, trauma, inflammation, obstructive etiologies, medications. -recommend cystoscopy, already has had contrast upper tract imaging (06/2021) 2. Right ureteral stone: 6mm right ureteral stone 1. Observation with Flomax. I discussed that with a 6 mm stone is an approximately <80% chance it will pass. The patient may [...] be a fine option for the patient's stonebecause of its location and size. We discussed risks of steinstrausse, sepsis, renal hematoma, needfor additional procedures should the stone not be [...] anatomic variations. The patient expressed understanding. Plan: R URS/LL/stent Plan: 1. Cysto with indicated procedures 2. R URS/LL/stent 3. Stop blood thinners prior to OR 4. Needs to be cleared by PMD prior to surgery 5. UCx Teaching was performed using illustrated anatomic diagrams and patient imaging. No impairments to patient comprehension were appreciated. All questions were answered to the patient's satisfaction. Thank you for allowing us to participate in your patient's care. OR ACCOUNT DIRECTOR * Clementina Logan MD - 03/17/2022 9:45 AM CST Can you please let the patient know Ucx with mixed devon, please have her recollect the urine culture given up coming surgery.. Thank you, Clementina Logan OR ACCOUNT DIRECTOR * Clementina Logan MD - 03/17/2022 9:45 AM CST Can you please let the patient know Ucx pos, please rx keflex 500mg PO BID, disp 20. 0 refills. Please start SOHAM. Thank you, Clementina Logan OR ACCOUNT DIRECTOR documented in this encounter Miscellaneous Notes * Addendum Note - Giovanny Flaherty RMA - 03/17/2022 9:45 AM CSTAddended by: GIOVANNY FLAHERTY on: 03/27/2022 03:45 PM Modules accepted: Orders OR ACCOUNT DIRECTOR documented in this encounter Plan of Treatment Upcoming Encounters Date Type Department Care Team (Late st Contact Info) Description 12/29/2024 9:00 AM CDT [facility] [address] [place] [phone] Clementina Logan MD [address], [address] [address] Scheduled Orders Name Type Priority Associated Diagnoses Orde r Schedule POCT UA AUTOMATED W/O MICRO Point of Care Testing (manual) Routine Hematuria, unspecified type 12 Occurrences starting 03/16/2022 until 03/16/2023, 1 completed documented as of this encounter Procedures Procedure Name Priority Date/Time Associated Diagnosis Comments CULTURE, URINE Routine 03/27/2022 3:48 PM SENIOR ACCOUNT DIRECTOR Hematuria, unspecified type CULTURE, URINE Routine 03/17/2022 10:30 AM SENIOR ACCOUNT DIRECTOR Hematuria, unspecified type POCT UA AUTOMATED W/O MICRO Routine 03/17/2022 10:25 AM SENIOR ACCOUNT DIRECTOR Hematuria, unspecified type documented in this encounter Results * CULTURE, URINE (03/27/2022 3:48 PM SENIOR ACCOUNT DIRECTOR) CULTURE RESULTS KLEBSIELLA PNEUMONIAE 03/29/2022 2:53 PM SENIOR ACCOUNT DIRECTOR [facility] Culture URINE SPECIMEN COLLECTION, CLEAN CATCH / Unknown Non-Phlebotomy Collection / Unknown 03/27/2022 3:48 PM SENIOR ACCOUNT DIRECTOR 03/27/2022 3:48 PM SENIOR ACCOUNT DIRECTOR Narrative Organism Antibiotic Method Susceptibility Klebsiella pneumoniae Ampicillin/sulbactam [facility] VITEK IIB 8 mcg/ml: Susceptible Klebsiella pneumoniae Cefazolin [facility] VITEK IIB <=4 mcg/ml: Susceptible Klebsiella pneumoniae Cefepime [facility] VITEK IIB <=1 mcg/ml: Susceptible Klebsiella pneumoniae Ceftriaxone [facility] V[facility]K IIB <=1 mcg/ml: Susceptible Klebsiella pneumoniae Gentamicin [facility] V[facility]K IIB <=1 mcg/ml: Susceptible Klebsiella pneumoniae Levofloxacin [facility] VITEK IIB <=0.12 mcg/ml: Susceptible Klebsiella pneumoniae Meropenem [facility] V[facility]K IIB <=0.25 mcg/ml: Susceptible Klebsiella pneumoniae Nitrofurantoin [facility] VITEK IIB 64 mcg/ml: Intermediate Klebsiella pneumoniae Piperacillin/Tazobactam [facility] VIT EK IIB <=4 mcg/ml: Susceptible Klebsiella pneumoniae Tobramycin [facility] VITEK IIB <=1 mcg/ml: Susceptible Klebsiella pneumoniae Trimeth/Sulfamethoxazole [facility] NIKITA IIB <=20 mcg/ml: Susceptible Clementina Mauricio MD MICROBIOLOGY - GENERAL ORDERAB LES Final Result [facility] [address] [place] [address], [place] * CULTURE, URINE (03/17/2022 10:30 AM SENIOR ACCOUNT DIRECTOR) CULTURE RESULTS MIXED GROWTH OF ONE OR MORE DISTAL URETHRAL CONTAMINANTS 03/18/2022 3:31 PM SENIOR ACCOUNT DIRECTOR [facility] Culture URINE / Unknown Non-Phlebotomy Collection / Unknown 03/17/2022 10:30 AM SENIOR ACCOUNT DIRECTOR 03/17/2022 10:30 AM SENIOR ACCOUNT DIRECTOR Clementina Mauricio MD MICROBIOLOGY - GENERAL ORDERAB LES Final Result Performing Organization Address [facility] Co de Phone Number [facility] [address] [place] [address], [place] * (ABNORMAL) POCT UA AUTOMATED W/O MICRO (03/17/2022 10:25 AM SENIOR ACCOUNT DIRECTOR) POC UA SPECIFIC GRAVITY 1.015 URINE PH 6.5 5.0 - 9.0 POC URINE LEUKOCYTES 500 [...] COLOR Yellow POC URINE CLARITY Clear Urine 03/17/2022 10:2 5 AM SENIOR ACCOUNT DIRECTOR Clementina Mauricio MD POINT OF CARE TESTING (MANUAL) Final Result documented in this encounter Visit Diagnoses Diagnosis Hematuria, unspecified type- Primary documented in this encounter Care Teams Marine Pipefitter Helper Relationship Specialty Start Date End Date Yohannes Elise MD PCP - General Internal Medicine 04/24/16 07/07/22 Clementina Logan MD [address] [place] [address] Consulting Physician Urology 03/17/22 documented as of this encounter
--- OUTSIDE RECORDS SUMMARY | 2024-03-11 12:49 | XMS_ITS | Encounter Summary ---
Author Organization [facility] Address [address] [place] [address] Phone Care Team Providers Care Stove Mechanic Name Role Phone Enrique Syed MD Primary Care Provider [phone] Clementina Logan MD Unavailable [phone] Reason for Visit * Reason Onset Date Comments Other 05/08/2022 Encounter Details Date Type Department Care Team (Late st Contact Info) Description 05/08/2022 Telephone [facility] [address] [place] [address] Clementina Logan MD #[address] [address] Other Social History Tobacco Use Types Packs/Day [...] Coronavirus/COVID-19? No / Unsure 05/05/2022 12:04 PM ACCOUNT COLLECTOR documented as of this encounter Miscellaneous Notes * Telephone Encounter - Giovanny Flaherty RMA - 05/08/2022 3:16 PM CST SPOKE WITH PT AND SHE AGREED TO BE SCHEDULE FOR 05.29.22.PT WAS INFORM TO STOP ELIQUIS 2 DAYS BEFORE. UNT COLLECTOR documented in this encounter Plan of Treatment Upcoming Encounters Date Type Department Care Team (Late st Contact Info) Description 12/29/2024 9:00 AM CDT [facility] [address] [place] [address] Clementina Logan MD [address] [address] documented as of this encounter Visit Diagnoses Not on filedocumented in this encounter Care Teams Stove Mechanic Relationship Specialty Start Date End Date Enrique Syed MD PCP - General Internal Medicine 04/24/16 07/07/22 Clementina Logan MD [address] [facility] [address] [place] [address] Consulting Physician Urology 03/17/22 documented as of this encounter
--- OUTSIDE RECORDS SUMMARY | 2024-03-11 12:49 | XMS_ITS | Encounter Summary ---
Author Organization [facility] Address [address] [place] [address] Phone Care Team Providers Care Financial Aids Officer Name Role Phone Enrique Syed MD Primary Care Provider [phone] Clementina Logan MD Unavailable [phone] Reason for Referral * Radiology Services (Routine) - Closed Specialty Diagnoses / Procedures Referred By Contac t Referred To Contact Radiology Diagnoses Preop testing Procedures EKG 12 LEAD Clementina Logan MD [address] [place] [address] Phone: tel: fax: Referral ID Status Reason Start Date Expiration Date Visits Re quested Visits Authorized [id number] Closed 05/18/2022 1 1 Encounter Details Date Type Department Care Team (Late st Contact Info) Description 05/18/2022 Transcribe Orders [facility] Preop/Pacu II [address] [place] [address] Clementina Logan MD #[address] [address] Preop testing (Primary Dx) Social History Tobacco Use Types Packs/Day Years [...] Coronavirus/COVID-19? No / Unsure 05/05/2022 12:04 PM LUMBER SALES SUPERVISOR documented as of this encounter Plan of Treatment Upcoming Encounters Date Type Department Care Team (Late st Contact Info) Description 12/29/2024 9:00 AM CDT Office Visit [facility] [address] [place] [address] Clementina Logan MD [address] [facility], [address] [address] documented as of this encounter Results * EKG 12 LEAD (05/20/2022 2:17 PM CDT) Ventricular Rate 61 BPM EXTERNAL EKG Atrial Rate 61 BPM EXTERNAL EKG P-R Interval 212 ms EXTERNAL EKG QRS Duration 92 ms EXTERNAL EKG Q-T Duration 408 ms EXTERNAL EKG QTC CALCULATION 410 ms EXTERNAL EKG P [place] -29 degrees EXTERNAL EKG R [place] -30 degrees EXTERNAL EKG T [place] -30 degrees EXTERNAL EKG 05/20/2022 2:17 PM CDT Impressions EXTERNAL EKG - 05/22/2022 4:09 PM CDT Atrial-paced rhythm with prolonged AV conduction Left axis deviation Moderate voltage criteria for LVH, may be normal variant ( R in aVL , [place] product ) Abnormal ECG No previous ECGs available Confirmed by Joshua Estevez ([id number]) on 05/22/2022 4:09:47 PM Narrative Procedure Note Joshua Feliz MD - 05/22/2022 IMPRESSION: Atrial-paced rhythm with prolonged AV conduction Left axis deviation Moderate voltage criteria for LVH, may be normal variant ( R in aVL ,[place] product ) Abnormal ECG No previous ECGs available Confirmed by Joshua Estevez ([id number]) on 05/22/2022 4:09:47 PM [facility] Mauricio MD IMG ECG ORDERABLES Final Resul t EXTERNAL EKG * (ABNORMAL) BASIC METABOLIC PANEL W/ CALCIUM TOTAL (05/20/2022 2:14 PM CDT) Pathologist [facility] SODIUM 142 136 - 144 mmol/L 05/20/2022 4:15 PM CDT [facility] POTASSIUM 4.4 3.5 - 5.1 mmol/L 05/20/2022 4:15 PM CDT [facility] CHLORIDE 105 100 - 110 mmol/L 05/20/2022 4:15 PM CDT [facility] CO2, VENOUS 28 22 - 32 mmol/L 05/20/2022 4:15 PM CDT [facility] ANION GAP 13.4 8.0 - 20.0 mmol/L 05/20/2022 4:15 PM CDT [facility] GLUCOSE 117(H) 70 - 99 mg/dL 05/20/2022 4:15 PM CDT [facility] BUN 25(H) 8 - 23 mg/dL 05/20/2022 4:15 PM CDT [facility] CREATININE, BLOOD 0.53(L) 0.60 - 1.10 mg/dL 05/20/2022 4:15 PM CDT [facility] BUN/CREATININE RATIO 47(H) 12 - 20 ratio 05/20/2022 4:15 PM CDT [facility] CALCIUM 10.5(H) 8.9 - 10.3 mg/dL 05/20/2022 4:15 PM CDT [facility] IS THE PATIENT REQUIRED TO BE FASTING? No 05/20/2022 4:15 PM CDT [facility] GFR, ESTIMATED >60 >=60 05/20/2022 4:15 PM CDT [facility] Comment: Creatinine Clearance is the preferred criteria for selecting drug dose adjustments in renally impaired patients. ??The GFR is provided as additional pertinent clinical information. GFR is reported in mL/min/1.73 sq m. Calculation based on the Chronic Kidney Disease Epidemiology Collaboration (CKD- EPI) equation refit without adjustment for race. GFR, EST. >60 >=60 023 4:15 PM CDT [facility] GFR, EST. NONAFRICAN >60 >=60 05/20/2022 4:15 PM CDT [facility] Blood Venipuncture / Unknown 05/20/2022 2:14 PM CDT 05/20/2022 3:50 PM CDT Clementina Mauricio MD CHEMISTRY ORDERABLES Final Res ult [facility] [address] [place] [address] documented in this encounter Visit Diagnoses Diagnosis Preop testing- Primary Preoperative examination, unspecified Preop testing Preoperative examination, unspecified documented in this encounter Care Teams Financial Aids Officer Relationship Specialty Start Date End Date Enrique Syed MD PCP - General Internal Medicine 04/24/16 07/07/22 Clementina Logan MD [address] [address] Consulting Physician Urology 03/17/22 documented as of this encounter
--- OUTSIDE RECORDS SUMMARY | 2024-03-11 12:49 | XMS_ITS | Encounter Summary ---
Author Organization [employer] Care Team Providers Care Pizza Baker Name Role Phone Enrique Syed MD Primary Care Provider [phone] Clementina Logan MD Unavailable [phone] Encounter Details Date Type Department Care Team (Latest Contact Info) Description 03/17/2022 Travel Social History Tobacco Use Types Packs/Day [...] Coronavirus/COVID-19? No / Unsure 03/17/2022 9:24 AM FAN INSTALLER documented as of this encounter Plan of Treatment Upcoming Encounters Date Type Department Care Team (Late st Contact Info) Description 12/29/2024 9:00 AM CDT Office Visit [facility] [address] [place] [address] Clementina Logan MD [address], [address] [address] documented as of this encounter Visit Diagnoses Not on filedocumented in this encounter Care Teams Pizza Baker Relationship Specialty Start Date End Date Enrique Syed MD PCP - General Internal Medicine 04/24/16 07/07/22 Clementina Logan MD #[address] [place] [id number] Consulting Physician Urology 03/17/22 documented as of this encounter
== END 2024-03-04 10:55 | disposition home or self-care (01) ==
PROVIDERS: Emergency Provider Nurse Practitioner; PCP Internal Medicine
DX: R09.82 Postnasal drip (principal); J01.90 Acute sinusitis, unspecified; Z87.891 Personal history of nicotine dependence; I48.91 Unspecified atrial fibrillation; E78.00 Pure hypercholesterolemia, unspecified; Z95.0 Presence of cardiac pacemaker; Z20.822 Contact with and (suspected) exposure to COVID-19; Z85.3 Personal history of malignant neoplasm of breast; Z90.12 Acquired absence of left breast and nipple; Z92.3 Personal history of irradiation; Z96.642 Presence of left artificial hip joint
CPT/HCPCS: 87426; 87804; 99213; G0463